=== PATIENT | male | born 1960 | race Caucasian/White ===

== ENCOUNTER 2016-11-12 12:06 | Emergency (ER) | payer SELFPAY ==
[~2016-11-12] VITALS: Ht 180.3 cm; Wt 79.8 kg
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
[2016-11-12] MEDS ORDERED: ORPHENADRINE 60 MG/2 ML (NORFLEX) AMP IM ONE (12:30)
[2016-11-12] MEDS ORDERED: KETOROLAC 60 MG/2 ML VIAL IM ONE (12:30)
[2016-11-12] MEDS ORDERED: HYDR-3816 PO (12:34)
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
[2016-11-12 13:52] VITALS: BP 140/98
== END 2016-11-12 13:52 | disposition home or self-care (01) ==
LOC: EDUNIT# 12:06 → ER 12:10
DX: M54.2 Cervicalgia (principal); G89.29 Other chronic pain; Z98.1 Arthrodesis status
CPT/HCPCS: 70450; 72125; 96372; 99281

== ENCOUNTER 2017-01-21 09:40 | Emergency (ER) | payer SELFPAY ==
[~2017-01-21] VITALS: Ht 180.3 cm; Wt 79.8 kg
[~2017-01-21 09:40] MED LIST: HYDR-3816 PO
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
[2017-01-21] MEDS ORDERED: fentaNYL INJECTION 100 MCG/2 ML AMP IVP ONE (11:15)
[2017-01-21] MEDS ORDERED: fentaNYL INJECTION 100 MCG/2 ML AMP IM PRN (11:30)
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
[2017-01-21] MEDS ORDERED: HYDR-756 PO (11:36)
[2017-01-21 11:53] VITALS: BP 124/74
== END 2017-01-21 11:53 | disposition home or self-care (01) ==
LOC: EDUNIT# 09:40 → ER 09:43
DX: S52.124A Nondisplaced fracture of head of right radius, initial encounter for closed fracture (principal); S52.125A Nondisplaced fracture of head of left radius, initial encounter for closed fracture; M19.90 Unspecified osteoarthritis, unspecified site; M54.9 Dorsalgia, unspecified; G89.29 Other chronic pain; F17.210 Nicotine dependence, cigarettes, uncomplicated; V18.4XXA Pedal cycle driver injured in noncollision transport accident in traffic accident, initial encounter
CPT/HCPCS: 73060; 73090; 96372; 99282

== ENCOUNTER 2017-03-19 08:24 | Inpatient (IN) | payer OTHER ==
[~2017-03-19] VITALS: Ht 180.3 cm; Wt 81.4 kg
[~2017-03-19 08:24] MED LIST changes: +HYDR-756 PO
--- OUTSIDE RECORDS SUMMARY | 2017-03-19 13:39 | XMS REPORT | Continuity of Care Document ---
Author Author [facility] Organization [facility] Address Unknown Phone Unavailable Allergies Active Description Code Type Severity Reaction Onset Reported/Identified Relationship to Patient Clinical Status Yes No Known Allergies Drug Allergy Unknown 05/27/2012 Yes No Known Allergies No Known Allergies Drug Allergy Unknown N/A 04/23/2015 Yes No Known Allergies NKMA N/A N/A 05/15/2015 Medications Problems Date Dx Coded Attending Type Code Diagnosis Diagnosed By 05/15/2015 Brian Pillai MD Admitting E87.6 05/20/2015 Brian Pillai MD Final E87.6 Hypokalemia 05/20/2015 Brian Pillai MD Final F11.10 Opioid abuse, uncomplicated 05/20/2015 Brian Pillai MD Final F15.10 Other stimulant abuse, uncomplicated 05/20/2015 Brian Pillai MD Final M62.82 Rhabdomyolysis 05/20/2015 Brian Pillai MD Final R65.10 Systemic inflammatory response syndrome (SIRS) of non-infectious origin wit 05/20/2015 Brian Pillai MD Final Z23 Encounter for immunization Procedures Results Encounters ACCT No. Visit Date/Time Discharge Status Pt. Type Provider Facility Loc./Unit Complaint [id number] 06/18/2012 08:00:00 2011 23:59:59 CLS Outpatient Kam TRINH, [facility] HMG.ORT.NO [id number] 04/23/2015 09:46:00 2014 11:06:00 DIS Emergency Azra TRINH, [facility] W.EMILIE [id number] 05/15/2015 21:08:00 2014 11:39:00 DIS Inpatient [facility]
[2017-03-19] MEDS ORDERED: DOCUSATE SODIUM 100 MG (COLACE) CAP PO PRN (14:15)
[2017-03-19] MEDS ORDERED: CLINDAMYCIN 900 MG/6ML (CLEOCIN) VIAL IV SCH (14:15)
[2017-03-19] MEDS ORDERED: ONDANSETRON 4 MG/5 ML ORAL SOLN (ZOFRAN) 5 ML PO PRN (14:15)
[2017-03-19] MEDS ORDERED: HYDROcodone/APAP 5 MG/325 MG (LORTAB) TAB PO PRN (14:15)
[2017-03-19] MEDS ORDERED: CATHETER FLUSH 10 ML SYR IV PRN (14:30)
[2017-03-19] MEDS: CLINDAMYCIN 900 MG/NS 50 ML IVPB IV SCH ×4 (14:37→21:45)
[2017-03-19] MEDS: IBUPROFEN 600 MG (MOTRIN) TAB PO PRN (14:37)
[2017-03-19 14:43] LABS: BASOPHILS % (AUTO) 0 % (0-10); EOSINOPHILS % (AUTO) 0 % (0-10); LYMPHOCYTES % (AUTO) 8 % (12-44); MEAN CORPUSCULAR HEMOGLOBIN 33 PG (25-34); MEAN CORPUSCULAR HGB CONC 35 G/DL (32-36); MEAN CORPUSCULAR VOLUME 92 FL (80-99); MEAN PLATELET VOLUME 9.9 FL (7.4-10.4); MONOCYTES % (AUTO) 9 % (0-12); NEUTROPHILS # (AUTO) 9.3 X 10^3 (1.8-7.8); NEUTROPHILS % (AUTO) 82 % (42-75); PLATELET COUNT 158 10^3/uL (130-400); RED CELL DISTRIBUTION WIDTH 12.8 % (10.0-14.5); WHITE BLOOD COUNT 11.3 10^3/uL (4.3-11.0)
[2017-03-19 15:02] LABS: ALANINE AMINOTRANSFERASE 50 U/L (0-55); ALBUMIN 3.1 GM/DL (3.2-4.5); ANION GAP 12 MMOL/L (5-14); ASPARTATE AMINO TRANSFERASE 75 U/L (5-34); BILIRUBIN,TOTAL 0.7 MG/DL (0.1-1.0); BLOOD UREA NITROGEN 12 MG/DL (7-18); BUN/CREATININE RATIO 16; CALCIUM 8.8 MG/DL (8.5-10.1); CARBON DIOXIDE 19 MMOL/L (21-32); CHLORIDE 106 MMOL/L (98-107); CREATININE SERUM 0.77 MG/DL (0.60-1.30); GFR ESTIMATED > 60; GLUCOSE 159 MG/DL (70-105); SODIUM 137 MMOL/L (135-145); hs C REACTIVE PROTEIN 4.28 MG/DL (0.00-0.50)
[2017-03-19 15:15] VITALS: BP 134/87
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
[2017-03-19] MEDS ORDERED: KCL 20 MEQ TAB (K-DUR) PO NR (15:45)
--- NOTE | 2017-03-19 16:36 | Diagnostic Imaging Report ---
INDICATION: Pain. TECHNIQUE: Three views of both elbows were obtained. FINDINGS: There are radial head fractures bilaterally. The distal humerus and proximal ulna are intact bilaterally. IMPRESSION: Relatively stable alignment of the bilateral nondisplaced radial head fractures. Dictated by: Dictated on workstation # [id number]
[2017-03-19] MEDS: HYDROcodone/APAP 5 MG/325 MG (LORTAB) TAB PO PRN ×2 (16:45→19:16)
[2017-03-19 19:10] VITALS: BP 143/89
[2017-03-19] MEDS: CATHETER FLUSH 10 ML SYR IV SCH (21:46)
[2017-03-20] VITALS (8 sets, daily range): BP systolic 138–200; BP diastolic 88–107
[2017-03-20] MEDS: HYDROcodone/APAP 5 MG/325 MG (LORTAB) TAB PO PRN ×5 (04:09→21:26)
[2017-03-20] MEDS: IBUPROFEN 600 MG (MOTRIN) TAB PO PRN ×3 (04:56→15:19)
[2017-03-20] MEDS: CATHETER FLUSH 10 ML SYR IV SCH ×3 (05:36→21:26)
[2017-03-20] MEDS: CLINDAMYCIN 900 MG/NS 50 ML IVPB IV SCH ×6 (05:36→21:26)
[2017-03-20 05:46] LABS: BASOPHILS % (AUTO) 0 % (0-10); EOSINOPHILS # (AUTO) 0.1 10^3/uL (0.0-0.3); EOSINOPHILS % (AUTO) 1 % (0-10); LYMPHOCYTES # (AUTO) 0.9 X 10^3 (1.0-4.0); LYMPHOCYTES % (AUTO) 17 % (12-44); MEAN CORPUSCULAR HEMOGLOBIN 32 PG (25-34); MEAN CORPUSCULAR HGB CONC 35 G/DL (32-36); MEAN CORPUSCULAR VOLUME 93 FL (80-99); MEAN PLATELET VOLUME 9.9 FL (7.4-10.4); MONOCYTES # (AUTO) 0.8 X 10^3 (0.0-1.0); MONOCYTES % (AUTO) 15 % (0-12); NEUTROPHILS # (AUTO) 3.7 X 10^3 (1.8-7.8); NEUTROPHILS % (AUTO) 67 % (42-75); PLATELET COUNT 139 10^3/uL (130-400); RED BLOOD COUNT 4.52 10^6/uL (4.35-5.85); RED CELL DISTRIBUTION WIDTH 12.7 % (10.0-14.5); WHITE BLOOD COUNT 5.5 10^3/uL (4.3-11.0)
[2017-03-20 06:04] LABS: ALANINE AMINOTRANSFERASE 54 U/L (0-55); ALBUMIN 2.9 GM/DL (3.2-4.5); ANION GAP 9 MMOL/L (5-14); ASPARTATE AMINO TRANSFERASE 75 U/L (5-34); BILIRUBIN,TOTAL 0.6 MG/DL (0.1-1.0); BLOOD UREA NITROGEN 12 MG/DL (7-18); BUN/CREATININE RATIO 17; CALCIUM 8.6 MG/DL (8.5-10.1); CARBON DIOXIDE 21 MMOL/L (21-32); CHLORIDE 110 MMOL/L (98-107); CREATININE SERUM 0.69 MG/DL (0.60-1.30); GFR ESTIMATED > 60; GLUCOSE 90 MG/DL (70-105); POTASSIUM 3.6 MMOL/L (3.6-5.0); SODIUM 140 MMOL/L (135-145); TOTAL PROTEIN 6.3 GM/DL (6.4-8.2)
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
--- NOTE | 2017-03-20 13:24 | Consultation ---
History of Present Illness History of Present Illness Patient Consulted On(timi/time) 03/20/17 13:18 Date Seen by Provider: Mar 20, 2017 Time Seen by Provider: 13:18 Reason for Visit: recent fracture of the left head of the radius, followed by a fall 2 d History of Present Illness 56 yr old WM with a drainage left olecranon bursitis. states that the redness, drainage and pain have significantly improved since it began a few days ago. denies fevers or chill. no history of similar episodes. he also has bilateral radial head nondisplaced fractures after a fall. Allergies and Home Medications Allergies Coded Allergies: No Known Drug Allergies (Unverified , 11/12/16) Home Medications No Active Prescriptions or Reported Meds Past Kijqqxm-Jtxxvz-Doaroe Hx Patient Social History Alcohol Use: Occasionally Uses Number of Drinks Today: AA Alcohol Beverage of Choice: Beer Recreational Drug Use: No (past drug abuse ) Type Used: Cigarettes 2nd Hand Smoke Exposure: Yes Recent Foreign Travel: No Contact w/Someone Who Travel: No Recent Infectious Disease Expo: No Recent Hopitalizations: No Immunizations Up To Date Tetanus Booster (TDap): Less than 5yrs PED Vaccines UTD: Yes Surgeries History of Surgeries: Yes (back, neck jun 2016) Respiratory History of Respiratory Disorde: No Cardiovascular History of Cardiac Disorders: No Neurological History of Neurological Disord: No Genitourinary History of Genitourinary Disor: No Gastrointestinal History of Gastrointestinal Di: No Musculoskeletal History of Musculoskeletal Dis: Yes Musculoskeletal Disorders: Arthritis, Back Injury, Chronic Back Pain Endocrine History of Endocrine Disorders: No HEENT History of HEENT Disorders: No Cancer History of Cancer: No Psychosocial History of Psychiatric Problem: No Blood Transfusions History of Blood Disorders: No Family Medical History Significant Family History: No Pertinent Family Hx Review of Systems-General Constitutional: no symptoms reported Physical Exam-General Problems Physical Exam Vital Signs Vital Sign - Last 12Hours 03/19/17 15:15 Temp 99.3 Pulse 96 Resp 20 B/P (MAP) 134/87 Pulse Ox 96 O2 Delivery Room Air Capillary Refill : Less Than 3 Seconds General Appearance: no apparent distress Extremities: other (left elbow: circumscribed erythema over small 1 cm area of flucuance, serosanguinous scant discharge noted, no purulence, 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 Patient instructed to call for worsening drainage/ fevers. Clinical Quality Measures DVT/VTE Risk/Contraindication: Risk Factor Score Per Nursin RFS Level Per Nursing on Admit: 3=High HERMANN WILSON DO Mar 20, 2017 13:24
--- NOTE | 2017-03-20 16:27 | Progress Note (SOAP) ---
Subjective Subjective/Events-last exam Afebrile, no acute events. Swelling and redness and pain in arm improving somewhat. Review of Systems Date Seen by Provider: Mar 20, 2017 Time Seen by Provider: 10:00 Objective Exam Last Set of Vital Signs Vital Signs Date Time Temp Pulse Resp B/P (MAP) Pulse Ox O2 Delivery O2 Flow Rate FiO2 03/20/17 12:52 97.1 78 20 163/102 99 Room Air Capillary Refill : Less Than 3 Seconds I&O Intake and Output 03/21/17 00:00 Intake Total 1650 ml Output Total 1 ml Balance 1649 ml Intake Oral 1600 ml IV Total 50 ml Output Stool Total 1 ml # Voids 6 General: Alert, No Acute Distress Lungs: Clear to Auscultation, Normal Air Movement Heart: Regular Rate, No Murmurs Abdomen: Normal Bowel Sounds, Soft Skin: Other (mild erythema of left arm with more significant erythema over elbow, dark, necrotic appearing lesion over elbow stable, erythema and swelling significantly decreased from yesterday) Psych/Mental Status: Mental Status NL Results/Procedures Lab Laboratory Tests 03/20/17 05:15: White Blood Count 5.5, Red Blood Count 4.52, Hemoglobin 14.5, Hematocrit 42, Mean Corpuscular Volume 93, Mean Corpuscular Hemoglobin 32, Mean Corpuscular Hemoglobin Concent 35, Red Cell Distribution Width 12.7, Platelet Count 139, Mean Platelet Volume 9.9, Neutrophils (%) (Auto) 67, Lymphocytes (%) (Auto) 17, Monocytes (%) (Auto) 15H, Eosinophils (%) (Auto) 1, Basophils (%) (Auto) 0, Neutrophils # (Auto) 3.7, Lymphocytes # (Auto) 0.9L, Monocytes # (Auto) 0.8, Eosinophils # (Auto) 0.1, Basophils # (Auto) 0.0, Erythrocyte Sedimentation Rate 36H, Sodium Level 140, Potassium Level 3.6, Chloride Level 110H, Carbon Dioxide Level 21, Anion Gap 9, Blood Urea Nitrogen 12, Creatinine 0.69, Estimat Glomerular Filtration Rate > 60, BUN/Creatinine Ratio 17, Glucose Level 90, Calcium Level 8.6, Total Bilirubin 0.6, Aspartate Amino Transf (AST/SGOT) 75H, Alanine Aminotransferase (ALT/SGPT) 54, Alkaline Phosphatase 63, Total Protein 6.3L, Albumin 2.9L Microbiology 8/28/17 Blood Culture - Preliminary, Resulted No growth Assessment/Plan Assessment/Plan Admission Dx Cellulitis Non-displaced bilateral radial head fractures Plan Cellulitis- failed Bactrim outpatient -Initial elevated WBC resolved, no lactic acid elevation -IV clindamycin 900 mg q8 hours -Surgery consult due to fluctuance and necrotic appearing tissue- no need for debridement, but appreciate recommendations, Ortho consult pending Non-displaced bilateral radial head fractures- repeat bilateral elbow x-rays to evaluate healing -Ortho consult today given wound over fracture with infection DVT ppx- enoxaparin Diagnosis/Problems: Clinical Quality Measures DVT/VTE Risk/Contraindication: Risk Factor Score Per Nursin RFS Level Per Nursing on Admit: 3=High ALBERTO UMANZOR MD Mar 20, 2017 16:27
[2017-03-20] MEDS ORDERED: ENOXAPARIN 40 MG/0.4 ML (LOVENOX) SYR SC SCH (16:30)
[2017-03-21] VITALS: BP 161/106
[2017-03-21] MEDS: HYDROcodone/APAP 5 MG/325 MG (LORTAB) TAB PO PRN ×2 (03:08→08:19)
[2017-03-21 04:00] VITALS: BP 160/107
[2017-03-21] MEDS: CLINDAMYCIN 900 MG/NS 50 ML IVPB IV SCH ×2 (05:17)
[2017-03-21] MEDS: CATHETER FLUSH 10 ML SYR IV SCH (05:18)
[2017-03-21 08:00] VITALS: BP 141/98
[2017-03-21 09:34] LABS: MEAN PLATELET VOLUME 10.4 FL (7.4-10.4); RED BLOOD COUNT 4.99 10^6/uL (4.35-5.85); RED CELL DISTRIBUTION WIDTH 12.7 % (10.0-14.5); WHITE BLOOD COUNT 5.2 10^3/uL (4.3-11.0)
[2017-03-21 09:56] LABS: ALANINE AMINOTRANSFERASE 62 U/L (0-55); ALBUMIN 3.3 GM/DL (3.2-4.5); ANION GAP 11 MMOL/L (5-14); ASPARTATE AMINO TRANSFERASE 67 U/L (5-34); BILIRUBIN,TOTAL 0.5 MG/DL (0.1-1.0); BLOOD UREA NITROGEN 11 MG/DL (7-18); BUN/CREATININE RATIO 15; CARBON DIOXIDE 22 MMOL/L (21-32); CHLORIDE 105 MMOL/L (98-107); CREATININE SERUM 0.72 MG/DL (0.60-1.30); GFR ESTIMATED > 60; GLUCOSE 78 MG/DL (70-105); POTASSIUM 3.7 MMOL/L (3.6-5.0); SODIUM 138 MMOL/L (135-145); TOTAL PROTEIN 7.6 GM/DL (6.4-8.2)
[2017-03-21] MEDS ORDERED: CLIN150C17 PO (11:06)
--- NOTE | 2017-03-21 11:10 | Discharge Instructions ---
Discharge [facility] Discharge Medications New, Converted or Re-Newed RX: Transmitted to Pharmacy New Medications: Clindamycin HCl (Clindamycin HCl) 150 Mg Capsule 450 MG PO Q6H for 10 Days, #120 CAP 0 Refills Patient Instructions Goal/Follow Up Appt: Follow up with Derek Parnell APRN on 03/27 at 10 am. Follow up with Dr. Patel (Orthopedics) in 2 weeks. Return to The Hospital For: Fever, inability to keep down antibiotics, worsening pain/redness in arm Activity & Diet Discharge Diet: Regular Diet Activity as Tolerated: No (non-weight bearing both arms) Copy Copies To 1: ELENA Dias BETHANY N MD Mar 21, 2017 11:09 am
[2017-03-21 12:00] VITALS: BP 141/98
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
== END 2017-03-21 12:00 | disposition home or self-care (01) | DRG 603 ==
LOC: EDSTATUS 08:24 → 4TH 12:56 → UNDOADMOB 12:56 → UNDODISOB 03-21 12:00
PROVIDERS: ADMIT Family Medicine; ATTEND Family Medicine
DX: L03.114 Cellulitis of left upper limb (principal); S52.125D Nondisplaced fracture of head of left radius, subsequent encounter for closed fracture with routine healing; S52.124D Nondisplaced fracture of head of right radius, subsequent encounter for closed fracture with routine healing; F17.210 Nicotine dependence, cigarettes, uncomplicated; V18.0XXA Pedal cycle driver injured in noncollision transport accident in nontraffic accident, initial encounter; Y92.414 Local residential or business street as the place of occurrence of the external cause; Y99.8 Other external cause status
CPT/HCPCS: 36415; 73221; 80053; 83605; 85025; 85027; 85652; 86141; 87040

== ENCOUNTER 2017-06-06 11:22 | Inpatient (IN) | payer OTHER ==
[2017-06-06] VITALS (16 sets, daily range): BP systolic 88–130; BP diastolic 63–92
[~2017-06-06] VITALS: Ht 180.3 cm; Wt 80.5 kg
[~2017-06-06 11:22] MED LIST changes: +CLIN150C17 PO
[2017-06-06] MEDS ORDERED: NS IV 1000 ML 1,000 ML IV ONE ×2 (11:24)
[2017-06-06] MEDS ORDERED: ZIPRASIDONE 20 MG INJ (GEODON) VIAL IM ONE ×3 (11:44→12:30)
[2017-06-06 11:45] LABS: BILIRUBIN,URINE NEGATIVE (NEGATIVE); KETONES,URINE NEGATIVE (NEGATIVE); LEUKOCYTE ESTERASE ,URINE NEGATIVE (NEGATIVE); NITRITE,URINE NEGATIVE (NEGATIVE); PH,URINE 6 (5-9); PROTEIN,URINE 2+ (NEGATIVE); UROBILINOGEN,URINE NORMAL (NORMAL)
[2017-06-06 11:45] LABS: BASOPHILS % (AUTO) 0 % (0-10); EOSINOPHILS % (AUTO) 0 % (0-10); LYMPHOCYTES # (AUTO) 0.9 X 10^3 (1.0-4.0); LYMPHOCYTES % (AUTO) 7 % (12-44); MEAN CORPUSCULAR HEMOGLOBIN 33 PG (25-34); MEAN CORPUSCULAR HGB CONC 34 G/DL (32-36); MEAN CORPUSCULAR VOLUME 95 FL (80-99); MEAN PLATELET VOLUME 10.6 FL (7.4-10.4); MONOCYTES # (AUTO) 1.2 X 10^3 (0.0-1.0); MONOCYTES % (AUTO) 9 % (0-12); NEUTROPHILS # (AUTO) 10.9 X 10^3 (1.8-7.8); NEUTROPHILS % (AUTO) 84 % (42-75); PLATELET COUNT 167 10^3/uL (130-400); RED BLOOD COUNT 4.76 10^6/uL (4.35-5.85); RED CELL DISTRIBUTION WIDTH 14.2 % (10.0-14.5); WHITE BLOOD COUNT 13.1 10^3/uL (4.3-11.0)
[2017-06-06] MEDS ORDERED: WATER (STERILE) FOR INJECTION 20 ML ONE ×2 (11:45→12:14)
[2017-06-06] MEDS ORDERED: LORazepam INJ 2 MG/ML (ATIVAN) VIAL ONE (11:45)
[2017-06-06 11:56] LABS: INR 1.1 (0.8-1.4)
[2017-06-06] MEDS ORDERED: LORazepam INJ 2 MG/ML (ATIVAN) VIAL IVP ONE ×2 (12:00→12:30)
[2017-06-06 12:09] LABS: ALANINE AMINOTRANSFERASE 114 U/L (0-55); ALCOHOL < 10 MG/DL (<10); ANION GAP 24 MMOL/L (5-14); ASPARTATE AMINO TRANSFERASE 182 U/L (5-34); BILIRUBIN,TOTAL 1.6 MG/DL (0.1-1.0); BLOOD UREA NITROGEN 26 MG/DL (7-18); BUN/CREATININE RATIO 7; CALCIUM 9.5 MG/DL (8.5-10.1); CARBON DIOXIDE 15 MMOL/L (21-32); CHLORIDE 104 MMOL/L (98-107); CREATININE SERUM 3.54 MG/DL (0.60-1.30); GFR ESTIMATED 18; POTASSIUM 5.5 MMOL/L (3.6-5.0); SALICYLATE < 5.0 MG/DL (5.0-20.0); SODIUM 143 MMOL/L (135-145); TOTAL PROTEIN 8.3 GM/DL (6.4-8.2); hs C REACTIVE PROTEIN 0.26 MG/DL (0.00-0.50)
[2017-06-06 12:12] LABS: ACETAMINOPHEN < 10 UG/ML (10-30); GLUCOSE 60 MG/DL (70-105)
[2017-06-06] MEDS ORDERED: DEXTROSE 50% 50 ML (IMS) SYR IV ONE (12:15)
[2017-06-06 12:18] LABS: BAND NEUTROPHILS 1 %; LYMPHOCYTES % (MANUAL) 9 %; NEUTROPHILS % (MANUAL) 79 %
--- NOTE | 2017-06-06 12:23 | ED Neurological Problem ---
General Chief Complaint: Altered Mental Status Stated Complaint: POSS DRUG OVERDOSE Nursing Triage Note: PT ARRIVED PER EMS, PT CALLED BY [facility] FOR PT TO BE EVALUATED FOR ETOH INTOXICATION OR POISONING, PT HAS IV NS INFUSING UPON ADMISSION. PT ABLE TO TELL THIS RN HIS NAME, NOT WHERE HE LIVES, OR WHERE HE HAS BEEN. PT HAVING HALLUCINATIONS OF PERSON IN ROOM W AXE. PT HAS PUPILS THAT ARE UNEQUAL. PT HAS TWITCHING AND MOVEMENTS ALL OVER. PT IS SWEATING. C-COLLAR APPLIED UPON ARRIVAL BY DR ELKINS Nursing Sepsis Screen: No Definite Risk Source: patient, EMS, old records Exam Limitations: no limitations History of Present Illness Time seen by provider: 11:25 Initial Comments This 56-year-old man is brought to the emergency room via EMS for altered mental status. Family or friends called EMS because of his behavior. There was no known injury. Patient is hallucinating and disoriented. He is unable to control his movements suggestive of substance abuse. He denies any alcohol use. He is not combative but is not cooperative either. Allergies and Home Medications Allergies Coded Allergies: No Known Drug Allergies (Unverified , 11/12/16) Home Medications Clindamycin HCl 150 Mg Capsule, 450 MG PO Q6H for 10 Days, #120 Ref 0 Prescribed by: ALBERTO UMANZOR on 03/21/17 1106 Constitutional: see HPI Eyes: See HPI Ears, Nose, Mouth, Throat: no symptoms reported Respiratory: no symptoms reported Cardiovascular: no symptoms reported Gastrointestinal: no symptoms reported Genitourinary: no symptoms reported Musculoskeletal: no symptoms reported Skin: no symptoms reported Psychiatric/Neurological: See HPI Endocrine: No Symptoms Reported Past Ddordst-Ludtku-Lcebyu Hx Patient Social History Alcohol Beverage of Choice: Beer Recreational Drug Use: Yes (methamphetamines) Type Used: Cigarettes 2nd Hand Smoke Exposure: Yes Recent Foreign Travel: No Contact w/Someone Who Travel: No Recent Infectious Disease Expo: No Recent Hopitalizations: No Immunizations Up To Date Tetanus Booster (TDap): Less than 5yrs PED Vaccines UTD: Yes Surgeries History of Surgeries: Yes (back, neck jun 2016) Respiratory History of Respiratory Disorde: No Cardiovascular History of Cardiac Disorders: No Neurological History of Neurological Disord: No Genitourinary History of Genitourinary Disor: No Gastrointestinal History of Gastrointestinal Di: No Musculoskeletal History of Musculoskeletal Dis: Yes Musculoskeletal Disorders: Arthritis, Back Injury, Chronic Back Pain Endocrine History of Endocrine Disorders: No HEENT History of HEENT Disorders: No Cancer History of Cancer: No Psychosocial History of Psychiatric Problem: No Blood Transfusions History of Blood Disorders: No Family Medical History Significant Family History: No Pertinent Family Hx Physical Exam Vital Signs Vital Sign - Last 12Hours 06/06/17 11:25 Temp 98.1 Pulse 135 Resp 26 B/P (MAP) 105/76 Pulse Ox 95 Capillary Refill : Less Than 3 Seconds General Appearance: WD/WN, mild distress HEENT: normal ENT inspection, pharynx normal, other (Anus is oriented and with left pupil larger than the right) Neck: supple, normal inspection Respiratory: lungs clear, normal breath sounds, no respiratory distress, no accessory muscle use Cardiovascular: regular rate, rhythm, no edema, no murmur Gastrointestinal: normal bowel sounds, non tender, soft Extremities: non-tender, normal inspection Neurologic/Psychiatric: human resources benefits coordinator II-XII nml as tested, no motor/sensory deficits, alert Crainal Nerves: normal hearing, abnormal speech (Sluggish) Coordination/Gait: abnormal gait Motor/Sensory: no motor deficit, no sensory deficit Skin: normal color, warm/dry Focused Exam Evaluation Lactate Level Laboratory Tests 06/06/17 11:55: Lactic Acid Level 3.98*H 06/06/17 14:01: Lactic Acid Level 0.84 Lactic Acid Level Laboratory Tests Test 06/06/17 11:55 06/06/17 14:01 Lactic Acid Level 3.98 MMOL/L (0.50-2.00) *H 0.84 MMOL/L (0.50-2.00) Progress/Results/Core Measures Results/Orders Lab Results Laboratory Tests Test 06/06/17 11:24 06/06/17 11:29 06/06/17 11:55 06/06/17 14:01 Range/Units White Blood Count 13.1 H 4.3-11.0 10^3/uL Red Blood Count 4.76 4.35-5.85 10^6/uL Hemoglobin 15.5 13.3-17.7 G/DL Hematocrit 45 40-54 % Mean Corpuscular Volume 95 80-99 FL Mean Corpuscular Hemoglobin 33 25-34 PG Mean Corpuscular Hemoglobin Concent 34 32-36 G/DL Red Cell Distribution Width 14.2 10.0-14.5 % Platelet Count 167 130-400 10^3/uL Mean Platelet Volume 10.6 H 7.4-10.4 FL Neutrophils (%) (Auto) 84 H 42-75 % Lymphocytes (%) (Auto) 7 L 12-44 % Monocytes (%) (Auto) 9 0-12 % Eosinophils (%) (Auto) 0 0-10 % Basophils (%) (Auto) 0 0-10 % Neutrophils # (Auto) 10.9 H 1.8-7.8 X 10^3 Lymphocytes # (Auto) 0.9 L 1.0-4.0 X 10^3 Monocytes # (Auto) 1.2 H 0.0-1.0 X 10^3 Eosinophils # (Auto) 0.0 0.0-0.3 10^3/uL Basophils # (Auto) 0.0 0.0-0.1 10^3/uL Neutrophils % (Manual) 79 % Lymphocytes % (Manual) 9 % Monocytes % (Manual) 11 % Band Neutrophils 1 % Blood Morphology Comment NORMAL Prothrombin Time 14.0 12.2-14.7 SEC INR Comment 1.1 0.8-1.4 Activated Partial Thromboplast Time 29 24-35 SEC Sodium Level 143 135-145 MMOL/L Potassium Level 5.5 H 3.6-5.0 MMOL/L Chloride Level 104 98-107 MMOL/L Carbon Dioxide Level 15 L 21-32 MMOL/L Anion Gap 24 H 5-14 MMOL/L Blood Urea Nitrogen 26 H 7-18 MG/DL Creatinine 3.54 H 0.60-1.30 MG/DL Estimat Glomerular Filtration Rate 18 BUN/Creatinine Ratio 7 Glucose Level 60 *L 70-105 MG/DL Calcium Level 9.5 8.5-10.1 MG/DL Magnesium Level 2.5 H 1.8-2.4 MG/DL Total Bilirubin 1.6 H 0.1-1.0 MG/DL Aspartate Amino Transf (AST/SGOT) 182 H 5-34 U/L Alanine Aminotransferase (ALT/SGPT) 114 H 0-55 U/L Alkaline Phosphatase 71 40-136 U/L C-Reactive Protein High Sensitivity 0.26 0.00-0.50 MG/DL Total Protein 8.3 H 6.4-8.2 GM/DL Albumin 4.0 3.2-4.5 GM/DL Free Thyroxine 1.20 0.70-1.48 NG/DL TSH [place] Testing 6.42 H 0.35-4.94 UIU/ML Salicylates Level < 5.0 L 5.0-20.0 MG/DL Acetaminophen Level < 10 L 10-30 UG/ML Serum Alcohol < 10 <10 MG/DL Urine Color YELLOW Urine Clarity CLEAR Urine pH 6 5-9 Urine Specific [place] 1.010 L 1.016-1.022 Urine Protein 2+ H NEGATIVE Urine Glucose (UA) NEGATIVE NEGATIVE Urine Ketones NEGATIVE NEGATIVE Urine Nitrite NEGATIVE NEGATIVE Urine Bilirubin NEGATIVE NEGATIVE Urine Urobilinogen NORMAL NORMAL MG/DL Urine Leukocyte Esterase NEGATIVE NEGATIVE Urine RBC (Auto) NEGATIVE NEGATIVE Urine RBC NONE /HPF Urine WBC 2-5 /HPF Urine Squamous Epithelial Cells 2-5 /HPF Urine Crystals NONE /LPF Urine Bacteria TRACE /HPF Urine Casts NONE /LPF Urine Mucus NEGATIVE /LPF Urine Other SPERM 5-10 /HPF Urine Culture Indicated NO Urine Opiates Screen POSITIVE H NEGATIVE Urine Oxycodone Screen NEGATIVE NEGATIVE Urine Methadone Screen NEGATIVE NEGATIVE Urine Propoxyphene Screen NEGATIVE NEGATIVE Urine Barbiturates Screen NEGATIVE NEGATIVE Ur Tricyclic Antidepressants Screen NEGATIVE NEGATIVE Urine Phencyclidine Screen NEGATIVE NEGATIVE Urine Amphetamines Screen POSITIVE H NEGATIVE Urine Methamphetamines Screen POSITIVE H NEGATIVE Urine Benzodiazepines Screen NEGATIVE NEGATIVE Urine Cocaine Screen NEGATIVE NEGATIVE Urine Cannabinoids Screen NEGATIVE NEGATIVE Lactic Acid Level 3.98 *H 0.84 0.50-2.00 MMOL/L My Orders Orders - MIKHAIL MORILLO MD Cbc With Automated Diff (06/06/17 11:24) Comprehensive Metabolic Panel (06/06/17 11:24) Lactic Acid Analyzer (06/06/17 11:24) Blood Culture (06/06/17 11:24) Sputum Culture (06/06/17 11:24) Ua Culture If Indicated (06/06/17 11:24) Protime With Inr (06/06/17 11:24) Partial Thromboplastin Time (06/06/17 11:24) Chest 1 View, Ap/Pa Only (06/06/17 11:24) O2 (06/06/17 11:24) Saline Lock/Iv-Start (06/06/17 11:24) Saline Lock/Iv-Start (06/06/17 11:24) Vital Signs Adult Sepsis Patie Q1H (06/06/17 11:24) Remove Rings In Anticipation O (06/06/17 11:24) Acetaminophen (06/06/17 11:24) Alcohol (06/06/17 11:24) Hs C Reactive Protein (06/06/17 11:24) Drug Screen Stat (Urine) (06/06/17 11:24) Salicylate (06/06/17 11:24) Thyroid Analyzer (06/06/17 11:24) Ns Iv 1000 Ml (Sodium Chloride 0.9%) (06/06/17 11:24) Ns Iv 1000 Ml (Sodium Chloride 0.9%) (06/06/17 11:24) Ct Head/Cervical Spine Wo (06/06/17 11:24) Manual Differential (06/06/17 11:24) Lorazepam Injection (Ativan Injection) (06/06/17 12:00) Ziprasidone Injection (Geodon Injection) (06/06/17 12:00) Ziprasidone Injection (Geodon Injection) (06/06/17 11:44) Lorazepam Injection (Ativan Injection) (06/06/17 11:45) Water (Sterile) For Injection (Sterile W (06/06/17 11:45) D50w (Emergency) Syringe (Dextrose 50% 5 (06/06/17 12:15) Ziprasidone Injection (Geodon Injection) (06/06/17 12:30) Lorazepam Injection (Ativan Injection) (06/06/17 12:30) Water (Sterile) For Injection (Sterile W (06/06/17 12:14) Free T4 (Free Thyroxine) (06/06/17 11:24) Magnesium (06/06/17 13:59) Medications Given in ED Current Medications Medications Dose Ordered Sig/Leon Route Start Time Stop Time Status Last Admin Dose Admin Dextrose 25 ml ONCE ONCE IV 06/06/17 12:15 06/06/17 12:16 DC 06/06/17 12:17 25 ML Lorazepam 1 mg ONCE ONCE IVP 06/06/17 12:00 06/06/17 12:01 DC 06/06/17 11:50 1 MG Lorazepam 1 mg ONCE ONCE IVP 06/06/17 12:30 06/06/17 12:31 DC 06/06/17 12:24 1 MG Sodium Chloride 1,000 ml @ 0 mls/hr Q0M ONCE IV 06/06/17 11:24 06/06/17 11:27 DC 06/06/17 11:44 1,000 MLS/HR Sodium Chloride 1,000 ml @ 0 mls/hr Q0M ONCE IV 06/06/17 11:24 06/06/17 11:27 DC 06/06/17 15:35 999 MLS/HR Sterile Water 20 ml @ ud STK-MED ONCE .ROUTE 06/06/17 11:45 06/06/17 11:55 DC 06/06/17 11:50 1.2 MLS/HR Ziprasidone 10 mg ONCE ONCE IM 06/06/17 12:00 06/06/17 12:01 DC 06/06/17 11:50 10 MG Ziprasidone 10 mg ONCE ONCE IM 06/06/17 12:30 06/06/17 12:31 DC 06/06/17 12:28 10 MG Vital Signs/I&O Vital Sign - Last 12Hours 06/06/17 11:25 Temp 98.1 Pulse 135 Resp 26 B/P (MAP) 105/76 Pulse Ox 95 Intake and Output 06/07/17 00:00 Intake Total 1.2 ml Balance 1.2 ml Blood Pressure Mean: 86 Progress Note #1: Time: 12:21 Progress Note Patient's labs have returned. He is in acute renal failure and IV fluids are presently infusing. Bolus of 2 L of normal saline has been ordered. Patient is positive for methamphetamines which largely explains his behavior. Because of unequal pupils, CT of the head has been ordered. This is still pending as patient has not been cooperative enough to obtain the scan. He received Ativan 1 mg IV and Geodon 10 mg IM. This will be repeated. Behavior has improved somewhat but he is still not cooperative enough for CT scan. C-collar remains in place. Progress Note #2: Time: 14:11 Progress Note Patient received 1 L of IV fluids by EMS and is completing a liter of fluids was initiated in the ER. A third liter of fluids will be held before patient transfers to ICU. Lactic acid is elevated but no source of infection was identified. Patient did test positive for methamphetamines. Because of the anisocoria (unequal pupil size) CT of the head and neck was felt appropriate. C -collar was put on as a precaution. C-collar was removed at 14:[address] images and reports. Patient received 2 rounds of Ativan 1 mg IV and Geodon 10 mg IM to help calm him for CT imaging and keep him safe in the exam bed. Patient eventually became sedated and was sleeping deeply. He was arousable to painful stimulus. Case was reviewed with Dr. Umanzor who agrees to admission. Fingerstick blood sugar is 103. Diagnostic Imaging Diagonstic Imaging: CT Plain Films/CT/US/NM/MRI: c-spine, head Comments CT head and C-spine viewed by me. Report reviewed. See report below: NAME: LILY DELA CRUZ [facility] REC#: [id number] PT STATUS: REG ER : 1960 PHYSICIAN: MIKHAIL MORILLO MD ADMIT DATE: 06/06/17/ER Draft Date of Exam:06/06/17 CT HEAD/CERVICAL SPINE WO CLINICAL INDICATION: Patient with possible drug overdose and altered mental status. EXAM: Head CT without IV contrast. Axial CT scan of the cervical spine with sagittal and coronal reformations. COMPARISON: CT scan of the cervical spine and head dated 11/12/2016. FINDINGS: HEAD CT: There is no evidence of acute cerebral infarct, intracranial hemorrhage, or gross mass effect. There is normal nicole/white matter distinction. The brain parenchymal volume appears appropriate for the patient's age. There is no significant midline shift or herniation. There is no evidence of hydrocephalus. The basal cisterns are unremarkable. The skull, extracranial soft tissue, and orbits are unremarkable. The paranasal sinuses are unremarkable. CT CERVICAL SPINE: There is no acute cervical spine fracture or dislocation. There are stable postop changes to the cervical spine with C3-4 through C6 posterior cervical fusion hardware with bilateral spanning rods and pedicle screws. There is also incompletely imaged posterior fusion hardware seen from the T1 level and inferiorly. There is no significant abnormality in these regions as visualized. There are C4 through C6 laminectomies. There are vertebral body spurs and facet arthropathy which have not significantly changed in the interim. There is significant streak artifact from the hardware limiting evaluation. Limited visualization of the upper lung mendoza which appear clear. IMPRESSION: 1. Stable CT scan of the brain with no interval acute intracranial process. 2. Stable cervical spine with no acute fracture or dislocation. 3. Cervical spine degenerative disease and postop changes which have not significantly changed. Dictated on workstation # [id number] Dict: 06/06/17 1253 Trans: 06/06/17 1307 [id number] Interpreted by: FALLON CAVANAUGH MD Diagonstic Imaging: Xray Plain Films/CT/US/NM/MRI: chest Comments Chest x-ray viewed by me and report reviewed. See report below: NAME: LILY DELA CRUZ [facility] REC#: [id number] PT STATUS: ADM IN : 1960 PHYSICIAN: MIKHAIL MORILLO MD ADMIT DATE: 06/06/17/ICU Signed Date of Exam: 06/06/17 CHEST 1 VIEW, AP/PA ONLY INDICATION: Altered mental status and possible drug overdose 1241 hrs. Portable upright view of the chest is obtained with comparison made to study of 05/15/2015. Heart size and pulmonary vasculature are within normal limits. There's been extensive surgical change in the visualized lower thoracic spine and upper thoracic spine. No pneumothorax, consolidation or pleural fluid is appreciated. IMPRESSION: Extensive spinal surgery without evidence of aspiration, pneumothorax or other acute abnormality. Dictated by: Dictated on workstation # [id number] Dict: 06/06/17 1251 Trans: 06/06/17 1655 Interpreted by: TONI CALIX MD Electronically signed by: TONI CALIX MD 06/06/17 165 Departure Communication (Admissions) Time/Spoke to Admitting Phy: 13:[address] Umanzor Impression Impression: Primary Impression: Acute renal failure Qualified Codes: N17.9 - Acute kidney failure, unspecified Additional Impressions: Altered mental status Qualified Codes: R41.82 - Altered mental status, unspecified Acute psychosis Methamphetamine abuse Hypoglycemia Disposition: 09 ADMITTED INPATIENT Condition: Stable Admissions Decision to Admit Reason: Admit from ER (General) Decision to Admit/Date: Jun 06, 2017 Time/Decision to Admit Time: 11:30 Departure-Patient Inst. Referrals: CORDELL BROWNING APRN (PCP/Family) Primary Care Physician MIKHAIL MORILLO MD Jun 06, 2017 12:22
--- NOTE | 2017-06-06 12:56 | Diagnostic Imaging Report ---
INDICATION: Altered mental status and possible drug overdose 1241 hrs. Portable upright view of the chest is obtained with comparison made to study of 05/15/2015. Heart size and pulmonary vasculature are within normal limits. There's been extensive surgical change in the visualized lower thoracic spine and upper thoracic spine. No pneumothorax, consolidation or pleural fluid is appreciated. IMPRESSION: Extensive spinal surgery without evidence of aspiration, pneumothorax or other acute abnormality. Dictated by: Dictated on workstation # [id number]
--- NOTE | 2017-06-06 13:07 | Diagnostic Imaging Report ---
CLINICAL INDICATION: Patient with possible drug overdose and altered mental status. EXAM: Head CT without IV contrast. Axial CT scan of the cervical spine with sagittal and coronal reformations. COMPARISON: CT scan of the cervical spine and head dated 11/12/2016. FINDINGS: HEAD CT: There is no evidence of acute cerebral infarct, intracranial hemorrhage, or gross mass effect. There is normal nicole/white matter distinction. The brain parenchymal volume appears appropriate for the patient's age. There is no significant midline shift or herniation. There is no evidence of hydrocephalus. The basal cisterns are unremarkable. The skull, extracranial soft tissue, and orbits are unremarkable. The paranasal sinuses are unremarkable. CT CERVICAL SPINE: There is no acute cervical spine fracture or dislocation. There are stable postop changes to the cervical spine with C3-4 through C6 posterior cervical fusion hardware with bilateral spanning rods and pedicle screws. There is also incompletely imaged posterior fusion hardware seen from the T1 level and inferiorly. There is no significant abnormality in these regions as visualized. There are C4 through C6 laminectomies. There are vertebral body spurs and facet arthropathy which have not significantly changed in the interim. There is significant streak artifact from the hardware limiting evaluation. Limited visualization of the upper lung mendoza which appear clear. IMPRESSION: 1. Stable CT scan of the brain with no interval acute intracranial process. 2. Stable cervical spine with no acute fracture or dislocation. 3. Cervical spine degenerative disease and postop changes which have not significantly changed. Dictated by: Dictated on workstation # [id number]
[2017-06-06] MEDS ORDERED: NS IV 1000 ML 1,000 ML ONE (14:52)
[2017-06-06] MEDS ORDERED: D5 NS 1000 ML IV SOLUTION 1,000 ML IV ONE (16:41)
[2017-06-06] MEDS: D5 NS 1000 ML IV SOLUTION 1,000 ML IV SCH (16:56)
[2017-06-06] MEDS ORDERED: ONDANSETRON 4 MG/2 ML (SDV) Z0FRAN IV PRN (17:00)
[2017-06-06] MEDS ORDERED: CATHETER FLUSH 10 ML SYR IV PRN (17:00)
[2017-06-06] MEDS: LORazepam INJ 2 MG/ML (ATIVAN) VIAL IV PRN ×4 (20:11→23:03)
[2017-06-07] VITALS (21 sets, daily range): BP systolic 110–162; BP diastolic 76–107
[2017-06-07] MEDS ORDERED: HALOPERIDOL 5 MG/ML (HALDOL) AMP ONE (00:03)
[2017-06-07] MEDS: LORazepam INJ 2 MG/ML (ATIVAN) VIAL IV PRN ×11 (00:18→23:01)
[2017-06-07] MEDS ORDERED: HALOPERIDOL 5 MG/ML (HALDOL) AMP IV ONE (00:30)
[2017-06-07] MEDS ORDERED: NS (IVPB) 50 ML ONE ×6 (01:07→23:15)
[2017-06-07] MEDS: D5 NS 1000 ML IV SOLUTION 1,000 ML IV SCH ×4 (01:22→22:33)
[2017-06-07] MEDS: NS IV SCH ×3 (02:17→08:26)
[2017-06-07] MEDS: DEXMEDETOMIDINE IV SCH ×3 (02:17→08:26)
[2017-06-07 05:04] LABS: BASOPHILS % (AUTO) 0 % (0-10); EOSINOPHILS % (AUTO) 0 % (0-10); LYMPHOCYTES # (AUTO) 1.3 X 10^3 (1.0-4.0); LYMPHOCYTES % (AUTO) 17 % (12-44); MEAN CORPUSCULAR HEMOGLOBIN 32 PG (25-34); MEAN CORPUSCULAR HGB CONC 34 G/DL (32-36); MEAN CORPUSCULAR VOLUME 95 FL (80-99); MEAN PLATELET VOLUME 10.3 FL (7.4-10.4); MONOCYTES # (AUTO) 0.6 X 10^3 (0.0-1.0); MONOCYTES % (AUTO) 8 % (0-12); NEUTROPHILS # (AUTO) 5.9 X 10^3 (1.8-7.8); NEUTROPHILS % (AUTO) 75 % (42-75); PLATELET COUNT 92 10^3/uL (130-400); RED BLOOD COUNT 4.23 10^6/uL (4.35-5.85); WHITE BLOOD COUNT 7.9 10^3/uL (4.3-11.0)
[2017-06-07 05:48] LABS: ALBUMIN 3.1 GM/DL (3.2-4.5); BILIRUBIN,TOTAL 1.1 MG/DL (0.1-1.0); CALCIUM 8.1 MG/DL (8.5-10.1); CREATININE SERUM 1.5 MG/DL (0.60-1.30); POTASSIUM 3.9 MMOL/L (3.6-5.0); TOTAL PROTEIN 6.5 GM/DL (6.4-8.2)
[2017-06-07 06:53] LABS: INR 1.1 (0.8-1.4); PROTHROMBIN TIME PATIENT 14.4 SEC (12.2-14.7)
[2017-06-07 07:26] LABS: CREATINE KINASE 11147 U/L (30-200)
[2017-06-07 07:27] LABS: ACETAMINOPHEN < 10 UG/ML (10-30)
[2017-06-07] MEDS: DEXMEDETOMIDINE INJECTION 400 MCG in NS (IVPB) 100 ML IV SCH ×5 (12:01→23:32)
[2017-06-07 14:07] LABS: MEAN PLATELET VOLUME 10.4 FL (7.4-10.4); RED BLOOD COUNT 4.54 10^6/uL (4.35-5.85); RED CELL DISTRIBUTION WIDTH 13.8 % (10.0-14.5); WHITE BLOOD COUNT 6.2 10^3/uL (4.3-11.0)
[2017-06-07 14:26] LABS: ALANINE AMINOTRANSFERASE 1516 U/L (0-55); ANION GAP 8 MMOL/L (5-14); ASPARTATE AMINO TRANSFERASE 3551 U/L (5-34); BILIRUBIN,TOTAL 1.7 MG/DL (0.1-1.0); BLOOD UREA NITROGEN 23 MG/DL (7-18); BUN/CREATININE RATIO 20; CALCIUM 8.2 MG/DL (8.5-10.1); CARBON DIOXIDE 18 MMOL/L (21-32); CHLORIDE 117 MMOL/L (98-107); CREATININE SERUM 1.13 MG/DL (0.60-1.30); GFR ESTIMATED > 60; GLUCOSE 139 MG/DL (70-105); POTASSIUM 4.2 MMOL/L (3.6-5.0); SODIUM 143 MMOL/L (135-145); TOTAL PROTEIN 6.6 GM/DL (6.4-8.2)
[2017-06-07 15:02] LABS: INR 1.2 (0.8-1.4)
--- NOTE | 2017-06-07 15:49 | History & Physicial ([facility]) ---
HPI History of Present Illness: 56 yo male brought to ER via EMS due to altered mental status. He was very agitated, requiring medications for sedation and found to have methamphetamine positive urine. He was very agitated over night and required Precedex drip and this morning only moans in response to his name, but is on Precedex drip still to prevent excessive movement and agitation given his acute renal failure and elevated CK. Exam Limitations: clinical condition Date seen by provider: Jun 07, 2017 Time Seen by Provider: 08:20 Attending Physician Alberto Cloud MD PCP Derek Parnell Aprn Consult Date of Admission Jun 06, 2017 at 14:08 Home Medications Home Medications Reviewed patient Home Medication Reconciliation Form Allergies Coded Allergies: No Known Drug Allergies (Unverified , 11/12/16) [id number] Hx Patient Social History Alcohol Use: Occasionally Uses Recreational Drug Use: Yes (methamphetamines) Type Used: Cigarettes 2nd Hand Smoke Exposure: Yes Recent Foreign Travel: No Contact w/other who traveled: No Recent Hopitalizations: No Recent Infectious Disease Expo: No Immunizations Up To Date Tetanus Booster (TDap): Less than 5yrs Past Medical History PMHx: Substance abuse (reports last use 10/2016) Multiple fractures Family Medical History Significant Family History: No Pertinent Family Hx Review of Systems ([facility]) Constitutional: other (unable to obtain due to patient condition) Reviewed Test Results Reviewed Test Results Lab Laboratory Tests Test 06/06/17 11:24 06/06/17 11:29 06/06/17 11:55 06/06/17 14:01 Range/Units White Blood Count 13.1 H 4.3-11.0 10^3/uL Red Blood Count 4.76 4.35-5.85 10^6/uL Hemoglobin 15.5 13.3-17.7 G/DL Hematocrit 45 40-54 % Mean Corpuscular Volume 95 80-99 FL Mean Corpuscular Hemoglobin 33 25-34 PG Mean Corpuscular Hemoglobin Concent 34 32-36 G/DL Red Cell Distribution Width 14.2 10.0-14.5 % Platelet Count 167 130-400 10^3/uL Mean Platelet Volume 10.6 H 7.4-10.4 FL Neutrophils (%) (Auto) 84 H 42-75 % Lymphocytes (%) (Auto) 7 L 12-44 % Monocytes (%) (Auto) 9 0-12 % Eosinophils (%) (Auto) 0 0-10 % Basophils (%) (Auto) 0 0-10 % Neutrophils # (Auto) 10.9 H 1.8-7.8 X 10^3 Lymphocytes # (Auto) 0.9 L 1.0-4.0 X 10^3 Monocytes # (Auto) 1.2 H 0.0-1.0 X 10^3 Eosinophils # (Auto) 0.0 0.0-0.3 10^3/uL Basophils # (Auto) 0.0 0.0-0.1 10^3/uL Neutrophils % (Manual) 79 % Lymphocytes % (Manual) 9 % Monocytes % (Manual) 11 % Band Neutrophils 1 % Blood Morphology Comment NORMAL Prothrombin Time 14.0 12.2-14.7 SEC INR Comment 1.1 0.8-1.4 Activated Partial Thromboplast Time 29 24-35 SEC Sodium Level 143 135-145 MMOL/L Potassium Level 5.5 H 3.6-5.0 MMOL/L Chloride Level 104 98-107 MMOL/L Carbon Dioxide Level 15 L 21-32 MMOL/L Anion Gap 24 H 5-14 MMOL/L Blood Urea Nitrogen 26 H 7-18 MG/DL Creatinine 3.54 H 0.60-1.30 MG/DL Estimat Glomerular Filtration Rate 18 BUN/Creatinine Ratio 7 Glucose Level 60 *L 70-105 MG/DL Calcium Level 9.5 8.5-10.1 MG/DL Magnesium Level 2.5 H 1.8-2.4 MG/DL Total Bilirubin 1.6 H 0.1-1.0 MG/DL Aspartate Amino Transf (AST/SGOT) 182 H 5-34 U/L Alanine Aminotransferase (ALT/SGPT) 114 H 0-55 U/L Alkaline Phosphatase 71 40-136 U/L C-Reactive Protein High Sensitivity 0.26 0.00-0.50 MG/DL Total Protein 8.3 H 6.4-8.2 GM/DL Albumin 4.0 3.2-4.5 GM/DL Free Thyroxine 1.20 0.70-1.48 NG/DL TSH [place] Testing 6.42 H 0.35-4.94 UIU/ML Salicylates Level < 5.0 L 5.0-20.0 MG/DL Acetaminophen Level < 10 L 10-30 UG/ML Serum Alcohol < 10 <10 MG/DL Urine Color YELLOW Urine Clarity CLEAR Urine pH 6 5-9 Urine Specific [place] 1.010 L 1.016-1.022 Urine Protein 2+ H NEGATIVE Urine Glucose (UA) NEGATIVE NEGATIVE Urine Ketones NEGATIVE NEGATIVE Urine Nitrite NEGATIVE NEGATIVE Urine Bilirubin NEGATIVE NEGATIVE Urine Urobilinogen NORMAL NORMAL MG/DL Urine Leukocyte Esterase NEGATIVE NEGATIVE Urine RBC (Auto) NEGATIVE NEGATIVE Urine RBC NONE /HPF Urine WBC 2-5 /HPF Urine Squamous Epithelial Cells 2-5 /HPF Urine Crystals NONE /LPF Urine Bacteria TRACE /HPF Urine Casts NONE /LPF Urine Mucus NEGATIVE /LPF Urine Other SPERM 5-10 /HPF Urine Culture Indicated NO Urine Opiates Screen POSITIVE H NEGATIVE Urine Oxycodone Screen NEGATIVE NEGATIVE Urine Methadone Screen NEGATIVE NEGATIVE Urine Propoxyphene Screen NEGATIVE NEGATIVE Urine Barbiturates Screen NEGATIVE NEGATIVE Ur Tricyclic Antidepressants Screen NEGATIVE NEGATIVE Urine Phencyclidine Screen NEGATIVE NEGATIVE Urine Amphetamines Screen POSITIVE H NEGATIVE Urine Methamphetamines Screen POSITIVE H NEGATIVE Urine Benzodiazepines Screen NEGATIVE NEGATIVE Urine Cocaine Screen NEGATIVE NEGATIVE Urine Cannabinoids Screen NEGATIVE NEGATIVE Lactic Acid Level 3.98 *H 0.84 0.50-2.00 MMOL/L Test 06/06/17 14:17 06/06/17 15:38 06/06/17 16:54 06/06/17 18:27 Range/Units Glucometer 103 98 93 109 70-110 MG/DL Test 06/06/17 20:56 06/07/17 04:55 06/07/17 08:18 06/07/17 08:22 Range/Units Glucometer 101 135 H 70-110 MG/DL White Blood Count 7.9 4.3-11.0 10^3/uL Red Blood Count 4.23 L 4.35-5.85 10^6/uL Hemoglobin 13.7 13.3-17.7 G/DL Hematocrit 40 40-54 % Mean Corpuscular Volume 95 80-99 FL Mean Corpuscular Hemoglobin 32 25-34 PG Mean Corpuscular Hemoglobin Concent 34 32-36 G/DL Red Cell Distribution Width 14.0 10.0-14.5 % Platelet Count 92 L 130-400 10^3/uL Mean Platelet Volume 10.3 7.4-10.4 FL Neutrophils (%) (Auto) 75 42-75 % Lymphocytes (%) (Auto) 17 12-44 % Monocytes (%) (Auto) 8 0-12 % Eosinophils (%) (Auto) 0 0-10 % Basophils (%) (Auto) 0 0-10 % Neutrophils # (Auto) 5.9 1.8-7.8 X 10^3 Lymphocytes # (Auto) 1.3 1.0-4.0 X 10^3 Monocytes # (Auto) 0.6 0.0-1.0 X 10^3 Eosinophils # (Auto) 0.0 0.0-0.3 10^3/uL Basophils # (Auto) 0.0 0.0-0.1 10^3/uL Prothrombin Time 14.4 12.2-14.7 SEC INR Comment 1.1 0.8-1.4 Sodium Level 142 135-145 MMOL/L Potassium Level 3.9 3.6-5.0 MMOL/L Chloride Level 116 #H 98-107 MMOL/L Carbon Dioxide Level 18 L 21-32 MMOL/L Anion Gap 8 5-14 MMOL/L Blood Urea Nitrogen 28 H 7-18 MG/DL Creatinine 1.50 H 0.60-1.30 MG/DL Estimat Glomerular Filtration Rate 49 BUN/Creatinine Ratio 19 Glucose Level 104 70-105 MG/DL Calcium Level 8.1 L 8.5-10.1 MG/DL Magnesium Level 2.7 H 1.8-2.4 MG/DL Total Bilirubin 1.1 H 0.1-1.0 MG/DL Aspartate Amino Transf (AST/SGOT) 5834 #H 5-34 U/L Alanine Aminotransferase (ALT/SGPT) 1748 #H 0-55 U/L Alkaline Phosphatase 56 40-136 U/L Total Creatine Kinase 02635 H 30-200 U/L Total Protein 6.5 6.4-8.2 GM/DL Albumin 3.1 L 3.2-4.5 GM/DL Acetaminophen Level < 10 L 10-30 UG/ML Lactic Acid Level 0.84 0.50-2.00 MMOL/L Test 06/07/17 11:50 06/07/17 12:07 06/07/17 13:51 06/07/17 14:59 Range/Units Ammonia 58 H 11-32 UMOL/L Glucometer 158 H 144 H 70-110 MG/DL White Blood Count 6.2 4.3-11.0 10^3/uL Red Blood Count 4.54 4.35-5.85 10^6/uL Hemoglobin 14.9 13.3-17.7 G/DL Hematocrit 43 40-54 % Mean Corpuscular Volume 94 80-99 FL Mean Corpuscular Hemoglobin 33 25-34 PG Mean Corpuscular Hemoglobin Concent 35 32-36 G/DL Red Cell Distribution Width 13.8 10.0-14.5 % Platelet Count 83 L 130-400 10^3/uL Mean Platelet Volume 10.4 7.4-10.4 FL Prothrombin Time 15.0 H 12.2-14.7 SEC INR Comment 1.2 0.8-1.4 Activated Partial Thromboplast Time 28 24-35 SEC Sodium Level 143 135-145 MMOL/L Potassium Level 4.2 3.6-5.0 MMOL/L Chloride Level 117 H 98-107 MMOL/L Carbon Dioxide Level 18 L 21-32 MMOL/L Anion Gap 8 5-14 MMOL/L Blood Urea Nitrogen 23 H 7-18 MG/DL Creatinine 1.13 0.60-1.30 MG/DL Estimat Glomerular Filtration Rate > 60 BUN/Creatinine Ratio 20 Glucose Level 139 H 70-105 MG/DL Calcium Level 8.2 L 8.5-10.1 MG/DL Total Bilirubin 1.7 H 0.1-1.0 MG/DL Aspartate Amino Transf (AST/SGOT) 3551 #H 5-34 U/L Alanine Aminotransferase (ALT/SGPT) 1516 #H 0-55 U/L Alkaline Phosphatase 59 40-136 U/L Total Protein 6.6 6.4-8.2 GM/DL Albumin 3.0 L 3.2-4.5 GM/DL Radiology CT head/cervical spine 06/06/17: "IMPRESSION: 1. Stable CT scan of the brain with no interval acute intracranial process. 2. Stable cervical spine with no acute fracture or dislocation. 3. Cervical spine degenerative disease and postop changes which have not significantly changed." CXR 06/06/17: "IMPRESSION: Extensive spinal surgery without evidence of aspiration, pneumothorax or other acute abnormality." Physical Exam-([facility]) Physical Exam Vital Signs VS - Last 72 Hours, by Label 06/06/17 06/06/17 06/06/17 06/06/17 11:25 14:52 15:00 15:15 Temp 98.1 Pulse 135 112 110 Resp 26 25 31 B/P (MAP) 105/76 115/64 Pulse Ox 95 100 95 O2 Delivery Room Air Room Air Room Air 06/06/17 06/06/17 06/06/17 06/06/17 15:30 15:45 16:00 16:00 Pulse 109 109 108 Resp 28 27 29 B/P (MAP) 97/69 109/63 112/73 Pulse Ox 95 95 96 96 O2 Delivery Room Air Room Air Room Air Room Air 06/06/17 06/06/17 06/06/17 06/06/17 16:15 16:30 16:45 17:00 Pulse 108 105 107 107 Resp 27 27 28 26 B/P (MAP) 112/77 88/72 109/67 111/68 Pulse Ox 94 94 93 95 O2 Delivery Room Air Room Air Room Air Room Air 06/06/17 06/06/17 06/06/17 06/06/17 17:15 17:30 18:00 19:00 Pulse 106 106 107 111 Resp 27 26 15 15 B/P (MAP) 115/75 112/73 114/67 130/78 Pulse Ox 93 93 96 O2 Delivery Room Air Room Air Room Air Room Air 06/06/17 06/06/17 06/06/17 06/06/17 19:00 20:00 20:00 21:00 Pulse 111 115 113 Resp 20 19 B/P (MAP) 114/85 108/72 Pulse Ox 95 96 96 O2 Delivery Room Air Room Air Room Air 06/06/17 06/06/17 06/07/17 06/07/17 22:00 23:00 00:00 00:00 Pulse 115 120 Resp 27 41 28 B/P (MAP) 115/70 124/92 Pulse Ox 97 96 O2 Delivery Room Air Room Air Room Air Room Air 06/07/17 06/07/17 06/07/17 06/07/17 01:00 02:00 02:17 03:00 Pulse 103 101 100 Resp 22 25 31 B/P (MAP) 113/85 113/85 110/76 O2 Delivery Room Air Room Air Room Air 06/07/17 06/07/17 06/07/17 06/07/17 04:00 04:00 05:00 05:31 Pulse 98 100 93 Resp 33 21 B/P (MAP) 118/78 115/87 115/87 Pulse Ox 96 O2 Delivery Room Air Room Air Room Air 06/07/17 06/07/17 06/07/17 06/07/17 06:00 07:00 07:00 08:00 Temp 98.4 Pulse 94 85 92 82 Resp 41 32 30 B/P (MAP) 112/81 127/85 128/90 O2 Delivery Room Air Room Air Room Air 06/07/17 06/07/17 06/07/17 06/07/17 08:00 08:26 09:00 10:00 Pulse 88 86 82 Resp 34 24 28 B/P (MAP) 128/90 127/93 140/101 Pulse Ox 96 O2 Delivery Room Air Room Air Room Air Room Air 06/07/17 06/07/17 06/07/17 06/07/17 11:00 12:00 12:00 13:00 Temp 98.7 Pulse 88 75 70 Resp 24 32 B/P (MAP) 130/87 119/87 Pulse Ox 100 100 O2 Delivery Room Air Room Air Room Air 06/07/17 06/07/17 15:00 15:31 Temp 96.7 Pulse 73 Resp 34 B/P (MAP) 128/100 Pulse Ox 100 O2 Delivery Room Air Capillary Refill : Less Than 3 Seconds General Appearance: other (sedated, diaphoretic) Respiratory: rhonchi, other (tachypnea) Cardiovascular: regular rate, rhythm, no murmur Gastrointestinal: normal bowel sounds, non tender, soft, No hepatomegaly Extremities: no pedal edema Neurologic/Psychiatric: disoriented x 3 (reponds with vocalization to name but no words) Skin: diaphoresis, tattoos/piercings Clinical Quality Measures DVT/VTE Risk/Contraindication: Risk Factor Score Per Nursin RFS Level Per Nursing on Admit: 4+=Very High Copy Copies To 1: Derek Parnell APRN Assessment/Plan Assessment/Plan Admission Dx Acute methamphetamine intoxication Acute kidney injury Hyperkalemia Anion gap acidosis Hepatitis Leukocytosis Subclinical hypothyroidism Plan Acute methamphetamine intoxication -UDS positive for opiates and methamphetamine/amphetamine, EtOH, APAP and salicylate levels negative -Requiring sedation, continue with sedation as required to minimize agitation and movement due to his MICHELLE with rhabdomyolysis likely Acute kidney injury -Unsure etiology, possibly hypovolemic vs hypoperfusion due to vascular spasm from methamphetamine, improved somewhat with IVF -Improving, continue IVF Hyperkalemia -Improved with improved renal function Anion gap acidosis -Resolved with IVF Hepatitis -With significant worsening overnight, suspect due to hypoperfusion/vascular spasm from methamphetamine. Check hepatitis panel. This am no clear evidence of hepatic failure given normal coags, will follow closely because if continued worsening or development of acute hepatic failure will require transfer to facility with Hepatology available Leukocytosis Unclear source, CXR unremarkable for infection, UA without evidence of infection , improved overnight without specific treatment Subclinical hypothyroidism -Suspect due to acute illness, free T4 normal, will follow-up outpatient DVT ppx- enoxaparin ALBERTO CLOUD MD Jun 07, 2017 15:49
[2017-06-07] MEDS ORDERED: HALOPERIDOL 5 MG/ML (HALDOL) AMP IV NR (20:38)
[2017-06-08] VITALS (24 sets, daily range): BP systolic 40–156; BP diastolic 54–112
[2017-06-08] MEDS: LORazepam INJ 2 MG/ML (ATIVAN) VIAL IV PRN ×10 (00:53→22:26)
[2017-06-08] MEDS ORDERED: NS (IVPB) 100 ML ONE (03:20)
[2017-06-08] MEDS: DEXMEDETOMIDINE INJECTION 400 MCG in NS (IVPB) 100 ML IV SCH ×3 (03:32→09:10)
[2017-06-08 05:02] LABS: MEAN PLATELET VOLUME 10.5 FL (7.4-10.4); RED BLOOD COUNT 4.91 10^6/uL (4.35-5.85); RED CELL DISTRIBUTION WIDTH 13.5 % (10.0-14.5); WHITE BLOOD COUNT 6.8 10^3/uL (4.3-11.0)
[2017-06-08 05:13] LABS: INR 1.3 (0.8-1.4); PROTHROMBIN TIME PATIENT 16.3 SEC (12.2-14.7)
[2017-06-08 05:21] LABS: ALANINE AMINOTRANSFERASE 1126 U/L (0-55); ALBUMIN 3.1 GM/DL (3.2-4.5); AMMONIA 54 UMOL/L (11-32); ANION GAP 11 MMOL/L (5-14); ASPARTATE AMINO TRANSFERASE 1601 U/L (5-34); BILIRUBIN,TOTAL 2.1 MG/DL (0.1-1.0); BLOOD UREA NITROGEN 18 MG/DL (7-18); BUN/CREATININE RATIO 18; CALCIUM 8.2 MG/DL (8.5-10.1); CARBON DIOXIDE 18 MMOL/L (21-32); CHLORIDE 115 MMOL/L (98-107); CREATINE KINASE 2831 U/L (30-200); CREATININE SERUM 1.02 MG/DL (0.60-1.30); GFR ESTIMATED > 60; GLUCOSE 111 MG/DL (70-105); MAGNESIUM 1.8 MG/DL (1.8-2.4); SODIUM 144 MMOL/L (135-145); TOTAL PROTEIN 6.9 GM/DL (6.4-8.2)
[2017-06-08] MEDS: POTASSIUM CL 10MEQ/50ML IVPB 50 ML IV SCH (05:46)
[2017-06-08] MEDS: KCL 20 MEQ TAB (K-DUR) PO SCH (05:46)
[2017-06-08] MEDS: MAGNESIUM 1 GM/100 ML IVPB 100 ML IV SCH (05:46)
[2017-06-08] MEDS: D5 NS 1000 ML IV SOLUTION 1,000 ML IV SCH ×3 (05:48→17:29)
[2017-06-08] MEDS: HALOPERIDOL 5 MG/ML (HALDOL) AMP IM/IV PRN ×2 (06:14→13:08)
[2017-06-08 07:41] LABS: HCV INDEX >11.00 Index (0.00-0.79)
--- NOTE | 2017-06-08 13:58 | Progress Note (SOAP) ---
Subjective Subjective/Events-last exam Febrile to Tmax 100.2, remains tachycardic and hypertensive. Tried to titrate Precedex yesterday and immediately began to require increased frequency of lorazepam for agitation (more than hourly) so returned to high dose. Required Haldol overnight in addition to Precedex and lorazepam, but is waking up a little more this morning. Review of Systems Date Seen by Provider: Jun 08, 2017 Time Seen by Provider: 10:40 Objective Exam Last Set of Vital Signs Vital Signs Date Time Temp Pulse Resp B/P (MAP) Pulse Ox O2 Delivery O2 Flow Rate FiO2 06/08/17 13:00 64 46 140/109 99 Room Air 06/08/17 11:00 101.0 Capillary Refill : Less Than 3 Seconds I&O Intake and Output 06/09/17 00:00 Intake Total 1204 ml Output Total 1250 ml Balance -46 ml Intake Oral 100 ml IV Total 1104 ml Output Urine Total 1250 ml General: Moderate Distress Lungs: Other (ronchi and tachypnea) Heart: Other (tachycardic) Abdomen: Normal Bowel Sounds, Soft, No Tenderness Psych/Mental Status: Other (moans and opens eyes briefly to name) Results/Procedures Lab Laboratory Tests 06/07/17 14:59: Glucometer 144H 06/07/17 21:18: Glucometer 98 06/08/17 03:05: Glucometer 124H 06/08/17 04:50: White Blood Count 6.8, Red Blood Count 4.91, Hemoglobin 16.0, Hematocrit 45, Mean Corpuscular Volume 92, Mean Corpuscular Hemoglobin 33, Mean Corpuscular Hemoglobin Concent 35, Red Cell Distribution Width 13.5, Platelet Count 88L, Mean Platelet Volume 10.5H, Prothrombin Time 16.3H, INR Comment 1.3, Sodium Level 144, Potassium Level 4.0, Chloride Level 115H, Carbon Dioxide Level 18L, Anion Gap 11, Blood Urea Nitrogen 18, Creatinine 1.02, Estimat Glomerular Filtration Rate > 60, BUN/Creatinine Ratio 18, Glucose Level 111H, Calcium Level 8.2L, Magnesium Level 1.8, Total Bilirubin 2.1H, Aspartate Amino Transf ( AST/SGOT) 1601#H, Alanine Aminotransferase (ALT/SGPT) 1126#H, Alkaline Phosphatase 63, Ammonia 54H, Total Creatine Kinase 2831#H, Total Protein 6.9, Albumin 3.1L 06/08/17 09:54: Glucometer 131H Microbiology 06/06/17 Blood Culture - Preliminary, Resulted No growth Radiology CT head/cervical spine 06/06/17: "IMPRESSION: 1. Stable CT scan of the brain with no interval acute intracranial process. 2. Stable cervical spine with no acute fracture or dislocation. 3. Cervical spine degenerative disease and postop changes which have not significantly changed." CXR 06/06/17: "IMPRESSION: Extensive spinal surgery without evidence of aspiration, pneumothorax or other acute abnormality. Assessment/Plan Assessment/Plan Plan Acute methamphetamine intoxication -UDS positive for opiates and methamphetamine/amphetamine, EtOH, APAP and salicylate levels negative -Requiring sedation, continue with sedation as required to minimize agitation and movement due to his MICHELLE with rhabdomyolysis likely 06/08- try to wean Precedex again today given improvement in CK will be able tolerate a little more movement Acute kidney injury -Unsure etiology, possibly hypovolemic vs hypoperfusion due to vascular spasm from methamphetamine, improved somewhat with IVF -Improving, continue IVF Resolved Rhabdomyolysis -Initial CK over 11,000, markedly improved today (06/08), continue IVF and minimizing agitation Hyperkalemia -Improved with improved renal function Resolved Anion gap acidosis -Resolved with IVF Resolved Hepatitis -With significant worsening overnight, suspect due to hypoperfusion/vascular spasm from methamphetamine. Check hepatitis panel. This am no clear evidence of hepatic failure given normal coags, will follow closely because if continued worsening or development of acute hepatic failure will require transfer to facility with Hepatology available 06/08 Improving levels, positive for Hepatitis C, which upon clinic review note was historical, no acute hepatitis. Continue to monitor closely. Leukocytosis Unclear source, CXR unremarkable for infection, UA without evidence of infection , improved overnight without specific treatment Resolved Subclinical hypothyroidism -Suspect due to acute illness, free T4 normal, will follow-up outpatient DVT ppx- enoxaparin Clinical Quality Measures DVT/VTE Risk/Contraindication: Risk Factor Score Per Nursin RFS Level Per Nursing on Admit: 4+=Very High ALBERTO UMANZOR MD Jun 08, 2017 1:58 pm
[2017-06-08] MEDS: ENOXAPARIN 40 MG/0.4 ML (LOVENOX) SYR SQ SCH (14:51)
[2017-06-08] MEDS ORDERED: INFLUENZA TRIvalent 2017-2018 0.5 ML/45 MCG SYR IM ONE (18:45)
[2017-06-09] VITALS (22 sets, daily range): BP systolic 104–154; BP diastolic 43–97
[2017-06-09] MEDS ORDERED: KETOROLAC 30 MG/ML VIAL IV ONE (00:15)
[2017-06-09 00:55] LABS: KETONES,URINE NEGATIVE (NEGATIVE); LEUKOCYTE ESTERASE ,URINE 1+ (NEGATIVE); NITRITE,URINE NEGATIVE (NEGATIVE); PH,URINE 7 (5-9); PROTEIN,URINE 2+ (NEGATIVE); UROBILINOGEN,URINE 8 MG/DL (NORMAL)
[2017-06-09 01:15] LABS: BILIRUBIN,URINE 1+ (NEGATIVE)
[2017-06-09] MEDS: D5 NS 1000 ML IV SOLUTION 1,000 ML IV SCH ×5 (01:36→23:14)
[2017-06-09] MEDS: LORazepam INJ 2 MG/ML (ATIVAN) VIAL IV PRN ×6 (02:42→14:09)
[2017-06-09] MEDS: NICOTINE POLACRILEX 2 MG (COMMIT) LOZ MM PRN ×2 (03:31→06:35)
[2017-06-09 04:17] LABS: MEAN PLATELET VOLUME 11.5 FL (7.4-10.4); RED BLOOD COUNT 4.37 10^6/uL (4.35-5.85); RED CELL DISTRIBUTION WIDTH 13.3 % (10.0-14.5); WHITE BLOOD COUNT 7.3 10^3/uL (4.3-11.0)
[2017-06-09 04:24] LABS: INR 1.2 (0.8-1.4); PROTHROMBIN TIME PATIENT 14.9 SEC (12.2-14.7)
[2017-06-09 04:37] LABS: ALANINE AMINOTRANSFERASE 625 U/L (0-55); ALBUMIN 2.8 GM/DL (3.2-4.5); ANION GAP 11 MMOL/L (5-14); ASPARTATE AMINO TRANSFERASE 601 U/L (5-34); BILIRUBIN,TOTAL 2.1 MG/DL (0.1-1.0); BLOOD UREA NITROGEN 14 MG/DL (7-18); BUN/CREATININE RATIO 17; CALCIUM 7.8 MG/DL (8.5-10.1); CARBON DIOXIDE 15 MMOL/L (21-32); CHLORIDE 111 MMOL/L (98-107); CREATINE KINASE 1212 U/L (30-200); CREATININE SERUM 0.84 MG/DL (0.60-1.30); GFR ESTIMATED > 60; GLUCOSE 95 MG/DL (70-105); MAGNESIUM 1.5 MG/DL (1.8-2.4); POTASSIUM 3.3 MMOL/L (3.6-5.0); SODIUM 137 MMOL/L (135-145); TOTAL PROTEIN 6.2 GM/DL (6.4-8.2)
[2017-06-09] MEDS: POTASSIUM CL 10MEQ/50ML IVPB 50 ML IV SCH ×5 (05:09→09:17)
[2017-06-09] MEDS: MAGNESIUM 1 GM/100 ML IVPB 100 ML IV SCH ×3 (05:09→06:14)
[2017-06-09] MEDS: KCL 20 MEQ TAB (K-DUR) PO SCH (06:00)
[2017-06-09] MEDS: DEXMEDETOMIDINE INJECTION 400 MCG in NS (IVPB) 100 ML IV SCH (09:33)
[2017-06-09 12:27] LABS: ABG BASE EXCESS -5.7 MMOL/L (-2.5-2.5); ABG OXYGEN SATURATION 92 % (94-100); ABG PCO2 25 MMHG (35-45); ABG PH 7.46 (7.37-7.43); ABG PO2 55 MMHG (79-93); ABG TCO2 18.2 MMOL/L (21.0-31.0)
[2017-06-09 12:31] LABS: ABG HCO3 17 MMOL/L (23-27); ALLENS TEST YES-POS; PATIENT TEMP 98.5
[2017-06-09] MEDS: ENOXAPARIN 40 MG/0.4 ML (LOVENOX) SYR SQ SCH (13:39)
[2017-06-09] MEDS: NICOTINE 21 MG (NICODERM) PATCH TD SCH (14:10)
--- NOTE | 2017-06-09 19:49 | Progress Note (SOAP) ---
Subjective Subjective/Events-last exam Pt still difficult to arouse. Prcedex weaned today. Tmax 101.6 last night. Review of Systems Date Seen by Provider: Jun 09, 2017 Time Seen by Provider: 11:30 Objective Exam Last Set of Vital Signs Vital Signs Date Time Temp Pulse Resp B/P (MAP) Pulse Ox O2 Delivery O2 Flow Rate FiO2 06/09/17 18:00 84 26 145/89 99 Room Air 06/09/17 17:05 99.1 Capillary Refill : Less Than 3 Seconds I&O Intake and Output 06/10/17 00:00 Intake Total 4890 ml Output Total 3650 ml Balance 1240 ml Intake Oral 1490 ml IV Total 3400 ml Output Urine Total 3450 ml Stool Total 200 ml # Bowel Movements 3 General: Other (sedated) Lungs: Other (tachypneic) Heart: Regular Rate Results/Procedures Lab Laboratory Tests 06/08/17 22:35: Glucometer 77 06/09/17 00:02: Urine Color YELLOW, Urine Clarity CLEAR, Urine pH 7, Urine Specific [place] 1.005L, Urine Protein 2+H, Urine Glucose (UA) NEGATIVE, Urine Ketones NEGATIVE, Urine Nitrite NEGATIVE, Urine Bilirubin 1+H, Urine Urobilinogen 8H, Urine Leukocyte Esterase 1+H, Urine RBC (Auto) 5+H, Urine RBC 10-25H, Urine WBC NONE, Urine Crystals NONE, Urine Bacteria NEGATIVE, Urine Casts NONE, Urine Mucus NEGATIVE, Urine Culture Indicated NO 06/09/17 00:27: Glucometer 99 06/09/17 01:29: Lactic Acid Level 1.00 06/09/17 03:26: White Blood Count 7.3, Red Blood Count 4.37, Hemoglobin 14.1, Hematocrit 40, Mean Corpuscular Volume 92, Mean Corpuscular Hemoglobin 32, Mean Corpuscular Hemoglobin Concent 35, Red Cell Distribution Width 13.3, Platelet Count 71L, Mean Platelet Volume 11.5H, Prothrombin Time 14.9H, INR Comment 1.2, Sodium Level 137, Potassium Level 3.3L, Chloride Level 111H, Carbon Dioxide Level 15L, Anion Gap 11, Blood Urea Nitrogen 14, Creatinine 0.84, Estimat Glomerular Filtration Rate > 60, BUN/Creatinine Ratio 17, Glucose Level 95, Calcium Level 7.8L, Magnesium Level 1.5L, Total Bilirubin 2.1H, Aspartate Amino Transf (AST/ SGOT) 601H, Alanine Aminotransferase (ALT/SGPT) 625#H, Alkaline Phosphatase 55, Total Creatine Kinase 1212H, Total Protein 6.2L, Albumin 2.8L 06/09/17 08:05: Glucometer 106 06/09/17 12:22: Blood Gas Puncture Site r radial, Blood Gas Patient Temperature 98.5, Arterial Blood pH 7.46H, Arterial Blood Partial Pressure CO2 25L, Arterial Blood Partial Pressure O2 55L, Arterial Blood HCO3 17*L, Arterial Blood Total CO2 18.2L, Arterial Blood Oxygen Saturation 92L, Arterial Blood Base Excess -5.7L, Flavio Test YES-POS, Blood Gas Ventilator Setting NO, Blood Gas Inspired Oxygen Room Air Microbiology 06/06/17 Blood Culture - Preliminary, Resulted No growth Radiology CT head/cervical spine 06/06/17: "IMPRESSION: 1. Stable CT scan of the brain with no interval acute intracranial process. 2. Stable cervical spine with no acute fracture or dislocation. 3. Cervical spine degenerative disease and postop changes which have not significantly changed." CXR 06/06/17: "IMPRESSION: Extensive spinal surgery without evidence of aspiration, pneumothorax or other acute abnormality. Assessment/Plan Assessment/Plan Plan Acute methamphetamine intoxication -UDS positive for opiates and methamphetamine/amphetamine, EtOH, APAP and salicylate levels negative -Requiring sedation, continue with sedation as required to minimize agitation and movement due to his MICHELLE with rhabdomyolysis likely 06/08- try to wean Precedex again today given improvement in CK will be able tolerate a little more movement 06/09 - stopping Precedex Acute kidney injury -Unsure etiology, possibly hypovolemic vs hypoperfusion due to vascular spasm from methamphetamine, improved somewhat with IVF -Improving, continue IVF Resolved Rhabdomyolysis -Initial CK over 11,000, markedly improved today (06/08), continue IVF and minimizing agitation 06/09 - CK continues to trend down Hyperkalemia -Improved with improved renal function Resolved Anion gap acidosis -Resolved with IVF Resolved Hepatitis -With significant worsening overnight, suspect due to hypoperfusion/vascular spasm from methamphetamine. Check hepatitis panel. This am no clear evidence of hepatic failure given normal coags, will follow closely because if continued worsening or development of acute hepatic failure will require transfer to facility with Hepatology available 06/08 Improving levels, positive for Hepatitis C, which upon clinic review note was historical, no acute hepatitis. Continue to monitor closely. 06/09 - LFT trending down Leukocytosis Unclear source, CXR unremarkable for infection, UA without evidence of infection , improved overnight without specific treatment Resolved Subclinical hypothyroidism -Suspect due to acute illness, free T4 normal, will follow-up outpatient DVT ppx- enoxaparin Clinical Quality Measures DVT/VTE Risk/Contraindication: Risk Factor Score Per Nursin RFS Level Per Nursing on Admit: 4+=Very High SILAS WATERMAN DO Jun 09, 2017 19:49
[2017-06-09] MEDS: HALOPERIDOL 5 MG/ML (HALDOL) AMP IM/IV PRN (23:34)
[2017-06-10] VITALS: BP 130/97
[2017-06-10 05:59] LABS: MEAN PLATELET VOLUME 10.5 FL (7.4-10.4); RED BLOOD COUNT 4.46 10^6/uL (4.35-5.85); RED CELL DISTRIBUTION WIDTH 12.9 % (10.0-14.5); WHITE BLOOD COUNT 5.1 10^3/uL (4.3-11.0)
[2017-06-10 06:00] VITALS: BP 153/97
[2017-06-10 06:12] LABS: PROTHROMBIN TIME PATIENT 13.2 SEC (12.2-14.7)
[2017-06-10 06:13] LABS: ALANINE AMINOTRANSFERASE 428 U/L (0-55); ALBUMIN 2.8 GM/DL (3.2-4.5); ANION GAP 10 MMOL/L (5-14); ASPARTATE AMINO TRANSFERASE 302 U/L (5-34); BILIRUBIN,TOTAL 1.8 MG/DL (0.1-1.0); BLOOD UREA NITROGEN 7 MG/DL (7-18); BUN/CREATININE RATIO 10; CALCIUM 8.1 MG/DL (8.5-10.1); CARBON DIOXIDE 17 MMOL/L (21-32); CHLORIDE 110 MMOL/L (98-107); CREATININE SERUM 0.69 MG/DL (0.60-1.30); GFR ESTIMATED > 60; GLUCOSE 96 MG/DL (70-105); MAGNESIUM 1.5 MG/DL (1.8-2.4); POTASSIUM 3.2 MMOL/L (3.6-5.0); SODIUM 137 MMOL/L (135-145); TOTAL PROTEIN 6.3 GM/DL (6.4-8.2)
[2017-06-10] MEDS: KCL 20 MEQ TAB (K-DUR) PO SCH (06:45)
[2017-06-10] MEDS: MAGNESIUM 1 GM/100 ML IVPB 100 ML IV SCH ×3 (06:45→07:51)
[2017-06-10] MEDS: POTASSIUM CL 10MEQ/50ML IVPB 50 ML IV SCH (06:45)
[2017-06-10] MEDS: HALOPERIDOL 5 MG/ML (HALDOL) AMP IM/IV PRN (07:00)
[2017-06-10] MEDS ORDERED: KCL 20 MEQ TAB (K-DUR) PO ONE (07:00)
[2017-06-10] MEDS: NICOTINE 21 MG (NICODERM) PATCH TD SCH (08:20)
[2017-06-10 08:44] VITALS: BP 129/85
--- NOTE | 2017-06-10 08:53 | Diagnostic Imaging Report ---
CHEST PA/LAT (2 VIEW) Indication: Fever Comparison: 06/06/2017 Findings: No focal pneumonic consolidation, pleural effusion or pneumothorax. Normal heart size and pulmonary vasculature. Posterior instrumented fusion in the upper thoracic spine. Impression: No acute cardiopulmonary process. Dictated by: Dictated on workstation # [id number]
[2017-06-10] MEDS ORDERED: PATCH REMOVAL TP SCH (08:59)
[2017-06-10] MEDS ORDERED: KCL 20 MEQ TAB (K-DUR) PO NR (09:00)
[2017-06-10] MEDS: D5 NS 1000 ML IV SOLUTION 1,000 ML IV SCH ×3 (09:18→16:50)
[2017-06-10] MEDS: DEXMEDETOMIDINE INJECTION 400 MCG in NS (IVPB) 100 ML IV SCH (11:45)
[2017-06-10 11:49] VITALS: BP 149/87
--- NOTE | 2017-06-10 13:11 | Progress Note (SOAP) ---
Subjective Subjective/Events-last exam Pt significantly more alert today. Tmax 101.5 yesterday 1944. C/o of being sore but otherwise feeling better, does not remember much about hospitalization prior to today. Review of Systems Date Seen by Provider: Jun 10, 2017 Time Seen by Provider: 07:45 Objective Exam Last Set of Vital Signs Vital Signs Date Time Temp Pulse Resp B/P (MAP) Pulse Ox O2 Delivery O2 Flow Rate FiO2 06/10/17 11:49 98.6 88 32 149/87 100 Room Air 06/10/17 06:00 2.00 Capillary Refill : Less Than 3 Seconds I&O Intake and Output 06/11/17 00:00 Intake Total 150 ml Output Total 1650 ml Balance -1500 ml Intake Oral 150 ml Output Urine Total 1650 ml General: Alert, Oriented X3, Cooperative Lungs: Clear to Auscultation Heart: Regular Rate Psych/Mental Status: Mental Status NL Results/Procedures Lab Laboratory Tests 06/10/17 05:40: White Blood Count 5.1, Red Blood Count 4.46, Hemoglobin 14.6, Hematocrit 40, Mean Corpuscular Volume 90, Mean Corpuscular Hemoglobin 33, Mean Corpuscular Hemoglobin Concent 36, Red Cell Distribution Width 12.9, Platelet Count 92L, Mean Platelet Volume 10.5H, Prothrombin Time 13.2, INR Comment 1.0, Sodium Level 137, Potassium Level 3.2L, Chloride Level 110H, Carbon Dioxide Level 17L, Anion Gap 10, Blood Urea Nitrogen 7, Creatinine 0.69, Estimat Glomerular Filtration Rate > 60, BUN/Creatinine Ratio 10, Glucose Level 96, Calcium Level 8.1L, Magnesium Level 1.5L, Total Bilirubin 1.8H, Aspartate Amino Transf (AST/ SGOT) 302H, Alanine Aminotransferase (ALT/SGPT) 428H, Alkaline Phosphatase 63, Total Protein 6.3L, Albumin 2.8L Microbiology 06/06/17 Blood Culture - Preliminary, Resulted No growth Radiology CT head/cervical spine 06/06/17: "IMPRESSION: 1. Stable CT scan of the brain with no interval acute intracranial process. 2. Stable cervical spine with no acute fracture or dislocation. 3. Cervical spine degenerative disease and postop changes which have not significantly changed." CXR 06/06/17: "IMPRESSION: Extensive spinal surgery without evidence of aspiration, pneumothorax or other acute abnormality. Assessment/Plan Assessment/Plan Plan Acute methamphetamine intoxication -UDS positive for opiates and methamphetamine/amphetamine, EtOH, APAP and salicylate levels negative -Requiring sedation, continue with sedation as required to minimize agitation and movement due to his MICHELLE with rhabdomyolysis likely 06/08- try to wean Precedex again today given improvement in CK will be able tolerate a little more movement 06/09 - stopping Precedex Resolved Acute kidney injury -Unsure etiology, possibly hypovolemic vs hypoperfusion due to vascular spasm from methamphetamine, improved somewhat with IVF -Improving, continue IVF Resolved Rhabdomyolysis -Initial CK over 11,000, markedly improved today (06/08), continue IVF and minimizing agitation 06/09 - CK continues to trend down 06/10 - improving Hyperkalemia -Improved with improved renal function Resolved Anion gap acidosis -Resolved with IVF Resolved Hepatitis -With significant worsening overnight, suspect due to hypoperfusion/vascular spasm from methamphetamine. Check hepatitis panel. This am no clear evidence of hepatic failure given normal coags, will follow closely because if continued worsening or development of acute hepatic failure will require transfer to facility with Hepatology available 06/08 Improving levels, positive for Hepatitis C, which upon clinic review note was historical, no acute hepatitis. Continue to monitor closely. 06/09 - LFT trending down Leukocytosis Unclear source, CXR unremarkable for infection, UA without evidence of infection , improved overnight without specific treatment Resolved Subclinical hypothyroidism -Suspect due to acute illness, free T4 normal, will follow-up outpatient Fever - unknown source; no clear evidence of infection, wbc normal, blood culture negative; not currently on antibiotics 06/10 - repeat CXR negative, urine culture pending though UA not c/w UTI -encourage IS DVT ppx- enoxaparin Disp: 06/10/17 - Changed status to floor, though pt will remain in ICU due to staffing Clinical Quality Measures DVT/VTE Risk/Contraindication: Risk Factor Score Per Nursin RFS Level Per Nursing on Admit: 4+=Very High SILAS WATERMAN DO Jun 10, 2017 13:11
[2017-06-10] MEDS: ENOXAPARIN 40 MG/0.4 ML (LOVENOX) SYR SQ SCH (14:23)
[2017-06-10 16:00] VITALS: BP 140/81
[2017-06-10] MEDS: LORazepam INJ 2 MG/ML (ATIVAN) VIAL IV PRN (16:01)
== END 2017-06-10 17:18 | disposition left against medical advice (07) | DRG 894 ==
LOC: EDUNIT# 11:22 → ER 11:23 → ICU 14:08 → 4TH 06-10 15:20
PROVIDERS: ADMIT Family Medicine; ATTEND Family Medicine
DX: F15.129 Other stimulant abuse with intoxication, unspecified (principal); N17.9 Acute kidney failure, unspecified; F23 Brief psychotic disorder; M62.82 Rhabdomyolysis; F11.90 Opioid use, unspecified, uncomplicated; H57.02 Anisocoria; E16.2 Hypoglycemia, unspecified; E87.5 Hyperkalemia; B19.20 Unspecified viral hepatitis C without hepatic coma; E02 Subclinical iodine-deficiency hypothyroidism; D72.829 Elevated white blood cell count, unspecified; R50.9 Fever, unspecified; Z53.21 Procedure and treatment not carried out due to patient leaving prior to being seen by health care provider; Z23 Encounter for immunization
CPT/HCPCS: 36415; 51702; 70450; 71010; 71020; 72125; 80053; 80074; 80306; 80320; 80329; 81000; 82140; 82550; 82805; 82962; 83605; 83735; 84439; 84443; 85007; 85025; 85027; 85610; 85730; 86141; 87040; 87088; 94664

== ENCOUNTER 2018-04-02 10:42 | Emergency (ER) | payer SELFPAY ==
[~2018-04-02] VITALS: Ht 180.3 cm; Wt 77.1 kg
[~2018-04-02 10:42] MED LIST changes: +HYDR-34 PO; -HYDR-3816 PO; +HYDR-4227 PO; -HYDR-756 PO
--- NOTE | 2018-04-02 11:37 | ED Upper Extremity ---
General Chief Complaint: Trauma-Non Activation Stated Complaint: WRIST INJ Nursing Triage Note: ARRIVED VIA AMB FROM HOME WITHOUT DIFFICULTY. STATES HE FELL OFF HIS ROOF 2 WEEKS AGO ET LANDING ON LEFT WRIST. STATES HE WENT TO THE CLINIC THAT TOLD HIM HE HAD A HAIR LINE FX. PT STATES THE PAIN AND SWELING IS WORSE. DENIES LOC OR HEAD OR NECK PAIN. Nursing Sepsis Screen: No Definite Risk Source: patient Exam Limitations: no limitations History of Present Illness Date Seen by Provider: Apr 02, 2018 Time Seen by Provider: 11:05 Initial Comments Patient is a 57-year-old male who presents to the emergency room with complaints of left wrist pain after he fell off his roof to weeks ago. He reports that he was incarcerated for the past week and half and they did x-rays of his wrist and was told that he had a hairline fracture. He reports that the pain and swelling is worse today. He denies being knocked out, head, neck pain and injury occurred. He states that he does on his left wrist at the time of the injury. Onset: other (2 weeks) Pain/Injury Location: left wrist Method of Injury: fell Allergies and Home Medications Allergies Coded Allergies: No Known Drug Allergies (Unverified , 11/12/16) Home Medications Hydrocodone Bit/Acetaminophen 1 Tab Tab, 1 EACH PO Q4-6HR PRN for PAIN-MODERATE Prescribed by: COLLIN CAN on 04/02/18 1146 Patient Home Medication List Home Medication List Reviewed: Yes Review of Systems Constitutional: see HPI; No chills, No fever Musculoskeletal: see HPI, joint pain All Other Systems Reviewed Negative Unless Noted: Yes (left wrist pain) Past Wpqysqa-Qlomfg-Dtklro Hx Past Med/Social Hx: Reviewed Nursing Past Med/Soc Hx Patient Social History Alcohol Use: Occasionally Uses Alcohol Beverage of Choice: Beer Recreational Drug Use: No Smoking Status: Current Everyday Smoker Type Used: Cigarettes 2nd Hand Smoke Exposure: Yes Recent Foreign Travel: No Contact w/Someone Who Travel: No Recent Infectious Disease Expo: No Recent Hopitalizations: No Immunizations Up To Date Tetanus Booster (TDap): Less than 5yrs PED Vaccines UTD: Yes Seasonal Allergies Seasonal Allergies: No Past Medical History Surgeries: Yes (back, neck jun 2016) Respiratory: No Cardiac: No Neurological: No Genitourinary: No Gastrointestinal: No Musculoskeletal: Yes Arthritis, Back Injury, Chronic Back Pain Endocrine: No HEENT: No Cancer: No Psychosocial: No Blood Disorders: No Family Medical History Reviewed Nursing Family Hx No Pertinent Family Hx Physical Exam Vital Signs Vital Signs - First Documented 04/02/18 10:48 Temp 98.0 Pulse 94 Resp 16 B/P (MAP) 137/93 (108) Pulse Ox 98 O2 Delivery Room Air Capillary Refill : Less Than 3 Seconds Height, Weight, BMI Height: 5'11.00" Weight: 170lbs. 9.0oz. [id number]; 23.9 BMI Method:Stated General Appearance: WD/WN, no apparent distress HEENT: PERRL/EOMI, normal ENT inspection, TMs normal, pharynx normal Neck: non-tender, full range of motion, supple, normal inspection Cardiovascular: normal peripheral pulses, regular rate, rhythm, no edema, no gallop, no JVD, no murmur Respiratory: chest non-tender, lungs clear, normal breath sounds, no respiratory distress, no accessory muscle use Gastrointestinal: normal bowel sounds, non tender, soft, no organomegaly, no pulsatile mass, abnormal bowel sounds Wrist: Yes normal inspection (to right findings to left wrist. ), Yes normal ROM, Yes ecchymosis, Yes pain, Yes soft tissue tenderness, Yes swelling Neurologic/Psychiatric: alert, normal mood/affect, oriented x 3 Skin: normal color, warm/dry Progress/Results/Core Measures Results/Orders My Orders Vital Signs/I&O Blood Pressure Mean: 108 Progress Progress Note : Time: 11:40 Progress Note I have seen and evaluated the patient. I have informed him of imaging studies. He agrees with plans for discharge. Patient was placed in a wrist cock up splint. Followed up was instructed. Return precautions were given. Diagnostic Imaging Diagonstic Imaging: Xray Plain Films/CT/US/NM/MRI: other (left wrist) Comments NAME: LILY DELA CRUZ [facility] REC#: [id number] PT STATUS: REG ER : 1960 PHYSICIAN: COLLIN CAN ADMIT DATE: 04/02/18/ER Draft Date of Exam:04/02/18 WRIST, LEFT, 3 VIEWS OR MORE Left wrist at 1118 hours. INDICATION: Injury, wrist pain. 3 views were obtained. There are no prior studies available for comparison. FINDINGS: Reportedly, the patient suffered an injury to the wrist approximately 2 weeks ago. On this exam, there is an impacted essentially nondisplaced fracture of the distal radial metaphysis. There is some increased density about the fracture site which may be related to healing callus formation. No other fracture or acute bony abnormality is appreciated. There is a faint calcific density in the soft tissues adjacent to the tip of the radial styloid. This could be a minute long-standing avulsion fracture. The soft tissues are unremarkable. IMPRESSION: There is a subacute impacted healing fracture of distal radial metaphysis. There is no acute bony abnormality appreciated. Dictated on workstation # [id number] Dict: 04/02/18 1127 Trans: 04/02/18 1136 [id number] Interpreted by: ELICEO KINSEY MD Electronically signed by: Departure Impression Primary Impression: Wrist fracture, left Qualified Codes: S62.102A - Fracture of unspecified carpal bone, left wrist, initial encounter for closed fracture Disposition: HOME, SELF-CARE Condition: Stable/Unchanged Departure-Patient Inst. Decision time for Depature: 11:43 Referrals: CORDELL BROWNING APRN (PCP) Primary Care Physician DARRIN WEBSTER MD,MÓNICA Chaves MD Patient Instructions: Wrist Fracture (DC) Add. Discharge Instructions: Wear the splint at all times. Take medications as directed. Follow-up with one of the orthopedic surgeons at [address], Dr. Johansen, or an orthopedic surgeon of your choice for further evaluation within 1 week. Follow up with [facility] within 1 week for recheck. Return back to the emergency room for any worsening symptoms or concerns as needed. All discharge instructions reviewed with patient and/or family. Voiced understanding. Scripts Hydrocodone Bit/Acetaminophen (Hydrocodone/Acetaminophen 5/325mg Tablet) 1 Tab Tab 1 EACH PO Q4-6HR PRN for PAIN-MODERATE MDD 10, #14 TAB Prov: COLLIN CAN 04/02/18 COLLIN CAN Apr 02, 2018 11:37
[2018-04-02] MEDS ORDERED: ACHD5005 PO (11:46)
[2018-04-02 12:00] VITALS: BP 137/93
== END 2018-04-02 12:00 | disposition home or self-care (01) ==
LOC: EDUNIT# 10:42 → ER 10:43
DX: S52.502A Unspecified fracture of the lower end of left radius, initial encounter for closed fracture (principal); F17.210 Nicotine dependence, cigarettes, uncomplicated; W13.2XXA Fall from, out of or through roof, initial encounter
CPT/HCPCS: 73110

== ENCOUNTER 2018-05-13 22:02 | Emergency (ER) | payer SELFPAY ==
[~2018-05-13] VITALS: Ht 180.3 cm; Wt 77.4 kg
[~2018-05-13 22:02] MED LIST changes: +ACHD5005 PO
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
[2018-05-13] MEDS ORDERED: ACETAMINOPHEN 325 MG TABLET PO ONE (22:15)
[2018-05-13] MEDS ORDERED: NS IV 1000 ML 1,000 ML IV SCH (22:15)
[2018-05-13] MEDS ORDERED: KETOROLAC 30 MG/ML VIAL IVP ONE (22:15)
[2018-05-13 22:21] LABS: BASOPHILS % (AUTO) 0 % (0-10); EOSINOPHILS % (AUTO) 1 % (0-10); HEMATOCRIT 41 % (40-54); HEMOGLOBIN 14.6 G/DL (13.3-17.7); LYMPHOCYTES # (AUTO) 1.1 X 10^3 (1.0-4.0); LYMPHOCYTES % (AUTO) 22 % (12-44); MEAN CORPUSCULAR HEMOGLOBIN 33 PG (25-34); MEAN CORPUSCULAR HGB CONC 36 G/DL (32-36); MEAN CORPUSCULAR VOLUME 92 FL (80-99); MEAN PLATELET VOLUME 10.1 FL (7.4-10.4); MONOCYTES % (AUTO) 21 % (0-12); NEUTROPHILS # (AUTO) 2.8 X 10^3 (1.8-7.8); NEUTROPHILS % (AUTO) 56 % (42-75); PLATELET COUNT 117 10^3/uL (130-400); RED BLOOD COUNT 4.46 10^6/uL (4.35-5.85); RED CELL DISTRIBUTION WIDTH 14.4 % (10.0-14.5)
[2018-05-13 22:36] LABS: ALANINE AMINOTRANSFERASE 105 U/L (0-55); ALBUMIN 3.9 GM/DL (3.2-4.5); ALKALINE PHOSPHATASE 70 U/L (40-136); BILIRUBIN,TOTAL 1.6 MG/DL (0.1-1.0); BUN/CREATININE RATIO 25; CALCIUM 9.1 MG/DL (8.5-10.1); CARBON DIOXIDE 17 MMOL/L (21-32); CHLORIDE 101 MMOL/L (98-107); CREATININE SERUM 0.93 MG/DL (0.60-1.30); GFR ESTIMATED > 60; GLUCOSE 83 MG/DL (70-105); POTASSIUM 5.6 MMOL/L (3.6-5.0); SODIUM 132 MMOL/L (135-145); TOTAL PROTEIN 8.4 GM/DL (6.4-8.2)
[2018-05-13 22:42] LABS: LYMPHOCYTES % (MANUAL) 29 %; MONOCYTES % (MANUAL) 20 %; NEUTROPHILS % (MANUAL) 51 %; RBC MORPH NORMAL
[2018-05-13 23:31] VITALS: BP 141/76
== END 2018-05-13 23:31 | disposition home or self-care (01) ==
LOC: EDUNIT# 22:02 → ER 22:03
DX: M54.2 Cervicalgia (principal); G89.28 Other chronic postprocedural pain; F15.10 Other stimulant abuse, uncomplicated; Z77.22 Contact with and (suspected) exposure to environmental tobacco smoke (acute) (chronic)
CPT/HCPCS: 36415; 80053; 85007; 85027

== ENCOUNTER 2021-08-26 16:00 | Emergency (ER) | payer MEDICAID ==
[~2021-08-26] VITALS: Ht 183 cm; Wt 72.5 kg
[~2021-08-26 16:00] MED LIST changes: -CLIN150C17 PO; +CLIN150C20 PO
--- NOTE | 2021-08-26 16:11 | ED General ---
General Stated Complaint: HEADACHE Source of Information: Patient Exam Limitations: No Limitations History of Present Illness Date Seen by Provider: Aug 26, 2021 Time Seen by Provider: 16:07 Initial Comments To ER with reports of a headache. He had some sort of a CVA (believed to be hemorrhagic??) in [facility] in April or May. This was treated nonoperatively. 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 He presented to [facility] today with reports of headache x7 days and was referred to the emergency room. No head trauma. He does drink 1/2 pint of vodka per day. He is currently residing at the [facility] here in [place] and just paid them $500 to pay out through the end of the week. Timing/Duration: 1 Week Severity: Moderate Associated Systoms: Headaches; No Nausea/Vomiting Allergies and Home Medications Allergies Coded Allergies: No Known Drug Allergies (Unverified , 05/13/18) Patient Home Medication List Home Medication List Reviewed: Yes Hydrocodone Bit/Acetaminophen (Lortab 5 Mg Tablet) 1 Tab Tab, 1 EACH PO Q4-6HR PRN for PAIN-MODERATE Prescribed by: COLLIN CAN on 04/02/18 1146 Review of Systems Review of Systems Constitutional: see HPI EENTM: see HPI Respiratory: no symptoms reported Cardiovascular: no symptoms reported Genitourinary: no symptoms reported Musculoskeletal: no symptoms reported Skin: no symptoms reported Psychiatric/Neurological: No Symptoms Reported Hematologic/Lymphatic: No Symptoms Reported Immunological/Allergic: no symptoms reported Past Cpsvrsh-Njaqxi-Ljznlt Hx Immunizations Up To Date Tetanus Booster (TDap): Less than 5yrs PED Vaccines UTD: Yes Seasonal Allergies Seasonal Allergies: No Past Medical History Surgeries: Yes (back, neck jun 2016) Respiratory: No Cardiac: No Neurological: No Genitourinary: No Gastrointestinal: No Musculoskeletal: Yes Arthritis, Back Injury, Chronic Back Pain Endocrine: No HEENT: No Cancer: No Psychosocial: No Blood Disorders: No Family Medical History No Pertinent Family Hx Physical Exam Vital Signs Vital Signs - First Documented 08/26/21 16:00 Temp 36.0 Pulse 90 Resp 18 B/P (MAP) 141/100 (114) Pulse Ox 99 O2 Delivery Room Air Capillary Refill : Height, Weight, BMI Height: 5'11.00" Weight: 170lbs. 9.0oz. 77.555361yr; 23.9 BMI Method:Stated General Appearance: No Apparent Distress, WD/WN, Other (Cooperative. Provides a good history. Denies any recent drug use but admits to frequent alcohol use. Noted to have emotional lability as he starts crying at random during conversation, presumed to be an effect of CVA.) Eyes: Bilateral Eye Normal Inspection, Bilateral Eye PERRL, Bilateral Eye EOMI Neck: Full Range of Motion, Normal Inspection Respiratory: No Accessory Muscle Use, No Respiratory Distress Cardiovascular: Regular Rate, Rhythm, Normal Peripheral Pulses Gastrointestinal: Normal Bowel Sounds, Non Tender, Soft Extremity: Normal Capillary Refill, Normal Inspection, Other (Weakness left arm and leg ambulatory with a cane) Neurologic/Psychiatric: Alert, Oriented x3 Skin: Normal Color, Warm/Dry Progress/Results/Core Measures Suspected Sepsis SIRS Temperature: Pulse: Respiratory Rate: Laboratory Tests 08/26/21 16:10: White Blood Count 4.9 Blood Pressure / Mean: Laboratory Tests 08/26/21 16:10: Creatinine 0.81, INR Comment 1.1, Platelet Count 124L, Total Bilirubin 0.5 Results/Orders Lab Results Laboratory Tests Test 08/26/21 16:10 08/26/21 16:45 Range/Units White Blood Count 4.9 4.3-11.0 10^3/uL Red Blood Count 4.86 4.30-5.52 10^6/uL Hemoglobin 15.1 13.3-17.7 g/dL Hematocrit 45 40-54 % Mean Corpuscular Volume 92 80-99 fL Mean Corpuscular Hemoglobin 31 25-34 pg Mean Corpuscular Hemoglobin Concent 34 32-36 g/dL Red Cell Distribution Width 13.1 10.0-14.5 % Platelet Count 124 L 130-400 10^3/uL Mean Platelet Volume 10.0 9.0-12.2 fL Immature Granulocyte % (Auto) 0 % Neutrophils (%) (Auto) 61 42-75 % Lymphocytes (%) (Auto) 21 12-44 % Monocytes (%) (Auto) 14 H 0-12 % Eosinophils (%) (Auto) 3 0-10 % Basophils (%) (Auto) 0 0-10 % Neutrophils # (Auto) 3.0 1.8-7.8 10^3/uL Lymphocytes # (Auto) 1.0 1.0-4.0 10^3/uL Monocytes # (Auto) 0.7 0.0-1.0 10^3/uL Eosinophils # (Auto) 0.2 0.0-0.3 10^3/uL Basophils # (Auto) 0.0 0.0-0.1 10^3/uL Immature Granulocyte # (Auto) 0.0 0.0-0.1 10^3/uL Percent Immature Platelet Fraction 3.7 0.0-7.6 % Prothrombin Time 14.4 12.2-14.7 SEC INR Comment 1.1 0.8-1.4 Sodium Level 139 135-145 MMOL/L Potassium Level 4.2 3.6-5.0 MMOL/L Chloride Level 106 98-107 MMOL/L Carbon Dioxide Level 23 21-32 MMOL/L Anion Gap 10 5-14 MMOL/L Blood Urea Nitrogen 11 7-18 MG/DL Creatinine 0.81 0.60-1.30 MG/DL Estimat Glomerular Filtration Rate 101 BUN/Creatinine Ratio 14 Glucose Level 98 70-105 MG/DL Calcium Level 9.3 8.5-10.1 MG/DL Corrected Calcium 9.6 8.5-10.1 MG/DL Total Bilirubin 0.5 0.1-1.0 MG/DL Aspartate Amino Transf (AST/SGOT) 92 H 5-34 U/L Alanine Aminotransferase (ALT/SGPT) 81 H 0-55 U/L Alkaline Phosphatase 129 40-136 U/L Total Protein 8.3 H 6.4-8.2 GM/DL Albumin 3.6 3.2-4.5 GM/DL Serum Alcohol < 10 <10 MG/DL Urine Color YELLOW Urine Clarity CLEAR Urine pH 6.0 5-9 Urine Specific [place] >=1.030 1.016-1.022 Urine Protein NEGATIVE NEGATIVE Urine Glucose (UA) NEGATIVE NEGATIVE Urine Ketones NEGATIVE NEGATIVE Urine Nitrite NEGATIVE NEGATIVE Urine Bilirubin NEGATIVE NEGATIVE Urine Urobilinogen 1.0 < = 1.0 MG/DL Urine Leukocyte Esterase NEGATIVE NEGATIVE Urine RBC (Auto) NEGATIVE NEGATIVE Urine RBC NONE /HPF Urine WBC NONE /HPF Urine Squamous Epithelial Cells RARE /HPF Urine Crystals NONE /LPF Urine Bacteria TRACE /HPF Urine Casts NONE /LPF Urine Mucus SMALL H /LPF Urine Culture Indicated NO Urine Opiates Screen NEGATIVE NEGATIVE Urine Oxycodone Screen NEGATIVE NEGATIVE Urine Methadone Screen NEGATIVE NEGATIVE Urine Propoxyphene Screen NEGATIVE NEGATIVE Urine Barbiturates Screen NEGATIVE NEGATIVE Ur Tricyclic Antidepressants Screen NEGATIVE NEGATIVE Urine Phencyclidine Screen NEGATIVE NEGATIVE Urine Amphetamines Screen NEGATIVE NEGATIVE Urine Methamphetamines Screen NEGATIVE NEGATIVE Urine Benzodiazepines Screen NEGATIVE NEGATIVE Urine Cocaine Screen NEGATIVE NEGATIVE Urine Cannabinoids Screen NEGATIVE NEGATIVE My Orders Orders - SOFY MCBRIDE APRN Protime With Inr (08/26/21 16:04) Cbc With Automated Diff (08/26/21 16:04) Comprehensive Metabolic Panel (08/26/21 16:04) Alcohol (08/26/21 16:04) Ua Culture If Indicated (08/26/21 16:04) Drug Screen Stat (Urine) (08/26/21 16:04) Ct Head Wo (08/26/21 16:04) Lactated Ringers (Lr 1000 Ml Iv Solution (08/26/21 17:00) Ketorolac Injection (Toradol Injection) (08/26/21 17:00) Medications Given in ED Current Medications Medications Dose Ordered Sig/Leon Route Start Time Stop Time Status Last Admin Dose Admin Ketorolac Tromethamine 15 mg ONCE ONCE IVP 08/26/21 17:00 08/26/21 17:01 DC 08/26/21 17:03 15 MG Vital Signs/I&O 08/26/21 16:00 Temp 36.0 Pulse 90 Resp 18 B/P (MAP) 141/100 (114) Pulse Ox 99 O2 Delivery Room Air Capillary Refill : Departure Communication (Admissions) NAME: LILY DELA CRUZ [facility] REC#: [id number] PT STATUS: REG ER : 1960 PHYSICIAN: SOFY MCBRIDE APRN ADMIT DATE: 08/26/21/ER Draft Date of Exam:08/26/21 CT HEAD WO PROCEDURE: CT head without contrast. TECHNIQUE: Multiple contiguous axial images were obtained through the brain without the use of intravenous contrast. Auto Exposure Controls were utilized during the CT exam to meet ALARA standards for radiation dose reduction. DATE: August 26, 2021. COMPARISON: CT head and cervical spine June 06, 2017. INDICATION: 61-year-old male, headache. History of prior intracranial hemorrhage after stroke. FINDINGS: There is a large area of encephalomalacia in the right middle cerebral artery distribution. There is no hydrocephalus. There is no mass effect or midline shift. There is no acute intracranial hemorrhage. There is no abnormal extra-axial fluid collection. The visualized portions of the paranasal sinuses, mastoid air cells and middle ears are well aerated. IMPRESSION: 1. No identified acute intracranial abnormality. 2. Large area of encephalomalacia in the right middle cerebral artery distribution. Dictated on workstation # [id number] Dict: 08/26/21 1632 Trans: 08/26/21 1653 [facility] [id number] Interpreted by: ALEKSANDRA LANDEROS MD Electronically signed by: Impression Primary Impression: Headache Additional Impression: History of CVA (cerebrovascular accident) Disposition: 01 HOME, SELF-CARE Condition: Stable Departure-Patient Inst. Decision time for Depature: 16:57 Referrals: [facility] (PCP/Family) Primary Care Physician Patient Instructions: Headache, Adult SOFY MCBRIDE APRN Aug 26, 2021 16:11
[2021-08-26 16:22] LABS: BASOPHILS % (AUTO) 0 % (0-10); PLATELET COUNT 124 10^3/uL (130-400)
[2021-08-26 16:24] LABS: EOSINOPHILS # (AUTO) 0.2 10^3/uL (0.0-0.3); EOSINOPHILS % (AUTO) 3 % (0-10); HEMATOCRIT 45 % (40-54); HEMOGLOBIN 15.1 g/dL (13.3-17.7); LYMPHOCYTES % (AUTO) 21 % (12-44); MEAN CORPUSCULAR HEMOGLOBIN 31 pg (25-34); MEAN CORPUSCULAR HGB CONC 34 g/dL (32-36); MEAN CORPUSCULAR VOLUME 92 fL (80-99); MONOCYTES # (AUTO) 0.7 10^3/uL (0.0-1.0); MONOCYTES % (AUTO) 14 % (0-12); NEUTROPHILS % (AUTO) 61 % (42-75); WHITE BLOOD COUNT 4.9 10^3/uL (4.3-11.0)
[2021-08-26 16:32] LABS: ALBUMIN 3.6 GM/DL (3.2-4.5); CHLORIDE 106 MMOL/L (98-107); POTASSIUM 4.2 MMOL/L (3.6-5.0); SODIUM 139 MMOL/L (135-145)
[2021-08-26 16:33] LABS: CALCIUM 9.3 MG/DL (8.5-10.1)
[2021-08-26 16:34] LABS: GLUCOSE 98 MG/DL (70-105); TOTAL PROTEIN 8.3 GM/DL (6.4-8.2)
[2021-08-26 16:35] LABS: CARBON DIOXIDE 23 MMOL/L (21-32)
[2021-08-26 16:36] LABS: BILIRUBIN,TOTAL 0.5 MG/DL (0.1-1.0)
[2021-08-26 16:37] LABS: INR 1.1 (0.8-1.4); PROTHROMBIN TIME PATIENT 14.4 SEC (12.2-14.7)
[2021-08-26 16:38] LABS: ALKALINE PHOSPHATASE 129 U/L (40-136); CREATININE SERUM 0.81 MG/DL (0.60-1.30); GFR ESTIMATED 101
[2021-08-26 16:39] LABS: BUN/CREATININE RATIO 14
[2021-08-26 16:41] LABS: ALANINE AMINOTRANSFERASE 81 U/L (0-55)
[2021-08-26 16:52] LABS: BILIRUBIN,URINE NEGATIVE (NEGATIVE); CLARITY,URINE CLEAR; COLOR,URINE YELLOW; GLUCOSE, URINE (UA) NEGATIVE (NEGATIVE); KETONES,URINE NEGATIVE (NEGATIVE); LEUKOCYTE ESTERASE ,URINE NEGATIVE (NEGATIVE); NITRITE,URINE NEGATIVE (NEGATIVE); PROTEIN,URINE NEGATIVE (NEGATIVE)
--- NOTE | 2021-08-26 16:53 | Diagnostic Imaging Report ---
PROCEDURE: CT head without contrast. TECHNIQUE: Multiple contiguous axial images were obtained through the brain without the use of intravenous contrast. Auto Exposure Controls were utilized during the CT exam to meet ALARA standards for radiation dose reduction. DATE: August 26, 2021. COMPARISON: CT head and cervical spine June 06, 2017. INDICATION: 61-year-old male, headache. History of prior intracranial hemorrhage after stroke. FINDINGS: There is a large area of encephalomalacia in the right middle cerebral artery distribution. There is no hydrocephalus. There is no mass effect or midline shift. There is no acute intracranial hemorrhage. There is no abnormal extra-axial fluid collection. The visualized portions of the paranasal sinuses, mastoid air cells and middle ears are well aerated. IMPRESSION: 1. No identified acute intracranial abnormality. 2. Large area of encephalomalacia in the right middle cerebral artery distribution. Dictated by: Dictated on workstation # [id number]
[2021-08-26] MEDS ORDERED: KETOROLAC 30 MG/ML VIAL IVP ONE (17:00)
[2021-08-26] MEDS ORDERED: LACTATED RINGERS 1,000 ML IV SCH (17:00)
[2021-08-26 17:04] LABS: BACTERIA,URINE TRACE /HPF; SQUAMOUS EPITHELIAL CELL,UR RARE /HPF
[2021-08-26 17:06] LABS: AMPHETAMINE SCREEN, URINE NEGATIVE (NEGATIVE); BARBITURATE SCREEN URINE NEGATIVE (NEGATIVE); BENZODIAZEPINES SCREEN URINE NEGATIVE (NEGATIVE); CANNABINOID SCREEN, URINE NEGATIVE (NEGATIVE); COCAINE SCREEN URINE NEGATIVE (NEGATIVE); METHADONE STAT NEGATIVE (NEGATIVE); METHAMPHETAMINE SCREEN URINE S NEGATIVE (NEGATIVE); OPIATE SCREEN URINE NEGATIVE (NEGATIVE); OXYCODONE STAT NEGATIVE (NEGATIVE); PROPOXYPHENE STAT NEGATIVE (NEGATIVE); TRICYCLIC ANTIDEPRESSANTS SCRE NEGATIVE (NEGATIVE)
[2021-08-26 18:21] VITALS: BP 140/95
== END 2021-08-26 18:21 | disposition home or self-care (01) ==
LOC: EDUNIT# 16:01 → ER 16:02
DX: R51.9 Headache, unspecified (principal); G89.29 Other chronic pain; M54.9 Dorsalgia, unspecified; Z86.73 Personal history of transient ischemic attack (TIA), and cerebral infarction without residual deficits; Z79.891 Long term (current) use of opiate analgesic
CPT/HCPCS: 70450; 80053; 80306; 81000; 85025; 85610; 99284; G0480; 36415; 80320

== ENCOUNTER → 2021-10-31 | Outpatient (CLI) | payer MEDICAID, OTHER | LOC: WOUNDCARE 13:16 | PROVIDERS: ATTEND Family Medicine | DX: T81.31XA Disruption of external operation (surgical) wound, not elsewhere classified, initial encounter (principal); L98.422 Non-pressure chronic ulcer of back with fat layer exposed; F10.188 Alcohol abuse with other alcohol-induced disorder; D69.6 Thrombocytopenia, unspecified; G81.04 Flaccid hemiplegia affecting left nondominant side; B18.2 Chronic viral hepatitis C; F11.10 Opioid abuse, uncomplicated; F17.218 Nicotine dependence, cigarettes, with other nicotine-induced disorders | CPT/HCPCS: A6266; G0463; 99212 ==

== ENCOUNTER → 2021-11-08 | Outpatient (CLI) | payer MEDICAID | LOC: WOUNDCARE 09:27 | PROVIDERS: ATTEND Family Medicine | DX: T81.31XA Disruption of external operation (surgical) wound, not elsewhere classified, initial encounter (principal); I96 Gangrene, not elsewhere classified; D69.6 Thrombocytopenia, unspecified; L98.422 Non-pressure chronic ulcer of back with fat layer exposed; F10.188 Alcohol abuse with other alcohol-induced disorder; F17.218 Nicotine dependence, cigarettes, with other nicotine-induced disorders; G81.04 Flaccid hemiplegia affecting left nondominant side; B18.2 Chronic viral hepatitis C; F11.10 Opioid abuse, uncomplicated | CPT/HCPCS: 11042; G0463 ==

== ENCOUNTER → 2021-11-08 | Outpatient (CLI) | payer MEDICAID ==
[~2021-11-08] MED LIST changes: +GADOTERATE 0.5 MMOL/ML (CLARISCAN) 15 ML VIAL IV ONE
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
== END ==
LOC: RAD 08:00
PROVIDERS: ATTEND Family Medicine
DX: M48.54XA Collapsed vertebra, not elsewhere classified, thoracic region, initial encounter for fracture (principal); M47.812 Spondylosis without myelopathy or radiculopathy, cervical region; M47.814 Spondylosis without myelopathy or radiculopathy, thoracic region; T81.31XA Disruption of external operation (surgical) wound, not elsewhere classified, initial encounter; Z98.1 Arthrodesis status; Z98.890 Other specified postprocedural states
CPT/HCPCS: 72156; 72157

== ENCOUNTER → 2021-11-15 | Outpatient (CLI) | payer MEDICAID ==
[~2021-11-15] MED LIST changes: -GADOTERATE 0.5 MMOL/ML (CLARISCAN) 15 ML VIAL IV ONE
== END ==
LOC: WOUNDCARE 09:46
PROVIDERS: ATTEND Family Medicine
DX: T81.31XA Disruption of external operation (surgical) wound, not elsewhere classified, initial encounter (principal); L98.422 Non-pressure chronic ulcer of back with fat layer exposed; D69.6 Thrombocytopenia, unspecified; B18.2 Chronic viral hepatitis C; G81.02 Flaccid hemiplegia affecting left dominant side; I96 Gangrene, not elsewhere classified; F10.188 Alcohol abuse with other alcohol-induced disorder; F17.218 Nicotine dependence, cigarettes, with other nicotine-induced disorders; F11.10 Opioid abuse, uncomplicated
CPT/HCPCS: 99213

== ENCOUNTER → 2021-11-24 | Outpatient (CLI) | payer MEDICAID | LOC: WOUNDCARE 09:09 | PROVIDERS: ATTEND Family Medicine | DX: T81.31XA Disruption of external operation (surgical) wound, not elsewhere classified, initial encounter (principal); I96 Gangrene, not elsewhere classified; L98.422 Non-pressure chronic ulcer of back with fat layer exposed; F10.288 Alcohol dependence with other alcohol-induced disorder; F17.218 Nicotine dependence, cigarettes, with other nicotine-induced disorders; D69.6 Thrombocytopenia, unspecified; G81.04 Flaccid hemiplegia affecting left nondominant side; B18.2 Chronic viral hepatitis C; E44.0 Moderate protein-calorie malnutrition; F11.10 Opioid abuse, uncomplicated | CPT/HCPCS: 99213 ==

== ENCOUNTER → 2021-11-24 | Outpatient (CLI) | payer MEDICAID ==
--- NOTE | 2021-11-24 10:51 | Diagnostic Imaging Report ---
INDICATION: Central cord syndrome. Time of Exam: 9:49 AM Two views of the cervical spine demonstrate normal curvature and alignment. There are postoperative changes of posterior instrumented fusion with vertical stabilization rods and posterior element screws transfixing the C4-C6 levels. Hardware appears to be intact. Generalized degenerative disc disease is noted, greatest at C5-C6 and C6-C7 levels with disc space narrowing and marginal spurring. Prevertebral tissues are normal. No fractures are seen. IMPRESSION: Cervical spondylosis and postoperative changes. No acute feature detected. Dictated by: Dictated on workstation # [id number]
--- NOTE | 2021-11-24 12:28 | Diagnostic Imaging Report ---
INDICATION: Central cord syndrome. TIME OF EXAM: 9:50 AM Curvature and alignment of the thoracic spine is normal. There are postoperative changes with posterior instrumented fusion with vertical stabilization rods and pedicle screws extending from T1 to T6. The hardware appears to be intact without fracture or loosening. Compression deformities at T3-T4 levels are again noted. Stature appears to be maintained when compared with MRI study from 11/08/2021. Remaining thoracic vertebrae show normal height. Paraspinous line and pedicles are intact. IMPRESSION: Postoperative changes at T1-T6, posterior instrumented fusion. No complicating features are detected. Dictated by: Dictated on workstation # [id number]
== END ==
LOC: RAD 09:39
PROVIDERS: ATTEND Neurological Surgery
DX: M47.812 Spondylosis without myelopathy or radiculopathy, cervical region (principal); G95.89 Other specified diseases of spinal cord; Z98.1 Arthrodesis status
CPT/HCPCS: 72040; 72072

== ENCOUNTER → 2021-12-06 | Outpatient (CLI) | payer MEDICAID | LOC: WOUNDCARE 13:27 | PROVIDERS: ATTEND Family Medicine | DX: D69.6 Thrombocytopenia, unspecified (principal); G81.04 Flaccid hemiplegia affecting left nondominant side; B18.2 Chronic viral hepatitis C; F11.10 Opioid abuse, uncomplicated; E44.1 Mild protein-calorie malnutrition; F10.188 Alcohol abuse with other alcohol-induced disorder; F17.218 Nicotine dependence, cigarettes, with other nicotine-induced disorders; M96.842 Postprocedural seroma of a musculoskeletal structure following a musculoskeletal system procedure | CPT/HCPCS: 99212 ==

== ENCOUNTER 2022-02-20 16:17 | Emergency (ER) | payer MEDICAID ==
[~2022-02-20] VITALS: Ht 180.3 cm; Wt 86.0 kg
[2022-02-20 16:20] VITALS: BP 130/84
--- NOTE | 2022-02-20 17:22 | ED Neurological Problem ---
General Chief Complaint: Neurological Problems Stated Complaint: SEIZURE Nursing Triage Note: PT ARRIVED VIA [facility]. EMS STATED THAT HE HAD A SEIZURE TODAY AT 1545 IN THE [facility] AT [facility] FOLLOWING TWITCHING IN IS LEFT PARALYSED ARM. EMS STATED THAT HE WAS LOWERED TO THE GROUND AND THEN HAD A SEIZURE FOR 30 SECONDS. PT HAD ANOTHER GRAND MAL SEIZURE WHILE BEING TRANSPORTED TO THE ER. Source: EMS Exam Limitations: clinical condition (MERI GAYTAN MD) History of Present Illness Date Seen by Provider: Feb 20, 2022 Time Seen by Provider: 16:50 Initial Comments Patient is a 61-year-old male who presents to the emergency department by ambulance today after a seizure at a local prison. Reportedly around 345 the patient had some "twitching" to his left arm. He has history of prior stroke with reportedly paralysis of this left upper extremity. EMS reported that another resident at the prison assisted the patient to the ground. EMS arrived and they brought him to the ambulance, when he got into the ambulanc e EMS reports that he had a "grand mall" seizure. They did not report how long this lasted. The patient did receive 2.5 mg of Versed prior to arrival to the emergency department. He arrives somnolent, withdraws to pain. Eyes are closed, sonorous respirations. Vital signs are stable. Review of the prison record that accompany the patient shows the patient to have no prior history of seizures. Review of systems, HPI, past medical family and social history unobtainable secondary to patient's altered state currently. Whether this is postictal, Versed or combination of is difficult to establish Timing/Duration: 1 hour Severity: severe (MERI GAYTAN MD) Initial Comments PT IS NOT ON ASPIRIN OR BLOOD THINNERS. (LEONELA WARNER DO) Allergies and Home Medications Allergies Coded Allergies: No Known Drug Allergies (Unverified , 05/13/18) Patient Home Medication List Home Medication List Reviewed: Yes (MERI GAYTAN MD) Hydrocodone Bit/Acetaminophen (Lortab 5 Mg Tablet) 1 Tab Tab, 1 EACH PO Q4-6HR PRN for PAIN-MODERATE Prescribed by: COLLIN CAN on 04/02/18 1146 Levetiracetam (Keppra) 500 Mg Tablet, 500 MG PO BID Prescribed by: LEONELA WARNER on 02/20/221939 Review of Systems Review of Systems Constitutional: No fever Eyes: No Symptoms Reported Ears, Nose, Mouth, Throat: see HPI Respiratory: no symptoms reported Cardiovascular: no symptoms reported Gastrointestinal: no symptoms reported Genitourinary: no symptoms reported Musculoskeletal: no symptoms reported Skin: no symptoms reported Psychiatric/Neurological: See HPI Endocrine: No Symptoms Reported Hematologic/Lymphatic: No Symptoms Reported (LEONELA WARNER DO) Past Kvlupaz-Yvgvuh-Tczmos Hx Patient Social History Tobacco Use?: Yes Tobacco type used: Cigarettes Substance use?: Unable to obtain Alcohol Use?: Unable to obtain Pt feels they are or have been: Unable to obtain (MERI GAYTAN MD) Immunizations Up To Date Tetanus Booster (TDap): Less than 5yrs PED Vaccines UTD: Yes First/Initial COVID19 Vaccinat: 2020 Second COVID19 Vaccination Kal: 2020 Third COVID19 Vaccination Date: 2020 (MERI GAYTAN MD) Seasonal Allergies Seasonal Allergies: No (MERI GAYTAN MD) Past Medical History Surgery/Hospitalization HX: stroke, htn Surgeries: Yes (back, neck jun 2016) Respiratory: No Cardiac: No Neurological: No Genitourinary: No Gastrointestinal: No Musculoskeletal: Yes Arthritis, Back Injury, Chronic Back Pain Endocrine: No HEENT: No Cancer: No Psychosocial: No Blood Disorders: No (MERI GAYTAN MD) Surgeries: Yes (CERIVCAL AND THORACIC SPINE SURGERY) Cardiac: Yes High Cholesterol, Hypertension Neurological: Yes (CVA WITH LEFT ARM PARALYSIS) Headaches /Migraines, Neuropathy, Stroke, TIA Gastrointestinal: Yes (CHRONIC HEPATITIS C) Liver Disease/Jaundice, Hepatitis Musculoskeletal: Yes (CHRONIC PAIN ) Endocrine: Yes Hypothyroidsim HEENT: No Cancer: No Psychosocial: Yes Depression Integumentary: No Blood Disorders: No (LEONELA WARNER DO) Family Medical History No Pertinent Family Hx (MERI GAYTAN MD) Physical Exam Vital Signs Vital Signs - First Documented 02/20/22 16:20 Temp 36.2 Pulse 124 Resp 27 B/P (MAP) 130/84 (99) Pulse Ox 97 O2 Delivery Nasal Cannula O2 Flow Rate 2.00 (LEONELA WARNER DO) Vital Signs Capillary Refill : Less Than 3 Seconds (MERI GAYTAN MD) Height, Weight, BMI Height: 5'11.00" Weight: 170lbs. 9.0oz. 77.168666qd; 26.00 BMI Method:Stated (MERI GAYTAN MD) General Appearance: WD/WN, no apparent distress HEENT: other (ABRASION TO TONGUE) Neck: normal inspection Respiratory: normal breath sounds, no respiratory distress, no accessory muscle use Cardiovascular: normal peripheral pulses, regular rate, rhythm, no edema, no murmur Gastrointestinal: non tender, soft Extremities: normal capillary refill Neurologic/Psychiatric: alert, normal mood/affect, oriented x 3; No aphasia; other (LEFT ARM PARALYSIS--NORMAL BASELINE. MILD LEFT LEG WEAKNESS--NORMAL BASELINE. ) Crainal Nerves: normal hearing, normal speech, PERRL Motor/Sensory: other ( ABOCVE) (LEONELA WARNER DO) Stroke Onset of Symptoms Onset of Symptoms: Yes (LEONELA WARNER DO) NIH Stroke Scale Assessment Select: Post CT Level of Consciousness: 0=Alert (0), Level of Consciousness- Questions: 0=Answers both month/age (0), LOC Commands: 0=Performs both tasks (0), Gaze: Normal (0), Visual Lin: 0=No visual loss (0), Facial Movement (Facial Paresis): 0=Normal symmetrical mnt (0), Motor Function-Arms Right: 0=No drift (0), Motor Function-Arms Left: 4=No movement (4), Motor Function- Legs Right: 0=No drift (0), Motor Function-Legs Left: 1=Drift (1), Limb Ataxia: 1=Present in one limb (1), Sensory: 0=Normal:no loss (0), Best Language: 0=No aphasia (0), Dysarthria: 0=Normal (0), Extinction & Inattention: 0=No abnormality (0), Total: 6 Stroke Thrombolytic Exclusion Age 18 or Over: Yes Acute intenal hemorrhage: No History of CVA: Yes Uncontrolled Coagulation Defec: No Intracranial Hemorrhage: No Severe Hypertension: No GI or Bleed: No Subarachnoid Hemorrhage: No Intracranial Neoplasm/Aneurysm: No Oral Anticoagulants: No Surgery or Trauma: No Puncture of Non-Compressible V: No Recent CPR: No Diabetic Hemorrhagic Retinopat: No Organ Biopsy: No Recent Obstetric Delivery: No Glucose: No Significant Hepatic Dysfunctio: Yes NIH Stoke Scale >22: No Bacterial Endocarditis: No Pericarditis: No Improving Symptoms: Yes Platelets: No (LEONELA WARNER DO) IV - TPa Received IV - TPa Procedure Performed?: No (NO STROKE SYMPTOMS, AND IS NORMAL BASELINE NEUROLOGICALLY) (LEONELA WARNER DO) Progress/Results/Core Measures Results/Orders Lab Results Laboratory Tests Test 02/20/22 16:25 02/20/22 16:52 02/20/22 18:07 02/20/22 19:28 Range/Units Magnesium Level 2.1 1.6-2.4 MG/DL White Blood Count 9.5 4.3-11.0 10^3/uL Red Blood Count 5.59 H 4.30-5.52 10^6/uL Hemoglobin 17.3 13.3-17.7 g/dL Hematocrit 54 40-54 % Mean Corpuscular Volume 96 80-99 fL Mean Corpuscular Hemoglobin 31 25-34 pg Mean Corpuscular Hemoglobin Concent 32 32-36 g/dL Red Cell Distribution Width 12.8 10.0-14.5 % Platelet Count 141 130-400 10^3/uL Mean Platelet Volume 12.0 9.0-12.2 fL Immature Granulocyte % (Auto) 1 % Neutrophils (%) (Auto) 40 L 42-75 % Lymphocytes (%) (Auto) 40 12-44 % Monocytes (%) (Auto) 14 H 0-12 % Eosinophils (%) (Auto) 6 0-10 % Basophils (%) (Auto) 0 0-10 % Neutrophils # (Auto) 3.8 1.8-7.8 10^3/uL Lymphocytes # (Auto) 3.8 1.0-4.0 10^3/uL Monocytes # (Auto) 1.3 H 0.0-1.0 10^3/uL Eosinophils # (Auto) 0.5 H 0.0-0.3 10^3/uL Basophils # (Auto) 0.0 0.0-0.1 10^3/uL Immature Granulocyte # (Auto) 0.1 0.0-0.1 10^3/uL Sodium Level 141 135-145 MMOL/L Potassium Level 4.4 3.6-5.0 MMOL/L Chloride Level 104 98-107 MMOL/L Carbon Dioxide Level 6 *L 21-32 MMOL/L Anion Gap 31 H 5-14 MMOL/L Blood Urea Nitrogen 12 7-18 MG/DL Creatinine 0.99 0.60-1.30 MG/DL Estimat Glomerular Filtration Rate 87 BUN/Creatinine Ratio 12 Glucose Level 108 H 70-105 MG/DL Calcium Level 9.8 8.5-10.1 MG/DL Corrected Calcium 9.6 8.5-10.1 MG/DL Total Bilirubin 0.4 0.1-1.0 MG/DL Aspartate Amino Transf (AST/SGOT) 88 H 5-34 U/L Alanine Aminotransferase (ALT/SGPT) 102 H 0-55 U/L Alkaline Phosphatase 117 40-136 U/L Total Protein 9.9 H 6.4-8.2 GM/DL Albumin 4.3 3.2-4.5 GM/DL Urine Color YELLOW Urine Clarity CLEAR Urine pH 6.5 5-9 Urine Specific Forsan 1.015 L 1.016-1.022 Urine Protein NEGATIVE NEGATIVE Urine Glucose (UA) NEGATIVE NEGATIVE Urine Ketones NEGATIVE NEGATIVE Urine Nitrite NEGATIVE NEGATIVE Urine Bilirubin NEGATIVE NEGATIVE Urine Urobilinogen 0.2 < = 1.0 MG/DL Urine Leukocyte Esterase NEGATIVE NEGATIVE Urine RBC (Auto) NEGATIVE NEGATIVE Urine RBC NONE /HPF Urine WBC RARE /HPF Urine Squamous Epithelial Cells NONE /HPF Urine Crystals NONE /LPF Urine Bacteria NEGATIVE /HPF Urine Casts NONE /LPF Urine Mucus NEGATIVE /LPF Urine Culture Indicated NO Urine Opiates Screen NEGATIVE NEGATIVE Urine Oxycodone Screen NEGATIVE NEGATIVE Urine Methadone Screen NEGATIVE NEGATIVE Urine Propoxyphene Screen NEGATIVE NEGATIVE Urine Barbiturates Screen NEGATIVE NEGATIVE Ur Tricyclic Antidepressants Screen NEGATIVE NEGATIVE Urine Phencyclidine Screen NEGATIVE NEGATIVE Urine Amphetamines Screen NEGATIVE NEGATIVE Urine Methamphetamines Screen NEGATIVE NEGATIVE Urine Benzodiazepines Screen NEGATIVE NEGATIVE Urine Cocaine Screen NEGATIVE NEGATIVE Urine Cannabinoids Screen POSITIVE H NEGATIVE Bedside Blood Gas pH (LAB) 7.385 7.310-7.410 Bedside Blood Gas pCO2 (LAB) 44.2 41.0-51.0 mmHg Bedside Blood Gas pO2 (LAB) 132 H 80-105 mmHg Bedside Blood Gas HCO3 (LAB) 26.4 23.0-28.0 mmol/L POC Blood Gas Total CO2 Calc 28 24-29 mmol/L Bedside Bl Gas O2 Saturation (Calc) 99 H 95-98 % Bedside Arterial Blood Base Excess 1 -2-3 mmol/L (LEONELA WARNER DO) My Orders Orders - LEONELA WARNER DO Magnesium (02/20/22 18:00) Ct Angio Head/Neck (02/20/22 18:01) Iohexol Injection (Omnipaque 350 Mg/Ml 1 (02/20/22 18:15) Received Contrast (Hold Metformin- Contr (02/20/22 18:15) Sodium Chloride Flush (Catheter Flush Sy (02/20/22 18:15) Ns (Ivpb) (Sodium Chloride 0.9% Ivpb Bag (02/20/22 18:15) Ketorolac Injection (Toradol Injection) (02/20/22 18:15) Ammonia (02/20/22 18:25) Levetiracetam Tablet (Keppra Tablet) (02/20/22 19:45) (LEONELA WARNER DO) Medications Given in ED Current Medications Medications Dose Ordered Sig/Leon Route Start Time Stop Time Status Last Admin Dose Admin Iohexol 100 ml ONCE ONCE IV 02/20/22 18:15 02/20/22 18:16 DC 02/20/22 18:36 75 ML Ketorolac Tromethamine 30 mg ONCE ONCE IVP 02/20/22 18:15 02/20/22 18:16 DC 02/20/22 18:16 30 MG Levetiracetam 500 mg ONCE ONCE PO 02/20/22 19:45 02/20/22 19:46 DC 02/20/22 20:08 500 MG Lidocaine HCl 10 ml ONCE ONCE TOP 02/20/22 17:30 02/20/22 17:31 DC 02/20/22 17:57 10 ML Sodium Chloride 100 ml ONCE ONCE IV 02/20/22 18:15 02/20/22 18:16 DC 02/20/22 18:36 80 ML (LEONELA WARNER DO) Vital Signs/I&O 02/20/22 16:20 Temp 36.2 Pulse 124 Resp 27 B/P (MAP) 130/84 (99) Pulse Ox 97 O2 Delivery Nasal Cannula O2 Flow Rate 2.00 (LEONELA WARNER DO) Blood Pressure Mean: 99 Progress Progress Note : Time: 17:30 Progress Note Notified by nursing staff that the patient is now awake and talking. He thinks he may have had another stroke. He states he had a seizure just prior to his initial stroke in February of last year. He tells me that he feels like everything is moving like it supposed to. He has paresis/paralysis of his left arm "normally". He has minimal movement in the left arm currently consistent with the stroke before. He denies nausea or shortness of breath. He had a little diarrhea last week. No COVID concerns. No dysuria urgency or frequency. No sore throat or runny nose. He states he has a mild headache currently. He feels like his vision is a little "blurry". He is following commands and alert and oriented. Going to CT now (MERI GAYTAN MD) Progress Note : Progress Note 1800--ASSUMED CARE FROM, DR. GAYTAN, ALL STUDIES PENDING PT STATES THIS IS THE SAME WITH PRIOR STROKE. HIS ONLY COMPLAINT NOW IS A HEADACHE. TORADOL ORDERED PT STATES 3-4 DAYS AGO, THEY STOPPED HIS HYDROCODONE AND STARTED HIM ON LYRICA FOR CHRONIC DAILY HEADACHES AND GENERALIZED PAIN. UNEVENTFUL ER STAY PT STATES HE FEELS BACK TO NORMAL PRIOR TO DISMISSAL, AND IS COMFORTABLE GOING HOME (LEONELA WARNER DO) Initial ECG Impression Date: Feb 20, 2022 Initial ECG Impression Time: 17:50 Initial ECG Rate: 95 Initial ECG Rhythm: Normal Sinus Initial ECG Intervals: Normal Initial ECG Impression: Normal (MERI GAYTAN MD) Diagnostic Imaging Comments CXR--PER RADIOLOGIST REPORT AT 1757 FINDINGS: Heart and mediastinal silhouette are normal in appearance. The lungs are clear. Patient has had previous upper thoracic spine fusion. There is no pneumothorax or pleural fluid. IMPRESSION: Postop changes in thoracic spine with no acute process in the chest. CT HEAD--PER RADIOLOGIST REPORT AT 1800 Comparison made with 08/26/2021. There is a large right old MCA territory infarct which appeared similar on the previous study. There is no subdural or epidural collection. There is no acute intracranial hemorrhage. There is no mass effect or midline shift. Ventricles are normal in size and position. Calvarial windows show no acute finding. IMPRESSION: Large old right MCA territory infarct, similar to 08/26/21. No new intracranial abnormality. CT ANGIOGRAM HEAD/NECK---PER RADIOLOGIST REPORT AT 1912 FINDINGS: There is no significant stenosis at the origins of the great vessels arising from the aortic arch. There appears to be mild ascending aortic ectasia measured at up to 40 mm. The origins of the vertebral arteries appear patent. The common carotid arteries demonstrate no significant stenosis. There is plaquing at the bilateral carotid bifurcations but this results in less than 50% stenosis by NASCET criteria. The cervical segments of the internal carotid arteries demonstrate no additional stenosis or dissection. The vertebral arteries throughout the neck appear patent without luminal irregularity, caliber change or dissection. Intracranially, there is appropriate flow within the bilateral internal carotid arteries with mild plaquing within the carotid siphons. There is patent flow within the M1 segment of both middle cerebral arteries. There is a paucity of contrast within M2 and M3 branches on the right compatible with a prior remote large infarct. There are no findings of a left M2 branch occlusion. The anterior cerebral arteries are patent. Within the posterior circulation, both vertebral arteries are patent. The basilar is unremarkable. There is patent flow within the bilateral posterior cerebral arteries with a origin of the right ORE CHARGER. There are no findings of aneurysm. The dural venous sinuses are patent. There is no evidence of pathologic intracranial enhancement. The soft tissues of the neck demonstrate no acute process. The aerodigestive tract appears appropriately symmetric. There are advanced degenerative features as well as postsurgical changes of the cervical and thoracic spine. There is no evidence to suggest an acute osseous abnormality. The lung apices appear clear. IMPRESSION: 1. Previous large remote right MCA territory infarct. 2. The intracranial circulation is intact. The is a paucity of flow within right M2 and M3 branches of the right middle cerebral artery compatible with a prior infarct. There are no findings of an intracranial large vessel occlusion or high-grade stenosis. 3. No findings of aneurysm. 4. Dural venous sinuses patent. 5. No pathologic intracranial enhancement. 6. Mild plaquing at the carotid bifurcations within the neck without significant stenosis. There are no findings of dissection. 7. Advanced degenerative features and extensive surgical changes of the cervical and thoracic spine. Reviewed: Reviewed by Me (LEONELA WARNER DO) Departure Communication (Admissions) 193--SPOKE WITH DR. LACKEY, CULTURAL HISTORIAN FOR [facility]. SHE ADVISES TO START ON KEPPRA, CONTINUE OTHER MEDICATIONS, And FOLLOW UP WITH DR. JEFFERS FOR FURTHER CARE (LEONELA WARNER DO) Impression Primary Impression: Seizure Additional Impression: History of CVA (cerebrovascular accident) Disposition: 03 XFER SNF Condition: Stable Departure-Patient Inst. Decision time for Depature: 19:39 (LEONELA WARNER DO) Referrals: LAYA JEFFERS MD Patient Instructions: Seizures Add. Discharge Instructions: CONTINUE YOUR REGULAR MEDICATION PRESCRIBED FOLLOW UP WITH DR. JEFFERS IN 1-2 DAYS FOR FURTHER CARE, RETURN TO ER IF WORSE All discharge instructions reviewed with patient and/or family. Voiced understanding. Scripts Levetiracetam (Keppra) 500 Mg Tablet 500 MG PO BID, #30 TAB Prov: LEONELA WARNER DO 02/20/22 MERI GAYTAN MD Feb 20, 2022 17:21 LEONELA WARNER DO Feb 20, 2022 17:58
[2022-02-20] MEDS ORDERED: LIDOCAINE UROJET 2% GEL 10 ML PKG TOP ONE (17:30)
[2022-02-20 17:32] LABS: BASOPHILS % (AUTO) 0 % (0-10); EOSINOPHILS # (AUTO) 0.5 10^3/uL (0.0-0.3); EOSINOPHILS % (AUTO) 6 % (0-10); HEMATOCRIT 54 % (40-54); HEMOGLOBIN 17.3 g/dL (13.3-17.7); LYMPHOCYTES # (AUTO) 3.8 10^3/uL (1.0-4.0); LYMPHOCYTES % (AUTO) 40 % (12-44); MEAN CORPUSCULAR HEMOGLOBIN 31 pg (25-34); MEAN CORPUSCULAR HGB CONC 32 g/dL (32-36); MEAN CORPUSCULAR VOLUME 96 fL (80-99); MONOCYTES # (AUTO) 1.3 10^3/uL (0.0-1.0); MONOCYTES % (AUTO) 14 % (0-12); NEUTROPHILS # (AUTO) 3.8 10^3/uL (1.8-7.8); NEUTROPHILS % (AUTO) 40 % (42-75); PLATELET COUNT 141 10^3/uL (130-400); WHITE BLOOD COUNT 9.5 10^3/uL (4.3-11.0)
[2022-02-20 17:48] LABS: ALBUMIN 4.3 GM/DL (3.2-4.5); POTASSIUM 4.4 MMOL/L (3.6-5.0)
[2022-02-20 17:50] LABS: CALCIUM 9.8 MG/DL (8.5-10.1)
[2022-02-20 17:51] LABS: TOTAL PROTEIN 9.9 GM/DL (6.4-8.2)
[2022-02-20 17:53] LABS: BILIRUBIN,TOTAL 0.4 MG/DL (0.1-1.0)
[2022-02-20 17:54] LABS: CREATININE SERUM 0.99 MG/DL (0.60-1.30)
--- NOTE | 2022-02-20 17:56 | Diagnostic Imaging Report ---
INDICATION: Seizure. TECHNIQUE: Frontal chest obtained at 05:49 p.m. and compared to 06/10/2017. FINDINGS: Heart and mediastinal silhouette are normal in appearance. The lungs are clear. Patient has had previous upper thoracic spine fusion. There is no pneumothorax or pleural fluid. IMPRESSION: Postop changes in thoracic spine with no acute process in the chest. Dictated by: Dictated on workstation # [id number]
--- NOTE | 2022-02-20 17:59 | Diagnostic Imaging Report ---
INDICATION: Seizure, history of stroke. TECHNIQUE: Multiple contiguous axial images were obtained through the brain without the use of intravenous contrast. Auto Exposure Controls were utilized during the CT exam to meet ALARA standards for radiation dose reduction. Comparison made with 08/26/2021. There is a large right old MCA territory infarct which appeared similar on the previous study. There is no subdural or epidural collection. There is no acute intracranial hemorrhage. There is no mass effect or midline shift. Ventricles are normal in size and position. Calvarial windows show no acute finding. IMPRESSION: Large old right MCA territory infarct, similar to 08/26/21. No new intracranial abnormality. Dictated by: Dictated on workstation # [id number]
[2022-02-20 18:14] LABS: BILIRUBIN,URINE NEGATIVE (NEGATIVE); CLARITY,URINE CLEAR; COLOR,URINE YELLOW; GLUCOSE, URINE (UA) NEGATIVE (NEGATIVE); KETONES,URINE NEGATIVE (NEGATIVE); LEUKOCYTE ESTERASE ,URINE NEGATIVE (NEGATIVE); NITRITE,URINE NEGATIVE (NEGATIVE); PH,URINE 6.5 (5-9); PROTEIN,URINE NEGATIVE (NEGATIVE)
[2022-02-20] MEDS ORDERED: NS 100 ML (IVPB) BAG IV ONE (18:15)
[2022-02-20] MEDS ORDERED: KETOROLAC 30 MG/ML VIAL IVP ONE (18:15)
[2022-02-20] MEDS ORDERED: HOLD METFORMIN - RECEIVED CONTRAST 20 ML VIAL IV SCH (18:15)
[2022-02-20] MEDS ORDERED: CATHETER FLUSH 10 ML SYR IV PRN (18:15)
[2022-02-20] MEDS ORDERED: IOHEXOL 350 MG/ML 100 ML (OMNIPAQUE 350) VIAL IV ONE (18:15)
[2022-02-20 18:26] LABS: AMPHETAMINE SCREEN, URINE NEGATIVE (NEGATIVE); BARBITURATE SCREEN URINE NEGATIVE (NEGATIVE); BENZODIAZEPINES SCREEN URINE NEGATIVE (NEGATIVE); CANNABINOID SCREEN, URINE POSITIVE (NEGATIVE); COCAINE SCREEN URINE NEGATIVE (NEGATIVE); METHADONE STAT NEGATIVE (NEGATIVE); OPIATE SCREEN URINE NEGATIVE (NEGATIVE); OXYCODONE STAT NEGATIVE (NEGATIVE); PROPOXYPHENE STAT NEGATIVE (NEGATIVE); TRICYCLIC ANTIDEPRESSANTS SCRE NEGATIVE (NEGATIVE)
[2022-02-20 18:31] LABS: BACTERIA,URINE NEGATIVE /HPF; WBC,URINE RARE /HPF
--- NOTE | 2022-02-20 19:01 | Diagnostic Imaging Report ---
PROCEDURE: CT angiography of the head and CT angiography of the neck with and without contrast. TECHNIQUE: Contiguous noncontrast images were obtained from the skull base through the vertex. After intravenous contrast administration, helical CT angiography of the neck was performed. Source data was reformatted into 3D MIP projections. Delayed post contrast acquisition was also obtained. Auto Exposure Controls were utilized during the CT exam to meet ALARA standards for radiation dose reduction. INDICATION: Seizure. History of stroke. COMPARISON: CT head from earlier in the same day. FINDINGS: There is no significant stenosis at the origins of the great vessels arising from the aortic arch. There appears to be mild ascending aortic ectasia measured at up to 40 mm. The origins of the vertebral arteries appear patent. The common carotid arteries demonstrate no significant stenosis. There is plaquing at the bilateral carotid bifurcations but this results in less than 50% stenosis by NASCET criteria. The cervical segments of the internal carotid arteries demonstrate no additional stenosis or dissection. The vertebral arteries throughout the neck appear patent without luminal irregularity, caliber change or dissection. Intracranially, there is appropriate flow within the bilateral internal carotid arteries with mild plaquing within the carotid siphons. There is patent flow within the M1 segment of both middle cerebral arteries. There is a paucity of contrast within M2 and M3 branches on the right compatible with a prior remote large infarct. There are no findings of a left M2 branch occlusion. The anterior cerebral arteries are patent. Within the posterior circulation, both vertebral arteries are patent. The basilar is unremarkable. There is patent flow within the bilateral posterior cerebral arteries with a origin of the right TOOL [employer] GEAR. There are no findings of aneurysm. The dural venous sinuses are patent. There is no evidence of pathologic intracranial enhancement. The soft tissues of the neck demonstrate no acute process. The aerodigestive tract appears appropriately symmetric. There are advanced degenerative features as well as postsurgical changes of the cervical and thoracic spine. There is no evidence to suggest an acute osseous abnormality. The lung apices appear clear. IMPRESSION: 1. Previous large remote right MCA territory infarct. 2. The intracranial circulation is intact. The is a paucity of flow within right M2 and M3 branches of the right middle cerebral artery compatible with a prior infarct. There are no findings of an intracranial large vessel occlusion or high-grade stenosis. 3. No findings of aneurysm. 4. Dural venous sinuses patent. 5. No pathologic intracranial enhancement. 6. Mild plaquing at the carotid bifurcations within the neck without significant stenosis. There are no findings of dissection. 7. Advanced degenerative features and extensive surgical changes of the cervical and thoracic spine. Dictated by: Dictated on workstation # [id number]
[2022-02-20] MEDS ORDERED: LEVE500T99 PO (19:40)
== END 2022-02-20 20:36 ==
LOC: EDUNIT# 16:17 → ER 16:19
DX: R56.9 Unspecified convulsions (principal); Z86.73 Personal history of transient ischemic attack (TIA), and cerebral infarction without residual deficits
CPT/HCPCS: 36415; 51702; 70450; 70496; 70498; 71045; 80053; 80306; 81000; 82805; 83735; 85025; 93005

== ENCOUNTER → 2022-03-28 | Outpatient (CLI) | payer MEDICAID ==
[~2022-03-28] MED LIST changes: +LEVE500T99 PO
[2022-03-28 17:35] LABS: BILIRUBIN,URINE NEGATIVE (NEGATIVE); CLARITY,URINE CLEAR; COLOR,URINE YELLOW; GLUCOSE, URINE (UA) NEGATIVE (NEGATIVE); KETONES,URINE NEGATIVE (NEGATIVE); LEUKOCYTE ESTERASE ,URINE NEGATIVE (NEGATIVE); NITRITE,URINE NEGATIVE (NEGATIVE); PROTEIN,URINE NEGATIVE (NEGATIVE)
[2022-03-28 17:43] LABS: BACTERIA,URINE NEGATIVE /HPF; WBC,URINE 0-2 /HPF
== END ==
LOC: LABNPT 17:30
PROVIDERS: ATTEND Nurse Practitioner Community Health
DX: R20.8 Other disturbances of skin sensation (principal); R35.0 Frequency of micturition
CPT/HCPCS: 81000

== ENCOUNTER → 2022-08-29 | Outpatient (CLI) | payer MEDICAID ==
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
== END ==
LOC: RAD 13:34
PROVIDERS: ATTEND Nurse Practitioner Family
DX: T84.7XXD Infection and inflammatory reaction due to other internal orthopedic prosthetic devices, implants and grafts, subsequent encounter (principal); M43.8X4 Other specified deforming dorsopathies, thoracic region; Z98.1 Arthrodesis status
CPT/HCPCS: 72141; 72146

== ENCOUNTER 2022-12-01 12:40 | Inpatient (IN) | payer MEDICAID ==
[~2022-12-01] VITALS: Ht 180.3 cm; Wt 78.5 kg
[2022-12-01] MEDS ORDERED: CALCIUM CARBONATE 500 MG (TUMS) TAB.CHEW PO PRN (13:00)
[2022-12-01] MEDS ORDERED: guaiFENesin/CODEINE (ROBITUSSIN AC) 10ML UDC PO PRN (13:00)
[2022-12-01] MEDS ORDERED: ONDANSETRON 4 MG (ZOFRAN) ORAL DISSOLVE TAB PO PRN (13:00)
[2022-12-01] MEDS ORDERED: ACETAMINOPHEN 325 MG TABLET PO PRN (13:00)
[2022-12-01] MEDS ORDERED: ALPRAZolam 0.25 MG (XANAX) TAB PO PRN (13:00)
[2022-12-01] MEDS ORDERED: LACTULOSE SYRUP 10GM/15ML (ENULOSE) 30ML UDC PO PRN (13:00)
[2022-12-01] MEDS ORDERED: LOPERAMIDE 2 MG (IMODIUM) TABLET PO PRN (13:00)
[2022-12-01] MEDS ORDERED: FLEET ENEMA ADULT 1 EA BTL PR PRN (13:00)
[2022-12-01] MEDS ORDERED: MELATONIN 3 MG TABLET PO PRN (13:00)
[2022-12-01] MEDS ORDERED: DOCUSATE SODIUM 100 MG (COLACE) CAP PO PRN (13:00)
[2022-12-01] MEDS ORDERED: BISACODYL 10 MG SUPP (DULCOLAX) PR PRN (13:00)
[2022-12-01] MEDS ORDERED: FLUO20CA42 PO (13:23)
[2022-12-01] MEDS ORDERED: NICO-587 TD (13:23)
[2022-12-01] MEDS ORDERED: PREG50CA65 PO (13:23)
[2022-12-01] MEDS ORDERED: CLIN150C20 PO (13:23)
[2022-12-01] MEDS ORDERED: ACHD5005 PO (13:23)
[2022-12-01] MEDS ORDERED: BACL10TA PO (13:23)
[2022-12-01] MEDS ORDERED: ATOR40TA70 PO (13:23)
[2022-12-01] MEDS ORDERED: LEVE500T6 PO (13:23)
--- NOTE | 2022-12-01 15:36 | Physical Therapy Evaluation ---
PT Evaluation-General Medical Diagnosis Admission Date December 01, 2022 at 15:10 Medical Diagnosis: s/p removal of hardware at T1-T6 with resection C7-T1 spinous process Onset Date: November 29, 2022 Therapy Diagnosis Therapy Diagnosis: Decreased strength, unsteady gait, decreased balance Height/Weight Height (Feet): 5 Height (Inches): 11.00 Weight (Pounds): 170 Weight (Ounces): 9.0 Precautions Precautions/Isolations: Fall Prevention no lifting over 10-15 lbs for 6 weeks and then nothing over 25lbs until 3 months. No excessive bending and lifting at the waist until 3 months Weight Bear Status Right Lower Extremity: Right Full Weight Bearing Left Lower Extremity: Left Full Weight Bearing Referral Reason for Referral: Evaluation/Treatment, Strengthening, Gait Medical History Additional Medical History CVA with L sided weakness, HLD, HTN, thoracic and cervical surgery Reviewed History: Yes Social History Home: Single Level Current Living Status: Alone Entry Into Home: Level Entry PT Steps Into Home: 0 PT Steps Inside Home: 0 Pt lives in an apartment by himself, but has an aide 5 days/week for cleaning and transportation. Tub shower with a shower chair and grab bars. No steps to enter/exit home or within apartment. Pt reports he must go up 1 curb when getting into/out of the car. Prior Prior Level of Function SCALE: Activities may be completed with or without assistive devices. 7-Fvjwunbubb-pdofebu completes the activity by him/herself with no assistance from a helper. 5-Set-up or Clean-up Assistance-helper sets up or cleans up; patient completes activity. [place] assists only prior to or following the activity. 4-Supervision or Touching Assistance-helper provides verbal cues and/or touching/steadying and/or contact guard assistance as patient completes activity. Assistance may be provided throughout the activity or intermittently. 3-Partial/Moderate Assistance-helper does LESS THAN HALF the effort. [place] lifts, holds or supports trunk or limbs, but provides less than half the effort. 2-Substantial/Maximal Assistance-helper does MORE THAN HALF the effort. [place] lifts or holds trunk or limbs and provides more than half the effort. 8-Fnkhgclmv-dagnne does ALL the effort. Patient does none of the effort to com plete the activity. Or, the assistance of 2 or more helpers is required for the patient to complete the activity. If activity was not attempted, code reason: 7-Patient Refused. 9-Not Applicable-not attempted and the patient did not perform the activity before the current illness, exacerbation or injury. 10-Not Attempted due to Environmental Limitations-(lack of equipment, weather restraints, etc.). 88-Not Attempted due to Medical Conditions or Safety Concerns. Bed Mobility: 6 Transfers (B,C,W/C): 6 Gait: 6 Stairs: 9 Wheelchair Mobility: 9 Indoor Mobility (Ambulation): Independent Stairs: Not Applicalbe Prior Devices Use: Other-see list below Prior Device Use: SPC Pt reports he was Ind with the SPC at [facility]. PT Evaluation-Current Subjective Pt is pleasant and agreeable to PT eval. Pt gives good effort. Pain Numeric Pain Scale: 8 Location Body Site: Back Section J - Health Conditions 1. Rarely or not at all 2. Occasionally 3. Frequently 4. Almost constantly 8. Unable to answer Pain Effect on Sleep: 4 Pain Interference with Therapy: 4 Pain Interference w/Day-to-Day: 4 Pt/Family Goals Safely return home Objective Patient Orientation: Person, Place, Time, Situation Attachments: Drains ROM/Strength ROM Upper Extremities See OT eval ROM Lower Extremities WFL Strength Upper Extremities See OT eval Strength Lower Extremities R LE MMT - 4-/5 grossly L LE MMT - 3+/5 grossly Integumentary/Posture Integumentary incision from neck to mid back with surgical dressing in place and 2 drains present Bowel Incontinence: No Bladder Incontinence: No Sensory Vision: Functional Hearing: Functional Hand Dominance: Right Sensation Right Upper Extremit: Intact Sensation Left Upper Extremity: Impaired Sensation Right Lower Extremit: Intact Sensation Left Lower Extremity: Intact Transfers Roll Left & Right (QC): 4 Sit to Lying (QC): 4 Lying to Sitting/Side of Bed(Q: 4 Sit to Stand (QC): 4 Chair/Mgr-jk-Hhhtk Xfer(QC): 4 Toilet Transfer (QC): 4 Car Transfer (QC): 4 Gait Does the Patient Walk?: Yes Mode of Locomotion: Walk Anticipated Mode of Locomotion: Walk Walk 10 feet (QC): 4 Walk 50 ft with 2 Turns(QC): 4 Walk 150 ft (QC): 4 Walking 10ft/uneven surface-QC: 4 Distance: 150ft Gait Assistive Device: Cane Single Point Wheelchair Training Does the Pt Use a Wheelchair?: No Wheel 50 ft with 2 turns (QC): 9 Wheel 150 ft (QC): 9 Type of Wheelchair: N/A Stairs #of Steps: 12 1 Step (curb) (QC): 4 4 Steps (QC): 4 12 Steps (QC): 4 1 HR and CGA Balance Sitting Static: Good Sitting Dynamic: Good Standing Static: Fair Standing Dynamic: Fair Picking up an Object (QC): 4 (CGA with metal buffer ) Special Test Comments sit to stand - 8 reps in 30 seconds Assessment/Needs Rehab Potential: Good PT Swimming Pool Plasterer Helper Goals Swimming Pool Plasterer Helper Goals PT Jail Goals Time Frame: December 11, 2022 Roll Left to Right (QC): 6 (Pt will be Mod I with bed mobility and funcitonal transfers to progress towards PLOF. ) Sit to Lying (QC): 6 (Pt will be Mod I with bed mobility and funcitonal transfers to progress towards PLOF. ) Lying-Sitting on Side/Bed(QC): 6 (Pt will be Mod I with bed mobility and funcitonal transfers to progress towards PLOF. ) Sit to Stand (QC): 6 (Pt will be Mod I with bed mobility and funcitonal transfers to progress towards PLOF. ) Chair/Nbw-ya-Heepx Xfer(QC): 6 (Pt will be Mod I with bed mobility and funcitonal transfers to progress towards PLOF. ) Toilet/Commode Transfer (QC): 6 (Pt will be Mod I with bed mobility and funcitonal transfers to progress towards PLOF. ) Car Transfer (QC): 6 (Pt will be Mod I with bed mobility and funcitonal transfers to progress towards PLOF. ) Does the Patient Walk: Yes Walk 10 feet (QC): 6 (Pt will ambulate 250ft with the SPC and Mod I. ) Walk 10ft-Uneven Surface(QC): 6 (Pt will ambulate 250ft with the SPC and Mod I. ) Walk 50ft with 2 Turns (QC): 6 (Pt will ambulate 250ft with the SPC and Mod I. ) Walk 150 ft (QC): 6 (Pt will ambulate 250ft with the SPC and Mod I. ) Does the Pt use WC or Scooter?: No Wheel 50 feet with 2 turns (QC: 9 Type: Manual Wheel 150 feet: 9 Type: Manual 1 Step (curb) (QC): 5 (Pt will ascend/descend 12 steps with 1 HR and SBA. ) 4 Steps (QC): 5 (Pt will ascend/descend 12 steps with 1 HR and SBA. ) 12 Steps (QC): 5 (Pt will ascend/descend 12 steps with 1 HR and SBA. ) Picking up an Object (QC): 6 (Ind with metal buffer ) PT Plan Problem List Problem List: Activity Tolerance, Functional Strength, Safety, Balance, Gait, Transfer, Bed Mobility Treatment/Plan Treatment Plan: Continue Plan of Care Treatment Plan: Bed Mobility, Concurrent Therapy, Education, Functional Activity Rock, Functional Strength, Group Therapy, Gait, Safety, Therapeutic Exercise, Transfers Treatment Duration: December 11, 2022 Frequency: At least 5 of 7 days/Wk (IRF) Estimated Hrs Per Day: 1.5 hours per day Patient and/or Family Agrees t: Yes Safety Risks/Education Patient Education: Gait Training, Transfer Techniques, Steps, Reviewed Precautions, Safety Issues Teaching Recipient: Patient Teaching Methods: Demonstration, Discussion Response to Teaching: Verbalize Understanding, Return Demonstration, Reinforcement Needed Discharge Recommendations Therapy Discharge Recommendati: Home & Family Equpiment Recommendations-D/C: Other, Please Explain (SPC, which the pt already has ) Target Placement home with aide assistance Time Time In: 1514 Time Out: 1524 DATE: December 01, 2022 Total Billed Treatment Time: 10 Total Billed Treatment 10 min DANO VAZQUEZ PT December 01, 2022 15:36
[2022-12-01 16:00] VITALS: BP 136/87
[2022-12-01] MEDS ORDERED: BACITRACIN OINTMENT 28 GM TUBE TOP PRN (16:15)
--- NOTE | 2022-12-01 16:41 | Occupational Therapy Eval ---
OT Evaluation-General/PLF Medical Diagnosis Admission Date December 01, 2022 at 15:10 Medical Diagnosis: s/p removal of hardware at T1-T6 with resection C7-T1 spinous process Onset Date: November 29, 2022 Therapy Diagnosis Therapy Diagnosis: decreased ADL status Height/Weight Height (Feet): 5 Height (Inches): 11.00 Weight (Pounds): 170 Weight (Ounces): 9.0 Precautions Precautions/Isolations: Fall Prevention Comments Back Precautions, No lifting >10-15 lbs x6 weeks, no excessive bending or twisting. Keep incision covered with plastic while showering until suman are removed. no submerging incision. [place] removed at [facility] 2 weeks. Referral Physician: Jahaira Referral Reason: Evaluation/Treatment Medical History Additional Medical History C4-5 posterior cervical decompression and fusion 06/28/2016, T1-6 posterior instrumentation and fusion with ORIF T3-4 fx 07/04/2016. CVA. HLD, HTN, thoracic and cervical surgery Current History 11/29/22 s/p exploration of fusion and removal of hardware T1-6 with resection C7-T1 spinous process. 11/29/22 s/p b/l trapezius myocutaneous flap reconstruction of back wound. Social History Home: Single Level Current Living Status: Alone Entry Into Home: Level Entry Steps Into Home: 0 Steps Inside Home: 0 ADL-Prior Level of Function SCALE: Activities may be completed with or without assistive devices. 0-Jztnxlstjm-jfkgpdb completes the activity by him/herself with no assistance from a helper. 5-Set-up or Clean-up Assistance-helper sets up or cleans up; patient completes activity. [place] assists only prior to or following the activity. 4-Supervision or Touching Assistance-helper provides verbal cues and/or touching/steadying and/or contact guard assistance as patient completes activity. Assistance may be provided throughout the activity or intermittently. 3-Partial/Moderate Assistance-helper does LESS THAN HALF the effort. [place] lifts, holds or supports trunk or limbs, but provides less than half the effort. 2-Substantial/Maximal Assistance-helper does MORE THAN HALF the effort. [place] lifts or holds trunk or limbs and provides more than half the effort. 0-Egcolewhg-rsvohr does ALL the effort. Patient does none of the effort to complete the activity. Or, the assistance of 2 or more helpers is required for the patient to complete the activity. If activity was not attempted, code reason: 7-Patient Refused. 9-Not Applicable-not attempted and the patient did not perform the activity before the current illness, exacerbation or injury. 10-Not Attempted due to Environmental Limitations-(lack of equipment, weather restraints, etc.). 88-Not Attempted due to Medical Conditions or Safety Concerns. ADL PLOF Comments Pt was IND with ADLS and mobility, using SPC as needed around his home. Pt has OT 2 times a week (Sunday and Sunday, 4 hours each day), and a caregiver 5 days a week (Sunday through Sunday, 4 hours each day.) Pt has a tub/shower with SC and GBs, no HH shower head. Self Care: Independent Functional Cognition: Independent DME/Equipment: Bath Chair, Grab Bars, Tub/Shower DME/Equipment Comments SPC, SC OT Current Status Subjective Pt agreeable to OT evaluation and cotreatment with PT. Pt reluctant to use SPC throughout tx, stating he doesn't need it. Pt required education each time on importance and safety of why therapy recommends cane at this time. Mental Status/Objective Patient Orientation: Person, Place, Time, Situation Attachments: Other-See Comments (2 drains - back) Current Glasses/Contacts: Yes (reading) Hearing Aids: No Dentures/Partials: No Hand Dominance: Right Upper Extremity ROM RUE WFL LUE decreased movement due to prior CVA. Shoulder flexion to approx 50 degrees (some discomfort reported along back incision), some elbow flexion/extension, and slight wrist movement, no movement noted in fingers. Pt reports having a splint that he wears at night, OT encouraged pt to have someone bring splint for use while on ARU. Upper Extremity Coordination Decreased LUE Upper Extremity Sensation Pt reports numbness LUE. Upper Extremity Strength RUE not formally tested due to back precautions/lifting restriction, grossly WFL LUE decreased due to prior CVA. ADL-Treatment Eating (QC): 5 (set up assist with cutting food and opening containers.) Oral Hygiene (QC): 4 (SBA standing at sink. VCs to encourage pt to open toothpaste himself.) Shower/Bathe Self (QC): 4 (Supervision.) Upper Body Dressing (QC): 4 (VC for encouragement in order for pt to attempt getting shirt down L side himself) Lower Body Dressing (QC): 4 (SBA and VC for pant hike on L side.) On/Off Footwear (QC): 5 (set up with socks and crocs.) Toileting Hygiene (QC): 4 (SBA standing at toilet to urinate. ) Other Treatments OT evaluation complete. OT/PT cotreat due to skill of 2 clinicians required which a certified rehabilitation counselor could not perform in order to coordinate UE/LEs, decrease fall risk, focus on higher level balance tasks and due to pt's limitations in strength, activity tolerance, mobility, and safety with transfers. OT focused on UE placement, cues for sequencing and safety, ADLs and UE reaching, PT focused on LE placement, gross overall movement, transfers/mobility, and dynamic standing balance. Pt stood at toilet to urinate SBA (standing ~5 mins total). Pt reports difficulty with urinating, this is not new, RN notified. Pt completed showering, dressing and grooming tasks as outlined above. Pt stood at sink ~3-4 mins during grooming task. Pt returned to recliner using SPC. Pt completed x5 sit to/from stands (SBA). Pt reports slight discomfort with placing RUE on arm rest of chair, modification shown to pt to place R hand on R knee instead. Pt demo'd ability to stand up with alternative method, pt instructed to use either way to stand based on comfort. Pt educated on dycem with fingernail file to file nails, pt demo'd ability to complete with set up. Pt requests to transfer to bed (SBA), assistance provided to bed. Post tx, pt in bed, call light in reach and all needs met. CGA-SBA Education OT Patient Education: Correct positioning, Energy conservation, Modified ADL techniques, Progress toward Goal/Update tx plan, Purpose of tx/functional activities, Reviewed precautions, Rehab process Teaching Recipient: Patient Teaching Methods: Discussion Response to Teaching: Verbalize Understanding BIMS CAM BIMS Expression of Ideas and Wants: Without Difficulty Understanding Verbal Content: Understands Brief Interview/Mental Status: Yes IRF ALIZA BIMS: IRF ALIZA BIMS Response (Comments) Value Repitition of Three Words Three 3 Recalls Socks Yes, No Cue Required 2 Recalls Blue Yes, No Cue Required 2 Recalls Bed Yes, No Cue Required 2 Year Correct 3 Month Accurate Within 5 Days 2 Day Correct 1 Total 15 [address] Mental [address] No CAM Mental Status Change/Baseline: 0 Inattention: 0 Disorganized thinkin Altered level of consciousness: 0 OT Short Term Goals Short Term Goals Time Frame: December 08, 2022 Oral hygiene: 5 Upper body dressin Lower body dressin Putting on/taking off footwear: 5 OT [place] Goals Long-Term Goals Time Frame: December 15, 2022 Eating (QC): 6 Oral Hygiene (QC): 6 Toileting Hygiene (QC): 6 Shower/Bathe Self (QC): 5 Upper Body Dressing (QC): 6 Lower Body Dressing (QC): 6 On/Off Footwear (QC): 6 Additional Goals: 1-Demonstrate ADL Tasks, 2-Verbalize Understanding, 3- ImproveStrength/Rock 1=Demonstrate adherence to instructed precautions during ADL tasks. 2=Patient will verbalize/demonstrate understanding of assistive devices/modifications for ADL. 3=Patient will improve strength/tolerance for activity to enable patient to perform ADL's. OT Education/Plan Problem List/Assessment Assessment: Decreased Activ Tolerance, Decreased UE Strength, Impaired Funct Balance, Impaired I ADL's, Impaired Self-Care Skills, Restricted Funct UE ROM Discharge Recommendations Plan/Recommendations: Continue POC Treatment Plan/Plan of Care Patient would benefit from OT for education, treatment and training to promote independence in ADL's, mobility, safety and/or upper extremity function for ADL 's. Plan of Care: ADL Retraining, Functional Mobility, Group Exercise/Act as Ind, UE Funct Exercise/Act, UE Neuromus Re-Ed/Coord Treatment Duration: December 15, 2022 Frequency: At least 5 of 7 days/Wk (IRF) Estimated Hrs Per Day: 1.5 hours per day Agreement: Yes Rehab Potential: Good Time Start Time: 15:25 Stop Time: 16:55 DATE: December 01, 2022 Total Time Billed (hr/min): 90 Billed Treatment Time OT evaluation [id number], Cotreat [id number] 1, EVL (10'), ADL 5 (80') TERRI PEREZ OT December 01, 2022 16:41
--- NOTE | 2022-12-01 16:51 | Physical Therapy Daily Note ---
PT Daily Note-Current Subjective Pt in room in recliner upon arrival and willing for therapy. PT/OT co treat due to skill of 2 clinicians required which a veterinary surgery technician could not perform in order to coordinate UE/LEs, decrease fall risk, focus on higher level balance tasks, and due to pt's limitations in strength, mobility, and safety with transfers. OT focused on UE placement, cues for sequencing and safety and ADLs, & UE reaching, PT focused on LE placement, gross overall movement, transfers/mobility, & dynamic balance. pt was left in room in bed with call light and all needs met this day. Pain Section J - Health Conditions 1. Rarely or not at all 2. Occasionally 3. Frequently 4. Almost constantly 8. Unable to answer Pain Effect on Sleep: 4 Pain Interference with Therapy: 4 Pain Interference w/Day-to-Day: 4 Transfers SCALE: Activities may be completed with or without assistive devices. 4-Pcztxhzlgt-wacqxxt completes the activity by him/herself with no assistance from a helper. 5-Set-up or Clean-up Assistance-helper sets up or cleans up; patient completes activity. [place] assists only prior to or following the activity. 4-Supervision or Touching Assistance-helper provides verbal cues and/or touching/steadying and/or contact guard assistance as patient completes activity. Assistance may be provided throughout the activity or intermittently. 3-Partial/Moderate Assistance-helper does LESS THAN HALF the effort. [place] lifts, holds or supports trunk or limbs, but provides less than half the effort. 2-Substantial/Maximal Assistance-helper does MORE THAN HALF the effort. [place] lifts or holds trunk or limbs and provides more than half the effort. 4-Ftwfnozhr-yrdxuc does ALL the effort. Patient does none of the effort to complete the activity. Or, the assistance of 2 or more helpers is required for the patient to complete the activity. If activity was not attempted, code reason: 7-Patient Refused. 9-Not Applicable-not attempted and the patient did not perform the activity before the current illness, exacerbation or injury. 10-Not Attempted due to Environmental Limitations-(lack of equipment, weather restraints, etc.). 88-Not Attempted due to Medical Conditions or Safety Concerns. Weight Bearing Right Lower Extremity: Right Full Weight Bearing Left Lower Extremity: Left Full Weight Bearing Exercises Standing: Sit to Stand Standing Reps: 5 Treatments Pt is able to ambulate with straight cane as well as preform 5 stairs ascending and descending with SBA and VC of 30% for safety. pt had no LOB this day. pt did preform showing sitting and waiter/waitress captain edu on balance tech and transfers to prevent falls at home. pt does have standing endurance of aprox 3-4 mins with no major sway. pt also preformed 5 sit to stand with SBA. and no LOB was noted. pt was able to execute transfer from recliner to bed transfers with SBA and VC for easier leg lift into bed for less fatigue. pt was left in bed with call light and all needs met with aid in the room. PT Mcc Goals Watch And Clock Maker And Repairer Goals PT Mcc Goals Time Frame: December 11, 2022 Roll Left & Right (QC): 6 (Pt will be Mod I with bed mobility and funcitonal transfers to progress towards PLOF. ) Sit to Lying (QC): 6 (Pt will be Mod I with bed mobility and funcitonal transfers to progress towards PLOF. ) Lying-Sitting on Side/Bed(QC): 6 (Pt will be Mod I with bed mobility and funcitonal transfers to progress towards PLOF. ) Sit to Stand (QC): 6 (Pt will be Mod I with bed mobility and funcitonal transfers to progress towards PLOF. ) Chair/Ivh-et-Yibsd Xfer(QC): 6 (Pt will be Mod I with bed mobility and funcitonal transfers to progress towards PLOF. ) Toilet Transfer (QC): 6 (Pt will be Mod I with bed mobility and funcitonal transfers to progress towards PLOF. ) Car Transfer (QC): 6 (Pt will be Mod I with bed mobility and funcitonal transfers to progress towards PLOF. ) Does the Patient Walk: Yes Walk 10 feet (QC): 6 (Pt will ambulate 250ft with the SPC and Mod I. ) Walk 50ft with 2 Turns (QC): 6 (Pt will ambulate 250ft with the SPC and Mod I. ) Walk 150 ft (QC): 6 (Pt will ambulate 250ft with the SPC and Mod I. ) Walking 10ft on Uneven Surface: 6 (Pt will ambulate 250ft with the SPC and Mod I. ) 1 Step (curb) (QC): 5 (Pt will ascend/descend 12 steps with 1 HR and SBA. ) 4 Steps (QC): 5 (Pt will ascend/descend 12 steps with 1 HR and SBA. ) 12 Steps (QC): 5 (Pt will ascend/descend 12 steps with 1 HR and SBA. ) Picking up an Object (QC): 6 (Ind with employee relation manager ) Does the Pt use WC or Scooter?: No Wheel 50 feet with 2 turns (QC: 9 Type: Manual Wheel 150 feet: 9 Type: Manual PT Plan Treatment/Plan Treatment Plan: Continue Plan of Care Treatment Plan: Bed Mobility, Concurrent Therapy, Education, Functional Activity Rock, Functional Strength, Group Therapy, Gait, Safety, Therapeutic Exercise, Transfers Treatment Duration: December 11, 2022 Frequency: At least 5 of 7 days/Wk (IRF) Estimated Hrs Per Day: 1.5 hours per day Patient and/or Family Agrees t: Yes Time Time In: 1535 Time Out: 1655 DATE: December 01, 2022 Total Billed Treatment Time: 80 Total Billed Treatment 1 GT x 2 FA x 4 Lucila Chinchilla CLINIC ASSISTANT December 01, 2022 16:51
--- NOTE | 2022-12-01 16:52 | PM&R Post Admission Assessment ---
PM&R HP Date of Visit: December 01, 2022 Time of Visit: 16:00 History of Present Illness CC: Recovery from paraspinal abscess and removal of hardware HPI: This is a 62yoWM clinic patient of [facility] who has a h/o chronic back pain who underwent a major spinal surgery due to paraspinal abscess and removal of hardware. He has a h/o CVA with left sided weakness. Currently his bowels are not moving well so laxatives will be given. Home meds have been restarted. Smoking cessation is in process so Nicotine patch will be maintained. PLOF is independent and currently will need to receive aggressive therapy in order to return to home. Past Yftwrhn-Iltwlb-Mlhrgf Hx Past Med/Social Hx: Reviewed Nursing Past Med/Soc Hx, Reviewed and Corrections made Patient Social History Marrital Status: single Employed/Student: unemployed Alcohol Use: Denies Use Alcohol Beverage of Choice: Beer Drug of Choice: meth Type Used: Cigarettes 2nd Hand Smoke Exposure: Yes Recent Hopitalizations: No Immunizations Up To Date Tetanus Booster (TDap): Less than 5yrs Pediatric: Yes Seasonal Allergies Seasonal Allergies: No Past Medical History Surgeries: Orthopedic Cardiac: High Cholesterol, Hypertension Neurological: Headaches /Migraines, Neuropathy, Stroke, TIA Gastrointestinal: Liver Disease/Jaundice, Hepatitis Musculoskeletal: Arthritis, Back Injury, Chronic Back Pain Endocrine: Hypothyroidsim Psychosocial: Depression History of Blood Disorders: No Family History No Pertinent Family Hx Prior Level of Function Bed Mobility: 6 Transfers: 6 Gait: 6 Stairs: 9 Wheelchair Mobility: 9 Indoor Mobility (Ambulation): Independent Stairs: Not Applicalbe Prior Devices Use: Other-see list below SPC Current Level of Fuctioning Roll Left to Right: 4 Sit to Lyin Lying to Sitting/Side of Bed: 4 Sit to Stand: 4 Chair/Jvj-xj-Olhay Xfer: 4 Car Transfer: 4 Does the Patient Walk: Yes Mode of Locomotion: Walk Anticipated Mode of Locomotion: Walk Walk 10 feet: 4 Walk 50 ft with 2 Turns: 4 Walk 150 ft: 4 Walking 10ft on uneven surface: 4 Gait Assistive Device: Cane Single Point Does the Pt Use a Wheelchair: No Wheel 50 ft with 2 turns: 9 Wheel 150 ft: 9 Type of Wheelchair: N/A #of Steps: 12 1 Step (curb): 4 4 Steps: 4 12 Steps: 4 Picking up an Object: 4 (CGA with applications programmer analyst ) PM&R Allergy/Meds/Data Review Allergies Coded Allergies: No Known Drug Allergies (Unverified , 05/13/18) Home Medications Scheduled Atorvastatin Calcium (Atorvastatin Calcium), 40 MG PO HS, (Reported) Clindamycin HCl (Clindamycin HCl), 450 MG PO TID, (Reported) Fluoxetine HCl (Prozac), 20 MG PO DAILY, (Reported) Levetiracetam (Levetiracetam), 500 MG PO BID, (Reported) Pregabalin (Pregabalin), 50 MG PO TID, (Reported) Scheduled PRN Baclofen (Baclofen), 10 MG PO Q8H PRN for MUSCLE SPASMS, (Reported) Hydrocodone/Acetaminophen (Hydrocodone-Acetamin 5-325 mg), 1-2 TAB PO Q4H PRN for PAIN-MODERATE (5-7), (Reported) Nicotine (Nicotine Patch), 14 MG TD DAILY PRN for SMOKING CESSATION, (Reported) Discontinued Medications Hydrocodone Bit/Acetaminophen (Lortab 5 Mg Tablet), 1 EACH PO Q4-6HR PRN for PAIN-MODERATE Discontinued Reason: No Longer Taking Levetiracetam (Keppra), 500 MG PO BID Discontinued Reason: No Longer Taking Current Medications Current Medications Reviewed Review of Systems Constitutional: see HPI, dizziness, malaise, weakness EENTM: no symptoms reported Respiratory: no symptoms reported Cardiovascular: no symptoms reported Gastrointestinal: constipation Genitourinary: no symptoms reported Musculoskeletal: back pain Skin: no symptoms reported Psychiatric/Neurological: Anxiety, Depressed, Weakness All Other Systems Reviewed Negative Unless Noted: Yes Physical Exam Physical Exam Vital Signs Capillary Refill : Height, Weight, BMI Height: 5'11.00" Weight: 170lbs. 9.0oz. 77.330371dn; 26.00 BMI Method:Stated General Appearance: No Apparent Distress, WD/WN, Chronically ill, Thin Eyes: Bilateral Eye Normal Inspection, Bilateral Eye PERRL HEENT: PERRL/EOMI, Normal ENT Inspection, Pharynx Normal Neck: Full Range of Motion, Normal Inspection, Non Tender, Supple, Carotid Bruit Respiratory: Chest Non Tender, Lungs Clear, No Accessory Muscle Use, No Respiratory Distress, Decreased Breath Sounds Cardiovascular: Regular Rate, Rhythm, No Edema, No Gallop, No JVD, No Murmur, Normal Peripheral Pulses Gastrointestinal: Normal Bowel Sounds, No Organomegaly, No Pulsatile Mass, Non Tender, Soft Back: CVA Tenderness (L), CVA Tenderness (R), Decreased Range of Motion, Muscle Spasm, Vertebral Tenderness, Other (drains in place) Extremity: Normal Capillary Refill, Normal Inspection, Normal Range of Motion, Non Tender, No Calf Tenderness, No Pedal Edema Neurologic/Psychiatric: Alert, Oriented x3, No Motor/Sensory Deficits, Normal Mood/Affect, Motor Weakness (left sided weakness) Skin: Normal Color, Warm/Dry Lymphatic: No Adenopathy PM&R Medical Assessment & Plan REHAB/MEDICAL ASSESSMENT AND PLAN: REHAB IMPAIRMENT GROUP: Paraspinal abscess and thoracic DDD ETIOLOGIC DIAGNOSIS: Paraspinal abscess and thoracic DDD The comorbidities that impact the patients function and/or functional outcome by: smoker, h/o CVA left sided weakness, fall risk, lives alone REHAB PLAN: The patient is being admitted to our comprehensive inpatient rehabilitation facility and can tolerate the intensity of service consisting of at least: 180 minutes of therapy a day, 5 out of 7 days a week Rehab treatment will consist of: PT OT will focus on regaining function with use of AD in order to increase ambulatory stamina and independence in ADL's The patient/family has a good understanding of our discharge process and will benefit from an interdisciplinary inpatient rehabilitation program. The patient has potential to make improvement and is in need of at least two of the followin g multidisciplinary therapies including but not limited to physical, occupational, speech, and prosthetics and orthotics. Additionally the patient will need services from respiratory, nutritional services, wound care, psychology, etc. (Customize this to each patient). Given the patients complex condition and risk of further medical complications, rehabilitation services cannot be safely or effectively provided at a lower level of care such as a usp facility. BARRIERS TO DISCHARGE: Lives alone ESTIMATED LOS: 7 days DISPOSITION: Home RELEVANT CHANGES SINCE PREADMISSION SCREENING: I have compared the patients medical and functional status at the time of the p readmission screening and there are: no changes PROGNOSIS: Good REHABILITATION GOALS: 1. PT OT will focus on regaining function with use of AD in order to increase ambulatory stamina and independence in ADL's All the above goals were reviewed with the patient and he/she is in agreement. By signing this document, I acknowledge that I have personally performed a full physical examination on this patient within 24 hours of admission to this inpatient rehabilitation facility and have determined the patient to be able to tolerate the above course of treatment at an intensive level for a reasonable period of time. I will be completing a detailed individualized Plan of Care for this patient by day #4 of the patients stay based upon the Preadmission Screen, the Post-Admission Evaluation, and the therapy evaluations. Admission Dx/Comorbidities: (1) Spinal cord abscess ICD Codes: G06.1 - Intraspinal abscess and granuloma Assessment/Plan Assessment and Plan Assess & Plan/Chief Complaint Assessment: Paraspinal abscess s/p hardware removal H/O CVA with left sided weakness Smoker Plan: Monitor closely Fall risk Nicotine patch CHARLETTE RODRIGUEZ DO December 01, 2022 16:52
[2022-12-01] MEDS ORDERED: NICOTINE PATCH REMOVAL TP PRN (17:00)
[2022-12-01] MEDS: HYDROcodone/APAP 5 MG/325 MG (LORTAB) TAB PO PRN ×2 (17:44→22:22)
[2022-12-01 20:45] VITALS: BP 138/95
[2022-12-01] MEDS: CLINDAMYCIN 150 MG (CLEOCIN) CAP PO SCH (20:57)
[2022-12-01] MEDS: PREGABALIN 50 MG (LYRICA) CAP PO SCH (20:57)
[2022-12-01] MEDS: DOCUSATE SODIUM 100 MG (COLACE) CAP PO SCH (21:02)
[2022-12-01] MEDS: polyethylene glycoL POWDER 17 GM (MIRALAX) PACK PO SCH (21:03)
[2022-12-01] MEDS: SENNA W/DOCUSATE (SENOKOT S) TABLET PO SCH (21:03)
[2022-12-02] MEDS: HYDROcodone/APAP 5 MG/325 MG (LORTAB) TAB PO PRN ×4 (02:20→20:24)
[2022-12-02 05:31] LABS: BASOPHILS % (AUTO) 0 % (0-10); MEAN CORPUSCULAR VOLUME 95 fL (80-99); MEAN PLATELET VOLUME 10.5 fL (9.0-12.2)
[2022-12-02 05:32] LABS: EOSINOPHILS # (AUTO) 0.1 10^3/uL (0.0-0.3); EOSINOPHILS % (AUTO) 1 % (0-10); HEMATOCRIT 43 % (40-54); HEMOGLOBIN 14.8 g/dL (13.3-17.7); LYMPHOCYTES # (AUTO) 1.3 10^3/uL (1.0-4.0); LYMPHOCYTES % (AUTO) 20 % (12-44); MEAN CORPUSCULAR HEMOGLOBIN 33 pg (25-34); MEAN CORPUSCULAR HGB CONC 35 g/dL (32-36); MONOCYTES # (AUTO) 0.9 10^3/uL (0.0-1.0); MONOCYTES % (AUTO) 14 % (0-12); NEUTROPHILS # (AUTO) 4.1 10^3/uL (1.8-7.8); NEUTROPHILS % (AUTO) 64 % (42-75); PLATELET COUNT 120 10^3/uL (130-400); WHITE BLOOD COUNT 6.3 10^3/uL (4.3-11.0)
[2022-12-02 05:51] LABS: ALBUMIN 2.9 GM/DL (3.2-4.5); BILIRUBIN,TOTAL 0.5 MG/DL (0.1-1.0); CALCIUM 8.9 MG/DL (8.5-10.1); CREATININE SERUM 0.64 MG/DL (0.60-1.30); POTASSIUM 3.7 MMOL/L (3.6-5.0); TOTAL PROTEIN 6.5 GM/DL (6.4-8.2)
--- NOTE | 2022-12-02 06:06 | PM&R Progress Note ---
Subjective HPI/CC On Admission Date Seen by Provider: December 02, 2022 Time Seen by Provider: 09:30 Subjective/Events-last exam 12/02/2022: Doing well Pain controlled Urinary frequency for past 1 year Flomax and Proscar added Review of Systems General: Fatigue, Malaise Objective Exam Vital Signs Vital Signs Date Time Temp Pulse Resp B/P (MAP) Pulse Ox O2 Delivery O2 Flow Rate FiO2 12/02/22 08:24 36.9 77 18 126/72 (90) 97 Room Air Capillary Refill : General Appearance: No Apparent Distress, WD/WN, Chronically ill, Thin HEENT: PERRL/EOMI, Normal ENT Inspection, Pharynx Normal Neck: Full Range of Motion, Normal Inspection, Non Tender, Supple, Carotid Bruit Respiratory: Chest Non Tender, Lungs Clear, No Accessory Muscle Use, No Respiratory Distress, Decreased Breath Sounds Cardiovascular: Regular Rate, Rhythm, No Edema, No Gallop, No JVD, No Murmur, Normal Peripheral Pulses Gastrointestinal: Normal Bowel Sounds, No Organomegaly, No Pulsatile Mass, Non Tender, Soft Back: CVA Tenderness (L), CVA Tenderness (R), Decreased Range of Motion, Muscle Spasm, Vertebral Tenderness, Other (drains in place) Extremity: Normal Capillary Refill, Normal Inspection, Normal Range of Motion, Non Tender, No Calf Tenderness, No Pedal Edema Neurologic/Psychiatric: Alert, Oriented x3, No Motor/Sensory Deficits, Normal Mood/Affect, Motor Weakness (left sided weakness) Skin: Normal Color, Warm/Dry Lymphatic: No Adenopathy Results/Procedures Lab Laboratory Tests 12/02/22 05:20 Patient resulted labs reviewed. FIM Transfers Therapy Code Descriptions/Definitions Functional [place] Measure: 0=Not Assessed/NA 4=Minimal Assistance 1=Total Assistance 5=Supervision or Setup 2=Maximal Assistance 6=Modified [place] 3=Moderate Assistance 7=Complete IndependenceSCALE: Activities may be completed with or without assistive devices. 0-Karqdsnkoo-jxhtzex completes the activity by him/herself with no assistance from a helper. 5-Set-up or Clean-up Assistance-helper sets up or cleans up; patient completes activity. [place] assists only prior to or following the activity. 4-Supervision or Touching Assistance-helper provides verbal cues and/or touching/steadying and/or contact guard assistance as patient completes activity. Assistance may be provided throughout the activity or intermittently. 3-Partial/Moderate Assistance-helper does LESS THAN HALF the effort. [place] lifts, holds or supports trunk or limbs, but provides less than half the effort. 2-Substantial/Maximal Assistance-helper does MORE THAN HALF the effort. [place] lifts or holds trunk or limbs and provides more than half the effort. 6-Piwhwmcid-xrbmql does ALL the effort. Patient does none of the effort to complete the activity. Or, the assistance of 2 or more helpers is required for the patient to complete the activity. If activity was not attempted, code reason: 7-Patient Refused. 9-Not Applicable-not attempted and the patient did not perform the activity before the current illness, exacerbation or injury. 10-Not Attempted due to Environmental Limitations-(lack of equipment, weather restraints, etc.). 88-Not Attempted due to Medical Conditions or Safety Concerns. Roll Left to Right (QC): 4 Sit to Lying (QC): 4 Sit to Stand (QC): 4 Chair/Cle-jx-Vshez Xfer(QC): 4 Car Transfer (QC): 4 Gait Training Does the Patient Walk?: Yes Walk 10 feet (QC): 4 Walk 50 ft with 2 Turns(QC): 4 Walk 150 ft (QC): 4 Walking 10ft/uneven surface-QC: 4 Gait Assistive Device: Cane Single Point Wheelchair Training Does the Pt Use a Wheelchair?: No Wheel 50 ft with 2 turns (QC): 9 Wheel 150 ft (QC): 9 Type of Wheelchair: N/A Stair Training #of Steps: 12 1 Step (curb) (QC): 4 4 Steps (QC): 4 12 Steps (QC): 4 Balance Picking up an Object (QC): 4 (CGA with sand bobber ) ADL-Treatment Eating (QC): 5 (set up assist with cutting food and opening containers.) Oral Hygiene (QC): 4 (SBA standing at sink. VCs to encourage pt to open toothpaste himself.) Shower/Bathe Self (QC): 4 (Supervision.) Upper Body Dressing (QC): 4 (VC for encouragement in order for pt to attempt getting shirt down L side himself) Lower Body Dressing (QC): 4 (SBA and VC for pant hike on L side.) On/Off Footwear (QC): 5 (set up with socks and crocs.) Toileting Hygiene (QC): 4 (SBA standing at toilet to urinate. ) Assessment/Plan Assessment and Plan Assess & Plan/Chief Complaint Assessment: Paraspinal abscess s/p hardware removal H/O CVA with left sided weakness Smoker Low albumin Presumed BPH added meds Plan: Monitor closely Fall risk Nicotine patch 12/02/2022: Monitor closely (1) Spinal cord abscess CHARLETTE RODRIGUEZ DO December 02, 2022 06:06
--- NOTE | 2022-12-02 06:06 | Individualized Plan of Care ---
Individualized Plan of Care Rehab Nursing IPOC Order Admission Date December 01, 2022 at 15:10 Current Orders Orders Admission Order(Inpt,Obs,Sdc) (12/01/22 13:00) Vital Signs: Per Unit Policy ( 08,16,00 (12/01/22 13:00) Trevor Alcala (12/01/22 13:00) Sequential Compression Device (12/01/22 13:00) Manager Process Improvement-Inpt Rehab Con (12/01/22 13:00) Rehab Nursing Orders-Ipoc (12/01/22 13:00) Physical Therapy Rehab Orders (12/01/22 13:00) Occupational Therapy Rehab Ord (12/01/22 13:00) Speech Therapy Rehab Orders (12/01/22 13:00) Cbc With Automated Diff (12/02/22 06:00) Comprehensive Metabolic Panel (12/02/22 06:00) Precautions (Aru) (12/01/22 13:00) Weekly Weight WEEK (12/01/22 13:00) Rehab-Intensity Of Therapy (12/01/22 13:00) Initiate Admission Nursing Pro .admission (12/01/22 13:00) Alprazolam Tablet (Xanax Tablet) (12/01/22 13:00) Calcium Carbonate Chew Tablet (Antacid C (12/01/22 13:00) Diphenhydramine Tablet (Benadryl Tablet) (12/01/22 13:00) Docusate Sodium Capsule (Colace Capsule) (12/01/22 21:00) Docusate Sodium Capsule (Colace Capsule) (12/01/22 13:00) Bisacodyl Suppository (Dulcolax Supposit (12/01/22 13:00) Lactulose Oral Solution (Enulose Oral So (12/01/22 13:00) Na Phos/Na Biphos Enema (Fleet Enema Jose Luis (12/01/22 13:00) Guaifenesin/Codeine Syrup (Robitussin Ac (12/01/22 13:00) Loperamide Tablet (Imodium Tablet) (12/01/22 13:00) Melatonin Tablet (Melatonin Tablet) (12/01/22 13:00) Polyethylene Glycol Powder Pkt (Miralax (12/01/22 21:00) Ondansetron Oral Dissolve Tab (Zofran (12/01/22 13:00) Senna S Tablet (Senokot S Tablet) (12/01/22 21:00) Acetaminophen Tablet/Caplet (Tylenol T (12/01/22 13:00) Transfer - Bed/Room/Location (12/01/22 15:15) Bacitracin Ointment (Bacitracin Ointment (12/01/22 16:15) Nursing Communication (Order) (12/01/22 16:06) Nursing Communication (Order) (12/01/22 16:11) Nursing Communication (Order) (12/01/22 16:14) Follow-Up Appointment (12/01/22 16:17) Follow-Up Appointment (12/01/22 16:19) Nursing Communication (Order) (12/01/22 16:37) Atorvastatin Tablet (Lipitor Tablet) (12/01/22 21:00) Baclofen Tablet (Lioresal Tablet) (12/01/22 17:00) Fluoxetine Capsule (Prozac Capsule) (12/02/22 09:00) Hydrocodone/Apap 5/325 Tablet (Lortab 5 (12/01/22 17:00) Levetiracetam Tablet (Keppra Tablet) (12/01/22 21:00) Nicotine Patch (Nicoderm Patch) (12/01/22 17:00) Pregabalin Capsule (Lyrica Capsule) (12/01/22 21:00) Clindamycin Capsule (Cleocin Capsule) (12/01/22 21:00) Patch Removal (Patch Removal) (12/01/22 17:00) General/Regular (12/01/22 Dinner) Tamsulosin Capsule (Flomax Capsule) (12/02/22 09:45) Finasteride Tablet (Proscar Tablet) (12/02/22 09:45) Code/Resuscitation (12/02/22 17:43) Rehab Nursing Orders: Ongoing Assess. of Function Status, Bladder Management, Bladder Scan, Bladder Training, Bowel Management, Bowel Training, Disease Management & Educaiton, DVT Prophylaxis, Fall Prevention, Fluid/Electrolyte/Nutrition Mgmt, Infection Prevention, Medication Management & Education, Management of Risks & Complications, Management of Skin Intergrity, Nutrition Management, Pain Management, Patient/Family Support, Safety Management, Wound Management Intensity of Therapy to be met Patient to be seen: Min.3h per day/5 of 7d PT IPOC Problem List: Activity Tolerance, Functional Strength, Safety, Balance, Gait, Transfer, Bed Mobility Treatment Plan: Continue Plan of Care Bed Mobility, Concurrent Therapy, Education, Functional Activity Rock, Functional Strength, Group Therapy, Gait, Safety, Therapeutic Exercise, Transfers Treatment Duration: December 11, 2022 Frequency: At least 5 of 7 days/Wk (IRF) Estimated Hrs Per Day: 1.5 hours per day OT IPOC Problems: Decreased Activ Tolerance, Decreased UE Strength, Impaired Funct Balance, Impaired I ADL's, Impaired Self-Care Skills, Restricted Funct UE ROM OT Treatment, Training and Edu: Yes Plan of Care: ADL Retraining, Functional Mobility, Group Exercise/Act as Ind, UE Funct Exercise/Act, UE Neuromus Re-Ed/Coord Treatment Duration: December 15, 2022 Frequency: At least 5 of 7 days/Wk (IRF) Estimated Hrs Per Day: 1.[address] IPOC Speech Therapy Treatment Plan: Discontinue ST Treatment Duration: December 01, 2022 Frequency: Modified Program (IRF) Estimated Hrs Per Day: Other Manager Process Improvement/Case Mgmt Manager Process Improvement/Case Managemen: Discharge Planning Dietitian/Surgical Attendant Dietitian/Surgical Attendant to monitor nutritional status and make changes and/or recommendations as needed and work with speech pathology on dietary upgrades as the occur. Physician IPOC Medical Issues being managed closely and that require the 24 hour availability of a physician: Recent paraspinal abscess and removal of hardware with continued abx will require close monitoring for decompensation with sepsis Medical Issues: Bowel/Bladder Function, DVT Prophylaxis, Falls Precautions, Fluid/Electrolyte/Nutrition Balance, Infection Protection, Pain Management, Wound Care Brief Synthesis of Preadmission Screen, Post-Admission Evaluation, and Therapy Evaluations: PT OT will focus on regaining function with use of AD in order to increase ambulatory stamina along with ADL independence in order to return home. Medical Prognosis: Good Anticipated Length of Stay: 7 days CHARLETTE RODRIGUEZ DO December 02, 2022 06:06
[2022-12-02 07:00] VITALS: BP 126/72
[2022-12-02] MEDS: PREGABALIN 50 MG (LYRICA) CAP PO SCH ×3 (08:17→20:24)
[2022-12-02] MEDS: CLINDAMYCIN 150 MG (CLEOCIN) CAP PO SCH ×3 (08:17→20:24)
[2022-12-02] MEDS: FLUoxetine HCL 20 MG (PROzac) CAP PO SCH (08:17)
[2022-12-02 08:24] VITALS: BP 126/72
[2022-12-02] MEDS: BACLOFEN 10 MG (LIORESAL) TAB PO PRN ×2 (08:30→22:56)
[2022-12-02] MEDS: polyethylene glycoL POWDER 17 GM (MIRALAX) PACK PO SCH ×2 (09:58→20:24)
[2022-12-02] MEDS: SENNA W/DOCUSATE (SENOKOT S) TABLET PO SCH ×2 (09:58→20:25)
[2022-12-02] MEDS: DOCUSATE SODIUM 100 MG (COLACE) CAP PO SCH ×2 (09:58→20:24)
[2022-12-02] MEDS: FINASTERIDE (PROSCAR) 5 MG TAB PO SCH (10:14)
[2022-12-02] MEDS: TAMSULOSIN 0.4 MG (FLOMAX) CAP PO SCH ×2 (10:15→20:24)
[2022-12-02] MEDS: diphenhydrAMINE 25 MG TAB (BENADRYL) PO PRN (13:33)
[2022-12-02] MEDS: NICOTINE 14 MG (NICODERM) PATCH TD PRN (16:17)
[2022-12-02 20:30] VITALS: BP 143/88
[2022-12-03] MEDS: HYDROcodone/APAP 5 MG/325 MG (LORTAB) TAB PO PRN ×5 (01:01→21:34)
[2022-12-03] MEDS: diphenhydrAMINE 25 MG TAB (BENADRYL) PO PRN ×2 (01:01→08:32)
--- NOTE | 2022-12-03 07:34 | PM&R Progress Note ---
Subjective HPI/CC On Admission Date Seen by Provider: December 03, 2022 Time Seen by Provider: 12:00 Subjective/Events-last exam 12/03/2022: No major issues Flomax and Proscar helping already No pain reported as long as pain meds are given Itching with all narcs so he takes Benadryl 12/02/2022: Doing well Pain controlled Urinary frequency for past 1 year Flomax and Proscar added Review of Systems General: Fatigue, Malaise Objective Exam Vital Signs Vital Signs Date Time Temp Pulse Resp B/P (MAP) Pulse Ox O2 Delivery O2 Flow Rate FiO2 12/03/22 09:00 Room Air 12/03/22 08:00 36.8 84 18 105/66 (79) 97 Capillary Refill : General Appearance: No Apparent Distress, WD/WN, Chronically ill, Thin HEENT: PERRL/EOMI, Normal ENT Inspection, Pharynx Normal Neck: Full Range of Motion, Normal Inspection, Non Tender, Supple, Carotid Bruit Respiratory: Chest Non Tender, Lungs Clear, No Accessory Muscle Use, No Respiratory Distress, Decreased Breath Sounds Cardiovascular: Regular Rate, Rhythm, No Edema, No Gallop, No JVD, No Murmur, Normal Peripheral Pulses Gastrointestinal: Normal Bowel Sounds, No Organomegaly, No Pulsatile Mass, Non Tender, Soft Back: CVA Tenderness (L), CVA Tenderness (R), Decreased Range of Motion, Muscle Spasm, Vertebral Tenderness, Other (drains in place) Extremity: Normal Capillary Refill, Normal Inspection, Normal Range of Motion, Non Tender, No Calf Tenderness, No Pedal Edema Neurologic/Psychiatric: Alert, Oriented x3, No Motor/Sensory Deficits, Normal Mood/Affect, Motor Weakness (left sided weakness) Skin: Normal Color, Warm/Dry Lymphatic: No Adenopathy Results/Procedures Lab Patient resulted labs reviewed. FIM Transfers Therapy Code Descriptions/Definitions Functional [place] Measure: 0=Not Assessed/NA 4=Minimal Assistance 1=Total Assistance 5=Supervision or Setup 2=Maximal Assistance 6=Modified [place] 3=Moderate Assistance 7=Complete IndependenceSCALE: Activities may be completed with or without assistive devices. 2-Htztnntser-nnyjkkf completes the activity by him/herself with no assistance from a helper. 5-Set-up or Clean-up Assistance-helper sets up or cleans up; patient completes activity. [place] assists only prior to or following the activity. 4-Supervision or Touching Assistance-helper provides verbal cues and/or touching/steadying and/or contact guard assistance as patient completes activity. Assistance may be provided throughout the activity or intermittently. 3-Partial/Moderate Assistance-helper does LESS THAN HALF the effort. [place] lifts, holds or supports trunk or limbs, but provides less than half the effort. 2-Substantial/Maximal Assistance-helper does MORE THAN HALF the effort. [place] lifts or holds trunk or limbs and provides more than half the effort. 5-Icmaofhre-agtpot does ALL the effort. Patient does none of the effort to complete the activity. Or, the assistance of 2 or more helpers is required for the patient to complete the activity. If activity was not attempted, code reason: 7-Patient Refused. 9-Not Applicable-not attempted and the patient did not perform the activity before the current illness, exacerbation or injury. 10-Not Attempted due to Environmental Limitations-(lack of equipment, weather restraints, etc.). 88-Not Attempted due to Medical Conditions or Safety Concerns. Roll Left to Right (QC): 4 Sit to Lying (QC): 4 Sit to Stand (QC): 4 Chair/Ghh-wz-Hvqgx Xfer(QC): 4 Car Transfer (QC): 4 Gait Training Does the Patient Walk?: Yes Walk 10 feet (QC): 4 Walk 50 ft with 2 Turns(QC): 4 Walk 150 ft (QC): 4 Walking 10ft/uneven surface-QC: 4 Gait Assistive Device: Cane Single Point Wheelchair Training Does the Pt Use a Wheelchair?: No Wheel 50 ft with 2 turns (QC): 9 Wheel 150 ft (QC): 9 Type of Wheelchair: N/A Stair Training #of Steps: 12 1 Step (curb) (QC): 4 4 Steps (QC): 4 12 Steps (QC): 4 Balance Picking up an Object (QC): 4 (CGA with kettle operator head ) ADL-Treatment Eating (QC): 5 (set up assist with cutting food and opening containers.) Oral Hygiene (QC): 4 (SBA standing at sink. VCs to encourage pt to open toothpaste himself.) Shower/Bathe Self (QC): 4 (Supervision.) Upper Body Dressing (QC): 4 (VC for encouragement in order for pt to attempt getting shirt down L side himself) Lower Body Dressing (QC): 4 (SBA and VC for pant hike on L side.) On/Off Footwear (QC): 5 (set up with socks and crocs.) Toileting Hygiene (QC): 4 (SBA standing at toilet to urinate. ) Assessment/Plan Assessment and Plan Assess & Plan/Chief Complaint Assessment: Paraspinal abscess s/p hardware removal H/O CVA with left sided weakness Smoker Low albumin Presumed BPH added meds Plan: Monitor closely Fall risk Nicotine patch 12/02/2022: Monitor closely 12/03/2022: BPH symptoms improved No falls (1) Spinal cord abscess CHARLETTE RODRIGUEZ DO December 03, 2022 07:34
[2022-12-03 08:00] VITALS: BP 105/66
[2022-12-03] MEDS: SENNA W/DOCUSATE (SENOKOT S) TABLET PO SCH ×2 (08:32→21:41)
[2022-12-03] MEDS: TAMSULOSIN 0.4 MG (FLOMAX) CAP PO SCH ×2 (08:32→21:34)
[2022-12-03] MEDS: CLINDAMYCIN 150 MG (CLEOCIN) CAP PO SCH ×3 (08:32→21:33)
[2022-12-03] MEDS: DOCUSATE SODIUM 100 MG (COLACE) CAP PO SCH ×2 (08:32→21:41)
[2022-12-03] MEDS: FLUoxetine HCL 20 MG (PROzac) CAP PO SCH (08:33)
[2022-12-03] MEDS: polyethylene glycoL POWDER 17 GM (MIRALAX) PACK PO SCH ×2 (08:33→21:41)
[2022-12-03] MEDS: PREGABALIN 50 MG (LYRICA) CAP PO SCH ×3 (08:33→21:34)
[2022-12-03] MEDS: FINASTERIDE (PROSCAR) 5 MG TAB PO SCH (08:33)
[2022-12-03 19:32] VITALS: BP 112/75
[2022-12-04] MEDS: HYDROcodone/APAP 5 MG/325 MG (LORTAB) TAB PO PRN ×4 (01:57→19:36)
[2022-12-04] MEDS: diphenhydrAMINE 25 MG TAB (BENADRYL) PO PRN ×3 (04:07→19:36)
--- NOTE | 2022-12-04 05:24 | PM&R Progress Note ---
Subjective HPI/CC On Admission Date Seen by Provider: December 04, 2022 Time Seen by Provider: 09:00 Subjective/Events-last exam 12/04/2022: No major issues Frequency of urination is improved since the addition of prostate meds Pyridium will be added Walking well Left arm weak 12/03/2022: No major issues Flomax and Proscar helping already No pain reported as long as pain meds are given Itching with all narcs so he takes Benadryl 12/02/2022: Doing well Pain controlled Urinary frequency for past 1 year Flomax and Proscar added Review of Systems General: Fatigue, Malaise Objective Exam Vital Signs Vital Signs Date Time Temp Pulse Resp B/P (MAP) Pulse Ox O2 Delivery O2 Flow Rate FiO2 12/04/22 20:45 36.4 75 20 114/79 (91) 97 Room Air Capillary Refill : General Appearance: No Apparent Distress, WD/WN, Chronically ill, Thin HEENT: PERRL/EOMI, Normal ENT Inspection, Pharynx Normal Neck: Full Range of Motion, Normal Inspection, Non Tender, Supple, Carotid Bruit Respiratory: Chest Non Tender, Lungs Clear, No Accessory Muscle Use, No Respiratory Distress, Decreased Breath Sounds Cardiovascular: Regular Rate, Rhythm, No Edema, No Gallop, No JVD, No Murmur, Normal Peripheral Pulses Gastrointestinal: Normal Bowel Sounds, No Organomegaly, No Pulsatile Mass, Non Tender, Soft Back: CVA Tenderness (L), CVA Tenderness (R), Decreased Range of Motion, Muscle Spasm, Vertebral Tenderness, Other (drains in place) Extremity: Normal Capillary Refill, Normal Inspection, Normal Range of Motion, Non Tender, No Calf Tenderness, No Pedal Edema Neurologic/Psychiatric: Alert, Oriented x3, No Motor/Sensory Deficits, Normal Mood/Affect, Motor Weakness (left sided weakness) Skin: Normal Color, Warm/Dry Lymphatic: No Adenopathy Results/Procedures Lab Patient resulted labs reviewed. FIM Transfers Therapy Code Descriptions/Definitions Functional [place] Measure: 0=Not Assessed/NA 4=Minimal Assistance 1=Total Assistance 5=Supervision or Setup 2=Maximal Assistance 6=Modified [place] 3=Moderate Assistance 7=Complete IndependenceSCALE: Activities may be completed with or without assistive devices. 2-Ccfbcsroah-vgloseq completes the activity by him/herself with no assistance from a helper. 5-Set-up or Clean-up Assistance-helper sets up or cleans up; patient completes activity. [place] assists only prior to or following the activity. 4-Supervision or Touching Assistance-helper provides verbal cues and/or touching/steadying and/or contact guard assistance as patient completes activity. Assistance may be provided throughout the activity or intermittently. 3-Partial/Moderate Assistance-helper does LESS THAN HALF the effort. [place] lifts, holds or supports trunk or limbs, but provides less than half the effort. 2-Substantial/Maximal Assistance-helper does MORE THAN HALF the effort. [place] lifts or holds trunk or limbs and provides more than half the effort. 2-Koysuevdv-lrviod does ALL the effort. Patient does none of the effort to complete the activity. Or, the assistance of 2 or more helpers is required for the patient to complete the activity. If activity was not attempted, code reason: 7-Patient Refused. 9-Not Applicable-not attempted and the patient did not perform the activity before the current illness, exacerbation or injury. 10-Not Attempted due to Environmental Limitations-(lack of equipment, weather restraints, etc.). 88-Not Attempted due to Medical Conditions or Safety Concerns. Roll Left to Right (QC): 4 Sit to Lying (QC): 4 Sit to Stand (QC): 4 Chair/Hmh-nn-Nmcew Xfer(QC): 4 Car Transfer (QC): 4 Gait Training Does the Patient Walk?: Yes Walk 10 feet (QC): 4 Walk 50 ft with 2 Turns(QC): 4 Walk 150 ft (QC): 4 Walking 10ft/uneven surface-QC: 4 Gait Assistive Device: Cane Single Point Wheelchair Training Does the Pt Use a Wheelchair?: No Wheel 50 ft with 2 turns (QC): 9 Wheel 150 ft (QC): 9 Type of Wheelchair: N/A Stair Training #of Steps: 12 1 Step (curb) (QC): 4 4 Steps (QC): 4 12 Steps (QC): 4 Balance Picking up an Object (QC): 4 (CGA with analysis evaluator ) ADL-Treatment Eating (QC): 5 (set up assist with cutting food and opening containers.) Oral Hygiene (QC): 4 (SBA standing at sink. VCs to encourage pt to open toothpaste himself.) Shower/Bathe Self (QC): 4 (Supervision.) Upper Body Dressing (QC): 4 (VC for encouragement in order for pt to attempt getting shirt down L side himself) Lower Body Dressing (QC): 4 (SBA and VC for pant hike on L side.) On/Off Footwear (QC): 5 (set up with socks and crocs.) Toileting Hygiene (QC): 4 (SBA standing at toilet to urinate. 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
[2022-12-04 07:46] VITALS: BP 95/62
[2022-12-04] MEDS: PREGABALIN 50 MG (LYRICA) CAP PO SCH ×3 (07:51→20:04)
[2022-12-04] MEDS: CLINDAMYCIN 150 MG (CLEOCIN) CAP PO SCH ×3 (07:51→20:04)
[2022-12-04] MEDS: FLUoxetine HCL 20 MG (PROzac) CAP PO SCH (07:52)
[2022-12-04] MEDS: DOCUSATE SODIUM 100 MG (COLACE) CAP PO SCH ×2 (07:52→20:04)
[2022-12-04] MEDS: SENNA W/DOCUSATE (SENOKOT S) TABLET PO SCH ×2 (07:52→20:04)
[2022-12-04] MEDS ORDERED: PHENAZOPYRIDINE 100 MG (PYRIDIUM) TABLET PO PRN (09:15)
[2022-12-04 09:50] VITALS: BP 92/60
[2022-12-04] MEDS: polyethylene glycoL POWDER 17 GM (MIRALAX) PACK PO SCH ×2 (09:55→19:30)
[2022-12-04] MEDS: FINASTERIDE (PROSCAR) 5 MG TAB PO SCH (10:10)
[2022-12-04] MEDS: TAMSULOSIN 0.4 MG (FLOMAX) CAP PO SCH ×2 (10:10→20:04)
[2022-12-04 11:17] VITALS: BP 117/70
[2022-12-04] MEDS: NICOTINE 14 MG (NICODERM) PATCH TD PRN (11:17)
[2022-12-04 11:20] VITALS: BP 112/73
--- NOTE | 2022-12-04 11:59 | Physical Therapy Daily Note ---
PT Daily Note-Current Subjective pt in bed upon arrival and willing for therapy this day. pt had nursing don NELY bradleye and check BP before getting out of bed. BP was 95/58. nursing stated she was going to notify DR as pt did start a new Med. pt did state she was light headed and dizzy throughout treatment. pt di drest in sitting and felt better after resting and able to resume activity. Pain Section J - Health Conditions 1. Rarely or not at all 2. Occasionally 3. Frequently 4. Almost constantly 8. Unable to answer Pain Effect on Sleep: 4 Pain Interference with Therapy: 4 Pain Interference w/Day-to-Day: 4 Transfers SCALE: Activities may be completed with or without assistive devices. 2-Zkibvrdkyc-fpatiad completes the activity by him/herself with no assistance from a helper. 5-Set-up or Clean-up Assistance-helper sets up or cleans up; patient completes activity. [place] assists only prior to or following the activity. 4-Supervision or Touching Assistance-helper provides verbal cues and/or touching/steadying and/or contact guard assistance as patient completes activity. Assistance may be provided throughout the activity or intermittently. 3-Partial/Moderate Assistance-helper does LESS THAN HALF the effort. [place] lifts, holds or supports trunk or limbs, but provides less than half the effort. 2-Substantial/Maximal Assistance-helper does MORE THAN HALF the effort. [place] lifts or holds trunk or limbs and provides more than half the effort. 1-Yzpfqcyxr-ripzzt does ALL the effort. Patient does none of the effort to complete the activity. Or, the assistance of 2 or more helpers is required for the patient to complete the activity. If activity was not attempted, code reason: 7-Patient Refused. 9-Not Applicable-not attempted and the patient did not perform the activity before the current illness, exacerbation or injury. 10-Not Attempted due to Environmental Limitations-(lack of equipment, weather restraints, etc.). 88-Not Attempted due to Medical Conditions or Safety Concerns. Weight Bearing Right Lower Extremity: Right Full Weight Bearing Left Lower Extremity: Left Full Weight Bearing Exercises Seated Therapy Exercises: Pelvic tilt, Sit to stand, Long arc quads, Chair press-ups, Kicking activity, Glut set Treatments Pt is able to preform ambulation of 200ft with SPC and no LOB. pt was instructed to and completed obstacle course ambulation involving ambulation in between obstacle, stepping over objects, and curb ambulation. pt did require CGA and MAX VC for safety when preforming Curb step however was SBA with the rest of the obstacle. pt was challenge outside [place]IR[place] and was able to keep balance this day/ Assessment Current Status: Good Progress PT Mortgage Closer Goals Group Home Goals PT Group Home Goals Time Frame: December 11, 2022 Roll Left & Right (QC): 6 (Pt will be Mod I with bed mobility and funcitonal transfers to progress towards PLOF. ) Sit to Lying (QC): 6 (Pt will be Mod I with bed mobility and funcitonal transfers to progress towards PLOF. ) Lying-Sitting on Side/Bed(QC): 6 (Pt will be Mod I with bed mobility and funcitonal transfers to progress towards PLOF. ) Sit to Stand (QC): 6 (Pt will be Mod I with bed mobility and funcitonal transfers to progress towards PLOF. ) Chair/Roh-gj-Wodxv Xfer(QC): 6 (Pt will be Mod I with bed mobility and funcitonal transfers to progress towards PLOF. ) Toilet Transfer (QC): 6 (Pt will be Mod I with bed mobility and funcitonal transfers to progress towards PLOF. ) Car Transfer (QC): 6 (Pt will be Mod I with bed mobility and funcitonal transfers to progress towards PLOF. ) Does the Patient Walk: Yes Walk 10 feet (QC): 6 (Pt will ambulate 250ft with the SPC and Mod I. ) Walk 50ft with 2 Turns (QC): 6 (Pt will ambulate 250ft with the SPC and Mod I. ) Walk 150 ft (QC): 6 (Pt will ambulate 250ft with the SPC and Mod I. ) Walking 10ft on Uneven Surface: 6 (Pt will ambulate 250ft with the SPC and Mod I. ) 1 Step (curb) (QC): 5 (Pt will ascend/descend 12 steps with 1 HR and SBA. ) 4 Steps (QC): 5 (Pt will ascend/descend 12 steps with 1 HR and SBA. ) 12 Steps (QC): 5 (Pt will ascend/descend 12 steps with 1 HR and SBA. ) Picking up an Object (QC): 6 (Ind with retail representative ) Does the Pt use WC or Scooter?: No Wheel 50 feet with 2 turns (QC: 9 Type: Manual Wheel 150 feet: 9 Type: Manual PT Plan Treatment/Plan Treatment Plan: Continue Plan of Care Treatment Plan: Bed Mobility, Concurrent Therapy, Education, Functional Activity Rock, Functional Strength, Group Therapy, Gait, Safety, Therapeutic Exercise, Transfers Treatment Duration: December 11, 2022 Frequency: At least 5 of 7 days/Wk (IRF) Estimated Hrs Per Day: 1.5 hours per day Patient and/or Family Agrees t: Yes Time Time In: 0900 Time Out: 100 DATE: December 04, 2022 Total Billed Treatment Time: 60 Total Billed Treatment 1 Gt x 2 EX FA Lucila Chinchilla GROUP CIO December 04, 2022 11:59
[2022-12-04] MEDS ORDERED: MELA10TA2 PO (12:03)
--- NOTE | 2022-12-04 12:49 | Occupational Ther Daily Note ---
OT Current Status-Daily Note Subjective Pt dozing in bed, woke to name. Pt agrees to therapy though declines any OOB tasks due to fatigue and low BP earlier in morning. No c/o pain. Mental Status/Objective Patient Orientation: Person, Place, Time, Situation ADL-Treatment Pt declines all ADLs at this time. Does complete toileting independently for voiding while standing. Therapy Code Descriptions/Definitions Functional [place] Measure: 0=Not Assessed/NA 4=Minimal Assistance 1=Total Assistance 5=Supervision or Setup 2=Maximal Assistance 6=Modified [place] 3=Moderate Assistance 7=Complete IndependenceSCALE: Activities may be completed with or without assistive devices. 5-Ldgreplomr-bhdskvt completes the activity by him/herself with no assistance from a helper. 5-Set-up or Clean-up Assistance-helper sets up or cleans up; patient completes activity. [place] assists only prior to or following the activity. 4-Supervision or Touching Assistance-helper provides verbal cues and/or touching/steadying and/or contact guard assistance as patient completes activity. Assistance may be provided throughout the activity or intermittently. 3-Partial/Moderate Assistance-helper does LESS THAN HALF the effort. [place] lifts, holds or supports trunk or limbs, but provides less than half the effort. 2-Substantial/Maximal Assistance-helper does MORE THAN HALF the effort. [place] lifts or holds trunk or limbs and provides more than half the effort. 6-Wcufscqhd-oayqel does ALL the effort. Patient does none of the effort to complete the activity. Or, the assistance of 2 or more helpers is required for the patient to complete the activity. If activity was not attempted, code reason: 7-Patient Refused. 9-Not Applicable-not attempted and the patient did not perform the activity before the current illness, exacerbation or injury. 10-Not Attempted due to Environmental Limitations-(lack of equipment, weather restraints, etc.). 88-Not Attempted due to Medical Conditions or Safety Concerns. Toileting Hygiene (QC): 6 Toilet Transfer (QC): 6 Other Treatment Independent bed mobility. Pt able to sit on EOB independently while assistance given to cleanse fingernails. Pt demonstrates active movement throughout L UE though will use compensatory techniques if UE isn't positioned for specific movements. Increased tightness throughout L shldr girdle, massage, stretch and wt bearing to L UE to decrease tightness and in AROM. Pt stated that e-stim had been used previously and had triggered seizures. After therapy, pt lying in bed with call light/phone in reach. All needs met in room. OT Short Term Goals Short Term Goals Time Frame: December 08, 2022 Oral hygiene: 5 Upper body dressin Lower body dressin Putting on/taking off footwear: 5 OT Manager Discovery Goals Manager Discovery Goals Time Frame: December 15, 2022 Acute change in mental status: 0 Inattention: 0 Disorganized thinkin Altered level of consciousness: 0 Eating (QC): 6 Oral Hygiene (QC): 6 Toileting Hygiene (QC): 6 Shower/Bathe Self (QC): 5 Upper Body Dressing (QC): 6 Lower Body Dressing (QC): 6 On/Off Footwear (QC): 6 Additional Goals: 1-Demonstrate ADL Tasks, 2-Verbalize Understanding, 3- ImproveStrength/Rock 1=Demonstrate adherence to instructed precautions during ADL tasks. 2=Patient will verbalize/demonstrate understanding of assistive devices/modifications for ADL. 3=Patient will improve strength/tolerance for activity to enable patient to perform ADL's. OT Education/Plan Problem List/Assessment Assessment: Decreased Activ Tolerance, Decreased UE Strength, Impaired Self- Care Skills, Restricted Funct UE ROM Discharge Recommendations Plan/Recommendations: Continue POC Treatment Plan/Plan of Care Patient would benefit from OT for education, treatment and training to promote independence in ADL's, mobility, safety and/or upper extremity function for ADL's. Plan of Care: ADL Retraining, Functional Mobility, Group Exercise/Act as Ind, UE Funct Exercise/Act, UE Neuromus Re-Ed/Coord Treatment Duration: December 15, 2022 Frequency: At least 5 of 7 days/Wk (IRF) Estimated Hrs Per Day: 1.5 hours per day Agreement: Yes Rehab Potential: Good Time Start Time: 10:30 Stop Time: 12:00 DATE: December 04, 2022 Total Time Billed (hr/min): 90 Billed Treatment Time 1 visit-ADL 1 (10 min) EX 3 (50 min) NM 2 (30 min) MERCEDEZ ERWIN December 04, 2022 12:49
[2022-12-04 13:21] VITALS: BP 115/74
--- NOTE | 2022-12-04 13:37 | Physical Therapy Daily Note ---
PT Daily Note-Current Subjective pt in bed upon arrival and willing for therapy. pt stated he did not "feel right" during therapy, "i bit light headed and left side feels worse than normal." " i feel like im more unstable" nursing was notified Vitals were checked all WNL, O2=96 B/P =115/74 heart rate= 87. pt was left in bed after therapy with call light and nursing administering Med this day Pain Section J - Health Conditions 1. Rarely or not at all 2. Occasionally 3. Frequently 4. Almost constantly 8. Unable to answer Pain Effect on Sleep: 4 Pain Interference with Therapy: 4 Pain Interference w/Day-to-Day: 4 Mental Status Patient Orientation: Person, Place, Time, Situation Transfers SCALE: Activities may be completed with or without assistive devices. 1-Zdukduvwhd-cohqqrt completes the activity by him/herself with no assistance from a helper. 5-Set-up or Clean-up Assistance-helper sets up or cleans up; patient completes activity. [place] assists only prior to or following the activity. 4-Supervision or Touching Assistance-helper provides verbal cues and/or touching/steadying and/or contact guard assistance as patient completes activity. Assistance may be provided throughout the activity or intermittently. 3-Partial/Moderate Assistance-helper does LESS THAN HALF the effort. [place] lifts, holds or supports trunk or limbs, but provides less than half the effort. 2-Substantial/Maximal Assistance-helper does MORE THAN HALF the effort. [place] l ifts or holds trunk or limbs and provides more than half the effort. 3-Rksmlsywi-nupngz does ALL the effort. Patient does none of the effort to complete the activity. Or, the assistance of 2 or more helpers is required for the patient to complete the activity. If activity was not attempted, code reason: 7-Patient Refused. 9-Not Applicable-not attempted and the patient did not perform the activity before the current illness, exacerbation or injury. 10-Not Attempted due to Environmental Limitations-(lack of equipment, weather restraints, etc.). 88-Not Attempted due to Medical Conditions or Safety Concerns. Weight Bearing Right Lower Extremity: Right Full Weight Bearing Left Lower Extremity: Left Full Weight Bearing Treatments Pt was able to ambulate into therapy gym for aprox 40ft with SPC and SBA. pt did have more sway in ambulation however no LOB. pt preformed standing side stepping and marching at // bars with CGA and VC for correct placement of the left foot. pt was able to ambulate 40ft with SPC abck to therapy room with CGA Assessment Current Status: Fair Progress PT [employer] Mixer Operator Goals [employer] Mixer Operator Goals PT [employer] Mixer Operator Goals Time Frame: December 11, 2022 Roll Left & Right (QC): 6 (Pt will be Mod I with bed mobility and funcitonal transfers to progress towards PLOF. ) Sit to Lying (QC): 6 (Pt will be Mod I with bed mobility and funcitonal transfers to progress towards PLOF. ) Lying-Sitting on Side/Bed(QC): 6 (Pt will be Mod I with bed mobility and funcitonal transfers to progress towards PLOF. ) Sit to Stand (QC): 6 (Pt will be Mod I with bed mobility and funcitonal transfers to progress towards PLOF. ) Chair/Vkf-if-Gcuzp Xfer(QC): 6 (Pt will be Mod I with bed mobility and funcitonal transfers to progress towards PLOF. ) Toilet Transfer (QC): 6 (Pt will be Mod I with bed mobility and funcitonal transfers to progress towards PLOF. ) Car Transfer (QC): 6 (Pt will be Mod I with bed mobility and funcitonal transfers to progress towards PLOF. ) Does the Patient Walk: Yes Walk 10 feet (QC): 6 (Pt will ambulate 250ft with the SPC and Mod I. ) Walk 50ft with 2 Turns (QC): 6 (Pt will ambulate 250ft with the SPC and Mod I. ) Walk 150 ft (QC): 6 (Pt will ambulate 250ft with the SPC and Mod I. ) Walking 10ft on Uneven Surface: 6 (Pt will ambulate 250ft with the SPC and Mod I. ) 1 Step (curb) (QC): 5 (Pt will ascend/descend 12 steps with 1 HR and SBA. ) 4 Steps (QC): 5 (Pt will ascend/descend 12 steps with 1 HR and SBA. ) 12 Steps (QC): 5 (Pt will ascend/descend 12 steps with 1 HR and SBA. ) Picking up an Object (QC): 6 (Ind with peer health promoter ) Does the Pt use WC or Scooter?: No Wheel 50 feet with 2 turns (QC: 9 Type: Manual Wheel 150 feet: 9 Type: Manual PT Plan Treatment/Plan Treatment Plan: Continue Plan of Care Treatment Plan: Bed Mobility, Concurrent Therapy, Education, Functional Activity Rock, Functional Strength, Group Therapy, Gait, Safety, Therapeutic Exercise, Transfers Treatment Duration: December 11, 2022 Frequency: At least 5 of 7 days/Wk (IRF) Estimated Hrs Per Day: 1.5 hours per day Patient and/or Family Agrees t: Yes Time Time In: 1300 Time Out: 1330 DATE: December 04, 2022 Total Billed Treatment Time: 30 Total Billed Treatment 1 GT EX Lucila Chinchilla JOINTER SUBMARINE CABLE December 04, 2022 13:37
[2022-12-04 20:45] VITALS: BP 114/79
[2022-12-05] MEDS: HYDROcodone/APAP 5 MG/325 MG (LORTAB) TAB PO PRN ×3 (00:44→20:05)
--- NOTE | 2022-12-05 05:19 | PM&R Progress Note ---
Subjective HPI/CC On Admission Date Seen by Provider: December 05, 2022 Time Seen by Provider: 09:00 Subjective/Events-last exam 12/05/2022: Patient doing very well Moving around well Bladder working very well No pain 12/04/2022: No major issues Frequency of urination is improved since the addition of prostate meds Pyridium will be added Walking well Left arm weak 12/03/2022: No major issues Flomax and Proscar helping already No pain reported as long as pain meds are given Itching with all narcs so he takes Benadryl 12/02/2022: Doing well Pain controlled Urinary frequency for past 1 year Flomax and Proscar added Review of Systems General: Fatigue, Malaise Musculoskeletal: back pain Objective Exam Vital Signs Vital Signs Date Time Temp Pulse Resp B/P (MAP) Pulse Ox O2 Delivery O2 Flow Rate FiO2 12/04/22 20:45 36.4 75 20 114/79 (91) 97 Room Air Capillary Refill : General Appearance: No Apparent Distress, WD/WN, Chronically ill, Thin HEENT: PERRL/EOMI, Normal ENT Inspection, Pharynx Normal Neck: Full Range of Motion, Normal Inspection, Non Tender, Supple, Carotid Bruit Respiratory: Chest Non Tender, Lungs Clear, No Accessory Muscle Use, No Respiratory Distress, Decreased Breath Sounds Cardiovascular: Regular Rate, Rhythm, No Edema, No Gallop, No JVD, No Murmur, Normal Peripheral Pulses Gastrointestinal: Normal Bowel Sounds, No Organomegaly, No Pulsatile Mass, Non Tender, Soft Back: CVA Tenderness (L), CVA Tenderness (R), Decreased Range of Motion, Muscle Spasm, Vertebral Tenderness, Other (drains in place) Extremity: Normal Capillary Refill, Normal Inspection, Normal Range of Motion, Non Tender, No Calf Tenderness, No Pedal Edema Neurologic/Psychiatric: Alert, Oriented x3, No Motor/Sensory Deficits, Normal Mood/Affect, Motor Weakness (left sided weakness) Skin: Normal Color, Warm/Dry Lymphatic: No Adenopathy Results/Procedures Lab Patient resulted labs reviewed. FIM Transfers Therapy Code Descriptions/Definitions Functional [place] Measure: 0=Not Assessed/NA 4=Minimal Assistance 1=Total Assistance 5=Supervision or Setup 2=Maximal Assistance 6=Modified [place] 3=Moderate Assistance 7=Complete IndependenceSCALE: Activities may be completed with or without assistive devices. 1-Pgdcbifbrq-pcmfyar completes the activity by him/herself with no assistance from a helper. 5-Set-up or Clean-up Assistance-helper sets up or cleans up; patient completes activity. [place] assists only prior to or following the activity. 4-Supervision or Touching Assistance-helper provides verbal cues and/or touching/steadying and/or contact guard assistance as patient completes activity. Assistance may be provided throughout the activity or intermittently. 3-Partial/Moderate Assistance-helper does LESS THAN HALF the effort. [place] lifts, holds or supports trunk or limbs, but provides less than half the effort. 2-Substantial/Maximal Assistance-helper does MORE THAN HALF the effort. [place] lifts or holds trunk or limbs and provides more than half the effort. 7-Nxfzkxxkp-kveeji does ALL the effort. Patient does none of the effort to complete the activity. Or, the assistance of 2 or more helpers is required for the patient to complete the activity. If activity was not attempted, code reason: 7-Patient Refused. 9-Not Applicable-not attempted and the patient did not perform the activity before the current illness, exacerbation or injury. 10-Not Attempted due to Environmental Limitations-(lack of equipment, weather restraints, etc.). 88-Not Attempted due to Medical Conditions or Safety Concerns. Roll Left to Right (QC): 4 Sit to Lying (QC): 4 Sit to Stand (QC): 4 Chair/Mpq-au-Sfprb Xfer(QC): 4 Car Transfer (QC): 4 Gait Training Does the Patient Walk?: Yes Walk 10 feet (QC): 4 Walk 50 ft with 2 Turns(QC): 4 Walk 150 ft (QC): 4 Walking 10ft/uneven surface-QC: 4 Gait Assistive Device: Cane Single Point Wheelchair Training Does the Pt Use a Wheelchair?: No Wheel 50 ft with 2 turns (QC): 9 Wheel 150 ft (QC): 9 Type of Wheelchair: N/A Stair Training #of Steps: 12 1 Step (curb) (QC): 4 4 Steps (QC): 4 12 Steps (QC): 4 Balance Picking up an Object (QC): 4 (CGA with movie shot camera operator ) ADL-Treatment Eating (QC): 5 (set up assist with cutting food and opening containers.) Oral Hygiene (QC): 4 (SBA standing at sink. 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
[2022-12-05 08:00] VITALS: BP 108/73
[2022-12-05] MEDS: CLINDAMYCIN 150 MG (CLEOCIN) CAP PO SCH ×3 (09:36→20:03)
[2022-12-05] MEDS: FLUoxetine HCL 20 MG (PROzac) CAP PO SCH (09:36)
[2022-12-05] MEDS: FINASTERIDE (PROSCAR) 5 MG TAB PO SCH (09:36)
[2022-12-05] MEDS: PREGABALIN 50 MG (LYRICA) CAP PO SCH ×3 (09:36→20:03)
[2022-12-05] MEDS: polyethylene glycoL POWDER 17 GM (MIRALAX) PACK PO SCH ×2 (09:36→19:30)
[2022-12-05] MEDS: DOCUSATE SODIUM 100 MG (COLACE) CAP PO SCH ×2 (09:36→20:05)
[2022-12-05] MEDS: SENNA W/DOCUSATE (SENOKOT S) TABLET PO SCH ×2 (09:36→20:05)
[2022-12-05] MEDS: TAMSULOSIN 0.4 MG (FLOMAX) CAP PO SCH ×2 (09:36→20:03)
--- NOTE | 2022-12-05 09:37 | Physical Therapy Daily Note ---
PT Daily Note-Current Subjective pt was in bed upon entering and willing for therapy. pt stated he was feeling better than yesterday. pt stated he may have a possible DC date of the ? Pain Section J - Health Conditions 1. Rarely or not at all 2. Occasionally 3. Frequently 4. Almost constantly 8. Unable to answer Pain Effect on Sleep: 4 Pain Interference with Therapy: 4 Pain Interference w/Day-to-Day: 4 Transfers SCALE: Activities may be completed with or without assistive devices. 4-Ddutuuczgr-otlohmg completes the activity by him/herself with no assistance from a helper. 5-Set-up or Clean-up Assistance-helper sets up or cleans up; patient completes activity. [place] assists only prior to or following the activity. 4-Supervision or Touching Assistance-helper provides verbal cues and/or touching/steadying and/or contact guard assistance as patient completes activity. Assistance may be provided throughout the activity or intermittently. 3-Partial/Moderate Assistance-helper does LESS THAN HALF the effort. [place] lifts, holds or supports trunk or limbs, but provides less than half the effort. 2-Substantial/Maximal Assistance-helper does MORE THAN HALF the effort. [place] lifts or holds trunk or limbs and provides more than half the effort. 2-Gjjglcxpv-tlpxdf does ALL the effort. Patient does none of the effort to complete the activity. Or, the assistance of 2 or more helpers is required for the patient to complete the activity. If activity was not attempted, code reason: 7-Patient Refused. 9-Not Applicable-not attempted and the patient did not perform the activity before the current illness, exacerbation or injury. 10-Not Attempted due to Environmental Limitations-(lack of equipment, weather restraints, etc.). 88-Not Attempted due to Medical Conditions or Safety Concerns. Car Transfer (QC): 4 Weight Bearing Right Lower Extremity: Right Full Weight Bearing Left Lower Extremity: Left Full Weight Bearing Gait Training Walk 10 feet (QC): 6 Walk 50 ft with 2 Turns(QC): 6 Walk 150 ft (QC): 6 Stair Training 1 Step (curb) (QC): 4 Exercises Seated Therapy Exercises: Sit to stand, Long arc quads, Hip flexion, Kicking activity, Hamstring Curls, Glut set Treatments Pt working to be able to ambulate 1 step/curb in // bars. pt is able to ambulate up and over with SBA x 8 with VC for safety and correct sequencing of 40% to prevent falls. pt is able to ambulate 450ft with SPC and 3 resting sitting breaks of aprox 2-3 mins and is able to resume ambulation pt is showing self correction of left foot lags and is able to use ankle knee hip strategy pt executed sitting ther-ex with red thera band and 1 lb ankle wights for incr eased resistance for added strength and MM control. pt is able to do 3 sets of 15 with rest in between each set. and VC for correct movement of 20%. Assessment Current Status: Good Progress PT Halfway Goals [place] Deckhand Goals PT Halfway Goals Time Frame: December 11, 2022 Roll Left & Right (QC): 6 (Pt will be Mod I with bed mobility and funcitonal transfers to progress towards PLOF. ) Sit to Lying (QC): 6 (Pt will be Mod I with bed mobility and funcitonal transfers to progress towards PLOF. ) Lying-Sitting on Side/Bed(QC): 6 (Pt will be Mod I with bed mobility and funcitonal transfers to progress towards PLOF. ) Sit to Stand (QC): 6 (Pt will be Mod I with bed mobility and funcitonal transfers to progress towards PLOF. ) Chair/Rok-th-Shsjl Xfer(QC): 6 (Pt will be Mod I with bed mobility and funcitonal transfers to progress towards PLOF. ) Toilet Transfer (QC): 6 (Pt will be Mod I with bed mobility and funcitonal transfers to progress towards PLOF. ) Car Transfer (QC): 6 (Pt will be Mod I with bed mobility and funcitonal transfers to progress towards PLOF. ) Does the Patient Walk: Yes Walk 10 feet (QC): 6 (Pt will ambulate 250ft with the SPC and Mod I. ) Walk 50ft with 2 Turns (QC): 6 (Pt will ambulate 250ft with the SPC and Mod I. ) Walk 150 ft (QC): 6 (Pt will ambulate 250ft with the SPC and Mod I. ) Walking 10ft on Uneven Surface: 6 (Pt will ambulate 250ft with the SPC and Mod I. ) 1 Step (curb) (QC): 5 (Pt will ascend/descend 12 steps with 1 HR and SBA. ) 4 Steps (QC): 5 (Pt will ascend/descend 12 steps with 1 HR and SBA. ) 12 Steps (QC): 5 (Pt will ascend/descend 12 steps with 1 HR and SBA. ) Picking up an Object (QC): 6 (Ind with clearance rep ) Does the Pt use WC or Scooter?: No Wheel 50 feet with 2 turns (QC: 9 Type: Manual Wheel 150 feet: 9 Type: Manual PT Plan Treatment/Plan Treatment Plan: Continue Plan of Care Treatment Plan: Bed Mobility, Concurrent Therapy, Education, Functional Activity Rock, Functional Strength, Group Therapy, Gait, Safety, Therapeutic Exercise, Transfers Treatment Duration: December 11, 2022 Frequency: At least 5 of 7 days/Wk (IRF) Estimated Hrs Per Day: 1.5 hours per day Patient and/or Family Agrees t: Yes Time Time In: 0800 Time Out: 0930 DATE: December 05, 2022 Total Billed Treatment Time: 90 Total Billed Treatment 1 GT x 2 FA x 3 EX x 1 Lucila Chinchilla PTA December 05, 2022 09:37
--- NOTE | 2022-12-05 10:29 | Speech Therapy Progress Note ---
Therapy Progress Note Speech pathology received a "cognitive training" consultation for the patient as a part of the group acute rehabilitation order set at admission. At this time, skilled speech pathology services have not been requested or warranted by specific contact. Please re-consult speech pathology with any changes or concerns. Thank you. JUANY ANDRADE December 05, 2022 10:29
--- NOTE | 2022-12-05 12:02 | Occupational Ther Daily Note ---
OT Current Status-Daily Note Subjective Pt alert, lying in bed. Pt agrees to therapy. Nrsg had brought pt pain meds prior to therapy session. Mental Status/Objective Patient Orientation: Person, Place, Time, Situation ADL-Treatment Pt agrees to shower. Assist to cover up incision then pt completed shower by self using shower bench, grabbars and hand held shower. Set up for UBD, LBD. Pt requested assistance donning socks. Declines to complete oral care. Therapy Code Descriptions/Definitions Functional [place] Measure: 0=Not Assessed/NA 4=Minimal Assistance 1=Total Assistance 5=Supervision or Setup 2=Maximal Assistance 6=Modified [place] 3=Moderate Assistance 7=Complete IndependenceSCALE: Activities may be completed with or without assistive devices. 4-Gterbiwztq-yzdjpfm completes the activity by him/herself with no assistance from a helper. 5-Set-up or Clean-up Assistance-helper sets up or cleans up; patient completes activity. [place] assists only prior to or following the activity. 4-Supervision or Touching Assistance-helper provides verbal cues and/or touching/steadying and/or contact guard assistance as patient completes activity. Assistance may be provided throughout the activity or intermittently. 3-Partial/Moderate Assistance-helper does LESS THAN HALF the effort. [place] lifts, holds or supports trunk or limbs, but provides less than half the effort. 2-Substantial/Maximal Assistance-helper does MORE THAN HALF the effort. [place] lifts or holds trunk or limbs and provides more than half the effort. 6-Hdgwkjnkw-kulrgs does ALL the effort. Patient does none of the effort to complete the activity. Or, the assistance of 2 or more helpers is required for the patient to complete the activity. If activity was not attempted, code reason: 7-Patient Refused. 9-Not Applicable-not attempted and the patient did not perform the activity before the current illness, exacerbation or injury. 10-Not Attempted due to Environmental Limitations-(lack of equipment, weather restraints, etc.). 88-Not Attempted due to Medical Conditions or Safety Concerns. Shower/Bathe Self (QC): 5 Upper Body Dressing (QC): 5 Lower Body Dressing (QC): 5 On/Off Footwear: 2 Other Treatment Pt ambulated using SPC to therapy gym with SBA. Massage, stretch and AROM with L UE to increase movement and decrease pain/tightness. Pt demonstrates 1/2" subluxation of L shldr though is able to complete shldr elevations that brings L shldr back into correct alignment. Pt demonstrates movement (shldr flex/ext/pro/retract/abd/add, elbow flex/ext, wrist flex/ext) and fair strength with all movements except finger ext/flex. After session, pt lying in bed with call light/phone in reach. All needs met in room. OT Short Term Goals Short Term Goals Time Frame: December 08, 2022 Oral hygiene: 5 Upper body dressin Lower body dressin Putting on/taking off footwear: 5 OT Residential Goals Residential Goals Time Frame: December 15, 2022 Acute change in mental status: 0 Inattention: 0 Disorganized thinkin Altered level of consciousness: 0 Eating (QC): 6 Oral Hygiene (QC): 6 Toileting Hygiene (QC): 6 Shower/Bathe Self (QC): 5 Upper Body Dressing (QC): 6 Lower Body Dressing (QC): 6 On/Off Footwear (QC): 6 Additional Goals: 1-Demonstrate ADL Tasks, 2-Verbalize Understanding, 3- ImproveStrength/Rock 1=Demonstrate adherence to instructed precautions during ADL tasks. 2=Patient will verbalize/demonstrate understanding of assistive devices/modifications for ADL. 3=Patient will improve strength/tolerance for activity to enable patient to perform ADL's. OT Education/Plan Problem List/Assessment Assessment: Decreased Activ Tolerance, Decreased UE Strength, Impaired Self- Care Skills, Restricted Funct UE ROM (L UE) Discharge Recommendations Plan/Recommendations: Continue POC Treatment Plan/Plan of Care Patient would benefit from OT for education, treatment and training to promote independence in ADL's, mobility, safety and/or upper extremity function for ADL's. Plan of Care: ADL Retraining, Functional Mobility, Group Exercise/Act as Ind, UE Funct Exercise/Act, UE Neuromus Re-Ed/Coord Treatment Duration: December 15, 2022 Frequency: At least 5 of 7 days/Wk (IRF) Estimated Hrs Per Day: 1.5 hours per day Agreement: Yes Rehab Potential: Good Time Start Time: 10:30 Stop Time: 12:00 DATE: December 05, 2022 Total Time Billed (hr/min): 90 Billed Treatment Time 1 visit-ADL 3 (45 min) NM 3 (45 min) MERCEDEZ ERWIN December 05, 2022 12:02
[2022-12-05 20:32] VITALS: BP 127/79
--- NOTE | 2022-12-06 05:19 | PM&R Progress Note ---
Subjective HPI/CC On Admission Date Seen by Provider: December 06, 2022 Time Seen by Provider: 12:00 Subjective/Events-last exam 12/06/2022: No major issues Evaluating how long the drains will be in place HH to start on Sunday No falls 12/05/2022: Patient doing very well Moving around well Bladder working very well No pain 12/04/2022: No major issues Frequency of urination is improved since the addition of prostate meds Pyridium will be added Walking well Left arm weak 12/03/2022: No major issues Flomax and Proscar helping already No pain reported as long as pain meds are given Itching with all narcs so he takes Benadryl 12/02/2022: Doing well Pain controlled Urinary frequency for past 1 year Flomax and Proscar added Review of Systems General: Fatigue, Malaise Musculoskeletal: back pain Objective Exam Vital Signs Vital Signs Date Time Temp Pulse Resp B/P (MAP) Pulse Ox O2 Delivery O2 Flow Rate FiO2 12/06/22 09:10 97 Room Air 12/06/22 07:32 36.8 89 18 114/73 (87) Capillary Refill : General Appearance: No Apparent Distress, WD/WN, Chronically ill, Thin HEENT: PERRL/EOMI, Normal ENT Inspection, Pharynx Normal Neck: Full Range of Motion, Normal Inspection, Non Tender, Supple, Carotid Bruit Respiratory: Chest Non Tender, Lungs Clear, No Accessory Muscle Use, No Respiratory Distress, Decreased Breath Sounds Cardiovascular: Regular Rate, Rhythm, No Edema, No Gallop, No JVD, No Murmur, Normal Peripheral Pulses Gastrointestinal: Normal Bowel Sounds, No Organomegaly, No Pulsatile Mass, Non Tender, Soft Back: CVA Tenderness (L), CVA Tenderness (R), Decreased Range of Motion, Muscle Spasm, Vertebral Tenderness, Other (drains in place) Extremity: Normal Capillary Refill, Normal Inspection, Normal Range of Motion, Non Tender, No Calf Tenderness, No Pedal Edema Neurologic/Psychiatric: Alert, Oriented x3, No Motor/Sensory Deficits, Normal Mood/Affect, Motor Weakness (left sided weakness) Skin: Normal Color, Warm/Dry Lymphatic: No Adenopathy Results/Procedures Lab Patient resulted labs reviewed. FIM Transfers Therapy Code Descriptions/Definitions Functional [place] Measure: 0=Not Assessed/NA 4=Minimal Assistance 1=Total Assistance 5=Supervision or Setup 2=Maximal Assistance 6=Modified [place] 3=Moderate Assistance 7=Complete IndependenceSCALE: Activities may be completed with or without assistive devices. 6-Djzishxwvf-odspmpb completes the activity by him/herself with no assistance from a helper. 5-Set-up or Clean-up Assistance-helper sets up or cleans up; patient completes activity. [place] assists only prior to or following the activity. 4-Supervision or Touching Assistance-helper provides verbal cues and/or touching/steadying and/or contact guard assistance as patient completes activity. Assistance may be provided throughout the activity or intermittently. 3-Partial/Moderate Assistance-helper does LESS THAN HALF the effort. [place] lifts, holds or supports trunk or limbs, but provides less than half the effort. 2-Substantial/Maximal Assistance-helper does MORE THAN HALF the effort. [place] lifts or holds trunk or limbs and provides more than half the effort. 6-Pwxnhcvdw-tjgqqx does ALL the effort. Patient does none of the effort to complete the activity. Or, the assistance of 2 or more helpers is required for the patient to complete the activity. If activity was not attempted, code reason: 7-Patient Refused. 9-Not Applicable-not attempted and the patient did not perform the activity before the current illness, exacerbation or injury. 10-Not Attempted due to Environmental Limitations-(lack of equipment, weather restraints, etc.). 88-Not Attempted due to Medical Conditions or Safety Concerns. Roll Left to Right (QC): 4 Sit to Lying (QC): 4 Sit to Stand (QC): 4 Chair/Zya-ov-Nbjdp Xfer(QC): 4 Car Transfer (QC): 4 Gait Training Does the Patient Walk?: Yes Walk 10 feet (QC): 6 Walk 50 ft with 2 Turns(QC): 6 Walk 150 ft (QC): 6 Walking 10ft/uneven surface-QC: 4 Gait Assistive Device: Cane Single Point Wheelchair Training Does the Pt Use a Wheelchair?: No Wheel 50 ft with 2 turns (QC): 9 Wheel 150 ft (QC): 9 Type of Wheelchair: N/A Stair Training #of Steps: 12 1 Step (curb) (QC): 4 4 Steps (QC): 4 12 Steps (QC): 4 Balance Picking up an Object (QC): 4 (CGA with cutting supervisor ) ADL-Treatment Eating (QC): 5 (set up assist with cutting food and opening containers.) Oral Hygiene (QC): 4 (SBA standing at sink. 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
[2022-12-06] MEDS: CLINDAMYCIN 150 MG (CLEOCIN) CAP PO SCH ×3 (07:26→22:00)
[2022-12-06] MEDS: PREGABALIN 50 MG (LYRICA) CAP PO SCH ×3 (07:27→22:00)
[2022-12-06] MEDS: FINASTERIDE (PROSCAR) 5 MG TAB PO SCH (07:27)
[2022-12-06] MEDS: HYDROcodone/APAP 5 MG/325 MG (LORTAB) TAB PO PRN ×4 (07:28→22:00)
[2022-12-06] MEDS: DOCUSATE SODIUM 100 MG (COLACE) CAP PO SCH ×2 (07:28→21:38)
[2022-12-06] MEDS: TAMSULOSIN 0.4 MG (FLOMAX) CAP PO SCH ×2 (07:29→22:01)
[2022-12-06] MEDS: FLUoxetine HCL 20 MG (PROzac) CAP PO SCH (07:29)
[2022-12-06 07:32] VITALS: BP 114/73
[2022-12-06] MEDS: SENNA W/DOCUSATE (SENOKOT S) TABLET PO SCH ×2 (09:11→21:38)
[2022-12-06] MEDS: polyethylene glycoL POWDER 17 GM (MIRALAX) PACK PO SCH ×2 (09:11→21:38)
--- NOTE | 2022-12-06 11:44 | D/C HH Face to Face Order ---
D/C Face to Face Orders Reconcile Patient Problems Problems Reviewed?: Yes Instructions for Patient Via [facility], Patient Instructions/FollowUp: PCP 1 week Physician to follow Patient: [facility] Discharge Diet for Home: No Restrictions Patient Problems: Lumbar spine surgery s/p abscess Patient Data-Allergies,Ht & Wt Patient Allergies: Coded Allergies: amoxicillin (Verified Adverse Reaction, Mild, nausea, 12/02/22) Height (Feet): 5 Height (Inches): 11.00 Weight (Pounds): 170 Weight (Ounces): 9.0 Home Health Need/Face to Face Date of Face to Face: December 06, 2022 Clinical Findings: Generalized weakness and fatigue, Instability, Muscle weakness I have seen Pt iluz-mi-[id number]: Yes Discharged To: Home Diagnosis/Conditions: Debility Patient is Homebound due to: Muscle weakness, Pain w/ambulation Homebound Status Due to the above stated illness, injury or surgical procedure (medical condition or diagnosis) and associated clinical findings, the patient is homebound because of his/her inability to leave home except with aid of a supportive device and/or person AND leaving the home requires a considerable and taxing effort or is medically contraindicated. Pt req the following assistanc: Walker Home Health Nursing Orders Home Health Services Order: Nursing Services, [employer]-Evaluate & Treat, Physical Therapy-Evaluate & Treat Certify Stmt I certify that this patient is under my care and that I, a nurse practitioner or a physician; a assistant professor of business working with me, had a face to face encounter that - meets the physician face to face encounter requirements with this patient as dated. CHARLETTE RODRIGUEZ DO December 06, 2022 11:44
--- NOTE | 2022-12-06 11:52 | Physical Therapy Daily Note ---
PT Daily Note-Current Subjective Pt reports he is doing well this morning and is agreeable to PT. Pt reported cervical and thoracic pain at 7/10. Pain Numeric Pain Scale: 7 Location Body Site: Neck Section J - Health Conditions 1. Rarely or not at all 2. Occasionally 3. Frequently 4. Almost constantly 8. Unable to answer Pain Effect on Sleep: 4 Pain Interference with Therapy: 4 Pain Interference w/Day-to-Day: 4 Transfers SCALE: Activities may be completed with or without assistive devices. 9-Ddypsmanxy-zcvnmuv completes the activity by him/herself with no assistance from a helper. 5-Set-up or Clean-up Assistance-helper sets up or cleans up; patient completes activity. [place] assists only prior to or following the activity. 4-Supervision or Touching Assistance-helper provides verbal cues and/or touchin g/steadying and/or contact guard assistance as patient completes activity. Assistance may be provided throughout the activity or intermittently. 3-Partial/Moderate Assistance-helper does LESS THAN HALF the effort. [place] lifts, holds or supports trunk or limbs, but provides less than half the effort. 2-Substantial/Maximal Assistance-helper does MORE THAN HALF the effort. [place] lifts or holds trunk or limbs and provides more than half the effort. 0-Typsoxpft-crvhyk does ALL the effort. Patient does none of the effort to complete the activity. Or, the assistance of 2 or more helpers is required for the patient to complete the activity. If activity was not attempted, code reason: 7-Patient Refused. 9-Not Applicable-not attempted and the patient did not perform the activity before the current illness, exacerbation or injury. 10-Not Attempted due to Environmental Limitations-(lack of equipment, weather restraints, etc.). 88-Not Attempted due to Medical Conditions or Safety Concerns. Roll Left & Right (QC): 4 Sit to Lying (QC): 4 Lying to Sitting/Side of Bed(Q: 4 Sit to Stand (QC): 4 Chair/Dfq-ja-Kxaof Xfer(QC): 4 Toilet Transfer (QC): 4 Weight Bearing Right Lower Extremity: Right Full Weight Bearing Left Lower Extremity: Left Full Weight Bearing Gait Training Does the Patient Walk?: Yes Walk 10 feet (QC): 4 Walk 50 ft with 2 Turns(QC): 4 Walk 150 ft (QC): 4 Gait Persons Needed: 1 Gait Assistive Device: Cane Single Point Wheelchair Training Does the Pt Use a Wheelchair?: No Treatments Pt completed bed mobility with SBA. Pt completed functional transfers, including toilet transfer, with CGA/SBA. Pt ambulated 300ft, 150ft, and 50ft x 2 with the SPC and CGA. Pt is unsteady at times and can be impulsive, but is able to self- correct. Pt completed seated B LE Ther Ex x 20 reps each with the red Tband. Pt completed 10 min on the nu-step on lvl 4. Assessment Current Status: Good Progress Pt tolerated PT well PT Plumbing Drafter Goals Longterm Goals PT Plumbing Drafter Goals Time Frame: December 11, 2022 Roll Left & Right (QC): 6 (Pt will be Mod I with bed mobility and funcitonal transfers to progress towards PLOF. ) Sit to Lying (QC): 6 (Pt will be Mod I with bed mobility and funcitonal transfers to progress towards PLOF. ) Lying-Sitting on Side/Bed(QC): 6 (Pt will be Mod I with bed mobility and funcitonal transfers to progress towards PLOF. ) Sit to Stand (QC): 6 (Pt will be Mod I with bed mobility and funcitonal transfers to progress towards PLOF. ) Chair/Xpv-tt-Qalak Xfer(QC): 6 (Pt will be Mod I with bed mobility and funcitonal transfers to progress towards PLOF. ) Toilet Transfer (QC): 6 (Pt will be Mod I with bed mobility and funcitonal transfers to progress towards PLOF. ) Car Transfer (QC): 6 (Pt will be Mod I with bed mobility and funcitonal transfers to progress towards PLOF. ) Does the Patient Walk: Yes Walk 10 feet (QC): 6 (Pt will ambulate 250ft with the SPC and Mod I. ) Walk 50ft with 2 Turns (QC): 6 (Pt will ambulate 250ft with the SPC and Mod I. ) Walk 150 ft (QC): 6 (Pt will ambulate 250ft with the SPC and Mod I. ) Walking 10ft on Uneven Surface: 6 (Pt will ambulate 250ft with the SPC and Mod I. ) 1 Step (curb) (QC): 5 (Pt will ascend/descend 12 steps with 1 HR and SBA. ) 4 Steps (QC): 5 (Pt will ascend/descend 12 steps with 1 HR and SBA. ) 12 Steps (QC): 5 (Pt will ascend/descend 12 steps with 1 HR and SBA. ) Picking up an Object (QC): 6 (Ind with soap chipper ) Does the Pt use WC or Scooter?: No Wheel 50 feet with 2 turns (QC: 9 Type: Manual Wheel 150 feet: 9 Type: Manual PT Plan Problem List Problem List: Activity Tolerance, Functional Strength, Safety, Balance, Gait, Transfer, Bed Mobility Treatment/Plan Treatment Plan: Continue Plan of Care Treatment Plan: Bed Mobility, Concurrent Therapy, Education, Functional Activity Rock, Functional Strength, Group Therapy, Gait, Safety, Therapeutic Exercise, Transfers Treatment Duration: December 11, 2022 Frequency: At least 5 of 7 days/Wk (IRF) Estimated Hrs Per Day: 1.5 hours per day Patient and/or Family Agrees t: Yes Safety Risks/Education Patient Education: Gait Training, Transfer Techniques, Safety Issues Teaching Recipient: Patient Teaching Methods: Demonstration, Discussion Response to Teaching: Verbalize Understanding, Return Demonstration Discharge Recommendations Therapy Discharge Recommendati: Home & Family Equpiment Recommendations-D/C: Straight Cane Discharge Status/Home Program scheduled d/c for 12/09/2022 Barriers to Progress safety awareness Target Placement home Time Time In: 900 Time Out: 945 DATE: December 06, 2022 Total Billed Treatment Time: 45 Total Billed Treatment 45 min 1 visit EX x 1 FA x 1 GT x 1 DANO NAILS PT December 06, 2022 11:52
--- NOTE | 2022-12-06 12:47 | Occupational Ther Daily Note ---
OT Current Status-Daily Note Subjective Pt sleeping in bed, woke to name called 3x's. Pt agrees to therapy. No c/o pain only fatigue. Mental Status/Objective Patient Orientation: Person, Place, Time, Situation ADL-Treatment Pt declines all ADLs at this time. Therapy Code Descriptions/Definitions Functional [place] Measure: 0=Not Assessed/NA 4=Minimal Assistance 1=Total Assistance 5=Supervision or Setup 2=Maximal Assistance 6=Modified [place] 3=Moderate Assistance 7=Complete IndependenceSCALE: Activities may be completed with or without assistive devices. 0-Cuyrjrnfjz-hgqmdqu completes the activity by him/herself with no assistance from a helper. 5-Set-up or Clean-up Assistance-helper sets up or cleans up; patient completes activity. [place] assists only prior to or following the activity. 4-Supervision or Touching Assistance-helper provides verbal cues and/or touching/steadying and/or contact guard assistance as patient completes ac tivity. Assistance may be provided throughout the activity or intermittently. 3-Partial/Moderate Assistance-helper does LESS THAN HALF the effort. [place] lifts, holds or supports trunk or limbs, but provides less than half the effort. 2-Substantial/Maximal Assistance-helper does MORE THAN HALF the effort. [place] lifts or holds trunk or limbs and provides more than half the effort. 7-Aiqhckthf-ddkblp does ALL the effort. Patient does none of the effort to complete the activity. Or, the assistance of 2 or more helpers is required for the patient to complete the activity. If activity was not attempted, code reason: 7-Patient Refused. 9-Not Applicable-not attempted and the patient did not perform the activity before the current illness, exacerbation or injury. 10-Not Attempted due to Environmental Limitations-(lack of equipment, weather restraints, etc.). 88-Not Attempted due to Medical Conditions or Safety Concerns. Other Treatment Stretch, massage and PROM to L UE to increase AROM and decrease tightness. Pt demonstrated slight finger flexion today, 10 reps prior to fatigue. Arm pulleys completed for 2 min to increase AROM and stretch to L UE, FADUMO wrap to maintain L food checkers and cashiers supervisor. Arm bike with no minimal resistance to increase AROM and strength of L UE and working on B UE movement, FADUMO wrap to maintain L food checkers and cashiers supervisor. Pt then working on wt bearing and dynamic sitting to increase strength and AROM throughout L UE and increase core strength. Attempting to work on symmetrical movement of L/R UE during ambulation. Pt demonstrating progression with L UE movement and strength. After session, pt lying in bed with call light/phone in reach. All needs met in room. OT Short Term Goals Short Term Goals Time Frame: December 08, 2022 Oral hygiene: 5 Upper body dressin Lower body dressin Putting on/taking off footwear: 5 OT Prison Goals Scenic [employer] Supervisor Goals Time Frame: December 15, 2022 Acute change in mental status: 0 Inattention: 0 Disorganized thinkin Altered level of consciousness: 0 Eating (QC): 6 Oral Hygiene (QC): 6 Toileting Hygiene (QC): 6 Shower/Bathe Self (QC): 5 Upper Body Dressing (QC): 6 Lower Body Dressing (QC): 6 On/Off Footwear (QC): 6 Additional Goals: 1-Demonstrate ADL Tasks, 2-Verbalize Understanding, 3- ImproveStrength/Rock 1=Demonstrate adherence to instructed precautions during ADL tasks. 2=Patient will verbalize/demonstrate understanding of assistive devices/modifications for ADL. 3=Patient will improve strength/tolerance for activity to enable patient to perform ADL's. OT Education/Plan Problem List/Assessment Assessment: Decreased Activ Tolerance, Decreased UE Strength, Impaired Self- Care Skills, Restricted Funct UE ROM Discharge Recommendations Plan/Recommendations: Continue POC Treatment Plan/Plan of Care Patient would benefit from OT for education, treatment and training to promote independence in ADL's, mobility, safety and/or upper extremity function for ADL's. Plan of Care: ADL Retraining, Functional Mobility, Group Exercise/Act as Ind, UE Funct Exercise/Act, UE Neuromus Re-Ed/Coord Treatment Duration: December 15, 2022 Frequency: At least 5 of 7 days/Wk (IRF) Estimated Hrs Per Day: 1.5 hours per day Agreement: Yes Rehab Potential: Good Time Start Time: 10:30 Stop Time: 12:00 DATE: December 06, 2022 Total Time Billed (hr/min): 90 Billed Treatment Time 1 visit-NM 6 (90 min) MERCEDEZ ERWIN December 06, 2022 12:47
[2022-12-06] MEDS: NICOTINE 14 MG (NICODERM) PATCH TD PRN (13:36)
--- NOTE | 2022-12-06 13:46 | Physical Therapy Daily Note ---
PT Daily Note-Current Subjective Pt reports he is doing well this PM and is agreeable to PT. Pt reported neck/thoracic pain at 5/10. Pain Numeric Pain Scale: 5-Moderate Pain Location Body Site: Neck Section J - Health Conditions 1. Rarely or not at all 2. Occasionally 3. Frequently 4. Almost constantly 8. Unable to answer Pain Effect on Sleep: 4 Pain Interference with Therapy: 4 Pain Interference w/Day-to-Day: 4 Transfers SCALE: Activities may be completed with or without assistive devices. 7-Cfnvfcimak-augwtcl completes the activity by him/herself with no assistance from a helper. 5-Set-up or Clean-up Assistance-helper sets up or cleans up; patient completes activity. [place] assists only prior to or following the activity. 4-Supervision or Touching Assistance-helper provides verbal cues and/or touchi ng/steadying and/or contact guard assistance as patient completes activity. Assistance may be provided throughout the activity or intermittently. 3-Partial/Moderate Assistance-helper does LESS THAN HALF the effort. [place] lifts, holds or supports trunk or limbs, but provides less than half the effort. 2-Substantial/Maximal Assistance-helper does MORE THAN HALF the effort. [place] lifts or holds trunk or limbs and provides more than half the effort. 7-Urdphbaie-mdkyyb does ALL the effort. Patient does none of the effort to complete the activity. Or, the assistance of 2 or more helpers is required for the patient to complete the activity. If activity was not attempted, code reason: 7-Patient Refused. 9-Not Applicable-not attempted and the patient did not perform the activity before the current illness, exacerbation or injury. 10-Not Attempted due to Environmental Limitations-(lack of equipment, weather restraints, etc.). 88-Not Attempted due to Medical Conditions or Safety Concerns. Sit to Lying (QC): 4 Lying to Sitting/Side of Bed(Q: 4 Sit to Stand (QC): 4 Chair/Qmf-vu-Ufyux Xfer(QC): 4 Weight Bearing Right Lower Extremity: Right Full Weight Bearing Left Lower Extremity: Left Full Weight Bearing Gait Training Does the Patient Walk?: Yes Walk 10 feet (QC): 4 Walk 50 ft with 2 Turns(QC): 4 Walk 150 ft (QC): 4 Gait Persons Needed: 1 Gait Assistive Device: Cane Single Point Wheelchair Training Does the Pt Use a Wheelchair?: No Treatments Pt completed bed mobility with SBA. PT donned sweats with SBA. Pt completed functional transfers with SBA. Pt ambulated 300ft and 50ft with the SPC and CGA. Pt completed standing B LE Ther Ex x 15 reps each: PF/DF, Marching, hip abd/ext, HS curls, and Mini-squats. Pt required 3 seated rest breaks during standing Ther Ex. Pt completed 10 min on the nu-step at lvl 4. Pt left in room with nurse present. Assessment Current Status: Good Progress Pt tolerated PT well PT Detention Goals Detention Goals PT Detention Goals Time Frame: December 11, 2022 Roll Left & Right (QC): 6 (Pt will be Mod I with bed mobility and funcitonal transfers to progress towards PLOF. ) Sit to Lying (QC): 6 (Pt will be Mod I with bed mobility and funcitonal transfers to progress towards PLOF. ) Lying-Sitting on Side/Bed(QC): 6 (Pt will be Mod I with bed mobility and funcitonal transfers to progress towards PLOF. ) Sit to Stand (QC): 6 (Pt will be Mod I with bed mobility and funcitonal transfers to progress towards PLOF. ) Chair/Qfc-qr-Mzcye Xfer(QC): 6 (Pt will be Mod I with bed mobility and funcitonal transfers to progress towards PLOF. ) Toilet Transfer (QC): 6 (Pt will be Mod I with bed mobility and funcitonal transfers to progress towards PLOF. ) Car Transfer (QC): 6 (Pt will be Mod I with bed mobility and funcitonal transfers to progress towards PLOF. ) Does the Patient Walk: Yes Walk 10 feet (QC): 6 (Pt will ambulate 250ft with the SPC and Mod I. ) Walk 50ft with 2 Turns (QC): 6 (Pt will ambulate 250ft with the SPC and Mod I. ) Walk 150 ft (QC): 6 (Pt will ambulate 250ft with the SPC and Mod I. ) Walking 10ft on Uneven Surface: 6 (Pt will ambulate 250ft with the SPC and Mod I. ) 1 Step (curb) (QC): 5 (Pt will ascend/descend 12 steps with 1 HR and SBA. ) 4 Steps (QC): 5 (Pt will ascend/descend 12 steps with 1 HR and SBA. ) 12 Steps (QC): 5 (Pt will ascend/descend 12 steps with 1 HR and SBA. ) Picking up an Object (QC): 6 (Ind with fiscal agent ) Does the Pt use WC or Scooter?: No Wheel 50 feet with 2 turns (QC: 9 Type: Manual Wheel 150 feet: 9 Type: Manual PT Plan Problem List Problem List: Activity Tolerance, Functional Strength, Safety, Balance, Gait, Transfer, Bed Mobility Treatment/Plan Treatment Plan: Continue Plan of Care Treatment Plan: Bed Mobility, Concurrent Therapy, Education, Functional Activity Rock, Functional Strength, Group Therapy, Gait, Safety, Therapeutic Exercise, Transfers Treatment Duration: December 11, 2022 Frequency: At least 5 of 7 days/Wk (IRF) Estimated Hrs Per Day: 1.5 hours per day Patient and/or Family Agrees t: Yes Safety Risks/Education Patient Education: Gait Training, Transfer Techniques, Safety Issues Discharge Recommendations Therapy Discharge Recommendati: Home & Family Equpiment Recommendations-D/C: Straight Cane Barriers to Progress Decreased safety awareness at times Target Placement home Time Time In: 1245 Time Out: 1330 DATE: December 06, 2022 Total Billed Treatment Time: 45 Total Billed Treatment 45 min 1 visit EX x 1 FA x 1 GT x 1 DANO NAILS PT December 06, 2022 13:46
[2022-12-06] MEDS: BACLOFEN 10 MG (LIORESAL) TAB PO PRN ×2 (14:24→22:01)
[2022-12-06] MEDS: diphenhydrAMINE 25 MG TAB (BENADRYL) PO PRN (18:07)
[2022-12-06 19:47] VITALS: BP 141/73
[2022-12-07] MEDS: diphenhydrAMINE 25 MG TAB (BENADRYL) PO PRN ×2 (02:48→20:07)
[2022-12-07] MEDS: HYDROcodone/APAP 5 MG/325 MG (LORTAB) TAB PO PRN ×4 (02:48→20:08)
--- NOTE | 2022-12-07 05:16 | PM&R Progress Note ---
Subjective HPI/CC On Admission Date Seen by Provider: December 07, 2022 Time Seen by Provider: 12:00 Subjective/Events-last exam 12/07/2022: No major issues Pain controlled Benadryl taken before narcs due to itchiness No falls 12/06/2022: No major issues Evaluating how long the drains will be in place HH to start on Sunday No falls 12/05/2022: Patient doing very well Moving around well Bladder working very well No pain 12/04/2022: No major issues Frequency of urination is improved since the addition of prostate meds Pyridium will be added Walking well Left arm weak 12/03/2022: No major issues Flomax and Proscar helping already No pain reported as long as pain meds are given Itching with all narcs so he takes Benadryl 12/02/2022: Doing well Pain controlled Urinary frequency for past 1 year Flomax and Proscar added Review of Systems General: Fatigue, Malaise Objective Exam Vital Signs Vital Signs Date Time Temp Pulse Resp B/P (MAP) Pulse Ox O2 Delivery O2 Flow Rate FiO2 12/07/22 07:48 36.2 63 18 102/64 (77) 98 Room Air Capillary Refill : General Appearance: No Apparent Distress, WD/WN, Chronically ill, Thin HEENT: PERRL/EOMI, Normal ENT Inspection, Pharynx Normal Neck: Full Range of Motion, Normal Inspection, Non Tender, Supple, Carotid Bruit Respiratory: Chest Non Tender, Lungs Clear, No Accessory Muscle Use, No Respiratory Distress, Decreased Breath Sounds Cardiovascular: Regular Rate, Rhythm, No Edema, No Gallop, No JVD, No Murmur, Normal Peripheral Pulses Gastrointestinal: Normal Bowel Sounds, No Organomegaly, No Pulsatile Mass, Non Tender, Soft Back: CVA Tenderness (L), CVA Tenderness (R), Decreased Range of Motion, Muscle Spasm, Vertebral Tenderness, Other (drains in place) Extremity: Normal Capillary Refill, Normal Inspection, Normal Range of Motion, Non Tender, No Calf Tenderness, No Pedal Edema Neurologic/Psychiatric: Alert, Oriented x3, No Motor/Sensory Deficits, Normal Mood/Affect, Motor Weakness (left sided weakness) Skin: Normal Color, Warm/Dry Lymphatic: No Adenopathy Results/Procedures Lab Patient resulted labs reviewed. [facility]IM Transfers Therapy Code Descriptions/Definitions Functional [place] Measure: 0=Not Assessed/NA 4=Minimal Assistance 1=Total Assistance 5=Supervision or Setup 2=Maximal Assistance 6=Modified [place] 3=Moderate Assistance 7=Complete IndependenceSCALE: Activities may be completed with or without assistive devices. 7-Hjlrxtjoyb-mphxkxe completes the activity by him/herself with no assistance from a helper. 5-Set-up or Clean-up Assistance-helper sets up or cleans up; patient completes activity. [place] assists only prior to or following the activity. 4-Supervision or Touching Assistance-helper provides verbal cues and/or touching/steadying and/or contact guard assistance as patient completes activity. Assistance may be provided throughout the activity or intermittently. 3-Partial/Moderate Assistance-helper does LESS THAN HALF the effort. [place] lifts, holds or supports trunk or limbs, but provides less than half the effort. 2-Substantial/Maximal Assistance-helper does MORE THAN HALF the effort. [place] lifts or holds trunk or limbs and provides more than half the effort. 7-Grvweihic-kdfhou does ALL the effort. Patient does none of the effort to complete the activity. Or, the assistance of 2 or more helpers is required for the patient to complete the activity. If activity was not attempted, code reason: 7-Patient Refused. 9-Not Applicable-not attempted and the patient did not perform the activity before the current illness, exacerbation or injury. 10-Not Attempted due to Environmental Limitations-(lack of equipment, weather restraints, etc.). 88-Not Attempted due to Medical Conditions or Safety Concerns. Roll Left to Right (QC): 4 Sit to Lying (QC): 4 Sit to Stand (QC): 4 Chair/Sci-nm-Qjrdh Xfer(QC): 4 Car Transfer (QC): 4 Gait Training Does the Patient Walk?: Yes Walk 10 feet (QC): 4 Walk 50 ft with 2 Turns(QC): 4 Walk 150 ft (QC): 4 Walking 10ft/uneven surface-QC: 4 Gait Persons Needed: 1 Gait Assistive Device: Cane Single Point Wheelchair Training Does the Pt Use a Wheelchair?: No Wheel 50 ft with 2 turns (QC): 9 Wheel 150 ft (QC): 9 Type of Wheelchair: N/A Stair Training #of Steps: 12 1 Step (curb) (QC): 4 4 Steps (QC): 4 12 Steps (QC): 4 Balance Picking up an Object (QC): 4 (CGA with pantograph ii engraver ) ADL-Treatment Eating (QC): 5 (set up assist with cutting food and opening containers.) Oral Hygiene (QC): 4 (SBA standing at sink. 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
[2022-12-07] MEDS: BACLOFEN 10 MG (LIORESAL) TAB PO PRN ×2 (06:43→17:35)
[2022-12-07 07:48] VITALS: BP 102/64
[2022-12-07] MEDS: PREGABALIN 50 MG (LYRICA) CAP PO SCH ×3 (08:41→20:08)
[2022-12-07] MEDS: FLUoxetine HCL 20 MG (PROzac) CAP PO SCH (08:41)
[2022-12-07] MEDS: TAMSULOSIN 0.4 MG (FLOMAX) CAP PO SCH ×2 (08:41→20:08)
[2022-12-07] MEDS: FINASTERIDE (PROSCAR) 5 MG TAB PO SCH (08:41)
[2022-12-07] MEDS: CLINDAMYCIN 150 MG (CLEOCIN) CAP PO SCH ×3 (08:41→20:07)
--- NOTE | 2022-12-07 11:28 | Physical Therapy Daily Note ---
PT Daily Note-Current Subjective Pt reports he is doing well today and is agreeable to PT, even though he reports not sleeping. Pt reported neck/mid-back pain at 7/10. Pain Numeric Pain Scale: 7 Location Body Site: Neck Section J - Health Conditions 1. Rarely or not at all 2. Occasionally 3. Frequently 4. Almost constantly 8. Unable to answer Pain Effect on Sleep: 4 Pain Interference with Therapy: 4 Pain Interference w/Day-to-Day: 4 Transfers SCALE: Activities may be completed with or without assistive devices. 4-Khyvkdtoqz-vvzrvjs completes the activity by him/herself with no assistance from a helper. 5-Set-up or Clean-up Assistance-helper sets up or cleans up; patient completes activity. [place] assists only prior to or following the activity. 4-Supervision or Touching Assistance-helper provides verbal cues and/or touching/steadying and/or contact guard assistance as patient completes activity. Assistance may be provided throughout the activity or intermittently. 3-Partial/Moderate Assistance-helper does LESS THAN HALF the effort. [place] lifts, holds or supports trunk or limbs, but provides less than half the effort. 2-Substantial/Maximal Assistance-helper does MORE THAN HALF the effort. [place] lifts or holds trunk or limbs and provides more than half the effort. 8-Ncuyqgfbc-jjowpu does ALL the effort. Patient does none of the effort to complete the activity. Or, the assistance of 2 or more helpers is required for the patient to complete the activity. If activity was not attempted, code reason: 7-Patient Refused. 9-Not Applicable-not attempted and the patient did not perform the activity before the current illness, exacerbation or injury. 10-Not Attempted due to Environmental Limitations-(lack of equipment, weather restraints, etc.). 88-Not Attempted due to Medical Conditions or Safety Concerns. Roll Left & Right (QC): 4 Sit to Lying (QC): 4 Lying to Sitting/Side of Bed(Q: 4 Sit to Stand (QC): 4 Chair/Qvl-iw-Pgmns Xfer(QC): 4 Toilet Transfer (QC): 4 Weight Bearing Right Lower Extremity: Right Full Weight Bearing Left Lower Extremity: Left Full Weight Bearing Gait Training Does the Patient Walk?: Yes Walk 10 feet (QC): 4 Walk 50 ft with 2 Turns(QC): 4 Walk 150 ft (QC): 4 Gait Assistive Device: Cane Single Point Wheelchair Training Does the Pt Use a Wheelchair?: No Stair Training Stair Training: Handrails/: 1 handrail #of Steps: 12 1 Step (curb) (QC): 4 4 Steps (QC): 4 12 Steps (QC): 4 Stairs: Pattern: Step to Treatments Pt completed bed mobility and functional transfers with SBA. Pt donned shoes with Mod I. Pt ambulated 300ft and 250ft and 150ft with the SPC and CGA/SBA. Pt completed seated B LE Ther Ex x 20 reps each with the green Tband. Pt negotiated 12 steps with 1 HR and CGA/SBA. Sit to stand x 10 reps with SBA and good tech/safety awareness. Standing B LE Ther Ex x 15 reps each with 2 seated rest breaks. Pt completed step-ups x 10. Seated balloon batting. Nu-step x 12 min on level 4. Assessment Current Status: Good Progress Pt tolerated PT well. PT Long-Term Goals Floor Installation Mechanic Goals PT Floor Installation Mechanic Goals Time Frame: December 11, 2022 Roll Left & Right (QC): 6 (Pt will be Mod I with bed mobility and funcitonal transfers to progress towards PLOF. ) Sit to Lying (QC): 6 (Pt will be Mod I with bed mobility and funcitonal transfers to progress towards PLOF. ) Lying-Sitting on Side/Bed(QC): 6 (Pt will be Mod I with bed mobility and funcitonal transfers to progress towards PLOF. ) Sit to Stand (QC): 6 (Pt will be Mod I with bed mobility and funcitonal transfers to progress towards PLOF. ) Chair/Kfb-uv-Mthjw Xfer(QC): 6 (Pt will be Mod I with bed mobility and funcitonal transfers to progress towards PLOF. ) Toilet Transfer (QC): 6 (Pt will be Mod I with bed mobility and funcitonal transfers to progress towards PLOF. ) Car Transfer (QC): 6 (Pt will be Mod I with bed mobility and funcitonal transfers to progress towards PLOF. ) Does the Patient Walk: Yes Walk 10 feet (QC): 6 (Pt will ambulate 250ft with the SPC and Mod I. ) Walk 50ft with 2 Turns (QC): 6 (Pt will ambulate 250ft with the SPC and Mod I. ) Walk 150 ft (QC): 6 (Pt will ambulate 250ft with the SPC and Mod I. ) Walking 10ft on Uneven Surface: 6 (Pt will ambulate 250ft with the SPC and Mod I. ) 1 Step (curb) (QC): 5 (Pt will ascend/descend 12 steps with 1 HR and SBA. ) 4 Steps (QC): 5 (Pt will ascend/descend 12 steps with 1 HR and SBA. ) 12 Steps (QC): 5 (Pt will ascend/descend 12 steps with 1 HR and SBA. ) Picking up an Object (QC): 6 (Ind with cabinet mounter ) Does the Pt use WC or Scooter?: No Wheel 50 feet with 2 turns (QC: 9 Type: Manual Wheel 150 feet: 9 Type: Manual PT Plan Problem List Problem List: Activity Tolerance, Functional Strength, Safety, Balance, Gait, Transfer, Bed Mobility Treatment/Plan Treatment Plan: Continue Plan of Care Treatment Plan: Bed Mobility, Concurrent Therapy, Education, Functional Activity Rock, Functional Strength, Group Therapy, Gait, Safety, Therapeutic Exercise, Transfers Treatment Duration: December 11, 2022 Frequency: At least 5 of 7 days/Wk (IRF) Estimated Hrs Per Day: 1.5 hours per day Patient and/or Family Agrees t: Yes Safety Risks/Education Patient Education: Gait Training, Transfer Techniques, Steps, Safety Issues Teaching Recipient: Patient Teaching Methods: Demonstration, Discussion Response to Teaching: Verbalize Understanding, Return Demonstration Discharge Recommendations Therapy Discharge Recommendati: Home & Family Equpiment Recommendations-D/C: Straight Cane Discharge Status/Home Program Progressing well Barriers to Progress balance/safety Target Placement home Time Time In: 800 Time Out: 930 DATE: December 07, 2022 Total Billed Treatment Time: 90 Total Billed Treatment 90 min 1 visit GT x 2 FA x 2 EX x 2 DANO NAILS PT December 07, 2022 11:28
--- NOTE | 2022-12-07 13:00 | Occupational Ther Daily Note ---
OT Current Status-Daily Note Subjective Pt alert, lying in bed. Pt agrees to therapy. No c/o pain at this time. Mental Status/Objective Patient Orientation: Person, Place, Time, Situation ADL-Treatment Pt able to stand at sink to complete grooming independently for ~30 min. Therapy Code Descriptions/Definitions Functional [place] Measure: 0=Not Assessed/NA 4=Minimal Assistance 1=Total Assistance 5=Supervision or Setup 2=Maximal Assistance 6=Modified [place] 3=Moderate Assistance 7=Complete IndependenceSCALE: Activities may be completed with or without assistive devices. 2-Ryatjnbimz-nyxalan completes the activity by him/herself with no assistance from a helper. 5-Set-up or Clean-up Assistance-helper sets up or cleans up; patient completes activity. [place] assists only prior to or following the activity. 4-Supervision or Touching Assistance-helper provides verbal cues and/or touching/steadying and/or contact guard assistance as patient completes activity. Assistance may be provided throughout the activity or intermittently. 3-Partial/Moderate Assistance-helper does LESS THAN HALF the effort. [place] lifts, holds or supports trunk or limbs, but provides less than half the effort. 2-Substantial/Maximal Assistance-helper does MORE THAN HALF the effort. [place] lifts or holds trunk or limbs and provides more than half the effort. 6-Odjzaoacf-urgqvh does ALL the effort. Patient does none of the effort to complete the activity. Or, the assistance of 2 or more helpers is required for the patient to complete the activity. If activity was not attempted, code reason: 7-Patient Refused. 9-Not Applicable-not attempted and the patient did not perform the activity before the current illness, exacerbation or injury. 10-Not Attempted due to Environmental Limitations-(lack of equipment, weather restraints, etc.). 88-Not Attempted due to Medical Conditions or Safety Concerns. Toileting Hygiene (QC): 6 Other Treatment Stretch, massage and PROM to L UE to increase AROM and decrease tightness. Pt demonstrated slight finger flexion today, 10 reps prior to fatigue. Arm pulleys completed for 2 min to increase AROM and stretch to L UE, FADUMO wrap to maintain L buff wheel fabricator. Pt is demonstrating increase PROM for L shldr flexion and abduction. Pt completed B UE AAROM with cane in supine and sitting, 2 sets 10 reps of each exercise. HEP given for use in room and home. Skilled instruction required for correct technique and modifications when needed. Pt complete wt bearing and active movement with L UE. After session, pt lying in bed with call light/phone in reach. All needs met in room. Education OT Patient Education: Exercise program, Use of adapted equipment Teaching Recipient: Patient Teaching Methods: Demonstration, Handout, Discussion Response to Teaching: Verbalize Understanding, Return Demonstration, Reinforcem ent Needed OT Short Term Goals Short Term Goals Time Frame: December 08, 2022 Oral hygiene: 5 Upper body dressin Lower body dressin Putting on/taking off footwear: 5 OT Research & Analytics Manager Goals Custodial Goals Time Frame: December 15, 2022 Acute change in mental status: 0 Inattention: 0 Disorganized thinkin Altered level of consciousness: 0 Eating (QC): 6 Oral Hygiene (QC): 6 Toileting Hygiene (QC): 6 Shower/Bathe Self (QC): 5 Upper Body Dressing (QC): 6 Lower Body Dressing (QC): 6 On/Off Footwear (QC): 6 Additional Goals: 1-Demonstrate ADL Tasks, 2-Verbalize Understanding, 3-Impr oveStrength/Rock 1=Demonstrate adherence to instructed precautions during ADL tasks. 2=Patient will verbalize/demonstrate understanding of assistive devices/modifications for ADL. 3=Patient will improve strength/tolerance for activity to enable patient to perform ADL's. OT Education/Plan Problem List/Assessment Assessment: Decreased UE Strength, Impaired Self-Care Skills, Restricted Funct UE ROM Discharge Recommendations Plan/Recommendations: Continue POC Treatment Plan/Plan of Care Patient would benefit from OT for education, treatment and training to promote independence in ADL's, mobility, safety and/or upper extremity function for ADL's. Plan of Care: ADL Retraining, Functional Mobility, Group Exercise/Act as Ind, UE Funct Exercise/Act, UE Neuromus Re-Ed/Coord Treatment Duration: December 15, 2022 Frequency: At least 5 of 7 days/Wk (IRF) Estimated Hrs Per Day: 1.5 hours per day Agreement: Yes Rehab Potential: Good Time Start Time: 10:30 Stop Time: 12:00 DATE: December 07, 2022 Total Time Billed (hr/min): 90 Billed Treatment Time 1 visit-ADL 2 (30 min) NM 4 (60 min) MERCEDEZ ERWIN December 07, 2022 13:00
[2022-12-07] MEDS: NICOTINE 14 MG (NICODERM) PATCH TD PRN (13:07)
[2022-12-07] MEDS: SENNA W/DOCUSATE (SENOKOT S) TABLET PO SCH ×2 (13:14→20:10)
[2022-12-07] MEDS: DOCUSATE SODIUM 100 MG (COLACE) CAP PO SCH ×2 (13:14→20:10)
[2022-12-07] MEDS: polyethylene glycoL POWDER 17 GM (MIRALAX) PACK PO SCH ×2 (13:14→20:10)
[2022-12-07 19:50] VITALS: BP 100/57
[2022-12-08] MEDS: diphenhydrAMINE 25 MG TAB (BENADRYL) PO PRN ×2 (03:08→17:29)
[2022-12-08] MEDS: BACLOFEN 10 MG (LIORESAL) TAB PO PRN ×3 (03:08→21:30)
[2022-12-08] MEDS: HYDROcodone/APAP 5 MG/325 MG (LORTAB) TAB PO PRN ×4 (03:08→21:29)
--- NOTE | 2022-12-08 04:56 | PM&R Progress Note ---
Subjective HPI/CC On Admission Date Seen by Provider: December 08, 2022 Time Seen by Provider: 12:00 Subjective/Events-last exam 12/08/2022: No major issues DC tomorrow No falls Pain controlled 12/07/2022: No major issues Pain controlled Benadryl taken before narcs due to itchiness No falls 12/06/2022: No major issues Evaluating how long the drains will be in place HH to start on Sunday No falls 12/05/2022: Patient doing very well Moving around well Bladder working very well No pain 12/04/2022: No major issues Frequency of urination is improved since the addition of prostate meds Pyridium will be added Walking well Left arm weak 12/03/2022: No major issues Flomax and Proscar helping already No pain reported as long as pain meds are given Itching with all narcs so he takes Benadryl 12/02/2022: Doing well Pain controlled Urinary frequency for past 1 year Flomax and Proscar added Review of Systems General: Fatigue, Malaise Objective Exam Vital Signs Vital Signs Date Time Temp Pulse Resp B/P (MAP) Pulse Ox O2 Delivery O2 Flow Rate FiO2 12/08/22 20:05 Room Air 12/08/22 20:02 36.4 76 16 113/61 (78) 96 Capillary Refill : General Appearance: No Apparent Distress, WD/WN, Chronically ill, Thin HEENT: PERRL/EOMI, Normal ENT Inspection, Pharynx Normal Neck: Full Range of Motion, Normal Inspection, Non Tender, Supple, Carotid Bruit Respiratory: Chest Non Tender, Lungs Clear, No Accessory Muscle Use, No Respiratory Distress, Decreased Breath Sounds Cardiovascular: Regular Rate, Rhythm, No Edema, No Gallop, No JVD, No Murmur, Normal Peripheral Pulses Gastrointestinal: Normal Bowel Sounds, No Organomegaly, No Pulsatile Mass, Non Tender, Soft Back: CVA Tenderness (L), CVA Tenderness (R), Decreased Range of Motion, Muscle Spasm, Vertebral Tenderness, Other (drains in place) Extremity: Normal Capillary Refill, Normal Inspection, Normal Range of Motion, Non Tender, No Calf Tenderness, No Pedal Edema Neurologic/Psychiatric: Alert, Oriented x3, No Motor/Sensory Deficits, Normal Mood/Affect, Motor Weakness (left sided weakness) Skin: Normal Color, Warm/Dry Lymphatic: No Adenopathy Results/Procedures Lab Laboratory Tests 12/08/22 05:47 Patient resulted labs reviewed. FIM Transfers Therapy Code Descriptions/Definitions Functional [place] Measure: 0=Not Assessed/NA 4=Minimal Assistance 1=Total Assistance 5=Supervision or Setup 2=Maximal Assistance 6=Modified [place] 3=Moderate Assistance 7=Complete IndependenceSCALE: Activities may be completed with or without assistive devices. 1-Glaztmrbtx-dsvlxqp completes the activity by him/herself with no assistance fr om a helper. 5-Set-up or Clean-up Assistance-helper sets up or cleans up; patient completes activity. [place] assists only prior to or following the activity. 4-Supervision or Touching Assistance-helper provides verbal cues and/or touching/steadying and/or contact guard assistance as patient completes activity. Assistance may be provided throughout the activity or intermittently. 3-Partial/Moderate Assistance-helper does LESS THAN HALF the effort. [place] lifts, holds or supports trunk or limbs, but provides less than half the effort. 2-Substantial/Maximal Assistance-helper does MORE THAN HALF the effort. [place] lifts or holds trunk or limbs and provides more than half the effort. 5-Exrrdvmjc-wwdhlr does ALL the effort. Patient does none of the effort to complete the activity. Or, the assistance of 2 or more helpers is required for the patient to complete the activity. If activity was not attempted, code reason: 7-Patient Refused. 9-Not Applicable-not attempted and the patient did not perform the activity before the current illness, exacerbation or injury. 10-Not Attempted due to Environmental Limitations-(lack of equipment, weather restraints, etc.). 88-Not Attempted due to Medical Conditions or Safety Concerns. Roll Left to Right (QC): 4 Sit to Lying (QC): 4 Sit to Stand (QC): 4 Chair/Mzx-is-Lzfey Xfer(QC): 4 Car Transfer (QC): 4 Gait Training Does the Patient Walk?: Yes Walk 10 feet (QC): 4 Walk 50 ft with 2 Turns(QC): 4 Walk 150 ft (QC): 4 Walking 10ft/uneven surface-QC: 4 Gait Persons Needed: 1 Gait Assistive Device: Cane Single Point Wheelchair Training Does the Pt Use a Wheelchair?: No Wheel 50 ft with 2 turns (QC): 9 Wheel 150 ft (QC): 9 Type of Wheelchair: N/A Stair Training Stair Training: Handrails/: 1 handrail #of Steps: 12 1 Step (curb) (QC): 4 4 Steps (QC): 4 12 Steps (QC): 4 Stairs: Pattern: Step to Balance Picking up an Object (QC): 4 (CGA with licensed chemical spray technician ) ADL-Treatment Eating (QC): 5 (set up assist with cutting food and opening containers.) Oral Hygiene (QC): 4 (SBA standing at sink. 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
[2022-12-08] MEDS ORDERED: FLUO20CA42 PO (05:08)
[2022-12-08] MEDS ORDERED: NICO1PAT38 TD (05:08)
[2022-12-08] MEDS ORDERED: PREG50CA65 PO (05:08)
[2022-12-08] MEDS ORDERED: BACI28.4 TOP (05:08)
[2022-12-08] MEDS ORDERED: BACL10TA PO (05:08)
[2022-12-08] MEDS ORDERED: ATOR40TA70 PO (05:08)
[2022-12-08] MEDS ORDERED: PHEN-826 PO (05:08)
[2022-12-08] MEDS ORDERED: CLIN150C20 PO (05:08)
[2022-12-08] MEDS ORDERED: TMSL.4C PO (05:08)
[2022-12-08] MEDS ORDERED: MELA10TA2 PO (05:08)
[2022-12-08] MEDS ORDERED: LEVE500T6 PO (05:08)
[2022-12-08] MEDS ORDERED: SENN-271 PO (05:08)
[2022-12-08] MEDS ORDERED: FINA5TAB6 PO (05:08)
[2022-12-08] MEDS ORDERED: DIPH25TA27 PO (05:08)
[2022-12-08] MEDS ORDERED: ACHD5005 PO (05:08)
[2022-12-08 05:56] LABS: BASOPHILS % (AUTO) 0 % (0-10); EOSINOPHILS # (AUTO) 0.4 10^3/uL (0.0-0.3); EOSINOPHILS % (AUTO) 7 % (0-10); HEMATOCRIT 44 % (40-54); HEMOGLOBIN 15.1 g/dL (13.3-17.7); LYMPHOCYTES # (AUTO) 1.3 10^3/uL (1.0-4.0); LYMPHOCYTES % (AUTO) 23 % (12-44); MEAN CORPUSCULAR HEMOGLOBIN 33 pg (25-34); MEAN CORPUSCULAR HGB CONC 35 g/dL (32-36); MEAN CORPUSCULAR VOLUME 95 fL (80-99); MEAN PLATELET VOLUME 10.2 fL (9.0-12.2); MONOCYTES # (AUTO) 0.9 10^3/uL (0.0-1.0); MONOCYTES % (AUTO) 15 % (0-12); NEUTROPHILS # (AUTO) 3.2 10^3/uL (1.8-7.8); NEUTROPHILS % (AUTO) 54 % (42-75); PLATELET COUNT 147 10^3/uL (130-400); WHITE BLOOD COUNT 5.9 10^3/uL (4.3-11.0)
[2022-12-08 06:12] LABS: ALBUMIN 3.4 GM/DL (3.2-4.5); POTASSIUM 4.3 MMOL/L (3.6-5.0)
[2022-12-08 06:13] LABS: CALCIUM 9.4 MG/DL (8.5-10.1)
[2022-12-08 06:14] LABS: TOTAL PROTEIN 7.8 GM/DL (6.4-8.2)
[2022-12-08 06:16] LABS: BILIRUBIN,TOTAL 0.4 MG/DL (0.1-1.0)
[2022-12-08 06:18] LABS: CREATININE SERUM 0.85 MG/DL (0.60-1.30)
[2022-12-08] MEDS: DOCUSATE SODIUM 100 MG (COLACE) CAP PO SCH ×2 (08:03→20:18)
[2022-12-08] MEDS: CLINDAMYCIN 150 MG (CLEOCIN) CAP PO SCH ×3 (08:03→20:18)
[2022-12-08] MEDS: TAMSULOSIN 0.4 MG (FLOMAX) CAP PO SCH ×2 (08:03→20:18)
[2022-12-08] MEDS: PREGABALIN 50 MG (LYRICA) CAP PO SCH ×3 (08:03→20:18)
[2022-12-08] MEDS: FLUoxetine HCL 20 MG (PROzac) CAP PO SCH (08:03)
[2022-12-08] MEDS: FINASTERIDE (PROSCAR) 5 MG TAB PO SCH (08:03)
[2022-12-08 08:04] VITALS: BP 102/63
[2022-12-08] MEDS: SENNA W/DOCUSATE (SENOKOT S) TABLET PO SCH ×2 (08:04→20:18)
[2022-12-08] MEDS: polyethylene glycoL POWDER 17 GM (MIRALAX) PACK PO SCH ×2 (08:04→20:18)
--- NOTE | 2022-12-08 10:57 | Physical Therapy Daily Note ---
PT Daily Note-Current Subjective Pt reports he is doing well today and is agreeable to PT. Pt reported neck/mid- back pain at 7/10. Pain Numeric Pain Scale: 7 Location Body Site: Neck Section J - Health Conditions 1. Rarely or not at all 2. Occasionally 3. Frequently 4. Almost constantly 8. Unable to answer Pain Effect on Sleep: 4 Pain Interference with Therapy: 4 Pain Interference w/Day-to-Day: 4 Transfers SCALE: Activities may be completed with or without assistive devices. 2-Zsyvpwapki-yjnqwts completes the activity by him/herself with no assistance from a helper. 5-Set-up or Clean-up Assistance-helper sets up or cleans up; patient completes activity. [place] assists only prior to or following the activity. 4-Supervision or Touching Assistance-helper provides verbal cues and/or touching/steadying and/or contact guard assistance as patient completes activity. Assistance may be provided throughout the activity or intermittently. 3-Partial/Moderate Assistance-helper does LESS THAN HALF the effort. [place] lifts, holds or supports trunk or limbs, but provides less than half the effort. 2-Substantial/Maximal Assistance-helper does MORE THAN HALF the effort. [place] lifts or holds trunk or limbs and provides more than half the effort. 8-Cimojzprr-enxnmd does ALL the effort. Patient does none of the effort to complete the activity. Or, the assistance of 2 or more helpers is required for the patient to complete the activity. If activity was not attempted, code reason: 7-Patient Refused. 9-Not Applicable-not attempted and the patient did not perform the activity before the current illness, exacerbation or injury. 10-Not Attempted due to Environmental Limitations-(lack of equipment, weather restraints, etc.). 88-Not Attempted due to Medical Conditions or Safety Concerns. Roll Left & Right (QC): 6 Sit to Lying (QC): 6 Lying to Sitting/Side of Bed(Q: 6 Sit to Stand (QC): 6 Chair/Hla-pm-Iwrlr Xfer(QC): 6 Toilet Transfer (QC): 6 Car Transfer (QC): 6 Weight Bearing Right Lower Extremity: Right Full Weight Bearing Left Lower Extremity: Left Full Weight Bearing Gait Training Does the Patient Walk?: Yes Walk 10 feet (QC): 6 Walk 50 ft with 2 Turns(QC): 6 Walk 150 ft (QC): 6 Walking 10ft/uneven surface-QC: 6 Gait Assistive Device: Cane Single Point Wheelchair Training Does the Pt Use a Wheelchair?: No Stair Training Stair Training: Handrails/: 1 handrail 1 Step (curb) (QC): 6 4 Steps (QC): 6 12 Steps (QC): 6 Stairs: Pattern: Step to Balance Picking up an Object (QC): 6 Special Test Comments [facility] standing balance test - 4+/5 FISH - 45/56 Treatments Pt demo bed mobility and functional transfers with Mod I. Pt ambulated 250ft, and 150ft x 2 with the SPC and Mod I. Pt negotiated 12 steps with 1 HR and Mod I. Pt completed seated B LE Ther Ex x 20 reps with 1lb and red Tband. Pt completed standing B LE Ther Ex x 20 reps each with R UE support (pt required several short seated breaks). Pt completed the nu-step x 10 min on level 4. Assessment Current Status: Good Progress Pt tolerated well PT Tube Blower Goals Tube Blower Goals PT Detention Goals Time Frame: December 11, 2022 Roll Left & Right (QC): 6 (Pt will be Mod I with bed mobility and funcitonal transfers to progress towards PLOF. ) Sit to Lying (QC): 6 (Pt will be Mod I with bed mobility and funcitonal trans fers to progress towards PLOF. ) Lying-Sitting on Side/Bed(QC): 6 (Pt will be Mod I with bed mobility and funcitonal transfers to progress towards PLOF. ) Sit to Stand (QC): 6 (Pt will be Mod I with bed mobility and funcitonal transfers to progress towards PLOF. ) Chair/Zrh-xh-Ecvbh Xfer(QC): 6 (Pt will be Mod I with bed mobility and funcitonal transfers to progress towards PLOF. ) Toilet Transfer (QC): 6 (Pt will be Mod I with bed mobility and funcitonal transfers to progress towards PLOF. ) Car Transfer (QC): 6 (Pt will be Mod I with bed mobility and funcitonal transfers to progress towards PLOF. ) Does the Patient Walk: Yes Walk 10 feet (QC): 6 (Pt will ambulate 250ft with the SPC and Mod I. ) Walk 50ft with 2 Turns (QC): 6 (Pt will ambulate 250ft with the SPC and Mod I. ) Walk 150 ft (QC): 6 (Pt will ambulate 250ft with the SPC and Mod I. ) Walking 10ft on Uneven Surface: 6 (Pt will ambulate 250ft with the SPC and Mod I. ) 1 Step (curb) (QC): 5 (Pt will ascend/descend 12 steps with 1 HR and SBA. ) 4 Steps (QC): 5 (Pt will ascend/descend 12 steps with 1 HR and SBA. ) 12 Steps (QC): 5 (Pt will ascend/descend 12 steps with 1 HR and SBA. ) Picking up an Object (QC): 6 (Ind with steam brush operator ) Does the Pt use WC or Scooter?: No Wheel 50 feet with 2 turns (QC: 9 Type: Manual Wheel 150 feet: 9 Type: Manual PT Plan Problem List Problem List: Activity Tolerance, Functional Strength, Safety, Balance, Gait, Transfer, Bed Mobility Treatment/Plan Treatment Plan: Continue Plan of Care Treatment Plan: Bed Mobility, Concurrent Therapy, Education, Functional Activity Rock, Functional Strength, Group Therapy, Gait, Safety, Therapeutic Exercise, Transfers Treatment Duration: December 11, 2022 Frequency: At least 5 of 7 days/Wk (IRF) Estimated Hrs Per Day: 1.5 hours per day Patient and/or Family Agrees t: Yes Safety Risks/Education Patient Education: Gait Training, Transfer Techniques, Steps, Safety Issues Teaching Recipient: Patient Teaching Methods: Demonstration, Discussion Response to Teaching: Verbalize Understanding, Return Demonstration Discharge Recommendations Therapy Discharge Recommendati: Home & Family Equpiment Recommendations-D/C: Straight Cane Discharge Status/Home Program D/C on 12/09/2022 Target Placement home Time Time In: 800 Time Out: 930 DATE: December 08, 2022 Total Billed Treatment Time: 90 Total Billed Treatment 90 min 1 visit GT x 2 EX x 2 FA x 2 DANO NAILS PT December 08, 2022 10:57
--- NOTE | 2022-12-08 11:58 | Occupational Ther Daily Note ---
OT Current Status-Daily Note Subjective Pt alert, lying in bed. Pt agrees to therapy. No c/o pain. Mental Status/Objective Patient Orientation: Person, Place, Time, Situation Attachments: Drains (2) ADL-Treatment Pt agrees to shower. Pt required assistance to find phone numbers while pt went through [place]. Pt independent with shower using grabbars, hand held shower and shower bench. Pt able to retrieve clothing and dress self. Pt requires assistance to pin drains off/on shirt before and after shower then assist to cover drains. Pt independent with eating. Independent with toileting, Independent with oral care. After session, pt lying in bed with call light/phone in reach. All needs met in room. Therapy Code Descriptions/Definitions Functional [place] Measure: 0=Not Assessed/NA 4=Minimal Assistance 1=Total Assistance 5=Supervision or Setup 2=Maximal Assistance 6=Modified [place] 3=Moderate Assistance 7=Complete IndependenceSCALE: Activities may be completed with or without assistive devices. 3-Szjafjefuv-ajwjpgq completes the activity by him/herself with no assistance from a helper. 5-Set-up or Clean-up Assistance-helper sets up or cleans up; patient completes activity. [place] assists only prior to or following the activity. 4-Supervision or Touching Assistance-helper provides verbal cues and/or touching/steadying and/or contact guard assistance as patient completes activity. Assistance may be provided throughout the activity or intermittently. 3-Partial/Moderate Assistance-helper does LESS THAN HALF the effort. [place] l ifts, holds or supports trunk or limbs, but provides less than half the effort. 2-Substantial/Maximal Assistance-helper does MORE THAN HALF the effort. [place] lifts or holds trunk or limbs and provides more than half the effort. 1-Hyijspujn-hnezgp does ALL the effort. Patient does none of the effort to complete the activity. Or, the assistance of 2 or more helpers is required for t he patient to complete the activity. If activity was not attempted, code reason: 7-Patient Refused. 9-Not Applicable-not attempted and the patient did not perform the activity before the current illness, exacerbation or injury. 10-Not Attempted due to Environmental Limitations-(lack of equipment, weather restraints, etc.). 88-Not Attempted due to Medical Conditions or Safety Concerns. Eating (QC): 6 Oral Hygiene (QC): 6 Shower/Bathe Self (QC): 5 (due to coverings and pinning/unpinning drains) Upper Body Dressing (QC): 6 Lower Body Dressing (QC): 6 On/Off Footwear: 6 Toileting Hygiene (QC): 6 Toilet Transfer (QC): 6 BIMS CAM BIMS Expression of Ideas and Wants: Without Difficulty Understanding Verbal Content: Understands Brief Interview/Mental Status: Yes IRF ALIZA BIMS: IRF ALIZA BIMS Response (Comments) Value Repitition of Three Words Three 3 Recalls Socks Yes, No Cue Required 2 Recalls Blue Yes, No Cue Required 2 Recalls Bed Yes, No Cue Required 2 Year Correct 3 Month Accurate Within 5 Days 2 Day Correct 1 Total 15 Patient Normally Able to Recal: Current Session, Location of own room, Staff Names and faces, That he/she in a hsp Should Staff Asses. Mental St.: No CAM Mental Status Change/Baseline: 0 Inattention: 0 Disorganized thinkin Altered level of consciousness: 0 OT Short Term Goals Short Term Goals Time Frame: December 08, 2022 Oral hygiene: 5 Upper body dressin Lower body dressin Putting on/taking off footwear: 5 OT Bleacher [employer] Goals Group Home Goals Time Frame: December 15, 2022 Acute change in mental status: 0 Inattention: 0 Disorganized thinkin Altered level of consciousness: 0 Eating (QC): 6 (met) Oral Hygiene (QC): 6 (met) Toileting Hygiene (QC): 6 (met) Shower/Bathe Self (QC): 5 (met) Upper Body Dressing (QC): 6 (met) Lower Body Dressing (QC): 6 (met) On/Off Footwear (QC): 6 (met) Additional Goals: 1-Demonstrate ADL Tasks, 2-Verbalize Understanding, 3- ImproveStrength/Rock 1=Demonstrate adherence to instructed precautions during ADL tasks. 2=Patient will verbalize/demonstrate understanding of assistive devices/modifications for ADL. 3=Patient will improve strength/tolerance for activity to enable patient to perform ADL's. OT Education/Plan Problem List/Assessment Assessment: Decreased Activ Tolerance, Impaired Self-Care Skills, Restricted Funct UE ROM (L) Discharge Recommendations Plan/Recommendations: Continue POC Treatment Plan/Plan of Care Patient would benefit from OT for education, treatment and training to promote independence in ADL's, mobility, safety and/or upper extremity function for ADL 's. Plan of Care: ADL Retraining, Functional Mobility, Group Exercise/Act as Ind, UE Funct Exercise/Act, UE Neuromus Re-Ed/Coord Treatment Duration: December 15, 2022 Frequency: At least 5 of 7 days/Wk (IRF) Estimated Hrs Per Day: 1.5 hours per day Agreement: Yes Rehab Potential: Good Time Start Time: 10:30 Stop Time: 12:00 DATE: December 08, 2022 Total Time Billed (hr/min): 90 Billed Treatment Time 1 visit-FA 2 (30 min) ADL 4 (60 min) MERCEDEZ ERWIN December 08, 2022 11:58
[2022-12-08] MEDS: NICOTINE 14 MG (NICODERM) PATCH TD PRN (18:43)
[2022-12-08 20:02] VITALS: BP 113/61
[2022-12-09] MEDS: HYDROcodone/APAP 5 MG/325 MG (LORTAB) TAB PO PRN (02:54)
[2022-12-09 07:17] VITALS: BP 120/75
--- NOTE | 2022-12-09 07:36 | Discharge Summary ---
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 Smoker Low albumin Presumed BPH added meds Plan: Monitor closely Fall risk Nicotine patch 12/02/2022: Monitor closely 12/03/2022: BPH symptoms improved No falls 12/04/2022: Continue meds 12/05/2022: Bladder meds 12/06/2022: Eval drain removal date HH to start on Sunday12/07/2022: Monitor closely Fall risk 12/08/2022: Monitor closely Discharge Summary Discharge Physical Examination Allergies: Coded Allergies: amoxicillin (Verified Adverse Reaction, Mild, nausea, 12/02/22) Vitals & I&Os Vital Signs Date Time Temp Pulse Resp B/P (MAP) Pulse Ox O2 Delivery O2 Flow Rate FiO2 12/09/22 09:09 Room Air 12/09/22 07:17 36.2 64 18 120/75 (90) 98 General Appearance: Alert, Oriented X3, Cooperative Respiratory: Clear to Auscultation Cardiovascular: Regular Rate Psych/Mental Status: Mental Status NL Hospital Course Was the Problem List Reviewed?: Yes Uneventful course after admitted following extensive lumbar spine surgery with removal of hardware and placement of drains and maintained on Clindamycin. He was able to participate in all therapies and gain back most of baseline functioning with CVA residual of left sided weakness. Overall he had no events during his stay he did respond to BPH management of Flomax and Proscar and those meds were sent in and he will have close f/u with PCP with HH ordered. Labs (last 24 hrs) Laboratory Tests 12/02/22 05:20: White Blood Count 6.3, Red Blood Count 4.52, Hemoglobin 14.8, Hematocrit 43, Mean Corpuscular Volume 95, Mean Corpuscular Hemoglobin 33, Mean Corpuscular Hemoglobin Concent 35, Red Cell Distribution Width 13.0, Platelet Count 120L, Mean Platelet Volume 10.5, Immature Granulocyte % (Auto) 0, Neutrophils (%) (Auto) 64, Lymphocytes (%) (Auto) 20, Monocytes (%) (Auto) 14H, Eosinophils (%) (Auto) 1, Basophils (%) (Auto) 0, Neutrophils # (Auto) 4.1, Lymphocytes # (Auto) 1.3, Monocytes # (Auto) 0.9, Eosinophils # (Auto) 0.1, Basophils # (Auto) 0.0, Immature Granulocyte # (Auto) 0.0, Percent Immature Platelet Fraction 5.0, Sodium Level 139, Potassium Level 3.7, Chloride Level 105, Carbon Dioxide Level 25, Anion Gap 9, Blood Urea Nitrogen 8, Creatinine 0.64, Estimat Glomerular Filtration Rate 108, BUN/Creatinine Ratio 13, Glucose Level 83, Calcium Level 8.9, Corrected Calcium 9.8, Total Bilirubin 0.5, Aspartate Amino Transf (AST/SGOT) 35H, Alanine Aminotransferase (ALT/SGPT) 28, Alkaline Phosphatase 77, Total Protein 6.5, Albumin 2.9L 12/08/22 05:47: White Blood Count 5.9, Red Blood Count 4.60, Hemoglobin 15.1, Hematocrit 44, Mean Corpuscular Volume 95, Mean Corpuscular Hemoglobin 33, Mean Corpuscular Hemoglobin Concent 35, Red Cell Distribution Width 13.2, Platelet Count 147, Mean Platelet Volume 10.2, Immature Granulocyte % (Auto) 1, Neutrophils (%) (Auto) 54, Lymphocytes (%) (Auto) 23, Monocytes (%) (Auto) 15H, Eosinophils (%) (Auto) 7, Basophils (%) (Auto) 0, Neutrophils # (Auto) 3.2, Lymphocytes # (Auto) 1.3, Monocytes # (Auto) 0.9, Eosinophils # (Auto) 0.4H, Basophils # (Auto) 0.0, Immature Granulocyte # (Auto) 0.1, Sodium Level 138, Potassium Level 4.3, Chloride Level 105, Carbon Dioxide Level 22, Anion Gap 11, Blood Urea Nitrogen 13, Creatinine 0.85, Estimat Glomerular Filtration Rate 99, BUN/Creatinine Ratio 15, Glucose Level 100, Calcium Level 9.4, Corrected Calcium 9.9, Total Bilirubin 0.4, Aspartate Amino Transf (AST/SGOT) 98H, Alanine Aminotransferase (ALT/SGPT) 70H, Alkaline Phosphatase 142H, Total Protein 7.8, Albumin 3.4 Pending Labs Laboratory Tests 12/02/22 05:20: White Blood Count 6.3, Red Blood Count 4.52, Hemoglobin 14.8, Hematocrit 43, Mean Corpuscular Volume 95, Mean Corpuscular Hemoglobin 33, Mean Corpuscular Hemoglobin Concent 35, Red Cell Distribution Width 13.0, Platelet Count 120, Mean Platelet Volume 10.5, Immature Granulocyte % (Auto) 0, Neutrophils (%) (Auto) 64, Lymphocytes (%) (Auto) 20, Monocytes (%) (Auto) 14, Eosinophils (%) (Auto) 1, Basophils (%) (Auto) 0, Neutrophils # (Auto) 4.1, Lymphocytes # (Auto) 1.3, Monocytes # (Auto) 0.9, Eosinophils # (Auto) 0.1, Basophils # (Auto) 0.0, Immature Granulocyte # (Auto) 0.0, Percent Immature Platelet Fraction 5.0, Sodium Level 139, Potassium Level 3.7, Chloride Level 105, Carbon Dioxide Level 25, Anion Gap 9, Blood Urea Nitrogen 8, Creatinine 0.64, Estimat Glomerular Filtration Rate 108, BUN/Creatinine Ratio 13, Glucose Level 83, Calcium Level 8.9, Corrected Calcium 9.8, Total Bilirubin 0.5, Aspartate Amino Transf (AST/SGOT) 35, Alanine Aminotransferase (ALT/SGPT) 28, Alkaline Phosphatase 77, Total Protein 6.5, Albumin 2.9 12/08/22 05:47: White Blood Count 5.9, Red Blood Count 4.60, Hemoglobin 15.1, Hematocrit 44, Mean Corpuscular Volume 95, Mean Corpuscular Hemoglobin 33, Mean Corpuscular Hemoglobin Concent 35, Red Cell Distribution Width 13.2, Platelet Count 147, Mean Platelet Volume 10.2, Immature Granulocyte % (Auto) 1, Neutrophils (%) (Auto) 54, Lymphocytes (%) (Auto) 23, Monocytes (%) (Auto) 15, Eosinophils (%) (Auto) 7, Basophils (%) (Auto) 0, Neutrophils # (Auto) 3.2, Lymphocytes # (Auto) 1.3, Monocytes # (Auto) 0.9, Eosinophils # (Auto) 0.4, Basophils # (Auto) 0.0, Immature Granulocyte # (Auto) 0.1, Sodium Level 138, Potassium Level 4.3, Chloride Level 105, Carbon Dioxide Level 22, Anion Gap 11, Blood Urea Nitrogen 13, Creatinine 0.85, Estimat Glomerular Filtration Rate 99, BUN/Creatinine Ratio 15, Glucose Level 100, Calcium Level 9.4, Corrected Calcium 9.9, Total Bilirubin 0.4, Aspartate Amino Transf (AST/SGOT) 98, Alanine Aminotransferase (ALT/SGPT) 70, Alkaline Phosphatase 142, Total Protein 7.8, Albumin 3.4 Discharge Home Medications: Active Scripts Active Finasteride 5 Mg Tablet 5 Mg PO DAILY Phenazopyridine HCl 100 Mg Tablet 100 Mg PO TIDPC PRN Bacitracin 500 Unit/Gram Oint...g. 0 Each TOP UD PRN dressing changes Stool Softener-Laxative Tablet (Sennosides/Docusate Sodium) 8.6 Mg-50 Mg Tablet 1 Ea PO BID Nicoderm Cq (Nicotine) 14 Mg/24 Hour Patch.td24 14 Mg TD DAILY PRN Baclofen 10 Mg Tablet 10 Mg PO Q8H PRN Flomax (Tamsulosin HCl) 0.4 Mg Cap 0.4 Mg PO BID Clindamycin HCl 150 Mg Capsule 450 Mg PO TID Banophen (Diphenhydramine HCl) 25 Mg Tablet 25 Mg PO Q6H PRN Melatonin 10 Mg Tablet 10 Mg PO HS Pregabalin 50 Mg Capsule 50 Mg PO TID Prozac (Fluoxetine HCl) 20 Mg Capsule 20 Mg PO DAILY Levetiracetam 500 Mg Tablet 500 Mg PO BID Atorvastatin Calcium 40 Mg Tablet 40 Mg PO HS Hydrocodone-Acetamin 5-325 mg (Hydrocodone/Acetaminophen) 5 Mg-325 Mg Tablet 1-2 Tab PO Q4H PRN Instructions to patient/family Please see electronic discharge instructions given to patient. Diagnosis/Problems Diagnosis/Problems (1) Spinal cord abscess CHARLETTE RODRIGUEZ DO December 09, 2022 07:36
[2022-12-09] MEDS: polyethylene glycoL POWDER 17 GM (MIRALAX) PACK PO SCH (07:46)
[2022-12-09] MEDS: FLUoxetine HCL 20 MG (PROzac) CAP PO SCH (09:42)
[2022-12-09] MEDS: PREGABALIN 50 MG (LYRICA) CAP PO SCH (09:42)
[2022-12-09] MEDS: DOCUSATE SODIUM 100 MG (COLACE) CAP PO SCH (09:42)
[2022-12-09] MEDS: TAMSULOSIN 0.4 MG (FLOMAX) CAP PO SCH (09:42)
[2022-12-09] MEDS: CLINDAMYCIN 150 MG (CLEOCIN) CAP PO SCH (09:42)
[2022-12-09] MEDS: FINASTERIDE (PROSCAR) 5 MG TAB PO SCH (09:42)
[2022-12-09] MEDS: SENNA W/DOCUSATE (SENOKOT S) TABLET PO SCH (09:43)
[2022-12-09 13:20] VITALS: BP 120/75
--- NOTE | 2022-12-11 11:23 | Therapy Team Discharge Summary ---
Therapy Discharge Summary Discharge Recommendations Date of Discharge December 09, 2022 at 10:30 Physical Therapy Roll Left to Right (QC): 6 Sit to Lying (QC): 6 Lying to Sitting/Side of Bed(Q: 6 Sit to Stand (QC): 6 Chair/Tvs-fi-Tjtvc Xfer(QC): 6 Toilet Transfer (QC): 6 Car Transfer (QC): 6 Does the Patient Walk: Yes Mode of Locomotion: Walk Anticipated Mode of Locomotion: Walk Walk 10 feet (QC): 6 Walk 50 ft with 2 Turns(QC): 6 Walk 150 ft (QC): 6 Walking 10ft on uneven surface: 6 Distance: 150ft Gait Assistive Device: Cane Single Point Does the Pt Use a Wheelchair: No Wheel 50 ft with 2 turns (QC): 9 Wheel 150 ft (QC): 9 Type of Wheelchair: N/A #of Steps: 12 1 Step (curb) (QC): 6 4 Steps (QC): 6 12 Steps (QC): 6 Balance Sitting Static: Good Balance Sitting Dynamic: Good Balance-Standing Static: Fair Picking up an Object (QC): 6 Occupational Therapy Pt admitted to ARU s/p removal of hardware at T1-T6 with resection C7-T1 spinous process. At PLOF, pt was independent with ADLs and mobility using SPC. Upon initial evaluation, pt required set up with eating and footwear, Supervision to SBA with oral care, shower, UE dressing, LE dressing and toileting. OT tx focused on increasing BUE strength and activity tolerance, and increasing safety and independence with ADLs and functional mobility. Pt made good progress towards goals, attaining all LTGs. Pt discharged home, d/c from OT Decreased Activ Tolerance, Impaired Self-Care Skills, Restricted Funct UE ROM (L) Eating (QC): 6 Oral Hygiene (QC): 6 Shower/Bathe Self (QC): 5 (due to coverings and pinning/unpinning drains) Upper Body Dressing (QC): 6 Lower Body Dressing (QC): 6 On/Off Footwear (QC): 6 Toileting Hygiene (QC): 6 PT Wire Mesh Knitter Goals Wire Mesh Knitter Goals PT Retirement Goals Time Frame: December 11, 2022 Roll Left to Right (QC): 6 (Pt will be Mod I with bed mobility and funcitonal transfers to progress towards PLOF. ) Sit to Lying (QC): 6 (Pt will be Mod I with bed mobility and funcitonal transfers to progress towards PLOF. ) Lying-Sitting on Side/Bed(QC): 6 (Pt will be Mod I with bed mobility and funcitonal transfers to progress towards PLOF. ) Sit to Stand (QC): 6 (Pt will be Mod I with bed mobility and funcitonal transfers to progress towards PLOF. ) Chair/Odt-tn-Jwndz Xfer(QC): 6 (Pt will be Mod I with bed mobility and funci tonal transfers to progress towards PLOF. ) Toilet/Commode Transfer (QC): 6 (Pt will be Mod I with bed mobility and funcitonal transfers to progress towards PLOF. ) Car Transfer (QC): 6 (Pt will be Mod I with bed mobility and funcitonal transfers to progress towards PLOF. ) Does the Patient Walk: Yes Walk 10 feet (QC): 6 (Pt will ambulate 250ft with the SPC and Mod I. ) Walk 10ft-Uneven Surface(QC): 6 (Pt will ambulate 250ft with the SPC and Mod I. ) Walk 50ft with 2 Turns (QC): 6 (Pt will ambulate 250ft with the SPC and Mod I. ) Walk 150 ft (QC): 6 (Pt will ambulate 250ft with the SPC and Mod I. ) Does the Pt use WC or Scooter?: No Wheel 50 feet with 2 turns (QC: 9 Type: Manual Wheel 150 feet: 9 Type: Manual 1 Step (curb) (QC): 5 (Pt will ascend/descend 12 steps with 1 HR and SBA. ) 4 Steps (QC): 5 (Pt will ascend/descend 12 steps with 1 HR and SBA. ) 12 Steps (QC): 5 (Pt will ascend/descend 12 steps with 1 HR and SBA. ) Picking up an Object (QC): 6 (Ind with estate administrator ) OT Wire Mesh Knitter Goals Retirement Goals Time Frame: December 15, 2022 Acute change in mental status: 0 Inattention: 0 Disorganized thinkin Altered level of consciousness: 0 Eating (QC): 6 (met) Oral Hygiene (QC): 6 (met) Toileting Hygiene (QC): 6 (met) Shower/Bathe Self (QC): 5 (met) Upper Body Dressing (QC): 6 (met) Lower Body Dressing (QC): 6 (met) On/Off Footwear (QC): 6 (met) Additional Goals: 1-Demonstrate ADL Tasks, 2-Verbalize Understanding, 3- ImproveStrength/Rock 1=Demonstrate adherence to instructed precautions during ADL tasks. 2=Patient will verbalize/demonstrate understanding of assistive devices/modifications for ADL. 3=Patient will improve strength/tolerance for activity to enable patient to perform ADL's. TERRI PEREZ OT December 11, 2022 11:23
--- NOTE | 2022-12-11 15:16 | Therapy Team Discharge Summary ---
Therapy Discharge Summary Discharge Recommendations Date of Discharge December 09, 2022 at 10:30 Therapy D/C Recommendations: Home Independently Physical Therapy Pt admitted to ARU s/p removal of hardware at T1-T6 with resection C7-T1 spinous process. At OF, pt was independent with ADLs and mobility using SPC. Upon initial evaluation, pt required CGA for all aspects of functional mobility. Pt progressed well with PT and met all LTGs being Mod I with all aspects of functional mobility with the SPC. Pt d/c home, d/c from PT. Roll Left to Right (QC): 6 Sit to Lying (QC): 6 Lying to Sitting/Side of Bed(Q: 6 Sit to Stand (QC): 6 Chair/Bsd-eg-Ermsq Xfer(QC): 6 Toilet Transfer (QC): 6 Car Transfer (QC): 6 Does the Patient Walk: Yes Mode of Locomotion: Walk Anticipated Mode of Locomotion: Walk Walk 10 feet (QC): 6 Walk 50 ft with 2 Turns(QC): 6 Walk 150 ft (QC): 6 Walking 10ft on uneven surface: 6 Distance: 150ft Gait Assistive Device: Cane Single Point Does the Pt Use a Wheelchair: No Wheel 50 ft with 2 turns (QC): 9 Wheel 150 ft (QC): 9 Type of Wheelchair: N/A #of Steps: 12 1 Step (curb) (QC): 6 4 Steps (QC): 6 12 Steps (QC): 6 Walking Assistive Device: Cane Balance Sitting Static: Good Balance Sitting Dynamic: Good Balance-Standing Static: Good Picking up an Object (QC): 6 Occupational Therapy Decreased Activ Tolerance, Impaired Self-Care Skills, Restricted Funct UE ROM (L) Eating (QC): 6 Oral Hygiene (QC): 6 Shower/Bathe Self (QC): 5 (due to coverings and pinning/unpinning drains) Upper Body Dressing (QC): 6 Lower Body Dressing (QC): 6 On/Off Footwear (QC): 6 Toileting Hygiene (QC): 6 PT Retirement Goals Retirement Goals PT Retirement Goals Time Frame: December 11, 2022 Roll Left to Right (QC): 6 (Pt will be Mod I with bed mobility and funcitonal transfers to progress towards OF. ) Sit to Lying (QC): 6 (Pt will be Mod I with bed mobility and funcitonal transfers to progress towards PLOF. ) Lying-Sitting on Side/Bed(QC): 6 (Pt will be Mod I with bed mobility and funcitonal transfers to progress towards PLOF. ) Sit to Stand (QC): 6 (Pt will be Mod I with bed mobility and funcitonal transfers to progress towards PLOF. ) Chair/Shr-bm-Byuvu Xfer(QC): 6 (Pt will be Mod I with bed mobility and funcitonal transfers to progress towards PLOF. ) Toilet/Commode Transfer (QC): 6 (Pt will be Mod I with bed mobility and funcitonal transfers to progress towards PLOF. ) Car Transfer (QC): 6 (Pt will be Mod I with bed mobility and funcitonal transf ers to progress towards PLOF. ) Does the Patient Walk: Yes Walk 10 feet (QC): 6 (Pt will ambulate 250ft with the SPC and Mod I. ) Walk 10ft-Uneven Surface(QC): 6 (Pt will ambulate 250ft with the SPC and Mod I. ) Walk 50ft with 2 Turns (QC): 6 (Pt will ambulate 250ft with the SPC and Mod I. ) Walk 150 ft (QC): 6 (Pt will ambulate 250ft with the SPC and Mod I. ) Does the Pt use WC or Scooter?: No Wheel 50 feet with 2 turns (QC: 9 Type: Manual Wheel 150 feet: 9 Type: Manual 1 Step (curb) (QC): 5 (Pt will ascend/descend 12 steps with 1 HR and SBA. ) 4 Steps (QC): 5 (Pt will ascend/descend 12 steps with 1 HR and SBA. ) 12 Steps (QC): 5 (Pt will ascend/descend 12 steps with 1 HR and SBA. ) Picking up an Object (QC): 6 (Ind with puppy walker ) OT It Solutions Architect Goals It Solutions Architect Goals Time Frame: December 15, 2022 Acute change in mental status: 0 Inattention: 0 Disorganized thinkin Altered level of consciousness: 0 Eating (QC): 6 (met) Oral Hygiene (QC): 6 (met) Toileting Hygiene (QC): 6 (met) Shower/Bathe Self (QC): 5 (met) Upper Body Dressing (QC): 6 (met) Lower Body Dressing (QC): 6 (met) On/Off Footwear (QC): 6 (met) Additional Goals: 1-Demonstrate ADL Tasks, 2-Verbalize Understanding, 3- ImproveStrength/Rock 1=Demonstrate adherence to instructed precautions during ADL tasks. 2=Patient will verbalize/demonstrate understanding of assistive devices/modifications for ADL. 3=Patient will improve strength/tolerance for activity to enable patient to perform ADL's. DANO NAILS PT December 11, 2022 15:15
== END 2022-12-09 10:30 | disposition home health service (06) | DRG 560 ==
PROVIDERS: ADMIT Internal Medicine; ATTEND Internal Medicine
DX: Z47.89 Encounter for other orthopedic aftercare (principal); I69.354 Hemiplegia and hemiparesis following cerebral infarction affecting left non-dominant side; R35.0 Frequency of micturition; K59.09 Other constipation; F17.210 Nicotine dependence, cigarettes, uncomplicated; E88.09 Other disorders of plasma-protein metabolism, not elsewhere classified
CPT/HCPCS: 36415; 80053; 85025

== ENCOUNTER 2022-12-16 11:45 | Emergency (ER) | payer MEDICAID ==
[~2022-12-16] VITALS: Ht 180 cm; Wt 73.0 kg
[~2022-12-16 11:45] MED LIST changes: +ATOR40TA70 PO; +BACI28.4 TOP; +BACL10TA PO; +DIPH25TA27 PO; +FINA5TAB6 PO; +FLUO20CA42 PO; +LEVE500T6 PO; +MELA10TA2 PO; +NICO-587 TD; +NICO1PAT38 TD; +PHEN-826 PO; +PREG50CA65 PO; +SENN-271 PO; +TMSL.4C PO
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
[2022-12-16] MEDS ORDERED: LACTATED RINGERS 1,000 ML IV SCH (12:15)
[2022-12-16] MEDS ORDERED: ONDANSETRON 4 MG/2 ML (SDV) Z0FRAN IVP ONE (12:15)
[2022-12-16 12:19] LABS: CHLORIDE 106 MMOL/L (98-107); POTASSIUM 3.4 MMOL/L (3.6-5.0); SODIUM 141 MMOL/L (135-145)
[2022-12-16 12:20] LABS: CALCIUM 9.4 MG/DL (8.5-10.1)
[2022-12-16 12:21] LABS: GLUCOSE 94 MG/DL (70-105)
[2022-12-16 12:22] LABS: CARBON DIOXIDE 20 MMOL/L (21-32)
[2022-12-16 12:25] LABS: CREATININE SERUM 0.76 MG/DL (0.60-1.30); GFR ESTIMATED 102
[2022-12-16 12:26] LABS: BUN/CREATININE RATIO 13
[2022-12-16 14:54] VITALS: BP 129/96
== END 2022-12-16 14:54 | disposition home or self-care (01) ==
LOC: EDUNIT# 11:45 → ER 11:47
DX: F10.10 Alcohol abuse, uncomplicated (principal); F17.210 Nicotine dependence, cigarettes, uncomplicated
CPT/HCPCS: 80048; 99284; G0480; 36415; 80320

== ENCOUNTER 2023-02-07 07:03 | Outpatient (CLI) | payer MEDICAID ==
[~2023-02-07] VITALS: Ht 180.3 cm; Wt 72.8 kg
== END 2023-02-07 09:25 ==
LOC: PREOP 07:03
PROVIDERS: ATTEND Surgery
DX: Z01.818 Encounter for other preprocedural examination (principal)

== ENCOUNTER 2023-02-14 10:50 | Day surgery (SDC) | payer MEDICAID ==
[~2023-02-14] VITALS: Ht 180.3 cm; Wt 72.8 kg
[2023-02-14] MEDS ORDERED: LACTATED RINGERS 1,000 ML IV STA (10:51)
[2023-02-14] MEDS ORDERED: LIDOCAINE JELLY 2% 6 ML SYRINGE MM PRN (11:00)
[2023-02-14 11:17] VITALS: BP 115/83
--- NOTE | 2023-02-14 11:49 | Progress Note-Pre Operative ---
Pre-Operative Progress Note Date of Available H&P: Feb 14, 2023 Date H&P Reviewed: Feb 14, 2023 Time H&P Reviewed: 11:30 History & Physical: No changes noted Pre-Operative Diagnosis: screening colo/FH PEDRO LUIS WAGNER MD Feb 14, 2023 11:49
--- NOTE | 2023-02-14 11:50 | Discharge Inst-Surgical ---
D/C Lap Instructions-KRISTY Follow Up Activity as tolerated High Fiber Diet 25g or more per day Avoid Alcohol, Caffeine, Spicy Benbow and Acid foods. Drink 64 fluid oz or more of fluids per day. Symptoms to Report: Fever over 101 degree F, Nausea/Vomiting If any problems/questions: Contact your physician or go to Emergency Room PEDRO LUIS WAGNER MD Feb 14, 2023 11:50
[2023-02-14] MEDS ORDERED: ONDANSETRON 4 MG (ZOFRAN) ORAL DISSOLVE TAB PO PRN ×2 (12:00→13:45)
[2023-02-14] MEDS ORDERED: ONDANSETRON 4 MG/2 ML (SDV) Z0FRAN IVP PRN ×2 (12:00→13:45)
[2023-02-14] MEDS ORDERED: LIDOCAINE JELLY 2% 6 ML SYRINGE ONE (12:18)
[2023-02-14] MEDS ORDERED: PROPOFOL INJECTION 50 ML IV ONE (12:48)
[2023-02-14 13:30] VITALS: BP 87/58
[2023-02-14 13:35] VITALS: BP 80/54
[2023-02-14 13:40] VITALS: BP 89/63
--- NOTE | 2023-02-14 13:40 | Progress Note-Post Operative ---
Post-Operative Progess Note Surgeon (s)/Market Development Analyst (s) Surgeon PEDRO LUIS WAGNER MD Market Development Analyst: none Pre-Operative Diagnosis screening colo/FH Post-Operative Diagnosis chronic stage 2 ext and int hemorrhoids, polyp desc(3mm)/splenic flexure(4mm)/hepatic flexure(6mm) Procedure & Operative Findings Date of Procedure 02/14/23 Procedure Performed/Findings colonoscopy with polypectomy x3 Anesthesia Type mac Estimated Blood Loss Estimated blood loss (mL): minimal Specimens/Packing Specimens Removed none PEDRO LUIS WAGNER MD Feb 14, 2023 13:40
[2023-02-14 14:08] VITALS: BP 89/63
--- NOTE | 2023-02-14 14:49 | Anesthesia-General Post-Op ---
MAC Patient Condition Mental Status/LOC: Same as Preop Cardiovascular: Satisfactory Nausea/Vomiting: Absent Respiratory: Satisfactory Pain: Controlled Complications: Absent Post Op Complications Complications None Follow Up Care/Instructions Patient Instructions None needed. Anesthesiology Discharge Order Discharge Order Patient is doing well, no complaints, stable vital signs, no apparent adverse anesthesia problems. No complications reported per nursing. BOOKER CHRISTIE CRNA Feb 14, 2023 14:49
--- NOTE | 2023-02-14 17:50 | OPERATIVE REPORT ---
DATE OF SERVICE: 02/14/2023 ATTENDING PRIMARY ANCHOR TACK PULLER: [facility]. PREOPERATIVE DIAGNOSIS: Screening colonoscopy with family history of colon cancer. POSTOPERATIVE DIAGNOSES: Mild chronic stage II, external and internal hemorrhoids, polyp of the descending colon, 3 mm in size,polyp of the splenic flexure, 4 mm in size, polyp of the hepatic flexure, 6 mm in size. PROCEDURE: Colonoscopy with polypectomy with hot biopsy forceps. SURGEON: Pedro Luis Wagner MD ANESTHESIA: Monitored anesthesia care. ESTIMATED BLOOD LOSS: Minimal. FINDINGS: Mild chronic stage II, external and internal hemorrhoids, polyp of the descending colon, 3 mm in size,polyp of the splenic flexure, 4 mm in size, polyp of the hepatic flexure, 6 mm in size. DISPOSITION: The patient tolerated the procedure well. INDICATIONS: The patient is a 62-year-old male referred over to us for screening colonoscopy. He has not had a colonoscopy up to this point in his life. He does not report any major issues with diarrhea, nor constipation as well as no red blood per rectum, nor any dark tarry stools. He states that for the past 2 weeks, he has had some diarrhea. He does have a first-degree family history of colon cancer with his brother being diagnosed with the disease in his late 50s. DESCRIPTION OF PROCEDURE: The patient was brought to the endoscopy suite and laid in the left lateral decubitus position. After adequate IV pain and sedative medications and monitored anesthesia care, a digital rectal examination was performed which revealed chronic stage II, external and internal hemorrhoids, not actively edematous nor inflamed and no bleeding. Normal sphincter tone was felt and there were no palpable masses. Prostate gland was palpable and appeared normal. The endoscope was then intubated into the anus, rectum gently insufflated. The endoscope was then advanced through the valves of Shepherd of the rectum with no polyps or any neoplasms identified. Through the sigmoid colon, no diverticulosis identified. At the descending colon, a small polyp approximately 3 mm in size was identified and this was biopsied and destroyed using forceps and electrocautery with visualization of good hemostasis. The endoscope was then advanced to the splenic flexure where a similar type of polyp approximately 4 mm in size identified. This was biopsied and destroyed with forceps and electrocautery. The endoscope was then advanced through the transverse colon to the hepatic flexure where a slightly larger polyp identified approximately 6 mm in size and this was biopsied and destroyed with forceps and electrocautery with visualization of good hemostasis. The endoscope was then advanced through the ascending colon to the cecum, which were normal. The endoscope was then slowly withdrawn while taking a second look and suctioning of any residual air. Patient tolerated the procedure well. We will recommend the necessary lifestyle and dietary accommodation, which would include a high-fiber diet with addition of a fiber supplement, which should equal or exceed 30 grams daily as well as significant amounts of water to promote soft consistency stools on a daily basis. We will have him follow up in the office in 2 weeks to discuss the pathology results of the 3 polyps identified and due to the findings of multiple polyps, which appeared to be th adenomatous variety of polyps as well as his first-degree family history of colon cancer, we will have him have proceed with a followup colonoscopy in 3 years. Job ID: [id number] DocumentID: [id number] Dictated Date: 02/14/2023 13:30:38 Urban Designer Date: 02/14/2023 17:48:00 Dictated By: PEDRO LUIS WAGNER MD MTDD
== END 2023-02-14 15:55 | disposition home or self-care (01) ==
LOC: ENDO 10:50
PROVIDERS: ATTEND Surgery
DX: Z12.11 Encounter for screening for malignant neoplasm of colon (principal); D12.4 Benign neoplasm of descending colon; D12.3 Benign neoplasm of transverse colon; K64.1 Second degree hemorrhoids; K64.4 Residual hemorrhoidal skin tags; Z80.0 Family history of malignant neoplasm of digestive organs; F17.210 Nicotine dependence, cigarettes, uncomplicated

== ENCOUNTER 2023-02-26 19:34 | Inpatient (IN) | payer MEDICAID ==
[~2023-02-26] VITALS: Ht 180.3 cm; Wt 72.3 kg
[2023-02-26] MEDS ORDERED: DexMEDEtomidine 250 ML DRIP 250 ML IV SCH (20:00)
[2023-02-26] MEDS ORDERED: D5 1/2 NS 1,000 ML IV 1,000 ML IV PRN (20:00)
[2023-02-26] MEDS ORDERED: diphenhydrAMINE INJ 50 MG/ML VIAL IVP PRN (20:00)
[2023-02-26] MEDS ORDERED: NS IV 500 ML 500 ML IV PRN (20:00)
[2023-02-26] MEDS ORDERED: diphenhydrAMINE 25 MG TABLET PO PRN (20:00)
[2023-02-26] MEDS ORDERED: ANTACID SUSPENSION 30 ML UDC PO PRN ×2 (20:00)
[2023-02-26] MEDS ORDERED: ONDANSETRON 4 MG (ZOFRAN) ORAL DISSOLVE TAB SL PRN (20:00)
[2023-02-26] MEDS ORDERED: PHARMACY TO DOSE IV SCH (20:00)
[2023-02-26] MEDS ORDERED: ACETAMINOPHEN 325 MG TABLET PO PRN (20:00)
[2023-02-26] MEDS ORDERED: BISACODYL 10 MG SUPPOSITORY PR PRN (20:00)
[2023-02-26] MEDS ORDERED: ONDANSETRON 4 MG (ZOFRAN) ORAL DISSOLVE TAB PO PRN (20:00)
[2023-02-26] MEDS ORDERED: 1/2 NS IV SOLUTION 1000 ML 1,000 ML IV PRN (20:00)
[2023-02-26] MEDS ORDERED: polyethylene glycoL POWDER 17 GM (MIRALAX) PACK PO PRN (20:00)
[2023-02-26] MEDS ORDERED: CALCIUM CARBONATE 500 MG CHEW TABLET PO PRN (20:00)
[2023-02-26] MEDS ORDERED: ONDANSETRON 4 MG/2 ML (SDV) Z0FRAN IV PRN ×2 (20:00)
[2023-02-26] MEDS ORDERED: MILK OF MAGNESIA 400 MG/5 ML 30 ML UDC PO PRN (20:00)
[2023-02-26] MEDS ORDERED: SENNA W/DOCUSATE (SENOKOT S) TABLET PO PRN (20:00)
[2023-02-26] MEDS ORDERED: morphine INJ 4 MG/ML 1 ML (VIAL/SYRINGE) IV PRN (20:00)
[2023-02-26] MEDS ORDERED: LACTULOSE SYRUP 10GM/15ML 30ML UDC PO PRN (20:00)
[2023-02-26] MEDS ORDERED: LORazepam 1 MG TABLET PO PRN (20:00)
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
[2023-02-26] MEDS: inSUlin ASPART 1 UNIT/0.01 ML (PER UNIT) SC SCH (21:00)
[2023-02-26] MEDS: MAGNESIUM OXIDE 400 MG TABLET PO SCH ×2 (22:00→23:54)
[2023-02-26] MEDS: SENNOSIDES 8.6 MG (SENOKOT) TAB PO SCH (22:00)
[2023-02-26] MEDS: DOCUSATE SODIUM 100 MG CAPSULE PO SCH (22:00)
[2023-02-26] MEDS ORDERED: VANCOMYCIN 1500MG/300ML PREMIX IV ONE (23:15)
[2023-02-26] MEDS: NS IV 1000 ML 1,000 ML IV SCH (23:43)
[2023-02-26] MEDS: MEROPENEM INJECTION 500 MG in NS (IVPB) 100 ML 100 ML IV SCH (23:55)
[2023-02-27] MEDS: VANCOMYCIN 1250 MG/NS 250 ML PREMIX IV SCH ×2 (02:08→15:38)
[2023-02-27] MEDS: NS IV 1000 ML 1,000 ML IV SCH ×3 (02:09→17:18)
[2023-02-27 03:12] VITALS: BP 130/98
[2023-02-27] MEDS ORDERED: RT-Ipratropium/Albuterol NEB 3 ML VIAL INH PRN (03:30)
[2023-02-27 05:32] LABS: BASOPHILS % (AUTO) 0 % (0-10); EOSINOPHILS % (AUTO) 0 % (0-10); HEMATOCRIT 41 % (40-54); HEMOGLOBIN 14.2 g/dL (13.3-17.7); LYMPHOCYTES # (AUTO) 1.3 10^3/uL (1.0-4.0); LYMPHOCYTES % (AUTO) 7 % (12-44); MEAN CORPUSCULAR HEMOGLOBIN 33 pg (25-34); MEAN CORPUSCULAR HGB CONC 35 g/dL (32-36); MEAN CORPUSCULAR VOLUME 96 fL (80-99); MEAN PLATELET VOLUME 10.2 fL (9.0-12.2); MONOCYTES # (AUTO) 1.1 10^3/uL (0.0-1.0); MONOCYTES % (AUTO) 6 % (0-12); NEUTROPHILS # (AUTO) 16.4 10^3/uL (1.8-7.8); NEUTROPHILS % (AUTO) 87 % (42-75); PLATELET COUNT 164 10^3/uL (130-400)
[2023-02-27 05:47] LABS: ALBUMIN 2.5 GM/DL (3.2-4.5); POTASSIUM 3.9 MMOL/L (3.6-5.0)
[2023-02-27 05:48] LABS: CALCIUM 7.9 MG/DL (8.5-10.1)
[2023-02-27 05:50] LABS: TOTAL PROTEIN 6.1 GM/DL (6.4-8.2)
[2023-02-27 05:51] LABS: BILIRUBIN,TOTAL 1.1 MG/DL (0.1-1.0)
[2023-02-27 05:53] LABS: CREATININE SERUM 0.72 MG/DL (0.60-1.30); PHOSPHORUS 2.1 MG/DL (2.3-4.7)
[2023-02-27 05:56] LABS: MAGNESIUM 1.7 MG/DL (1.6-2.4)
[2023-02-27] MEDS ORDERED: MAGNESIUM 1 GM/100 ML IVPB 100 ML IV SCH (06:00)
[2023-02-27] MEDS ORDERED: POTASSIUM CHLORIDE 20 MEQ TABLET PO SCH (06:00)
[2023-02-27 06:15] LABS: LYMPHOCYTES % (MANUAL) 7 %; MONOCYTES % (MANUAL) 6 %; NEUTROPHILS % (MANUAL) 87 %; RBC MORPH NORMAL
--- NOTE | 2023-02-27 06:16 | Diagnostic Imaging Report ---
INDICATION: 62-year-old male shortness of breath. COMPARISONS: 02/20/2022 FINDINGS: Single view chest shows the cardiac contour to be normal. There is a right IJ central line. There are some confluent densities seen in the lateral aspect left chest. There is no effusion or pneumothorax. Soft tissues and bony thorax are unremarkable. IMPRESSION: 1. Consolidated density seen in the lateral chest suggesting possible masslike lesions. CT chest is recommended. 2. Right IJ central line with tip projected over SVC. 3. Spinal instrumentation seen at the cervicothoracic level have been removed in the interim. Dictated by: Dictated on workstation # [id number]
[2023-02-27] MEDS: THIAMINE 100 MG (VITAMIN B-1) TAB PO SCH (06:20)
[2023-02-27] MEDS: inSUlin ASPART 1 UNIT/0.01 ML (PER UNIT) SC SCH (06:20)
[2023-02-27] MEDS: THERAPEUTIC MULTIVITAMIN W/MINERALS TABLET PO SCH (06:21)
[2023-02-27] MEDS: MAGNESIUM 1 GM/100 ML IVPB 100 ML IV SCH ×3 (06:23→12:52)
[2023-02-27] MEDS: MEROPENEM INJECTION 500 MG in NS (IVPB) 100 ML 100 ML IV SCH ×3 (06:23→17:17)
[2023-02-27] MEDS: POTASSIUM CL 10MEQ/50ML IVPB 50 ML IV SCH ×2 (06:23→09:19)
[2023-02-27] MEDS: RT-Ipratropium/Albuterol NEB 3 ML VIAL INH SCH ×2 (07:44→20:22)
[2023-02-27] MEDS ORDERED: IOHEXOL 350 MG/ML 100 ML (OMNIPAQUE 350) VIAL IV ONE (08:30)
[2023-02-27] MEDS ORDERED: HOLD METFORMIN - RECEIVED CONTRAST 20 ML VIAL IV SCH (08:30)
[2023-02-27] MEDS ORDERED: NS 100 ML (IVPB) BAG IV ONE (08:30)
[2023-02-27] MEDS: SENNOSIDES 8.6 MG (SENOKOT) TAB PO SCH ×2 (09:00→20:34)
[2023-02-27] MEDS: DOCUSATE SODIUM 100 MG CAPSULE PO SCH ×2 (09:00→20:34)
[2023-02-27] MEDS: MAGNESIUM OXIDE 400 MG TABLET PO SCH ×2 (09:00→20:34)
[2023-02-27] MEDS: FOLIC ACID 1 MG TAB PO SCH (09:00)
[2023-02-27 09:05] LABS: ABG BASE EXCESS -4.8 MMOL/L (-2.5-2.5); ABG OXYGEN SATURATION 99 % (94-100); ABG PCO2 32 MMHG (35-45); ABG PO2 92 MMHG (79-93); ABG TCO2 20.3 MMOL/L (21.0-31.0)
[2023-02-27 09:06] LABS: PATIENT TEMP 36.6
[2023-02-27] MEDS: THIAMINE INJECTION 100 MG, FOLIC ACID INJECTION 1 MG, MAGNESIUM SULFATE 2 GM, MULTIVITA... IV SCH ×5 (09:18)
[2023-02-27] MEDS: ENOXAPARIN 40 MG/0.4 ML SYRINGE SC SCH (09:19)
--- NOTE | 2023-02-27 09:31 | ST Dysphagia Evaluation ---
Speech Evaluation-General Medical Diagnosis Acute encephalopathy Onset Date: Feb 26, 2023 Therapy Diagnosis Therapy Diagnosis: oropharyngeal dysphagia Precautions Precautions: Fall, Pressure Ulcer, Aspiration Precautions/Isolations: Aspiration, Fall Prevention, Standard Precautions, Pressure Ulcer Referral Referring Physician: Saumya Campo Reason for Referral: Evaluation/Treatment Medical History Pertinent Medical History: Alcoholism, CVA, HTN, Hypothroidism, Neuropathy, Smoking Per MD: Surgeries: Orthopedic Cardiac: High Cholesterol, Hypertension Neurological: Headaches /Migraines, Neuropathy, Stroke, TIA Gastrointestinal: Liver Disease/Jaundice, Hepatitis Musculoskeletal: Arthritis, Back Injury, Chronic Back Pain Endocrine: Hypothyroidsim Psychosocial: Depression History of Blood Disorders: No Current History Per MD: CC: Acute encehalopathy found down at home transferred for higher level of care from [facility] [place] [place] [facility] HPI: This is a 62yoWM of [facility] who is known to me from prior ARU admit 11/2022 following spine abscess evacuation with hardware removal who has a h/o left sided weakness from prior CVA who was found down today at home after a fall per patient. Patient is very confused and unable to obtain any reliable details. No family came with him and EMS was unsure who called EMS. Left thigh pressure ulcer draining serous drainage noted along with other areas of pressure ulcers of left side of scalp and right lateral leg in healing stages. He was found to have PNA and sepsis with elevated wbc of 28k and acute rhabdomyolysis. His ABG appeared to be stable. Acute encephalopathy Sepsis Lactic acidosis Pneumonia Acute rhabdomyloysis with CPK 2345 on ER lab Profound dehydration Found down Recent fall Left lateral upper thigh acute pressure ulcer with serous drainage Chronic left sided weakness from remote CVA Current smoker THC on UDS h/o alcoholism possible withdrawal placed on CIWA COPD BPH Reviewed History: Yes Social History Home: Single Level Current Living Status: Alone Speech PLF/Current-Dysphagia Prior Level of Function regular diet, independent Subjective Pt was sitting upright in bed, sleeping upon B[employer]NUT entry. Pt woke to verbal/visual stimuli. Pt was willing to participate and cooperative during ST bedside swallow evaluation. Pt was confused and c/o "bugs in bed". Pt was able to follow simple 1 step directions. Cognitive Status Patient Orientation: Confused, Mumbles Oral Motor Skills Dentition: Edentalous, Natural Ability to Follow Directions: Fair Oral Expression Ability: Moderate Impairment Voice Voice Phonatory-Based Quality: Hoarse, Weak Voice Pitch: Normal Voice Loudness: Moderately Soft/Quiet Face Facial Symmetry: Asymmetrical Oral-Facial Assessment Oral-Facial Dentition: Teeth Labial Seal Description: Weak, Poor Coordination Smile: Reduced ROM, Poor Coordination Puff Cheeks: Reduced Strength Lingual Protrusion: Abnormal Lingual ROM: Abnormal Lingual Strength: Abnormal Pharynx Velopharyngeal Move.: Weak on Left Volitional Dry Swallow: Yes Voluntary Cough: Yes weak Can Clear Throat Volitionally: Yes weak Productive Cough: Yes weak Productive Throat Clear: Yes Prod Throat Clearing Comments: weak Dysphagia Evaluation Consistencies Presented: Thin Liquid, Mechanical Soft, Volin Thick Liquid, Honey Thick Liquid, Pureed Oral Phase: Oral Residue, Reduced Oral Transit Pharyngeal Phase: Multiple Swallow Attempts, Clears Throat, Delayed Laryngeal Elevation, Delayed Swallow Funct. Velo/Pharyngeal Symptom: Clears Throat, Wet Voice Dietary Recommendations: Pureed Liquid Recommendations: Volin Consistancy Pt tolerated all trials of puree solids and nectar thick liquid via spoon. Pt requires frequent verbal cues to initiate swallow and "swallow hard". Pt demonstrated holding and oral residue of mech soft consistencies with delayed swallow initiation. Pt tolerated all trials of nectar and honey thick liquids as well as ice chip trials. Pt presented with thin liquid via spoon and straw, but demonstrated wet vocal quality following thin liquid trials suggesting possible aspiration. Diet recommendation: puree solids with nectar thick liquids via spoon and ice chips as tolerated. Swallowing Precautions: Alternate Liquids/Solids, Decreased Bolus 1/4 Tsp, Liquids from Spoon, Oral Supervision Staff, Small Bites and Sips, Sitting Upright 90 Degrees, Sitting 90 Degrees 30 Post Intake Dysphagia Evaluation Summary Pt tolerated puree solids and nectar thick liquids via spoon. Ice chips may be given as tolerated for hydration. IDDSI level 4 and level 2 diet recommended at this time. Barriers to Learning confusion, fatigue Speech-Plan Patient/Family Goals Patient/Family Goals: diet advancement Treatment Plan Speech Therapy Treatment Plan: Discontinue ST diet will be monitored by nursing staff. ST services may be resumed with adequate staffing and interest in diet advancement per patient and nursing staff request Treatment Duration: Feb 27, 2023 Frequency: 1 time per month Estimated Hrs Per Day: .5 hour per day Rehab Potential: Guarded Barriers to Learning: fatigue, confusion Pt/Family Agrees to Plan: Yes Safety Risks/Education Teaching Recipient: Patient Teaching Methods: Discussion Response to Teaching: Verbalize Understanding Education Topics Provided: current diet level, safe swallow precautions (e.g. sitting upright 90 degrees, small bites/sips, alternating consistencies, double swallow, etc). Discharge Recommendations Home & Family Time Speech Therapy Time In: 08:45 Speech Therapy Time Out: 09:25 DATE: Feb 27, 2023 Total Billed Time: 40 Billed Treatment Time 1, KHALIDA B[place] Feb 27, 2023 09:31
--- NOTE | 2023-02-27 11:11 | Progress Note - Hospitalist ---
LINNEATORITO 02/27/23 1111: Subjective HPI/CC On Admission Date Seen by Provider: Feb 27, 2023 Time Seen by Provider: 08:30 CC: Acute encehalopathy found down at home transferred for higher level of care from [facility] [place] HPI: This is a 62yoWM of [facility] who is known to me from prior ARU admit 11/2022 following spine abscess evacuation with hardware removal who has a h/o left sided weakness from prior CVA who was found down today at home after a fall per patient. Patient is very confused and unable to obtain any reliable details. No family came with him and EMS was unsure who called EMS. Left thigh pressure ulcer draining serous drainage noted along with other areas of pressure ulcers of left side of scalp and right lateral leg in healing stages. He was found to have PNA and sepsis with elevated wbc of 28k and acute rhabdomyolysis. His ABG appeared to be stable. Subjective/Events-last exam In the initial visit he seemed more confused and unwilling to talk to me or the nurses when asked questions, he said he was in pain. He could answer that he knew his name, but midway through answering how he was doing he started mumbling did not continue to respond to questions. He looked very tired. During the second visit about 30 min later he was more engaged and could answer simple questions about how he was doing and if he needed anything. The patient says he feels better today than yesterday, but he is still very tired and weak. He is still hard of hearing but is now able to swallow and ingest thick liquids and soft foods. He is on IV vancomycin and meropenem. Objective Exam Vital Signs Vital Signs Date Time Temp Pulse Resp B/P (MAP) Pulse Ox O2 Delivery O2 Flow Rate FiO2 02/27/23 09:00 95 20 107/64 (78) 96 Nasal Cannula 2.00 02/27/23 07:55 36.6 Capillary Refill : General Appearance: Chronically ill, Mild Distress, Other (confused and lethargic ) Cardiovascular: No Edema Gastrointestinal: Normal Bowel Sounds Neurologic/Psychiatric: Alert, Disoriented, Motor Weakness Skin: Normal Color, Tattoos/Piercings Results/Procedures Lab Laboratory Tests 02/27/23 05:15 Patient resulted labs reviewed. Assessment/Plan Assessment and Plan Assess & Plan/Chief Complaint Assessment: acute encephalopathy pneumonia sepsis acute rhabdomyolysis recent fall COPD Left lateral thigh acute pressure ulcer current smoker history of aloholism COPD BPH Plan: continue IVF for rhabdomyolsis continue IV antibiotics keep in ICU and continue monitoring Follow up on CT and chest x-ray SAUMYA RODRIGUEZ DO 02/28/23 0519: Supervisory-Addendum Brief Verification & Attestation Participated in pt care: history, MDM, physical Personally performed: exam, history, MDM, supervision of care Care discussed with: Medical Student Procedures: n/a Results interpretation: Verified all documentation Verification and Attestation of Medical Student E/M Service A medical student performed and documented this service in my presence. I reviewed and verified all information documented by the medical student and made modifications to such information, when appropriate. I personally performed the physical exam and medical decision making. Saumya Rodriguez, Feb 28, 2023,05:18 [place] Feb 27, 2023 11:11 SAUMYA RODRIGUEZ DO Feb 28, 2023 05:19
--- NOTE | 2023-02-27 11:18 | Physical Therapy Progress Note ---
Therapy Progress Note Per RN, patient received IV Ativan due to agitation. PT will attempt later today or tomorrow RAVEN Campbell PT Feb 27, 2023 11:18
--- NOTE | 2023-02-27 11:53 | Tele-ICU Progress Note ---
Subjective Date Seen by a Provider: Feb 27, 2023 Time Seen by a Provider: 11:52 Subjective/Events-last exam (Tele-ICU Physician , Progress Note) Service provided via interactive audio and video telecommunications [facility] to a patient admitted to ICU bed in [facility]. Patient is seen today due to persistent need of ICU care. Available chart/ vitals / labs / Images reviewed Video assessment done using teleICU camera, rest of exam as per RN Hospital course: 62 y/o M hx of CVA with residual left sided weakness and spine abscess s/p hardware removal who presented to ED with confusion after fall. In ER labs notable for leukocytosis and elevated CK. Admitted to ICU for possible sepsis. Discussed with RN Events overnight : Afebrile Hemodynamically stable 02/27: Plan for CT chest given findings on CXR. Will add CT head given history of fall. A/P: Acute encephalopathy: Resolved. Per nursing patient with no confusion. A&OX3. -Obtain CT head given hx of fall -Cont Thiamine B12 Transaminitis: AST elevated to 106. Likely in setting of alcohol use. -Monitor Leukocytosis likely 2/2 pneumonia. -Cultures sent -CXR shows consolidated density seen in the lateral chest suggesting possible masslike lesions infiltrate. -CT chest today. -Cont broad spectrum antibiotics Lines : periph , (Central Line Necessity Reviewed) Gupta:- Nutrition: general Analgesia: Anxiety/ delirium: NTD VTE Prophylaxis: hep sq Stress Ulcer Prophylaxis: - Plans in collaboration with bedside consultants and IM MDs. Discussed with RN to reach out if any questions or concerns Case and care daily discussed on multidisciplinary rounds ( RN, PharmD, Soldering Machine Feeder, Respiratory Therapy, terrazzo worker helper) A total of 15 minutes of critical care time was devoted to this patient today, required to treat and/or prevent further deterioration of critical care condition (as above) I am remotely monitoring this patient from another state. I am unable to do the bedside exam, and history/physical and pertinent information is taken from other notes in the computer and bedside staff. Sepsis Event Evaluation Height, Weight, BMI Height: 5'11.00" Weight: 170lbs. 9.0oz. 77.903730fl; 21.71 BMI Method:Stated Exam Exam Patient acknowledged, consented, and participated in this virtual visit which was conducted using real time audio/video Vital Signs Date Time Temp Pulse Resp B/P (MAP) Pulse Ox O2 Delivery O2 Flow Rate FiO2 02/27/23 11:32 36.1 02/27/23 11:00 71 24 118/75 (89) 98 Nasal Cannula 2.00 02/27/23 10:00 81 24 113/64 (80) 97 Nasal Cannula 2.00 02/27/23 09:00 95 20 107/64 (78) 96 Nasal Cannula 2.00 02/27/23 08:00 97 Nasal Cannula 2.00 02/27/23 08:00 101 23 108/66 (80) 96 Nasal Cannula 2.00 02/27/23 07:55 36.6 02/27/23 07:44 96 Nasal Cannula 2.00 02/27/23 07:00 95 18 105/85 (92) 96 Nasal Cannula 2.00 02/27/23 07:00 93 02/27/23 06:00 90 28 103/78 (86) 96 Nasal Cannula 2.00 02/27/23 05:00 95 25 116/64 (81) 96 Nasal Cannula 2.00 02/27/23 04:00 89 26 113/69 (84) 96 Nasal Cannula 2.00 02/27/23 04:00 98 Nasal Cannula 2.00 02/27/23 03:12 36.7 84 92 02/27/23 03:00 96 26 98/69 (79) 94 Nasal Cannula 2.00 02/27/23 02:00 81 27 103/73 (83) 99 Nasal Cannula 2.00 02/27/23 01:15 98 Nasal Cannula 2.00 02/27/23 01:00 84 02/27/23 01:00 84 23 114/73 (87) 98 Nasal Cannula 2.00 02/27/23 00:00 85 17 121/85 (93) 98 Nasal Cannula 2.00 02/27/23 00:00 94 Nasal Cannula 2.00 02/26/23 23:45 81 25 129/95 (113) 99 Nasal Cannula 2.00 02/26/23 23:30 81 21 115/88 (97) 100 Nasal Cannula 2.00 02/26/23 23:15 88 20 116/74 (90) 99 Nasal Cannula 2.00 02/26/23 23:00 80 33 122/77 (95) 98 Nasal Cannula 2.00 02/26/23 22:45 80 30 107/68 (80) 99 Nasal Cannula 2.00 02/26/23 22:30 81 26 111/74 (87) 98 Nasal Cannula 2.00 02/26/23 22:29 92 Nasal Cannula 2.00 02/26/23 22:15 81 29 113/66 (84) 99 Nasal Cannula 2.00 02/26/23 22:00 81 27 113/73 (89) 98 Nasal Cannula 2.00 02/26/23 21:45 82 25 114/75 (92) 95 Nasal Cannula 2.00 02/26/23 21:37 88 02/26/23 21:30 36.7 84 24 130/98 (109) 92 Nasal Cannula 2.00 I & O 02/27/23 07:00 Intake Total 0 ml Output Total 1200 ml Balance -1200 ml Height & Weight Height: 5'11.00" Weight: 170lbs. 9.0oz. 77.388359np; 21.71 BMI Method:Stated General Appearance: WD/WN, Anxious, Chronically ill, Moderate Distress, Other (confused, very debilitated, rolling eyes backwards) HEENT: PERRL/EOMI, Normal ENT Inspection, Pharynx Normal, Other (dry MM) Neck: Full Range of Motion, Normal Inspection, Non Tender, Supple, Carotid Bruit Respiratory: Chest Non Tender, Lungs Clear, No Accessory Muscle Use, No Respiratory Distress, Decreased Breath Sounds Cardiovascular: No Edema, No Gallop, No JVD, No Murmur, Normal Peripheral Pulses, Tachycardia Extremity: Normal Capillary Refill, Normal Inspection, Normal Range of Motion, Non Tender, No Calf Tenderness, No Pedal Edema Neurologic/Psychiatric: Alert, Motor Weakness (generalized with chronic left sided weakness) Skin: Normal Color, Warm/Dry, Other (ulcerations) Lymphatic: No Adenopathy Results Lab Laboratory Tests 02/27/23 05:15 Assessment/Plan Assessment/Plan . KISAH ALAN MD Feb 27, 2023 11:53
--- NOTE | 2023-02-27 12:41 | Diagnostic Imaging Report ---
PROCEDURE: CT head without contrast. TECHNIQUE: Multiple contiguous axial images were obtained through the brain without the use of intravenous contrast. Auto Exposure Controls were utilized during the CT exam to meet ALARA standards for radiation dose reduction. INDICATION: Stroke follow-up. Fall, encephalopathy. COMPARISON: CT of the head on 02/20/2022. FINDINGS: Redemonstration of encephalomalacia within the right MCA territory. Chronic calcification of the right MCA. No mass effect. No intracranial hemorrhage. No midline shift. The subarachnoid cisterns are maintained. The sella is normal. The globes and orbits are normal. The right mastoids and paranasal sinuses are clear. There is mild left mastoid effusions. IMPRESSION: No acute intracranial hemorrhage. No large vascular territory coles-white loss. No intracranial mass, midline shift, or hydrocephalus. Redemonstration of large right MCA territory encephalomalacia. Chronic calcification of the right MCA. Dictated by: Dictated on workstation # [id number]
[2023-02-27] MEDS: LevETIRAcetam INJECTION 500 MG in NS (IVPB) 100 ML 100 ML IV SCH ×2 (12:53→20:34)
--- NOTE | 2023-02-27 12:55 | Diagnostic Imaging Report ---
PROCEDURE: CT chest with contrast only. TECHNIQUE: Multiple contiguous axial images were obtained through the chest after administration of intravenous contrast. Auto Exposure Controls were utilized during the CT exam to meet ALARA standards for radiation dose reduction. INDICATION: Chest masses COMPARISON: Chest x-ray from the same day FINDINGS: The heart is mildly large. There is no pericardial effusion. No mediastinal adenopathy is seen. There is no axillary adenopathy. There is a right central line in the SVC. The ascending aorta measures 4.3 cm in diameter. There are trace pleural effusions with dependent atelectasis bilaterally. There is extensive groundglass and airspace opacity throughout the left lung, particularly in the periphery. These are nonspecific. There are old rib deformities bilaterally. No acute fracture is seen. There are degenerative changes throughout the spine with findings of diffuse idiopathic skeletal hyperostosis. Imaged portions of the upper abdomen demonstrate calcified stones in the gallbladder. IMPRESSION: 1. Extensive nonspecific groundglass and airspace opacities in the left lung, most likely due to infection. This could also be due to an inflammatory process or hemorrhage. Underlying malignancy is not excluded, but thought less likely. Recommend followup to resolution. 2. Ascending aorta aneurysm. Mild cardiomegaly. 3. Cholelithiasis. Dictated by: Dictated on workstation # [id number]
--- NOTE | 2023-02-27 13:03 | Occ Therapy Progress Note ---
Therapy Progress Note Per RN, patient received IV Ativan due to agitation. Will monitor patient for appropriateness for evaluation RENITA COUGHLIN OT Feb 27, 2023 13:03
--- NOTE | 2023-02-27 13:53 | Wound Care Assessment ---
Wound Care Assessment Date Seen by Provider: Feb 27, 2023 Time Seen by Provider: 13:47 Chief Complaint Left hip, leg pressure ulcers HPI This 62 year old gentleman was admitted to the hospital after EMS was called to his home when he was found down. He is uncertain as to the timing of his fall and loss of consciousness. He denies that pressure ulcers were present prior to fall but it should be noted that he is quite somnalent and I am uncertain as to his historical accuracy. Anupam is known to me from prior outpatient evaluation for infected hardware which was subsequently removed. 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 He also has a long h/o ETOH and opiate abuse. Prior use of 1/2 pint vodka daily. Currently on CIWA protocol. He is also a long time 1/2 ppd smoker with a remote h/o meth abuse. He is noted to have moderate PEM on this admission as well. CXR concerning for possible mass and he does also exhibit rhabdomyalysis from his fall with immobility. On exam today he has 2 pressure ulcers to left hip and lower leg. The hip appears stage 3 but the leg is unstageable currently. I am concerned with the hip ulcer as once blister was removed it continues to feel fluctuance. He denies hardware or surgeries to this area in past. I plan to check ESR and CRP along with plain films of left hip. Will treat with santyl currently. Smoking Status: Current Everyday Smoker Recreational Drug Use: No (history of methamphetamine abuse) Alcohol Use: Regular Use (1/2 pink vodka daily in past) Review of Systems Other systems Unable to obtain due to mental status changes Exam Vital Signs Date Time Temp Pulse Resp B/P (MAP) Pulse Ox O2 Delivery O2 Flow Rate FiO2 02/27/23 12:00 96 Nasal Cannula 2.00 02/27/23 11:32 36.1 02/27/23 11:00 71 24 118/75 (89) Capillary Refill : General Appearance: no apparent distress HEENT: other (hearing wnl) Neck: full range of motion Respiratory: no respiratory distress, no accessory muscle use Extremities: pedal edema Neurologic/Psychiatric: other (poor historian, somnalent) Skin Problem Location: lower extremities Skin Character: bullous, drainage, erythema Wound assessment: 1. L. hip: 6x4.5x0.1cm. The epithelialization is none. There is no tunneling or undermining. Drainage is large and serous. Granulation is none. Necrotic is small and slough. Margins flat. Blister deroofed. Ulcer bed fluctuant 2. L. lower lateral le.3x2.3x0.1cm. The epithelialization is none. There is no tunneling or undermining. Drainage is large and serous. Granulation is none. Necrotic is large and slough. Margins flat. Results Laboratory Tests 02/27/23 05:15: White Blood Count 19.0H, Red Blood Count 4.31, Hemoglobin 14.2, Hematocrit 41, Mean Corpuscular Volume 96, Mean Corpuscular Hemoglobin 33, Mean Corpuscular Hemoglobin Concent 35, Red Cell Distribution Width 13.3, Platelet Count 164, Mean Platelet Volume 10.2, Immature Granulocyte % (Auto) 0, Neutrophils (%) (Auto) 87H, Lymphocytes (%) (Auto) 7L, Monocytes (%) (Auto) 6, Eosinophils (%) (Auto) 0, Basophils (%) (Auto) 0, Neutrophils # (Auto) 16.4H, Lymphocytes # (Auto) 1.3, Monocytes # (Auto) 1.1H, Eosinophils # (Auto) 0.0, Basophils # (Auto) 0.0, Immature Granulocyte # (Auto) 0.1, Neutrophils % (Manual) 87, Lymphocytes % (Manual) 7, Monocytes % (Manual) 6, Blood Morphology Comment NORMAL, Sodium Level 142, Potassium Level 3.9, Chloride Level 114H, Carbon Dioxide Level 20L, Anion Gap 8, Blood Urea Nitrogen 15, Creatinine 0.72, Estimat Glomerular Filtration Rate 104, BUN/Creatinine Ratio 21, Glucose Level 78, Calcium Level 7.9L, Corrected Calcium 9.1, Phosphorus Level 2.1L, Magnesium Level 1.7, Total Bilirubin 1.1H, Aspartate Amino Transf (AST/SGOT) 106H, Alanine Aminotransferase (ALT/SGPT) 34, Alkaline Phosphatase 69, Ammonia 30, Total Creatine Kinase 2501H, Total Protein 6.1L, Albumin 2.5L, Serum Alcohol < 10 02/27/23 05:20: Glucometer 78 02/27/23 08:54: Blood Gas Puncture Site , Blood Gas Patient Temperature 36.6, Arterial Blood pH 7.40, Arterial Blood Partial Pressure CO2 32L, Arterial Blood Partial Pressure O2 92, Arterial Blood HCO3 19L, Arterial Blood Total CO2 20.3L, Arterial Blood Oxygen Saturation 99, Arterial Blood Base Excess -4.8L, Flavio Test , Blood Gas Ventilator Setting , Blood Gas Inspired Oxygen 02/27/23 09:40: Glucometer 88 02/27/23 11:41: Glucometer 134H Assessment/Plan/Dx Assessment: 1. Unstageable pressure ulcer L. lateral lower leg 2. Stage 3 pressure ulcer Left hip/thigh 3. Moderate PEM 4. Fall and found down 5. ETOH abuse 6. Opiate abuse 7. h/o ICH with left hemiparalysis 8. AMS due to sepsis 9. Rhabdomyalysis Plan: /. Cleanse daily with vashe. Apply thick layer santyl. Secure with BFD and change daily. Frequent positional changes and cushioning to off load. Plain film left hip rule out osteomyelitis 3. Protein supplementation indicated 4. Defer to primary team 5. Defer to primary team 6. Defer to primary team 7. Off loading accordingly 8. Defer to primary team. Agree with antibiotics. 9. Defer to primary team VINCE SAUCEDA MD Feb 27, 2023 13:53
--- NOTE | 2023-02-27 14:30 | Diagnostic Imaging Report ---
HIP, LEFT, 2 VIEWS INDICATION: Left hip pain COMPARISON: None available. TECHNIQUE: 2 views left hip FINDINGS: Moderate osteoarthritis of left hip. There is no acute fracture. Contrast is present within the urinary bladder from recent CT chest with contrast. Degenerative disc disease noted in the lumbar spine. IMPRESSION: 1. No acute fracture about the left hip. 2. Moderate osteoarthritis. Dictated by: Dictated on workstation # [id number]
[2023-02-27 16:23] VITALS: BP 136/86
[2023-02-27] MEDS: MICONAZOLE 2% POWDER 90 GM TOP SCH (17:18)
[2023-02-27] MEDS: HYPOCHLOROUS ACID/NaCl (VASHE) 250 ML IR SCH (17:18)
[2023-02-27] MEDS: COLLAGENASE OINTMENT 30 GM TUBE TP SCH (17:18)
[2023-02-27 19:00] VITALS: BP 118/63
[2023-02-27 23:45] VITALS: BP 117/72
[2023-02-28] MEDS: MEROPENEM INJECTION 500 MG in NS (IVPB) 100 ML 100 ML IV SCH ×5 (00:47→23:36)
[2023-02-28] MEDS ORDERED: TROUGH ORDER-PHARMACY XX NR (01:00)
[2023-02-28] MEDS: VANCOMYCIN 1250 MG/NS 250 ML PREMIX IV SCH ×2 (02:12→14:32)
[2023-02-28] MEDS: LORazepam 0.5 MG TABLET PO PRN ×2 (02:12→21:38)
[2023-02-28 04:12] VITALS: BP 128/82
[2023-02-28] MEDS: THIAMINE 100 MG (VITAMIN B-1) TAB PO SCH (05:23)
[2023-02-28] MEDS: NS IV 1000 ML 1,000 ML IV SCH ×2 (05:23→18:36)
[2023-02-28] MEDS: THERAPEUTIC MULTIVITAMIN W/MINERALS TABLET PO SCH (05:23)
[2023-02-28 05:43] LABS: BASOPHILS % (AUTO) 0 % (0-10); EOSINOPHILS # (AUTO) 0.1 10^3/uL (0.0-0.3); EOSINOPHILS % (AUTO) 0 % (0-10); HEMATOCRIT 41 % (40-54); HEMOGLOBIN 14.1 g/dL (13.3-17.7); LYMPHOCYTES # (AUTO) 1.1 10^3/uL (1.0-4.0); LYMPHOCYTES % (AUTO) 9 % (12-44); MEAN CORPUSCULAR HEMOGLOBIN 33 pg (25-34); MEAN CORPUSCULAR HGB CONC 35 g/dL (32-36); MEAN CORPUSCULAR VOLUME 95 fL (80-99); MEAN PLATELET VOLUME 10.2 fL (9.0-12.2); MONOCYTES # (AUTO) 0.9 10^3/uL (0.0-1.0); MONOCYTES % (AUTO) 8 % (0-12); NEUTROPHILS # (AUTO) 9.6 10^3/uL (1.8-7.8); NEUTROPHILS % (AUTO) 82 % (42-75); PLATELET COUNT 130 10^3/uL (130-400); WHITE BLOOD COUNT 11.7 10^3/uL (4.3-11.0)
[2023-02-28 05:59] LABS: ALBUMIN 2.4 GM/DL (3.2-4.5); BILIRUBIN,TOTAL 1.2 MG/DL (0.1-1.0); CREATININE SERUM 0.59 MG/DL (0.60-1.30); MAGNESIUM 1.9 MG/DL (1.6-2.4); POTASSIUM 3.7 MMOL/L (3.6-5.0)
[2023-02-28 07:59] VITALS: BP 140/82
[2023-02-28] MEDS: RT-Ipratropium/Albuterol NEB 3 ML VIAL INH SCH ×2 (08:15→21:19)
[2023-02-28] MEDS: LevETIRAcetam INJECTION 500 MG in NS (IVPB) 100 ML 100 ML IV SCH (09:01)
[2023-02-28] MEDS: DOCUSATE SODIUM 100 MG CAPSULE PO SCH ×2 (09:01→20:52)
[2023-02-28] MEDS: MAGNESIUM OXIDE 400 MG TABLET PO SCH ×2 (09:01→21:38)
[2023-02-28] MEDS: FOLIC ACID 1 MG TAB PO SCH (09:01)
[2023-02-28] MEDS: SENNOSIDES 8.6 MG (SENOKOT) TAB PO SCH ×2 (09:01→20:52)
[2023-02-28] MEDS: ENOXAPARIN 40 MG/0.4 ML SYRINGE SC SCH (09:02)
[2023-02-28] MEDS: MICONAZOLE 2% POWDER 90 GM TOP SCH ×2 (09:06→21:38)
--- NOTE | 2023-02-28 09:09 | Diagnostic Imaging Report ---
INDICATION: Dyspnea TECHNIQUE: Single view chest 3:19 AM CORRELATION STUDY: 02/27/2023 FINDINGS: Right IJ central line has been removed. Heart size and mediastinum are generally stable. Dense consolidated infiltrate-like opacity lateral left lung appears increased from prior. Old right rib fracture deformities. Benign-appearing sclerotic foci of the proximal right humerus. IMPRESSION: 1. Increasing dense opacity lateral left lung favors probable pneumonia. However, does warrant follow-up imaging until resolution to exclude underlying mass. Dictated by: Dictated on workstation # [id number]
[2023-02-28 11:20] VITALS: BP 134/92
[2023-02-28] MEDS: THIAMINE INJECTION 100 MG, FOLIC ACID INJECTION 1 MG, MAGNESIUM SULFATE 2 GM, MULTIVITA... IV SCH ×5 (11:36)
[2023-02-28] MEDS ORDERED: FLUO20CA48 PO (12:52)
[2023-02-28] MEDS ORDERED: TMSL.4C PO (12:52)
[2023-02-28] MEDS ORDERED: AMT10T PO (12:52)
[2023-02-28] MEDS ORDERED: TROUGH ORDER-PHARMACY XX ONE (13:00)
--- NOTE | 2023-02-28 13:39 | Progress Note - Hospitalist ---
ESCAMILLA 02/28/23 1339: Subjective HPI/CC On Admission Date Seen by Provider: Feb 28, 2023 Time Seen by Provider: 11:30 CC: Acute encehalopathy found down at home transferred for higher level of care from [facility] Subjective/Events-last exam When I saw the patient he was sitting up and eating some solid food. He appeared a lot better compared to when I initially met him and we were able to have full conversations. He no longer seemed to be in a state of confusion and asked about the leather wallet he had misplaced giving details about what it looked like and describing where in the room it could possibly be. There was no reported pain and he said he felt much better compared to yesterday, but he did have mild headache that started a few hours ago and did not go away by the time I saw him. Review of Systems General: No Chills, No Night Sweats; Fatigue HEENT: Head Aches Cardiovascular: No: Chest Pain, Palpitations Gastrointestinal: No: Abdominal Pain Neurological: Weakness Objective Exam Vital Signs Vital Signs Date Time Temp Pulse Resp B/P (MAP) Pulse Ox O2 Delivery O2 Flow Rate FiO2 02/28/23 11:20 36.3 90 20 134/92 (106) 95 Room Air 02/28/23 09:00 2.00 Capillary Refill : General Appearance: No Apparent Distress Neck: Normal Inspection Respiratory: Chest Non Tender, Lungs Clear, No Respiratory Distress Cardiovascular: No Edema, No JVD, Normal Peripheral Pulses Neurologic/Psychiatric: Alert, Oriented x3, Motor Weakness Skin: Normal Color, Warm/Dry Results/Procedures Lab Laboratory Tests 02/28/23 05:28 Patient resulted labs reviewed. Assessment/Plan Assessment and Plan Assess & Plan/Chief Complaint Assessment: acute encephalopathy pneumonia sepsis acute rhabdomyolysis recent fall COPD Left lateral thigh acute pressure ulcer current smoker history of aloholism COPD BPH Plan: continue IVF continue IV antibiotics keep in med surg floor and continue monitoring labs Follow up on CT and chest x-ray SAUMYA RODRIGUEZ DO 02/28/23 2016: Supervisory-Addendum Brief Verification & Attestation Participated in pt care: history, MDM, physical Personally performed: exam, history, MDM, supervision of care Care discussed with: Medical Student Procedures: n/a Results interpretation: Verified all documentation Verification and Attestation of Medical Student E/M Service A medical student performed and documented this service in my presence. I reviewed and verified all information documented by the medical student and made modifications to such information, when appropriate. I personally performed the physical exam and medical decision making. Saumya Rodriguez, Feb 28, 2023,20:15 ESCAMILLA Feb 28, 2023 13:39 SAUMYA RODRIGUEZ DO Feb 28, 2023 20:16
--- NOTE | 2023-02-28 15:26 | Occupational Therapy Eval ---
OT Evaluation-General/PLF Medical Diagnosis Admission Date Feb 26, 2023 at 21:27 Medical Diagnosis: Acute encephalopathy Onset Date: Feb 26, 2023 Therapy Diagnosis Therapy Diagnosis: weakness, confusion Height/Weight Height (Feet): 5 Height (Inches): 11.00 Weight (Pounds): 170 Weight (Ounces): 9.0 Precautions Precautions/Isolations: Seizure, Fall Prevention, Standard Precautions Referral Referral Reason: Evaluation/Treatment Medical History Pertinent Medical History: Alcoholism, CVA, HTN, Hypothroidism, Neuropathy, Smoking Additional Medical History 62yoWM of [facility], prior ARU admit 11/2022 following spine abscess evacuation with hardware removal who has a h/o left sided weakness from prior CVA who was found down at home after a fall per patient. Patient is very confused and unable to obtain any reliable details. No family came with him and EMS was unsure who called EMS. Left thigh pressure ulcer draining serous drainage noted along with other areas of pressure ulcers of left side of scalp and right lateral leg in healing stages. He was found to have PNA and sepsis with elevated wbc of 28k and acute rhabdomyolysis. His ABG appeared to be stable Current History Transferred from ICU to med/surg floor, LEFT UE Flaccid and edema present, painful to move, patient follows 50% commands to reposition and lift LUE for functional activity Social History Current Living Status: Alone unable to accurately determine, NOVEMBER 2022 ARU report Modified independent w/ ADL and mobility w/ AD.Patient is max assist for transfers and follows 50%, communication is slurred and difficult to understand ADL-Prior Level of Function SCALE: Activities may be completed with or without assistive devices. 0-Lvmmytzoio-gwuwplf completes the activity by him/herself with no assistance from a helper. 5-Set-up or Clean-up Assistance-helper sets up or cleans up; patient completes activity. [place] assists only prior to or following the activity. 4-Supervision or Touching Assistance-helper provides verbal cues and/or touching/steadying and/or contact guard assistance as patient completes activity. Assistance may be provided throughout the activity or intermittently. 3-Partial/Moderate Assistance-helper does LESS THAN HALF the effort. [place] lifts, holds or supports trunk or limbs, but provides less than half the effort. 2-Substantial/Maximal Assistance-helper does MORE THAN HALF the effort. [place] lifts or holds trunk or limbs and provides more than half the effort. 0-Qaeumjvli-dndqej does ALL the effort. Patient does none of the effort to complete the activity. Or, the assistance of 2 or more helpers is required for the patient to complete the activity. If activity was not attempted, code reason: 7-Patient Refused. 9-Not Applicable-not attempted and the patient did not perform the activity before the current illness, exacerbation or injury. 10-Not Attempted due to Environmental Limitations-(lack of equipment, weather restraints, etc.). 88-Not Attempted due to Medical Conditions or Safety Concerns. Self Care: Unknown Functional Cognition: Unknown OT Current Status Subjective Confused and calls therapist LEILANI and asks for joint. Mental Status/Objective Patient Orientation: Person Requires instruction to refrain from pulling lines Attachments: Gupta Catheter, IV, Oxygen Current Upper Extremity ROM RUE WFLS, LUE flaccid, Upper Extremity Coordination inpaired Upper Extremity Sensation impaired Upper Extremity Strength RUE WFLS, ADL-Treatment Eating (QC): 4 (OT arrived w/ small containers of food spilled on floor, patient unable to locate spoon and scoop food) Oral Hygiene (QC): 3 Shower/Bathe Self (QC): 88 Upper Body Dressing (QC): 3 Lower Body Dressing (QC): 1 On/Off Footwear (QC): 1 Toileting Hygiene (QC): 1 Education OT Patient Education: Correct positioning, Modified ADL techniques, Progress toward Goal/Update tx plan, Purpose of tx/functional activities, Reviewed precautions, Rehab process, Safety issues, Transfer techniques Teaching Recipient: Patient Teaching Methods: Demonstration, Discussion Response to Teaching: Unable to Comprehend, Reinforcement Needed OT Assisted Goals Paper Processing Machine Helper Goals Eating (QC): 5 Oral Hygiene (QC): 5 Toileting Hygiene (QC): 4 Shower/Bathe Self (QC): 4 Upper Body Dressing (QC): 5 Lower Body Dressing (QC): 4 On/Off Footwear (QC): 4 1=Demonstrate adherence to instructed precautions during ADL tasks. 2=Patient will verbalize/demonstrate understanding of assistive devices/modifications for ADL. 3=Patient will improve strength/tolerance for activity to enable patient to perform ADL's. OT Education/Plan Problem List/Assessment Assessment: Decreased Activ Tolerance, Decreased Safety Aware, Decreased UE Strength, Dependent Transfers, Impaired Bed Mobility, Impaired Cognition, Impaired Coordination, Impaired Funct Balance, Impaired Self-Care Skills, Restricted Funct UE ROM Discharge Recommendations Plan/Recommendations: Continue POC Therapy Discharge Recommendati: Post Acute OT Treatment Plan/Plan of Care Treatment,Training & Education: Yes Patient would benefit from OT for education, treatment and training to promote independence in ADL's, mobility, safety and/or upper extremity function for ADL's. Plan of Care: ADL Retraining, Cognitive Retraining, Concurrent Therapy, Functional Mobility, Group Exercise/Act as Ind, UE Funct Exercise/Act, UE Neuromus Re-Ed/Coord Treatment Duration: Mar 09, 2023 Frequency: 3 times per week (3-5 times per week) Estimated Hrs Per Day: .25 hour per day Rehab Potential: Guarded Time Start Time: 10:30 Stop Time: 10:50 DATE: Feb 28, 2023 Total Time Billed (hr/min): 20 Billed Treatment Time EVM 20 min RENITA COUGHLIN OT Feb 28, 2023 15:26
--- NOTE | 2023-02-28 15:43 | Physical Therapy Evaluation ---
PT Evaluation-General Medical Diagnosis Admission Date Feb 26, 2023 at 21:27 Medical Diagnosis: Acute encephalopathy Onset Date: Feb 26, 2023 Therapy Diagnosis Therapy Diagnosis: Gait deficit, strength deficit Height/Weight Height (Feet): 5 Height (Inches): 11.00 Weight (Pounds): 170 Weight (Ounces): 9.0 Precautions Precautions/Isolations: Seizure, Fall Prevention, Standard Precautions Weight Bear Status Right Lower Extremity: Right Full Weight Bearing Left Lower Extremity: Left Full Weight Bearing Referral Physician: Dr. Campo Reason for Referral: Evaluation/Treatment Medical History Pertinent Medical History: Alcoholism, CVA, HTN, Hypothroidism, Neuropathy, Smoking Reviewed History: Yes Social History Home: Apartment Current Living Status: Alone Entry Into Home: Level Entry Prior Prior Level of Function SCALE: Activities may be completed with or without assistive devices. 5-Iaqktmuytc-mppsdzf completes the activity by him/herself with no assistance from a helper. 5-Set-up or Clean-up Assistance-helper sets up or cleans up; patient completes activity. [place] assists only prior to or following the activity. 4-Supervision or Touching Assistance-helper provides verbal cues and/or touching/steadying and/or contact guard assistance as patient completes activity. Assistance may be provided throughout the activity or intermittently. 3-Partial/Moderate Assistance-helper does LESS THAN HALF the effort. [place] lifts, holds or supports trunk or limbs, but provides less than half the effort. 2-Substantial/Maximal Assistance-helper does MORE THAN HALF the effort. [place] lifts or holds trunk or limbs and provides more than half the effort. 1-Vnpincaiq-dsquxx does ALL the effort. Patient does none of the effort to complete the activity. Or, the assistance of 2 or more helpers is required for the patient to complete the activity. If activity was not attempted, code reason: 7-Patient Refused. 9-Not Applicable-not attempted and the patient did not perform the activity before the current illness, exacerbation or injury. 10-Not Attempted due to Environmental Limitations-(lack of equipment, weather restraints, etc.). 88-Not Attempted due to Medical Conditions or Safety Concerns. Bed Mobility: 6 Transfers (B,C,W/C): 6 Gait: 6 Indoor Mobility (Ambulation): Independent Stairs: Not Applicalbe Prior Device Use: Cane PT Evaluation-Current Subjective Patient lying supine in bed upon PT arrival, agreeable to treatment. Patient reports pain at 0/10. Objective Patient Orientation: Person ROM/Strength ROM Lower Extremities Left LE AROM compromised all planes secondary to previous CVA. Right LE AROM WFLS all planes Strength Lower Extremities Patient unable to perform MMT due to current cognitive levels however demonstrates 3+/5 or better all right LE planes and 2+/5 or less all left LE planes. Sensory Vision: Functional Hearing: Functional Sensation Right Lower Extremit: Intact Sensation Left Lower Extremity: Intact Transfers Roll Left to Right (QC): 2 Sit to Lying (QC): 2 Lying to Sitting/Side of Bed(Q: 2 Sit to Stand (QC): 2 Chair/Zmh-lu-Waxcu Xfer(QC): 2 Gait Does the Patient Walk?: No and Walking Goal IS indicated Mode of Locomotion: Walk Anticipated Mode of Locomotion: Walk Balance Sitting Static: Poor Sitting Dynamic: Poor Standing Static: Poor Standing Dynamic: Poor Assessment/Needs Patient tolerated treatment poorly. Patient very confused at this time. Patient requires max A for all bed mobility and transfers. Patient in chair post treatment with all needs met, call light in hand, nurse met, and chair alarm activated. Rehab Potential: Poor PT Rubber Tester Goals Nursing Home Goals PT Nursing Home Goals Time Frame: Mar 22, 2023 Roll Left & Right (QC): 4 Sit to Lying (QC): 4 Lying-Sitting on Side/Bed(QC): 4 Sit to Stand (QC): 4 Chair/Ppp-rq-Iajlu Xfer(QC): 4 Toilet Transfer (QC): 4 Does the Patient Walk: Yes Walk 10 feet (QC): 3 Walk 50ft with 2 Turns (QC): 2 Walk 150 ft (QC): 2 PT Plan Problem List Problem List: Activity Tolerance, Functional Strength, Safety, Balance, Gait, Transfer, Bed Mobility, ROM Treatment/Plan Treatment Plan: Continue Plan of Care Treatment Plan: Bed Mobility, Education, Functional Activity Rock, Functional Strength, Group Therapy, Gait, Safety, Therapeutic Exercise, Transfers Treatment Duration: Mar 22, 2023 Frequency: 6 times per week Estimated Hrs Per Day: .25 hour per day Patient and/or Family Agrees t: Yes Safety Risks/Education Patient Education: Transfer Techniques Teaching Recipient: Patient, Family Teaching Methods: Demonstration, Discussion Response to Teaching: Verbalize Understanding, Return Demonstration Time Time In: 1006 Time Out: 1025 DATE: Feb 28, 2023 Total Billed Treatment Time: 19 Total Billed Treatment Visit, JOSE KYLE PT Feb 28, 2023 15:43
[2023-02-28 16:48] VITALS: BP 155/87
[2023-02-28 19:50] VITALS: BP 115/58
[2023-02-28] MEDS: LevETIRAcetam 500 MG TABLET PO SCH (21:38)
[2023-02-28] MEDS: MELATONIN 3 MG TABLET PO PRN (21:38)
[2023-02-28] MEDS: oxyCODONE IMMEDIATE RELEASE 5 MG TABLET PO PRN (21:41)
[2023-02-28 23:42] VITALS: BP 146/81
[2023-03-01] MEDS: VANCOMYCIN 1250 MG/NS 250 ML PREMIX IV SCH (02:43)
[2023-03-01 03:05] VITALS: BP 134/84
[2023-03-01] MEDS: oxyCODONE IMMEDIATE RELEASE 5 MG TABLET PO PRN ×2 (05:55→20:14)
[2023-03-01] MEDS: COLLAGENASE OINTMENT 30 GM TUBE TP SCH (05:55)
[2023-03-01] MEDS: MEROPENEM INJECTION 500 MG in NS (IVPB) 100 ML 100 ML IV SCH ×4 (05:56→22:44)
[2023-03-01] MEDS: NS IV 1000 ML 1,000 ML IV SCH (05:58)
[2023-03-01] MEDS: THIAMINE 100 MG (VITAMIN B-1) TAB PO SCH (05:58)
[2023-03-01] MEDS: THERAPEUTIC MULTIVITAMIN W/MINERALS TABLET PO SCH (05:58)
[2023-03-01] MEDS: HYPOCHLOROUS ACID/NaCl (VASHE) 250 ML IR SCH (06:00)
[2023-03-01 06:39] LABS: ALBUMIN 2.4 GM/DL (3.2-4.5); BILIRUBIN,TOTAL 1.1 MG/DL (0.1-1.0); CALCIUM 7.9 MG/DL (8.5-10.1); CREATININE SERUM 0.55 MG/DL (0.60-1.30); MAGNESIUM 1.8 MG/DL (1.6-2.4); POTASSIUM 3.3 MMOL/L (3.6-5.0); TOTAL PROTEIN 5.9 GM/DL (6.4-8.2)
[2023-03-01] MEDS: RT-Ipratropium/Albuterol NEB 3 ML VIAL INH SCH ×2 (06:46→19:17)
[2023-03-01 07:34] VITALS: BP 117/73
[2023-03-01 08:41] LABS: BASOPHILS % (AUTO) 0 % (0-10); HEMATOCRIT 39 % (40-54); MEAN CORPUSCULAR VOLUME 93 fL (80-99)
[2023-03-01 08:42] LABS: EOSINOPHILS # (AUTO) 0.1 10^3/uL (0.0-0.3); EOSINOPHILS % (AUTO) 2 % (0-10); HEMOGLOBIN 13.7 g/dL (13.3-17.7); LYMPHOCYTES # (AUTO) 0.9 10^3/uL (1.0-4.0); LYMPHOCYTES % (AUTO) 10 % (12-44); MEAN CORPUSCULAR HEMOGLOBIN 33 pg (25-34); MEAN CORPUSCULAR HGB CONC 35 g/dL (32-36); MEAN PLATELET VOLUME 10.1 fL (9.0-12.2); MONOCYTES % (AUTO) 11 % (0-12); NEUTROPHILS # (AUTO) 7.1 10^3/uL (1.8-7.8); NEUTROPHILS % (AUTO) 77 % (42-75); PLATELET COUNT 142 10^3/uL (130-400); WHITE BLOOD COUNT 9.3 10^3/uL (4.3-11.0)
[2023-03-01] MEDS: ENOXAPARIN 40 MG/0.4 ML SYRINGE SC SCH (09:25)
[2023-03-01] MEDS: LevETIRAcetam 500 MG TABLET PO SCH ×2 (09:25→20:14)
[2023-03-01] MEDS: MAGNESIUM OXIDE 400 MG TABLET PO SCH (09:25)
[2023-03-01] MEDS: FOLIC ACID 1 MG TAB PO SCH (09:25)
[2023-03-01] MEDS: MICONAZOLE 2% POWDER 90 GM TOP SCH ×2 (09:26→20:14)
[2023-03-01] MEDS: SENNOSIDES 8.6 MG (SENOKOT) TAB PO SCH ×2 (09:26→20:10)
[2023-03-01] MEDS: THIAMINE INJECTION 100 MG, FOLIC ACID INJECTION 1 MG, MAGNESIUM SULFATE 2 GM, MULTIVITA... IV SCH ×5 (09:26)
[2023-03-01] MEDS: DOCUSATE SODIUM 100 MG CAPSULE PO SCH ×2 (09:26→20:09)
--- NOTE | 2023-03-01 10:07 | Physical Therapy Progress Note ---
Therapy Progress Note Patient declined PT on this date. PT attempted to educate patient on importance of OOB activity to improve strength, however, patient continued to decline. RAVEN ABRAHAM PT Mar 01, 2023 10:07
--- NOTE | 2023-03-01 10:18 | Diagnostic Imaging Report ---
CHEST 1 VIEW, AP/PA ONLY Indication: Dyspnea. Comparison: 02/28/2023 Findings: Left-sided subpleural confluent consolidations are unchanged. No pleural effusion or pneumothorax. Stable mild enlargement of cardiac silhouette. Mediastinal contours are normal. Impression: 1. Left-sided pulmonary consolidations are unchanged and most likely due to pneumonia. 2. Advise followup PA and lateral chest radiographs in 4 weeks after appropriate medical management to ensure resolution. Dictated by: Dictated on workstation # [id number]
[2023-03-01 11:24] VITALS: BP 112/62
--- NOTE | 2023-03-01 11:45 | Physical Therapy Daily Note ---
PT Daily Note-Current Subjective Patient is very confused. States he can get up on his own. Pain Section J - Health Conditions 1. Rarely or not at all 2. Occasionally 3. Frequently 4. Almost constantly 8. Unable to answer Pain Effect on Sleep: 8 Pain Interference with Therapy: 8 Pain Interference w/Day-to-Day: 8 Mental Status Patient Orientation: Confused Attachments: Gupta Catheter, IV Transfers SCALE: Activities may be completed with or without assistive devices. 8-Duojswzswc-tpuzckb completes the activity by him/herself with no assistance from a helper. 5-Set-up or Clean-up Assistance-helper sets up or cleans up; patient completes activity. [place] assists only prior to or following the activity. 4-Supervision or Touching Assistance-helper provides verbal cues and/or touching/steadying and/or contact guard assistance as patient completes activity. Assistance may be provided throughout the activity or intermittently. 3-Partial/Moderate Assistance-helper does LESS THAN HALF the effort. [place] lifts, holds or supports trunk or limbs, but provides less than half the effort. 2-Substantial/Maximal Assistance-helper does MORE THAN HALF the effort. [place] lifts or holds trunk or limbs and provides more than half the effort. 0-Fzlrdjmvw-mxnloa does ALL the effort. Patient does none of the effort to complete the activity. Or, the assistance of 2 or more helpers is required for the patient to complete the activity. If activity was not attempted, code reason: 7-Patient Refused. 9-Not Applicable-not attempted and the patient did not perform the activity before the current illness, exacerbation or injury. 10-Not Attempted due to Environmental Limitations-(lack of equipment, weather restraints, etc.). 88-Not Attempted due to Medical Conditions or Safety Concerns. Lying to Sitting/Side of Bed(Q: 2 Sit to Stand (QC): 2 Chair/Fiw-sl-Otcwc Xfer(QC): 2 Weight Bearing Right Lower Extremity: Right Full Weight Bearing Left Lower Extremity: Left Full Weight Bearing Assessment Patient is max assist with all mobility and is unable to stand independently. Patient tolerates minimal activity and is up in recliner with chair alarm activated. PT Group Home Goals Group Home Goals PT Group Home Goals Time Frame: Mar 22, 2023 Roll Left & Right (QC): 4 Sit to Lying (QC): 4 Lying-Sitting on Side/Bed(QC): 4 Sit to Stand (QC): 4 Chair/Gmy-pm-Oljpp Xfer(QC): 4 Toilet Transfer (QC): 4 Does the Patient Walk: Yes Walk 10 feet (QC): 3 Walk 50ft with 2 Turns (QC): 2 Walk 150 ft (QC): 2 PT Plan Treatment/Plan Treatment Plan: Continue Plan of Care Treatment Plan: Bed Mobility, Education, Functional Activity Rock, Functional Strength, Group Therapy, Gait, Safety, Therapeutic Exercise, Transfers Treatment Duration: Mar 22, 2023 Frequency: 6 times per week Estimated Hrs Per Day: .25 hour per day Patient and/or Family Agrees t: Yes Time Time In: 1054 Time Out: 1105 DATE: Mar 01, 2023 Total Billed Treatment Time: 11 Total Billed Treatment 1 visit FA 11 min RAVEN ABRAHAM PT Mar 01, 2023 11:45
--- NOTE | 2023-03-01 11:48 | Progress Note - Hospitalist ---
LINNEATORITO 03/01/23 1148: Subjective HPI/CC On Admission Date Seen by Provider: Mar 01, 2023 Time Seen by Provider: 09:30 CC: Acute encehalopathy found down at home transferred for higher level of care from [facility] [place] [facility] Subjective/Events-last exam When I saw the patient he was eating some solid food. He didn't have much of an appetite at the time, but yesterday he had eaten a little bit. He no longer appears to be in a confused state and he shown significant improvement since his admission. He answers all questions asked clearly and with good hearing. His pain is chronic and has been the same since yesterday and he stated he had some shortness of breath when I initially saw him. He looked a little weak and tired but was otherwise feeling okay and had no other concerns he wanted to talk a bout. Review of Systems General: Fatigue, Malaise HEENT: No Head Aches, No Visual Changes Gastrointestinal: No: Nausea, Vomiting Objective Exam Vital Signs Vital Signs Date Time Temp Pulse Resp B/P (MAP) Pulse Ox O2 Delivery O2 Flow Rate FiO2 03/01/23 11:24 36.3 90 18 112/62 (79) 95 Room Air 03/01/23 03:05 2.00 2.00 Capillary Refill : General Appearance: No Apparent Distress Respiratory: Chest Non Tender, Lungs Clear, Normal Breath Sounds, No Accessory Muscle Use, No Respiratory Distress Cardiovascular: No Edema, Normal Peripheral Pulses Gastrointestinal: Normal Bowel Sounds, Non Tender, Soft Extremity: Normal Capillary Refill, Normal Inspection Neurologic/Psychiatric: Alert, Oriented x3 Skin: Normal Color, Warm/Dry Results/Procedures Lab Laboratory Tests 03/01/23 05:40 03/01/23 08:33 Patient resulted labs reviewed. Assessment/Plan Assessment and Plan Assess & Plan/Chief Complaint Assessment: acute encephalopathy pneumonia sepsis acute rhabdomyolysis recent fall COPD Left lateral thigh acute pressure ulcer current smoker history of aloholism COPD BPH Plan: continue IVF continue IV antibiotics keep in med surg floor and continue monitoring labs Follow up on Chest x-ray SAUMYA RODRIGUEZ DO 03/01/234: Supervisory-Addendum Brief Verification & Attestation Participated in pt care: history, MDM, physical Personally performed: exam, history, MDM, supervision of care Care discussed with: Medical Student Procedures: n/a Results interpretation: Verified all documentation Verification and Attestation of Medical Student E/M Service A medical student performed and documented this service in my presence. I reviewed and verified all information documented by the medical student and made modifications to such information, when appropriate. I personally performed the physical exam and medical decision making. Saumya Rodriguez, Mar 01, 2023,22:04 ESCAMILLA Mar 01, 2023 11:48 SAUMYA RODRIGUEZ DO Mar 01, 2023 22:04
--- NOTE | 2023-03-01 11:50 | Occupational Ther Daily Note ---
OT Current Status-Daily Note Subjective Patient is confused and refers to this therapist as Judy again today, Patient believes he is in [place] Mental Status/Objective Patient Orientation: Person Attachments: Gupta Catheter, IV ADL-Treatment Patient makes several attempts to disrobe while therapist in session. Patient pulls on Gupta tube and asks for IV to be taken out. Therapy Code Descriptions/Definitions Functional [place] Measure: 0=Not Assessed/NA 4=Minimal Assistance 1=Total Assistance 5=Supervision or Setup 2=Maximal Assistance 6=Modified [place] 3=Moderate Assistance 7=Complete IndependenceSCALE: Activities may be completed with or without assistive devices. 4-Kewbuuexah-tdaijdz completes the activity by him/herself with no assistance from a helper. 5-Set-up or Clean-up Assistance-helper sets up or cleans up; patient completes activity. [place] assists only prior to or following the activity. 4-Supervision or Touching Assistance-helper provides verbal cues and/or touching/steadying and/or contact guard assistance as patient completes activity. Assistance may be provided throughout the activity or intermittently. 3-Partial/Moderate Assistance-helper does LESS THAN HALF the effort. [place] lifts, holds or supports trunk or limbs, but provides less than half the effort. 2-Substantial/Maximal Assistance-helper does MORE THAN HALF the effort. [place] lifts or holds trunk or limbs and provides more than half the effort. 3-Vveaoyegz-tnsxir does ALL the effort. Patient does none of the effort to complete the activity. Or, the assistance of 2 or more helpers is required for the patient to complete the activity. If activity was not attempted, code reason: 7-Patient Refused. 9-Not Applicable-not attempted and the patient did not perform the activity before the current illness, exacerbation or injury. 10-Not Attempted due to Environmental Limitations-(lack of equipment, weather restraints, etc.). 88-Not Attempted due to Medical Conditions or Safety Concerns. Eating (QC): 5 Oral Hygiene (QC): 4 (poor management) Shower/Bathe Self (QC): 7 Upper Body Dressing (QC): 3 Lower Body Dressing (QC): 1 On/Off Footwear: 1 Toileting Hygiene (QC): 1 Toilet Transfer (QC): 1 MAX assist to transfer, intermittent Mod assist of 2 bed to recliner Other Treatment LUE positioning, arm BP cuff removed, pillow placed under UE to elevate and reduce Edema Education OT Patient Education: Correct positioning, Home exercise program, Modified ADL techniques, Progress toward Goal/Update tx plan, Purpose of tx/functional activities, Reviewed precautions, Rehab process, Safety issues, Transfer techniques, Use of adapted equipment Teaching Recipient: Patient Teaching Methods: Demonstration, Discussion Response to Teaching: Unable to Return Demonstration, Reinforcement Needed OT Fur Finisher Goals Snf Goals Eating (QC): 5 Oral Hygiene (QC): 5 Toileting Hygiene (QC): 4 Shower/Bathe Self (QC): 4 Upper Body Dressing (QC): 5 Lower Body Dressing (QC): 4 On/Off Footwear (QC): 4 1=Demonstrate adherence to instructed precautions during ADL tasks. 2=Patient will verbalize/demonstrate understanding of assistive dev ices/modifications for ADL. 3=Patient will improve strength/tolerance for activity to enable patient to perform ADL's. OT Education/Plan Problem List/Assessment Assessment: Decreased Activ Tolerance, Decreased Safety Aware, Decreased UE Strength, Dependent Transfers, Impaired Bed Mobility, Impaired Cognition, Impaired Coordination, Impaired Funct Balance, Impaired Self-Care Skills, Restricted Funct UE ROM Discharge Recommendations Plan/Recommendations: Continue POC Treatment Plan/Plan of Care Treatment,Training & Education: Yes Patient would benefit from OT for education, treatment and training to promote independence in ADL's, mobility, safety and/or upper extremity function for ADL's. Plan of Care: ADL Retraining, Cognitive Retraining, Concurrent Therapy, Functional Mobility, Group Exercise/Act as Ind, UE Funct Exercise/Act, UE Neuromus Re-Ed/Coord Treatment Duration: Mar 09, 2023 Frequency: 3 times per week (3-5 times per week) Estimated Hrs Per Day: .25 hour per day Rehab Potential: Poor Time Start Time: 11:00 Stop Time: 11:15 DATE: Mar 01, 2023 Total Time Billed (hr/min): 15 Billed Treatment Time FA 15 min RENITA COUGHLIN OT Mar 01, 2023 11:50
[2023-03-01 15:52] VITALS: BP 125/85
[2023-03-01 19:16] VITALS: BP 145/81
[2023-03-01] MEDS: LORazepam 0.5 MG TABLET PO PRN (20:14)
[2023-03-01] MEDS: MELATONIN 3 MG TABLET PO PRN (20:14)
[2023-03-01 23:04] VITALS: BP 127/77
[2023-03-02] MEDS: LORazepam 0.5 MG TABLET PO PRN ×3 (01:35→20:20)
[2023-03-02] MEDS: oxyCODONE IMMEDIATE RELEASE 5 MG TABLET PO PRN ×4 (01:35→20:20)
[2023-03-02 04:45] VITALS: BP 138/79
[2023-03-02] MEDS: MEROPENEM INJECTION 500 MG in NS (IVPB) 100 ML 100 ML IV SCH ×2 (04:49→10:31)
[2023-03-02] MEDS: THERAPEUTIC MULTIVITAMIN W/MINERALS TABLET PO SCH (04:52)
[2023-03-02 06:22] LABS: BASOPHILS % (AUTO) 0 % (0-10); EOSINOPHILS # (AUTO) 0.2 10^3/uL (0.0-0.3); EOSINOPHILS % (AUTO) 3 % (0-10); HEMATOCRIT 40 % (40-54); HEMOGLOBIN 14.2 g/dL (13.3-17.7); LYMPHOCYTES # (AUTO) 0.9 10^3/uL (1.0-4.0); MEAN CORPUSCULAR HEMOGLOBIN 33 pg (25-34); MEAN CORPUSCULAR HGB CONC 36 g/dL (32-36); MEAN CORPUSCULAR VOLUME 93 fL (80-99); MONOCYTES # (AUTO) 0.9 10^3/uL (0.0-1.0); NEUTROPHILS # (AUTO) 4.2 10^3/uL (1.8-7.8); NEUTROPHILS % (AUTO) 67 % (42-75); WHITE BLOOD COUNT 6.2 10^3/uL (4.3-11.0)
[2023-03-02 06:25] LABS: LYMPHOCYTES % (AUTO) 15 % (12-44); MEAN PLATELET VOLUME 9.8 fL (9.0-12.2); MONOCYTES % (AUTO) 14 % (0-12); PLATELET COUNT 144 10^3/uL (130-400)
[2023-03-02 06:32] LABS: ALBUMIN 2.4 GM/DL (3.2-4.5)
[2023-03-02 06:33] LABS: POTASSIUM 3.2 MMOL/L (3.6-5.0)
[2023-03-02 06:34] LABS: CALCIUM 8.2 MG/DL (8.5-10.1)
[2023-03-02 06:39] LABS: CREATININE SERUM 0.58 MG/DL (0.60-1.30)
[2023-03-02 06:42] LABS: MAGNESIUM 1.7 MG/DL (1.6-2.4)
[2023-03-02] MEDS: POTASSIUM CL 10MEQ/50ML IVPB 50 ML IV SCH (07:29)
[2023-03-02] MEDS: FOLIC ACID 1 MG TAB PO SCH (07:45)
[2023-03-02] MEDS: SENNOSIDES 8.6 MG (SENOKOT) TAB PO SCH ×2 (07:46→20:21)
[2023-03-02] MEDS: ENOXAPARIN 40 MG/0.4 ML SYRINGE SC SCH (07:46)
[2023-03-02] MEDS: DOCUSATE SODIUM 100 MG CAPSULE PO SCH ×2 (07:46→20:21)
[2023-03-02] MEDS: HYPOCHLOROUS ACID/NaCl (VASHE) 250 ML IR SCH (07:46)
[2023-03-02] MEDS: COLLAGENASE OINTMENT 30 GM TUBE TP SCH (07:47)
[2023-03-02] MEDS: MICONAZOLE 2% POWDER 90 GM TOP SCH ×2 (07:47→20:21)
[2023-03-02 07:48] VITALS: BP 122/87
[2023-03-02] MEDS: LevETIRAcetam 500 MG TABLET PO SCH ×2 (08:01→20:20)
[2023-03-02] MEDS: RT-Ipratropium/Albuterol NEB 3 ML VIAL INH SCH ×2 (08:05→18:55)
[2023-03-02] MEDS ORDERED: NICOTINE 21 MG (NICODERM) PATCH TD ONE (10:00)
--- NOTE | 2023-03-02 11:20 | Physical Therapy Daily Note ---
PT Daily Note-Current Subjective Patient is very confused. Requires redirection to remain on task. Pain Section J - Health Conditions 1. Rarely or not at all 2. Occasionally 3. Frequently 4. Almost constantly 8. Unable to answer Pain Effect on Sleep: 8 Pain Interference with Therapy: 8 Pain Interference w/Day-to-Day: 8 Mental Status Patient Orientation: Confused Attachments: IV Transfers SCALE: Activities may be completed with or without assistive devices. 5-Righkgetco-rwubgrc completes the activity by him/herself with no assistance from a helper. 5-Set-up or Clean-up Assistance-helper sets up or cleans up; patient completes activity. [place] assists only prior to or following the activity. 4-Supervision or Touching Assistance-helper provides verbal cues and/or touching/steadying and/or contact guard assistance as patient completes activity. Assistance may be provided throughout the activity or intermittently. 3-Partial/Moderate Assistance-helper does LESS THAN HALF the effort. [place] lifts, holds or supports trunk or limbs, but provides less than half the effort. 2-Substantial/Maximal Assistance-helper does MORE THAN HALF the effort. [place] lifts or holds trunk or limbs and provides more than half the effort. 3-Ghjhtychw-zdiwgu does ALL the effort. Patient does none of the effort to complete the activity. Or, the assistance of 2 or more helpers is required for the patient to complete the activity. If activity was not attempted, code reason: 7-Patient Refused. 9-Not Applicable-not attempted and the patient did not perform the activity b efore the current illness, exacerbation or injury. 10-Not Attempted due to Environmental Limitations-(lack of equipment, weather restraints, etc.). 88-Not Attempted due to Medical Conditions or Safety Concerns. Lying to Sitting/Side of Bed(Q: 2 Sit to Stand (QC): 2 Chair/Evo-va-Hbiqx Xfer(QC): 1 (x 2 assist with use of gait belt) Weight Bearing Right Lower Extremity: Right Full Weight Bearing Left Lower Extremity: Left Full Weight Bearing Treatments left LE hamstring stretch due to increased tone (patient unable to tolerate due to discomfort) Assessment Patient is slightly agitated during session. Patient tolerated minimal activity and continues to require redirection to remain on task. PT Care Home Goals Federal Aid Coordinator Goals PT Federal Aid Coordinator Goals Time Frame: Mar 22, 2023 Roll Left & Right (QC): 4 Sit to Lying (QC): 4 Lying-Sitting on Side/Bed(QC): 4 Sit to Stand (QC): 4 Chair/Auy-cr-Nzxjw Xfer(QC): 4 Toilet Transfer (QC): 4 Does the Patient Walk: Yes Walk 10 feet (QC): 3 Walk 50ft with 2 Turns (QC): 2 Walk 150 ft (QC): 2 PT Plan Treatment/Plan Treatment Plan: Continue Plan of Care, Modify Plan, see comments Treatment Plan: Bed Mobility, Education, Functional Activity Rock, Functional Strength, Group Therapy, Gait, Safety, Therapeutic Exercise, Transfers Treatment Duration: Mar 22, 2023 Frequency: 5 times per week Estimated Hrs Per Day: .25 hour per day Patient and/or Family Agrees t: Yes decrease frequency due to patients progress Time Time In: 1058 Time Out: 1108 DATE: Mar 02, 2023 Total Billed Treatment Time: 10 Total Billed Treatment 1 visit FA 10 min RAVEN ABRAHAM PT Mar 02, 2023 11:20
--- NOTE | 2023-03-02 11:38 | Occupational Ther Daily Note ---
OT Current Status-Daily Note Subjective Argumentative to smoke and leave hospital Appearance unkempt hygiene Mental Status/Objective Patient Orientation: Person, Confused Attachments: IV thinks he is in [place] ADL-Treatment Therapy Code Descriptions/Definitions Functional [place] Measure: 0=Not Assessed/NA 4=Minimal Assistance 1=Total Assistance 5=Supervision or Setup 2=Maximal Assistance 6=Modified [place] 3=Moderate Assistance 7=Complete IndependenceSCALE: Activities may be completed with or without assistive devices. 7-Cskqfbsybg-mxmohbs completes the activity by him/herself with no assistance from a helper. 5-Set-up or Clean-up Assistance-helper sets up or cleans up; patient completes activity. [place] assists only prior to or following the activity. 4-Supervision or Touching Assistance-helper provides verbal cues and/or touching/steadying and/or contact guard assistance as patient completes acti vity. Assistance may be provided throughout the activity or intermittently. 3-Partial/Moderate Assistance-helper does LESS THAN HALF the effort. [place] lifts, holds or supports trunk or limbs, but provides less than half the effort. 2-Substantial/Maximal Assistance-helper does MORE THAN HALF the effort. [place] lifts or holds trunk or limbs and provides more than half the effort. 5-Lxysnrjwg-xhavsu does ALL the effort. Patient does none of the effort to complete the activity. Or, the assistance of 2 or more helpers is required for the patient to complete the activity. If activity was not attempted, code reason: 7-Patient Refused. 9-Not Applicable-not attempted and the patient did not perform the activity before the current illness, exacerbation or injury. 10-Not Attempted due to Environmental Limitations-(lack of equipment, weather restraints, etc.). 88-Not Attempted due to Medical Conditions or Safety Concerns. Eating (QC): 5 Oral Hygiene (QC): 4 Shower/Bathe Self (QC): 7 Upper Body Dressing (QC): 7 (refuses to dress) Lower Body Dressing (QC): 7 (refuses to dress) On/Off Footwear: 1 Toileting Hygiene (QC): 1 Toilet Transfer (QC): 1 2 person transfer required, c/o pain to extremities w/ bed mobility assistance, Slow responses to commands, Education OT Patient Education: Correct positioning, Exercise program, Modified ADL techniques, Progress toward Goal/Update tx plan, Purpose of tx/functional activities, Reviewed precautions, Rehab process, Safety issues, Transfer techniques Teaching Recipient: Patient Teaching Methods: Demonstration, Discussion Response to Teaching: Unable to Return Demonstration, Reinforcement Needed OT Magnetizer Goals Mcfp Goals Eating (QC): 5 Oral Hygiene (QC): 5 Toileting Hygiene (QC): 4 Shower/Bathe Self (QC): 4 Upper Body Dressing (QC): 5 Lower Body Dressing (QC): 4 On/Off Footwear (QC): 4 1=Demonstrate adherence to instructed precautions during ADL tasks. 2=Patient will verbalize/demonstrate understanding of assistive devices/modifications for ADL. 3=Patient will improve strength/tolerance for activity to enable patient to perf orm ADL's. OT Education/Plan Problem List/Assessment Assessment: Decreased Activ Tolerance, Decreased Safety Aware, Decreased UE Strength, Dependent Transfers, Impaired Bed Mobility, Impaired Cognition, Impaired Coordination, Impaired Funct Balance, Impaired Self-Care Skills Discharge Recommendations Plan/Recommendations: Continue POC Therapy Discharge Recommendati: Post Acute OT Treatment Plan/Plan of Care Treatment,Training & Education: Yes Patient would benefit from OT for education, treatment and training to promote independence in ADL's, mobility, safety and/or upper extremity function for ADL's. Plan of Care: ADL Retraining, Cognitive Retraining, Concurrent Therapy, Functional Mobility, Group Exercise/Act as Ind, UE Funct Exercise/Act, UE Neuromus Re-Ed/Coord Treatment Duration: Mar 09, 2023 Frequency: 3 times per week (3-5 times per week) Estimated Hrs Per Day: .25 hour per day Rehab Potential: Poor Recliner chair alarm set, BLEs elevated bed tray over lap , call cord in lap, all needs met Time Start Time: 10:58 Stop Time: 11:08 DATE: Mar 02, 2023 Total Time Billed (hr/min): 10 Billed Treatment Time FA 1`0 min RENITA COUGHLIN OT Mar 02, 2023 11:38
--- NOTE | 2023-03-02 11:53 | Progress Note - Hospitalist ---
LINNEATORITO 03/02/23 1153: Subjective HPI/CC On Admission Date Seen by Provider: Mar 02, 2023 Time Seen by Provider: 09:00 CC: Acute encehalopathy found down at home transferred for higher level of care from [facility] Subjective/Events-last exam Patient has been doing a lot better and has improved since yesterday and he says he feels better too. There is still weakness in his upper extremity and more prominently in his left lower extremity from his neuropathy. He has general weakness and fatigue from recovery but he is eating solid food. He was finishing up his breakfast when I arrived and has had 3 bowel movements with soft stools and no blood since yesterday. He denies any nausea, vomiting, or headaches and his confusion has much improved, he was able to respond well and quickly to my questions about how he was feeling. There was also continuous mention of the chronic pain he has from his neuropathy in his left leg and lower back. Objective Exam Vital Signs Vital Signs Date Time Temp Pulse Resp B/P (MAP) Pulse Ox O2 Delivery O2 Flow Rate FiO2 03/02/23 08:29 Room Air 03/02/23 07:48 36.9 71 22 122/87 (99) 97 03/01/23 03:05 2.00 2.00 Capillary Refill : General Appearance: No Apparent Distress, Chronically ill Respiratory: Chest Non Tender, Lungs Clear, Normal Breath Sounds, No Accessory Muscle Use, No Respiratory Distress Cardiovascular: Regular Rate, Rhythm, No Edema Gastrointestinal: Normal Bowel Sounds, No Organomegaly, No Pulsatile Mass, Non Tender, Soft Back: CVA Tenderness (L) Neurologic/Psychiatric: Alert, Oriented x3 Skin: Normal Color, Warm/Dry Results/Procedures Lab Laboratory Tests 03/02/23 06:15 Patient resulted labs reviewed. Assessment/Plan Assessment and Plan Assess & Plan/Chief Complaint Assessment: acute encephalopathy pneumonia sepsis acute rhabdomyolysis recent fall COPD Left lateral thigh acute pressure ulcer current smoker history of aloholism COPD BPH Plan: continue IVF continue IV antibiotics keep in med surg floor and continue monitoring labs Follow up on Chest x-ray SAUMYA RODRIGUEZ DO 03/03/23 0615: Assessment/Plan Assessment and Plan Assess & Plan/Chief Complaint HLIVF PT OT NHP Supervisory-Addendum Brief Verification & Attestation Participated in pt care: history, MDM, physical Personally performed: exam, history, MDM, supervision of care Care discussed with: Medical Student Procedures: n/a Results interpretation: Verified all documentation Verification and Attestation of Medical Student E/M Service A medical student performed and documented this service in my presence. I reviewed and verified all information documented by the medical student and made modifications to such information, when appropriate. I personally performed the physical exam and medical decision making. Saumya Rodriguez, Mar 03, 2023,06:13 [place] Mar 02, 2023 11:53 SAUMYA RODRIGUEZ DO Mar 03, 2023 06:15
[2023-03-02 11:58] VITALS: BP 125/81
--- NOTE | 2023-03-02 12:47 | Diagnostic Imaging Report ---
INDICATION: Dyspnea. COMPARISON: 03/01/2023. FINDINGS: Left lung infiltrate peripherally at the mid upper chest persists but slightly decreased in density from prior. Some old rib deformities chronic. The right lung clear. No effusion or pneumothorax. IMPRESSION: Partial clearing of left lung infiltrate with no adverse change. Dictated by: Dictated on workstation # [id number]
[2023-03-02 16:43] VITALS: BP 119/71
[2023-03-02 19:41] VITALS: BP 127/78
[2023-03-02] MEDS: CEFDINIR 300 MG CAPSULE PO SCH (20:20)
[2023-03-02 23:49] VITALS: BP 127/82
[2023-03-03 03:33] VITALS: BP 130/83
[2023-03-03 05:56] LABS: BASOPHILS % (AUTO) 0 % (0-10); EOSINOPHILS # (AUTO) 0.2 10^3/uL (0.0-0.3); EOSINOPHILS % (AUTO) 3 % (0-10); HEMATOCRIT 42 % (40-54); HEMOGLOBIN 14.8 g/dL (13.3-17.7); LYMPHOCYTES # (AUTO) 0.9 10^3/uL (1.0-4.0); LYMPHOCYTES % (AUTO) 15 % (12-44); MEAN CORPUSCULAR HEMOGLOBIN 33 pg (25-34); MEAN CORPUSCULAR HGB CONC 35 g/dL (32-36); MEAN CORPUSCULAR VOLUME 93 fL (80-99); MEAN PLATELET VOLUME 10.1 fL (9.0-12.2); MONOCYTES # (AUTO) 0.9 10^3/uL (0.0-1.0); MONOCYTES % (AUTO) 14 % (0-12); NEUTROPHILS # (AUTO) 4.2 10^3/uL (1.8-7.8); NEUTROPHILS % (AUTO) 67 % (42-75); PLATELET COUNT 150 10^3/uL (130-400); WHITE BLOOD COUNT 6.3 10^3/uL (4.3-11.0)
[2023-03-03] MEDS: THERAPEUTIC MULTIVITAMIN W/MINERALS TABLET PO SCH (06:08)
[2023-03-03 06:17] LABS: ALBUMIN 2.5 GM/DL (3.2-4.5); POTASSIUM 3.6 MMOL/L (3.6-5.0)
[2023-03-03 06:19] LABS: CALCIUM 8.4 MG/DL (8.5-10.1)
[2023-03-03 06:20] LABS: TOTAL PROTEIN 6.2 GM/DL (6.4-8.2)
[2023-03-03] MEDS: LORazepam 0.5 MG TABLET PO PRN ×4 (06:20→22:30)
[2023-03-03] MEDS: oxyCODONE IMMEDIATE RELEASE 5 MG TABLET PO PRN ×3 (06:20→22:30)
[2023-03-03 06:23] LABS: CREATININE SERUM 0.6 MG/DL (0.60-1.30)
[2023-03-03 06:26] LABS: MAGNESIUM 1.7 MG/DL (1.6-2.4)
--- NOTE | 2023-03-03 06:35 | Progress Note - Hospitalist ---
Subjective HPI/CC On Admission Date Seen by Provider: Mar 03, 2023 Time Seen by Provider: 11:00 CC: Acute encehalopathy found down at home transferred for higher level of care from [facility] Subjective/Events-last exam Patient doing a lot better Cannot understand why he cannot go home and he is a two-person max assist when he gets up Confused at times Needs alf at discharge Review of Systems General: Fatigue, Malaise Neurological: Weakness, Incoordination, Confusion Objective Exam Vital Signs Vital Signs Date Time Temp Pulse Resp B/P (MAP) Pulse Ox O2 Delivery O2 Flow Rate FiO2 03/03/23 12:00 36.7 90 18 112/80 (91) 96 Room Air 03/03/23 09:32 2.00 Capillary Refill : General Appearance: No Apparent Distress, WD/WN, Chronically ill Respiratory: Lungs Clear, Normal Breath Sounds Cardiovascular: Regular Rate, Rhythm Neurologic/Psychiatric: Alert, Depressed Affect, Motor Weakness Results/Procedures Lab Laboratory Tests 03/03/23 05:25 Patient resulted labs reviewed. Assessment/Plan Assessment and Plan Assess & Plan/Chief Complaint Assessment: acute encephalopathy pneumonia sepsis acute rhabdomyolysis recent fall COPD Left lateral thigh acute pressure ulcer current smoker history of aloholism COPD BPH Plan: snf placement CHARLETTE RODRIGUEZ DO Mar 03, 2023 06:35
[2023-03-03] MEDS ORDERED: POTASSIUM CHLORIDE 20 MEQ TABLET PO ONE (07:30)
[2023-03-03 08:00] VITALS: BP 116/79
[2023-03-03] MEDS: NICOTINE 21 MG (NICODERM) PATCH TD SCH (09:19)
[2023-03-03] MEDS: SENNOSIDES 8.6 MG (SENOKOT) TAB PO SCH ×2 (09:20→20:02)
[2023-03-03] MEDS: DOCUSATE SODIUM 100 MG CAPSULE PO SCH ×2 (09:20→20:02)
[2023-03-03] MEDS: CEFDINIR 300 MG CAPSULE PO SCH ×2 (09:20→20:02)
[2023-03-03] MEDS: ENOXAPARIN 40 MG/0.4 ML SYRINGE SC SCH (09:20)
[2023-03-03] MEDS: FOLIC ACID 1 MG TAB PO SCH (09:20)
[2023-03-03] MEDS: LevETIRAcetam 500 MG TABLET PO SCH ×2 (09:20→20:02)
[2023-03-03] MEDS: NICOTINE PATCH REMOVAL TP SCH (09:20)
[2023-03-03] MEDS: COLLAGENASE OINTMENT 30 GM TUBE TP SCH (09:21)
[2023-03-03] MEDS: MICONAZOLE 2% POWDER 90 GM TOP SCH ×2 (09:21→20:03)
[2023-03-03] MEDS: HYPOCHLOROUS ACID/NaCl (VASHE) 250 ML IR SCH (09:22)
--- NOTE | 2023-03-03 09:31 | Diagnostic Imaging Report ---
INDICATION: Dyspnea. COMPARISON: 03/02/2023 DISCUSSION: Single portable upright view of the chest was obtained. Consolidation within the left lung is stable. Normal heart size. The right lung is well-aerated. No pleural fluid or pneumothorax. No osseous abnormality. IMPRESSION: 1. Stable left lung consolidation. Dictated by: Dictated on workstation # [id number]
[2023-03-03] MEDS: RT-Ipratropium/Albuterol NEB 3 ML VIAL INH SCH ×2 (10:00→21:14)
[2023-03-03 12:00] VITALS: BP 112/80
[2023-03-03 16:00] VITALS: BP 110/71
[2023-03-03 19:52] VITALS: BP 123/83
[2023-03-03] MEDS: MELATONIN 3 MG TABLET PO PRN (20:02)
[2023-03-04] VITALS (7 sets, daily range): BP systolic 110–126; BP diastolic 70–84
[2023-03-04] MEDS: oxyCODONE IMMEDIATE RELEASE 5 MG TABLET PO PRN ×5 (03:22→23:40)
[2023-03-04] MEDS: LORazepam 0.5 MG TABLET PO PRN ×5 (03:22→23:40)
[2023-03-04 06:04] LABS: BASOPHILS % (AUTO) 0 % (0-10); EOSINOPHILS # (AUTO) 0.2 10^3/uL (0.0-0.3); EOSINOPHILS % (AUTO) 5 % (0-10); HEMATOCRIT 42 % (40-54); HEMOGLOBIN 14.6 g/dL (13.3-17.7); LYMPHOCYTES # (AUTO) 0.9 10^3/uL (1.0-4.0); LYMPHOCYTES % (AUTO) 21 % (12-44); MEAN CORPUSCULAR HEMOGLOBIN 32 pg (25-34); MEAN CORPUSCULAR HGB CONC 34 g/dL (32-36); MEAN CORPUSCULAR VOLUME 93 fL (80-99); MEAN PLATELET VOLUME 10.3 fL (9.0-12.2); MONOCYTES # (AUTO) 0.7 10^3/uL (0.0-1.0); MONOCYTES % (AUTO) 16 % (0-12); NEUTROPHILS # (AUTO) 2.5 10^3/uL (1.8-7.8); NEUTROPHILS % (AUTO) 57 % (42-75); PLATELET COUNT 160 10^3/uL (130-400); WHITE BLOOD COUNT 4.4 10^3/uL (4.3-11.0)
[2023-03-04] MEDS: THERAPEUTIC MULTIVITAMIN W/MINERALS TABLET PO SCH (06:14)
[2023-03-04 06:17] LABS: ALBUMIN 2.5 GM/DL (3.2-4.5); POTASSIUM 3.4 MMOL/L (3.6-5.0)
[2023-03-04 06:18] LABS: CALCIUM 8.5 MG/DL (8.5-10.1)
[2023-03-04 06:20] LABS: TOTAL PROTEIN 6.6 GM/DL (6.4-8.2)
[2023-03-04 06:21] LABS: BILIRUBIN,TOTAL 0.7 MG/DL (0.1-1.0)
[2023-03-04 06:23] LABS: CREATININE SERUM 0.6 MG/DL (0.60-1.30)
[2023-03-04 06:26] LABS: MAGNESIUM 1.8 MG/DL (1.6-2.4)
--- NOTE | 2023-03-04 07:22 | Diagnostic Imaging Report ---
INDICATION: Dyspnea. TECHNIQUE: Single view chest at 4:56 AM. CORRELATION STUDY: 03/03/2023. FINDINGS: Infiltrate in the left midlung field does persist but overall slightly decreased. Right lung with perhaps minimal basilar infiltrate; otherwise, unremarkable. Heart size and mediastinum are unremarkable. IMPRESSION: Left midlung infiltrate does persist but overall is slightly improved. Perhaps minimal infiltrate at the right lung base. Dictated by: Dictated on workstation # [id number]
--- NOTE | 2023-03-04 07:57 | Progress Note - Hospitalist ---
Subjective HPI/CC On Admission Date Seen by Provider: Mar 04, 2023 Time Seen by Provider: 11:00 CC: Acute encehalopathy found down at home transferred for higher level of care from [facility] Subjective/Events-last exam Patient about the same No major issues No pain Await long term placement Objective Exam Vital Signs Vital Signs Date Time Temp Pulse Resp B/P (MAP) Pulse Ox O2 Delivery O2 Flow Rate FiO2 03/04/23 16:39 36.5 63 16 123/78 (93) 97 Room Air 03/04/23 07:51 2.00 Capillary Refill : General Appearance: No Apparent Distress, WD/WN, Chronically ill Respiratory: Lungs Clear, Normal Breath Sounds Cardiovascular: Regular Rate, Rhythm Results/Procedures Lab Laboratory Tests 03/04/23 05:18 Patient resulted labs reviewed. Assessment/Plan Assessment and Plan Assess & Plan/Chief Complaint Assessment: acute encephalopathy pneumonia sepsis acute rhabdomyolysis recent fall COPD Left lateral thigh acute pressure ulcer current smoker history of aloholism COPD BPH Plan: long term placement CHARLETTE RODRIGUEZ DO Mar 04, 2023 07:57
[2023-03-04] MEDS: RT-Ipratropium/Albuterol NEB 3 ML VIAL INH SCH ×2 (08:06→18:48)
[2023-03-04] MEDS: MICONAZOLE 2% POWDER 90 GM TOP SCH ×2 (08:23→19:39)
[2023-03-04] MEDS: NICOTINE 21 MG (NICODERM) PATCH TD SCH (08:23)
[2023-03-04] MEDS: CEFDINIR 300 MG CAPSULE PO SCH ×2 (08:24→19:39)
[2023-03-04] MEDS: ENOXAPARIN 40 MG/0.4 ML SYRINGE SC SCH (08:24)
[2023-03-04] MEDS: FOLIC ACID 1 MG TAB PO SCH (08:24)
[2023-03-04] MEDS: LevETIRAcetam 500 MG TABLET PO SCH ×2 (08:24→19:38)
[2023-03-04] MEDS: COLLAGENASE OINTMENT 30 GM TUBE TP SCH (08:24)
[2023-03-04] MEDS: HYPOCHLOROUS ACID/NaCl (VASHE) 250 ML IR SCH (08:25)
[2023-03-04] MEDS: SENNOSIDES 8.6 MG (SENOKOT) TAB PO SCH ×2 (08:25→19:38)
[2023-03-04] MEDS: DOCUSATE SODIUM 100 MG CAPSULE PO SCH ×2 (08:28→19:38)
[2023-03-04] MEDS: NICOTINE PATCH REMOVAL TP SCH (08:28)
[2023-03-04] MEDS: MELATONIN 3 MG TABLET PO PRN (19:39)
[2023-03-05 03:07] VITALS: BP 109/76
[2023-03-05] MEDS: LORazepam 0.5 MG TABLET PO PRN ×2 (04:03→09:15)
[2023-03-05] MEDS: oxyCODONE IMMEDIATE RELEASE 5 MG TABLET PO PRN ×2 (04:04→09:15)
[2023-03-05 05:25] LABS: BASOPHILS % (AUTO) 0 % (0-10); EOSINOPHILS # (AUTO) 0.2 10^3/uL (0.0-0.3); EOSINOPHILS % (AUTO) 4 % (0-10); HEMATOCRIT 41 % (40-54); HEMOGLOBIN 14.4 g/dL (13.3-17.7); LYMPHOCYTES % (AUTO) 21 % (12-44); MEAN CORPUSCULAR HEMOGLOBIN 33 pg (25-34); MEAN CORPUSCULAR HGB CONC 35 g/dL (32-36); MEAN CORPUSCULAR VOLUME 94 fL (80-99); MEAN PLATELET VOLUME 9.9 fL (9.0-12.2); MONOCYTES # (AUTO) 0.7 10^3/uL (0.0-1.0); MONOCYTES % (AUTO) 15 % (0-12); NEUTROPHILS % (AUTO) 60 % (42-75); PLATELET COUNT 180 10^3/uL (130-400)
[2023-03-05 05:38] LABS: ALBUMIN 2.6 GM/DL (3.2-4.5)
[2023-03-05 05:39] LABS: POTASSIUM 3.6 MMOL/L (3.6-5.0)
[2023-03-05 05:40] LABS: CALCIUM 8.7 MG/DL (8.5-10.1)
[2023-03-05 05:41] LABS: TOTAL PROTEIN 6.8 GM/DL (6.4-8.2)
[2023-03-05 05:43] LABS: BILIRUBIN,TOTAL 0.6 MG/DL (0.1-1.0)
[2023-03-05 05:45] LABS: CREATININE SERUM 0.61 MG/DL (0.60-1.30)
[2023-03-05 05:47] LABS: MAGNESIUM 1.6 MG/DL (1.6-2.4)
[2023-03-05] MEDS: THERAPEUTIC MULTIVITAMIN W/MINERALS TABLET PO SCH (06:42)
[2023-03-05 07:57] VITALS: BP 105/70
[2023-03-05] MEDS: RT-Ipratropium/Albuterol NEB 3 ML VIAL INH SCH (08:39)
[2023-03-05] MEDS: CEFDINIR 300 MG CAPSULE PO SCH (09:15)
[2023-03-05] MEDS: LevETIRAcetam 500 MG TABLET PO SCH (09:15)
[2023-03-05] MEDS: NICOTINE 21 MG (NICODERM) PATCH TD SCH (09:15)
[2023-03-05] MEDS: NICOTINE PATCH REMOVAL TP SCH (09:16)
[2023-03-05] MEDS: SENNOSIDES 8.6 MG (SENOKOT) TAB PO SCH (09:16)
[2023-03-05] MEDS: COLLAGENASE OINTMENT 30 GM TUBE TP SCH (09:16)
[2023-03-05] MEDS: FOLIC ACID 1 MG TAB PO SCH (09:16)
[2023-03-05] MEDS: MICONAZOLE 2% POWDER 90 GM TOP SCH (09:16)
[2023-03-05] MEDS: ENOXAPARIN 40 MG/0.4 ML SYRINGE SC SCH (09:16)
[2023-03-05] MEDS: DOCUSATE SODIUM 100 MG CAPSULE PO SCH (09:16)
--- NOTE | 2023-03-05 10:03 | Diagnostic Imaging Report ---
INDICATION: Dyspnea. Comparison is made with prior exam of 03/04/2023 FINDINGS: The heart size, mediastinal configuration, and pulmonary vascularity are within normal limits. There is no pleural effusion, pneumothorax, or pneumonia. The osseous structures are unremarkable. IMPRESSION: No acute cardiopulmonary abnormality. Dictated by: Dictated on workstation # [id number]
--- NOTE | 2023-03-05 10:16 | Physical Therapy Daily Note ---
PT Daily Note-Current Subjective Patient agrees to PT. Pain Section J - Health Conditions 1. Rarely or not at all 2. Occasionally 3. Frequently 4. Almost constantly 8. Unable to answer Pain Effect on Sleep: 8 Pain Interference with Therapy: 8 Pain Interference w/Day-to-Day: 8 Transfers SCALE: Activities may be completed with or without assistive devices. 4-Tihfrgzbsn-hpbpafc completes the activity by him/herself with no assistance from a helper. 5-Set-up or Clean-up Assistance-helper sets up or cleans up; patient completes activity. [place] assists only prior to or following the activity. 4-Supervision or Touching Assistance-helper provides verbal cues and/or touching/steadying and/or contact guard assistance as patient completes activity. Assistance may be provided throughout the activity or intermittently. 3-Partial/Moderate Assistance-helper does LESS THAN HALF the effort. [place] lifts, holds or supports trunk or limbs, but provides less than half the effort. 2-Substantial/Maximal Assistance-helper does MORE THAN HALF the effort. [place] lifts or holds trunk or limbs and provides more than half the effort. 1-Qcxxhwtko-jbatst does ALL the effort. Patient does none of the effort to complete the activity. Or, the assistance of 2 or more helpers is required for the patient to complete the activity. If activity was not attempted, code reason: 7-Patient Refused. 9-Not Applicable-not attempted and the patient did not perform the activity before the current illness, exacerbation or injury. 10-Not Attempted due to Environmental Limitations-(lack of equipment, weather restraints, etc.). 88-Not Attempted due to Medical Conditions or Safety Concerns. Lying to Sitting/Side of Bed(Q: 2 Sit to Stand (QC): 2 Chair/Ifc-yj-Qlrpx Xfer(QC): 2 Weight Bearing Right Lower Extremity: Right Full Weight Bearing Left Lower Extremity: Left Full Weight Bearing Exercises Seated Therapy Exercises: Long arc quads Seated Reps: 15 (AAROM left LE) Assessment Patient up in recliner with needs met. Patient incontinent urine requiring assist to cleanse and change. Continue to increase activity as tolerated by patient. PT Correction Goals Motel Front Desk Clerk Goals PT Correction Goals Time Frame: Mar 22, 2023 Roll Left & Right (QC): 4 Sit to Lying (QC): 4 Lying-Sitting on Side/Bed(QC): 4 Sit to Stand (QC): 4 Chair/Ybf-ev-Dbdkb Xfer(QC): 4 Toilet Transfer (QC): 4 Does the Patient Walk: Yes Walk 10 feet (QC): 3 Walk 50ft with 2 Turns (QC): 2 Walk 150 ft (QC): 2 PT Plan Treatment/Plan Treatment Plan: Continue Plan of Care Treatment Plan: Bed Mobility, Education, Functional Activity Rock, Functional Strength, Group Therapy, Gait, Safety, Therapeutic Exercise, Transfers Treatment Duration: Mar 22, 2023 Frequency: 5 times per week Estimated Hrs Per Day: .25 hour per day Patient and/or Family Agrees t: Yes Time Time In: 1000 Time Out: 1010 DATE: Mar 05, 2023 Total Billed Treatment Time: 10 Total Billed Treatment 1 visit FA 10 min RAVEN ABRAHAM PT Mar 05, 2023 10:16
[2023-03-05 11:50] VITALS: BP 106/78
--- NOTE | 2023-03-05 12:47 | Discharge Summary ---
Discharge Summary Hospital Course Hospital Course Date of Admission: Feb 26, 2023 at 21:27 Admission Diagnosis : Altered mental status History of CVA Left sided weakness Multiple skin ulcers Pneumonia Sepsis Rhabdomyolysis [facility] Date [facility]: 03/05/23 Discharge Diagnosis: Altered mental status History of CVA with Left sided weakness Multiple skin ulcers Pneumonia Sepsis Rhabdomyolysis Ascending aorta aneurysm Hospital Course: This is a 62[facility]WM of [facility] who is known from prior ARU admit 11/2022 following spine abscess evacuation with hardware removal who has a h/o left sided weakness from prior CVA who was found down at home after a fall per patient. Patient was very confused and unable to obtain any reliable details on admit. No family came with him and EMS was unsure who called EMS. Left thigh pressure ulcer draining serous drainage noted along with other areas of pressure ulcers of left side of scalp and right lateral leg in healing stages were noted on admit. He was found to have PNA and sepsis with elevated wbc of 28k and acute rhabdomyolysis. CT chest showed extensive airspace opacities in left lung most likely due to infection, but also possible inflammatory or hemorrhage, underlying malignancy not ruled out- will need follow up to resolution. CT also showed ascending aorta aneurysm (4.3 cm), mild cardiomegaly and new lithiasis. CT head showed no acute intracranial hemorrhage, mass, midline shift, did have redemonstration of large right MCA territory encephalomalacia and chronic calcification of the right MCA. He was treated with meropenem and vanc followed by cefdinir for pneumonia and had improved mental status and CXR. He did continue to have significant debility and chronic left sided weakness after previous stroke, unable to safely care for self at home and was discharged to residential. He was also seen by Wound Care physician and had unstageable pressure ulcer left loateral lower leg and a stage 3 pressure ulcer left hip and thigh for which she recommended daily Vashe, thick layer Santyl and secure with BFD and change daily as well as frequent positional changes and cushioning to offload. Left hip xray did not show osteomyelitis. Patient will need referral to Vascular surgery as outpatient for the ascending aortic aneurysm. Labs and Pending Lab Test: Laboratory Tests 03/05/23 04:50: White Blood Count 5.0, Red Blood Count 4.42, Hemoglobin 14.4, Hematocrit 41, Mean Corpuscular Volume 94, Mean Corpuscular Hemoglobin 33, Mean Corpuscular Hemoglobin Concent 35, Red Cell Distribution Width 12.6, Platelet Count 180, Mean Platelet Volume 9.9, Immature Granulocyte % (Auto) 1, Neutrophils (%) (Auto) 60, Lymphocytes (%) (Auto) 21, Monocytes (%) (Auto) 15H, Eosinophils (%) (Auto) 4, Basophils (%) (Auto) 0, Neutrophils # (Auto) 3.0, Lymphocytes # (Auto) 1.0, Monocytes # (Auto) 0.7, Eosinophils # (Auto) 0.2, Basophils # (Auto) 0.0, Immature Granulocyte # (Auto) 0.0, Sodium Level 136, Potassium Level 3.6, Chloride Level 102, Carbon Dioxide Level 24, Anion Gap 10, Blood Urea Nitrogen 10, Creatinine 0.61, Estimat Glomerular Filtration Rate 109, BUN/Creatinine Ratio 16, Glucose Level 78, Calcium Level 8.7, Corrected Calcium 9.8, Magnesium Level 1.6, Total Bilirubin 0.6, Aspartate Amino Transf (AST/SGOT) 71H, Alanine Aminotransferase (ALT/SGPT) 43, Alkaline Phosphatase 68, Total Creatine Kinase 48, Total Protein 6.8, Albumin 2.6L Microbiology 02/26/23 MRSA Screen - Final, Complete MRSA not isolated Home Meds Active Levetiracetam 500 Mg Tablet 500 Mg PO BID Atorvastatin Calcium 40 Mg Tablet 40 Mg PO HS Reported Flomax (Tamsulosin HCl) 0.4 Mg Cap 0.4 Mg PO DAILY Fluoxetine HCl 20 Mg Capsule 20 Mg PO DAILY Amitriptyline HCl 10 Mg Tablet 10 Mg PO HS Instructions to Patient/Family Assessment/Instructions For wounds: cleanse daily with vashe. Apply thick layer santyl. Secure with BFD and change daily. Frequent positional changes and cushioning to off load. Follow Up Appt.: Follow up via physician at SNF Needs referral to Vascular Surgery outpatient Skilled NF Admit to: [facility] Certification (SNF) I certify that SNF services are required to be given on an inpatient basis because of the above named patient's need for residential care on a continuing basis for the conditions(s) for which he/she was receiving inpatient hospital services prior to his/her transfer to the SNF. Long-Term Facility Order: Nursing Services, Toll Booth Operator-Evaluate & Treat, Physical Therapy-Evaluate & Treat, Speech Language-Evaluate & Treat, Wound Care-Eval/Treat Oxygen Delivery Method: Room Air Discharge Diet: Other Diet (Per ST: IDDSI level 4 and level 2 diet recommended at this time.) Daily Activity as Tolerated: No (Avoid heavy lifting, Valsalva maneuvers) Alberto Cloud Mar 05, 2023 12:44 Discharge Physical Exam General: Alert, Other (oriented to self and location, speech mildly dysarthric) HEENT: PERRLA, EOMI Lungs: Clear to Auscultation Heart: Regular Rate Extremities: No Edema Neuro: Other (left mouth droop, unable to move left arm, hand or left leg, foot against gravity) Psych/Mental Status: Mood NL ALBERTO CLOUD MD Mar 05, 2023 12:47
[2023-03-05 13:45] VITALS: BP 106/78
== END 2023-03-05 13:45 | DRG 871 ==
LOC: ICU 21:27 → 4TH 02-27 14:23
PROVIDERS: ADMIT Internal Medicine; ATTEND Family Medicine
DX: A41.9 Sepsis, unspecified organism (principal); J18.9 Pneumonia, unspecified organism; L89.223 Pressure ulcer of left hip, stage 3; M62.82 Rhabdomyolysis; G93.40 Encephalopathy, unspecified; J44.0 Chronic obstructive pulmonary disease with (acute) lower respiratory infection; E44.0 Moderate protein-calorie malnutrition; E87.20 Acidosis, unspecified; I69.354 Hemiplegia and hemiparesis following cerebral infarction affecting left non-dominant side; F17.210 Nicotine dependence, cigarettes, uncomplicated; L89.890 Pressure ulcer of other site, unstageable; E86.0 Dehydration; Z68.22 Body mass index [BMI] 22.0-22.9, adult; I10 Essential (primary) hypertension; F10.20 Alcohol dependence, uncomplicated; Y90.0 Blood alcohol level of less than 20 mg/100 ml; N40.0 Benign prostatic hyperplasia without lower urinary tract symptoms; F32.A Depression, unspecified; G62.9 Polyneuropathy, unspecified; E03.9 Hypothyroidism, unspecified; E78.00 Pure hypercholesterolemia, unspecified; F12.90 Cannabis use, unspecified, uncomplicated; I71.21 Aneurysm of the ascending aorta, without rupture; Z88.1 Allergy status to other antibiotic agents
CPT/HCPCS: 36415; 36600; 70450; 71045; 71260; 73502; 80053; 80202; 80320; 82140; 82550; 82805; 82947; 83735; 84100; 85007; 85025; 85027; 85652; 86141; 87081; 94640; 94760